=== PATIENT | female | born 1950 | race Caucasian/White ===

== ENCOUNTER 2019-12-13 19:43 | Emergency (ER) | payer MEDICARE, OTHER ==
[~2019-12-13] VITALS: Ht 165.1 cm; Wt 77.1 kg
--- OUTSIDE RECORDS SUMMARY | ~2019-12-13 | XMS | Encounter Summary ---
Demographics + + + | Address | [address] | | | [place] [address] | + + + | Home Phone | | + + + | Preferred Language | Unknown | + + + | Marital Status | Single | + + + | Taoism Affiliation | Unknown | + + + | Race | White | + + + | Ethnic Group | Not or | + + + Author + + + | Author | [facility] | + + + | Organization | [facility] | + + + | Address | Unknown | + + + | Phone | Unavailable | + + + Support + + +---------+ + | Name | Relationship | Address | Phone | + + +---------+ + | Jese Blair | ECON | Unknown | | + + +---------+ + Care Team Providers + +------+ + | Care Manager Plant Name | Role | Phone | + +------+ + | Jose Robles MD | PCP | | + +------+ + Encounter Details +--------+ + + + + | Date | Type | Department | Care Team | Description | +--------+ + + + + | 08/13/ | Pharmacy | [facility] | | | | 2020 | Visit | [address] [facility] | | | | | | [facility] [address] | | | | | | [place] [address] | | | | | | [phone] | | | +--------+ + + + + Social History + +-------+ +--------+------+ | Tobacco Use | Types | Packs/Day | Years | Date | | | | | Used | | + +-------+ +--------+------+ | Never Smoker | | | | | + +-------+ +--------+------+ + +---+---+---+ | Smokeless Tobacco: | | | | | Never Used | | | | + +---+---+---+ + + +---------+ + | Alcohol Use | Drinks/Week | oz/Week | Comments | + + +---------+ + | Yes | 1 Standard drinks | 1.0 | | | | or equivalent | | | + + +---------+ + + + + | Sex Assigned at | Date Recorded | | | | + + + | Not on file | | + + + + + + + | Job Start Date | Occupation | Industry | + + + + | Not on file | Not on file | Not on file | + + + + + + + + | Travel History | Travel Start | Travel End | + + + + + + | No recent travel history available. | + + documented as of this encounter Plan of Treatment +--------+ + + + + | Date | Type | Specialty | Care Team | Description | +--------+ + + + + | 12/25/ | Video/TeleH | Cardiology | Fabiana Larsen, | | | 2019 | ealth-Sched | | [facility] [address] | | | | uled | | [address] | | | | | | [place], [place] | | | | | | [address] | | +--------+ + + + + | 12/25/ | Video/TeleH | Cardiology | Tessie Mabry | | | 2019 | ealth-Sched | | [place] [address] | | | | uled | | [address] | | | | | | [place], [place] | | | | | | [address] | | | | | | [phone] | | | | | | | | +--------+ + + + + documented as of this encounter Visit Diagnoses Not on filedocumented in this encounter"
--- OUTSIDE RECORDS SUMMARY | ~2019-12-13 | XMS | Encounter Summary ---
Demographics + + + | Address | [address] | | | [place] [address] | + + + | Home Phone | | + + + | Preferred Language | Unknown | + + + | Marital Status | Single | + + + | Bahai Affiliation | Unknown | + + + | Race | White | + + + | Ethnic Group | Not or | + + + Author + + + | Author | [facility] | + + + | Organization | [facility] | + + + | Address | Unknown | + + + | Phone | Unavailable | + + + Support + + +---------+ + | Name | Relationship | Address | Phone | + + +---------+ + | Jese Blair | ECON | Unknown | | + + +---------+ + Care Team Providers + +------+ + | Care Pmp Name | Role | Phone | + +------+ + | Brooks Dempsey DO | PCP | | + +------+ + Encounter Details +--------+ + + + + | Date | Type | Department | Care Team | Description | +--------+ + + + + | 07/29/ | Abstract | Cardiology | Joanie Lynne | | | 2018 | | Preventive at [facility] | [address] | | | | | [address] | [address] [place], | | | | | [facility] | [place] [address] | | | | | and [address], | [phone] | | | | | [address] | | | | | | [place], [place] | | | | | | [address] | | | | | | [phone] | | | +--------+ + + + [...] [address] | | | | ulzac | | [address] | | | | | | [facility] [place] | | | | | | [address] | | +--------+ + + + + | 12/25/ | Video/TeleH | Cardiology | Tessie Mabry | | | 2019 | ealth-Sched | | Mary Jo, CTO [address] | | | | uled | | [address] | | | | | | [place], [place] | | | | | | [address] | | | | | | [phone] | | | | | | | | +--------+ + + + + documented as of this encounter Visit Diagnoses Not on filedocumented in this encounter"
--- OUTSIDE RECORDS SUMMARY | ~2019-12-13 | XMS | Encounter Summary ---
Demographics + + + | Address | [address] | | | [place] [address] | + + + | Home Phone | | + + + | Preferred Language | Unknown | + + + | Marital Status | Single | + + + | Jehovah'S Witness Affiliation | Unknown | + + + | Race | White | + + + | Ethnic Group | Not or | + + + Author + + + | Author | [facility] | + + + | Organization | [facility] | + + + | Address | Unknown | + + + | Phone | Unavailable | + + + Support + + +---------+ + | Name | Relationship | Address | Phone | + + +---------+ + | Jese Blair | ECON | Unknown | | + + +---------+ + Care Team Providers + +------+ + | Care Call Center Rn Name | Role | Phone | + +------+ + | Jose Robles MD | PCP | | + +------+ + Encounter Details +--------+ + + + + | Date | Type | Department | Care Team | Description | +--------+ + + + + | 04/11/ | Pharmacy | [facility] | | | | 2019 | Visit | [address] | | | | | | [facility] [address] | | | | | | [place] [address] | | | | | | [phone] | | | +--------+ + + + [...] Rd | | | | | | [place], [place] | | | | | | [address] | | +--------+ + + + + | 12/25/ | Video/TeleH | Cardiology | Tessie Mabry | | | 2019 | ealth-Sched | | [place] [address] | | | | uled | | [address] | | | | | | [place], [place] | | | | | | [address] | | | | | | [phone] | | | | | | | | +--------+ + + + + documented as of this encounter Visit Diagnoses Not on filedocumented in this encounter"
--- OUTSIDE RECORDS SUMMARY | ~2019-12-13 | XMS | Encounter Summary ---
Demographics + + + | Address | [address] | | | [place] [address] | + + + | Home Phone | | + + + | Preferred Language | Unknown | + + + | Marital Status | Single | + + + | Latter-Day Affiliation | Unknown | + + + | Race | White | + + + | Ethnic Group | Not or | + + + Author + + + | Author | [facility] | + + + | Organization | [facility] | + + + | Address | Unknown | + + + | Phone | Unavailable | + + + Support + + +---------+ + | Name | Relationship | Address | Phone | + + +---------+ + | Jese Blair | ECON | Unknown | | + + +---------+ + Care Team Providers + +------+ + | Care Track Laying Supervisor Name | Role | Phone | + +------+ + | Brooks Dempsey DO | PCP | | + +------+ + Encounter Details +--------+ + + + + | Date | Type | Department | Care Team | Description | +--------+ + + + + | 05/24/ | Document-Sc | Health Information | Unknown . | | | 2013 | anned | Services [address] | | | | | | [address] | | | | | | Mailcode: [id number] | | | | | | [facility] | | | | | | [place], [place] | | | | | | [address] | | | | | | [phone] | | | +--------+ + + + + Social History + +-------+ +--------+------+ | Tobacco Use | Types | Packs/Day | Years | Date | | | | | Used | | + +-------+ +--------+------+ | Never Assessed | | | | | + +-------+ +--------+------+ + + + | Sex Assigned at [...] 2019 | ealth-Sched | | [place] [address] [facility] | | | | re | | [address] | | | | | | [place], [place] | | | | | | [address] | | +--------+ + + + + | 12/25/ | Video/TeleH | Cardiology | Tessie Mabry | | | 2019 | ealth-Sched | | [place] [address] [facility] | | | | re | | [address] | | | | | | [place], [place] | | | | | | [address] | | | | | | [phone] | | | | | | | | +--------+ + + + + documented as of this encounter Procedures + +--------+ + + + | Procedure Name | Priori | Date/Time | Associated Diagnosis | Comments | | | ty | | | | + +--------+ + + + | RADIOLOGY | | 05/24/2013 | | Results for this | | | | 12:00 AM | | procedure are in the | | | | PST | | results section. | + +--------+ + + + documented in this encounter Results RADIOLOGY (05/24/2013 12:00 AM PST) + + + | Narrative | Performed At | + + + | | | + + + documented in this encounter Visit Diagnoses Not on filedocumented in this encounter"
--- OUTSIDE RECORDS SUMMARY | ~2019-12-13 | XMS | Encounter Summary ---
Demographics + + + | Address | [address] | | | [place] [address] | + + + | Home Phone | | + + + | Preferred Language | Unknown | + + + | Marital Status | Single | + + + | Jewish Affiliation | Unknown | + + + | Race | White | + + + | Ethnic Group | Not or | + + + Author + + + | Author | [facility] | + + + | Organization | [facility] | + + + | Address | Unknown | + + + | Phone | Unavailable | + + + Support + + +---------+ + | Name | Relationship | Address | Phone | + + +---------+ + | Jese Blair | ECON | Unknown | | + + +---------+ + Care Team Providers + +------+ + | Care Filing Machine Operator Name | Role | Phone | + +------+ + | Jose Robles MD | PCP | | + +------+ + Encounter Details +--------+ + + + + | Date | Type | Department | Care Team | Description | +--------+ + + + + | 08/13/ | Pharmacy | [facility] | | | | 2020 | Visit | [address] [facility] | | | | | | [facility] [address] | | | | | | [place] [address] | | | | | | [phone] | | | +--------+ + + + [...] Rd | | | | | | [place], [place] | | | | | | [address] | | +--------+ + + + + | 12/25/ | Video/TeleH | Cardiology | Tessie Mabry | | | 2019 | ealth-Sched | | [place] [address] | | | | uled | | [address] | | | | | | [place], [place] | | | | | | [address] | | | | | | [phone] | | | | | | | | +--------+ + + + + documented as of this encounter Visit Diagnoses Not on filedocumented in this encounter"
--- OUTSIDE RECORDS SUMMARY | ~2019-12-13 | XMS | Encounter Summary ---
Demographics + + + | Address | [address] | | | [place] [address] | + + + | Home Phone | | + + + | Preferred Language | Unknown | + + + | Marital Status | Single | + + + | Methodist Affiliation | Unknown | + + + | Race | White | + + + | Ethnic Group | Not or | + + + Author + + + | Author | [facility] | + + + | Organization | [facility] | + + + | Address | Unknown | + + + | Phone | Unavailable | + + + Support + + +---------+ + | Name | Relationship | Address | Phone | + + +---------+ + | Jese Blair | ECON | Unknown | | + + +---------+ + Care Team Providers + +------+ + | Care Contract Writer Name | Role | Phone | + +------+ + | Brooks Dempsey DO | PCP | | + +------+ + Encounter Details +--------+ + + + + | Date | Type | Department | Care Team | Description | +--------+ + + + + | 03/02/ | MyChart | Cardiology | Joanie Lynne | RE: Follow up on | | 2018 | Encounter | Preventive at [facility] | [address] | concern about hip | | | | [address] | [address], | pain/Rapatha | | | | [place] [facility] | [place] [address] | connection | | | | and Healing, | [phone] | | | | | [address] | | | | | | [place], [place] | | | | | | [address] | | | | | | [phone] | | | +--------+ + + + [...] | 2019 | ealth-Sched | | [place] [address] | | | | uled | | [address] | | | | | | [place], [place] | | | | | | [address] | | +--------+ + + + + | 12/25/ | Video/TeleH | Cardiology | Tessie Mabry | | 2019 | ealth-Sched | | Mary Jo, SENIOR SCHEDULER [address] | | | | uled | | [address] | | | | | | [place], [place] | | | | | | [address] | | | | | | [phone] | | | | | | | | +--------+ + + + + documented as of this encounter Visit Diagnoses Not on filedocumented in this encounter"
--- OUTSIDE RECORDS SUMMARY | ~2019-12-13 | XMS | Encounter Summary ---
Demographics + + + | Address | [address] | | | [place] [address] | + + + | Home Phone | | + + + | Preferred Language | Unknown | + + + | Marital Status | Single | + + + | Rastafarian Affiliation | Unknown | + + + | Race | White | + + + | Ethnic Group | Not or | + + + Author + + + | Organization | Unknown | + + + | Address | Unknown | + + + | Phone | Unavailable | + + + Support + + +---------+ + | Name | Relationship | Address | Phone | + + +---------+ + | Jese Ramirez ECON | Unknown | | + + +---------+ + Care Team Providers + +------+ + | Care Bleacher Pulp Name | Role | Phone | + +------+ + | Jose Robles MD | PCP | | + +------+ + Encounter Details +--------+--------+ + + + | Date | Type | Department | Care Team | Description | +--------+--------+ + + + | 11/23/ | Travel | | | | | 2019 | | | | | +--------+--------+ + + + Social History + +-------+ [...] 2019 | ealth-Sched | | [address] [address] | | | | re | | [address] | | | | | | [place], [place] | | | | | | [address] | | +--------+ + + + + | 12/25/ | Video/TeleH | Cardiology | Tessie Mabry | | | 2020 | [facility] | | [place] [address] [facility] | | | | re | | [address] | | | | | | [place] | | | | | | [address] | | | | | | [phone] | | | | | | | | +--------+ + + + + documented as of this encounter Visit Diagnoses Not on filedocumented in this encounter"
--- OUTSIDE RECORDS SUMMARY | ~2019-12-13 | XMS | Encounter Summary ---
Demographics + + + | Address | [address] | | | [place] [address] | + + + | Home Phone | | + + + | Preferred Language | Unknown | + + + | Marital Status | Single | + + + | Lutheran Affiliation | Unknown | + + + | Race | White | + + + | Ethnic Group | Not or | + + + Author + + + | Author | [facility] | + + + | Organization | [facility] | + + + | Address | Unknown | + + + | Phone | Unavailable | + + + Support + + +---------+ + | Name | Relationship | Address | Phone | + + +---------+ + | Jese Blair | ECON | Unknown | | + + +---------+ + Care Team Providers + +------+ + | Care Dry Kiln Operator Helper Name | Role | Phone | + +------+ + | Brooks Dempsey DO | PCP | | + +------+ + Encounter Details +--------+ + + + + | Date | Type | Department | Care Team | Description | +--------+ + + + + | 05/24/ | Document-Sc | Health Information | Unknown . | | | 2013 | anned | Services [address] | | | | | | [address] | | | | | | Mailcode: [id number] | | | | | | [facility] | | | | | | [place], [place] | | | | | | [address] | | | | | | [phone] | | | +--------+ + + + [...] 2019 | ealth-Sched | | [facility] [address] [facility] | | | | re | | [address] | | | | | | [place], [place] | | | | | | [address] | | +--------+ + + + + | 12/25/ | Video/TeleH | Cardiology | Tessie Mabry | | | 2019 | ealth-Sched | | [place] [address] [facility] | | | | re | | [address] | | | | | | [place], [place] | | | | | | [address] | | | | | | [phone] | | | | | | | [...]
--- OUTSIDE RECORDS SUMMARY | ~2019-12-13 | XMS | Encounter Summary ---
Demographics + + + | Address | [address] | | | [place] [address] | + + + | Home Phone [...] Author + + + | Author | [facility] | + + + | Organization | [facility] | + + + | Address | Unknown | + + + | Phone | Unavailable | + + + Support + + +---------+ + | Name | Relationship | Address | Phone | + + +---------+ + | Jese Blair | ECON | Unknown | | + + +---------+ + Care Team Providers + +------+ + | Care Dump Grader Name | Role | Phone | + +------+ + | Jose Robles MD | PCP | | + +------+ + Encounter Details +--------+ + + + + | Date | Type | Department | Care Team | Description | +--------+ + + + + | 05/15/ | Pharmacy | [facility] | | | | 2020 | Visit | [address] [facility] | | | | | | [facility] [place] [address] | | | | | | [place] [address] | | | | | | [phone] | | | +--------+ + + + [...] Rd | | | | | | [place], [place] | | | | | | [address] | | +--------+ + + + + | 12/25/ | Video/TeleH | Cardiology | Tessie Mabry | | | 2019 | ealth-Sched | | [place] [address] | | | | uled | | [address] | | | | | | [place], [place] | | | | | | [address] | | | | | | [phone] | | | | | | | | +--------+ + + + + documented as of this encounter Visit Diagnoses Not on filedocumented in this encounter"
--- OUTSIDE RECORDS SUMMARY | ~2019-12-13 | XMS | Encounter Summary ---
Demographics + + + | Address | [address] | | | [place] [address] | + + + | Home Phone | | + + + | Preferred Language | Unknown | + + + | Marital Status | Single | + + + | Adventist Affiliation | Unknown | + + + | Race | White | + + + | Ethnic Group | Not or | + + + Author + + + | Author | [facility] | + + + | Organization | [facility] | + + + | Address | Unknown | + + + | Phone | Unavailable | + + + Support + + +---------+ + | Name | Relationship | Address | Phone | + + +---------+ + | Jese Blair | ECON | Unknown | | + + +---------+ + Care Team Providers + +------+ + | Care Sack Filler Name | Role | Phone | + +------+ + | Jose Robles MD | PCP | | + +------+ + Reason for Visit + + + | Reason | Comments | + + + | Refill Request | | + + + Encounter Details +--------+--------+ + + + | Date | Type | Department | Care Team | Description | +--------+--------+ + + + | 08/11/ | Refill | Cardiology | Joanie Lynne | Refill Request | | 2019 | | Preventive at [facility] | [address] | | | | | [address] | [address] [place], | | | | | [facility] | [place] [address] | | | | | and [place], | [phone] | | | | | [address] | | | | | | [place], [place] | | | | | | [address] | | | | | | [phone] | | | +--------+--------+ + + + [...] [address] | | | | re | | [address] | | | | | | [facility] [place] | | | | | | [address] | | +--------+ + + + + | 12/25/ | Video/TeleH | Cardiology | Tessie Mabry | | | 2019 | ealth-Sched | | [place] [address] | | | | uled | | [address] | | | | | | [place] | | | | | | [address] | | | | | | [phone] | | | | | | | | +--------+ + + + + documented as of this encounter Visit Diagnoses Not on filedocumented in this encounter"
--- OUTSIDE RECORDS SUMMARY | ~2019-12-13 | XMS | Encounter Summary ---
Demographics + + + | Address | [address] | | | [place] [address] | + + + | Home Phone | | + + + | Preferred Language | Unknown | + + + | Marital Status | Single | + + + | Mosque Affiliation | Unknown | + + + | Race | White | + + + | Ethnic Group | Not or | + + + Author + + + | Author | [facility] | + + + | Organization | [facility] | + + + | Address | Unknown | + + + | Phone | Unavailable | + + + Support + + +---------+ + | Name | Relationship | Address | Phone | + + +---------+ + | Jese Blair | ECON | Unknown | | + + +---------+ + Care Team Providers + +------+ + | Care Certified Pharmacy Tech Name | Role | Phone | + +------+ + | Jose Robles MD | PCP | | + +------+ + Encounter Details +--------+ + + + + | Date | Type | Department | Care Team | Description | +--------+ + + + + | 09/05/ | Pharmacy | [facility] | | | | 2017 | Visit | Pharmacy [address] | | | | | | [address] | | | | | | [place], [place] | | | | | | [address] | | | | | | [phone] | | | +--------+ + + + [...] | | 2019 | ealth-Sched | | [address] | | | | uled | | [address] | | | | | | [place] | | | | | | [address] | | +--------+ + + + + | 12/25/ | Video/TeleH | Cardiology | Tessie Mabry | | | 2019 | ealth-Sched | | [place] [facility] [address] | | | | uled | | [address] | | | | | | [place], [place] | | | | | | [address] | | | | | | [phone] | | | | | | | | +--------+ + + + + documented as of this encounter Visit Diagnoses Not on filedocumented in this encounter"
--- OUTSIDE RECORDS SUMMARY | ~2019-12-13 | XMS | Encounter Summary ---
Demographics + + + | Address | [address] | | | [place] [address] | + + + | Home Phone | | + + + | Preferred Language | Unknown | + + + | Marital Status | Single | + + + | Restorationism Affiliation | Unknown | + + + | Race | White | + + + | Ethnic Group | Not or | + + + Author + + + | Author | [facility] | + + + | Organization | [facility] | + + + | Address | Unknown | + + + | Phone | Unavailable | + + + Support + + +---------+ + | Name | Relationship | Address | Phone | + + +---------+ + | Jese Blair | ECON | Unknown | | + + +---------+ + Care Team Providers + +------+ + | Care Fringe Knotter Name | Role | Phone | + +------+ + | Jose Robles MD | PCP | | + +------+ + Encounter Details +--------+ + + + + | Date | Type | Department | Care Team | Description | +--------+ + + + + | 12/30/ | Pharmacy | [facility] | | | | 2017 | Visit | Services [address] | | | | | | [address] | | | | | | [place], [place] | | | | | | [address] | | | | | | [phone] | | | +--------+ + + + [...] Rd | | | | | | [place] | | | | | | [address] | | +--------+ + + + + | 12/25/ | Video/TeleH | Cardiology | Tessie Mabry | | | 2019 | ealth-Sched | | [place] [address] | | | | uled | | [address] | | | | | | [place], [place] | | | | | | [address] | | | | | | [phone] | | | | | | | | +--------+ + + + + documented as of this encounter Visit Diagnoses Not on filedocumented in this encounter"
--- OUTSIDE RECORDS SUMMARY | ~2019-12-13 | XMS | Encounter Summary ---
Demographics + + + | Address | [address] | | | [place] [address] | + + + | Home Phone | | + + + | Preferred Language | Unknown | + + + | Marital Status | Single | + + + | Gnosticism Affiliation | Unknown | + + + | Race | White | + + + | Ethnic Group | Not or | + + + Author + + + | Author | [facility] | + + + | Organization | [facility] | + + + | Address | Unknown | + + + | Phone | Unavailable | + + + Support + + +---------+ + | Name | Relationship | Address | Phone | + + +---------+ + | Jese Blair | ECON | Unknown | | + + +---------+ + Care Team Providers + +------+ + | Care Dry Cleaning Supervisor Name | Role | Phone | + +------+ + | Jose Robles MD | PCP | | + +------+ + Encounter Details +--------+ + + + + | Date | Type | Department | Care Team | Description | +--------+ + + + + | 08/17/ | Pharmacy | Specialty Pharmacy | | | | 2017 | Visit | Services [address] | | | | | | [address] | | | | | | [place], [place] | | | | | | [address] | | | | | | [phone] | | | +--------+ + + + [...] Rd | | | | | | [place] | | | | | | [address] | | +--------+ + + + + | 12/25/ | Video/TeleH | Cardiology | Tessie Mabry | | | 2019 | ealth-Sched | | [place] [address] | | | | uled | | [address] | | | | | | [place], [place] | | | | | | [address] | | | | | | [phone] | | | | | | | | +--------+ + + + + documented as of this encounter Visit Diagnoses Not on filedocumented in this encounter"
--- OUTSIDE RECORDS SUMMARY | ~2019-12-13 | XMS | Encounter Summary ---
Demographics + + + | Address | [address] | | | [place] [address] | + + + | Home Phone | | + + + | Preferred Language | Unknown | + + + | Marital Status | Single | + + + | Voodoo Affiliation | Unknown | + + + | Race | White | + + + | Ethnic Group | Not or | + + + Author + + + | Author | [facility] | + + + | Organization | [facility] | + + + | Address | Unknown | + + + | Phone | Unavailable | + + + Support + + +---------+ + | Name | Relationship | Address | Phone | + + +---------+ + | Jese Blair | ECON | Unknown | | + + +---------+ + Care Team Providers + +------+ + | Care Dining Room Cashier Name | Role | Phone | + +------+ + | Jose Robles MD | PCP | | + +------+ + Encounter Details +--------+ + + + + | Date | Type | Department | Care Team | Description | +--------+ + + + + | 06/15/ | Pharmacy | [facility] | | | | 2020 | Visit | [address] [facility] [address] | | | | | | [facility] [address] | | | | | | [place] [address] | | | | | | [phone] | | | +--------+ + + + [...] [address] | | | | | | [place], [place] | | | | | | [address] | | +--------+ + + + + | 12/25/ | Video/TeleH | Cardiology | Tessie Mabry | | | 2019 | ealth-Sched | | [facility] [address] | | | | uled | | [address] | | | | | | [place], [place] | | | | | | [address] | | | | | | [phone] | | | | | | | | +--------+ + + + + documented as of this encounter Visit Diagnoses Not on filedocumented in this encounter"
--- OUTSIDE RECORDS SUMMARY | ~2019-12-13 | XMS | Encounter Summary ---
Demographics + + + | Address | [address] | | | [place] [address] | + + + | Home Phone | | + + + | Preferred Language | Unknown | + + + | Marital Status | Single | + + + | Sikhism Affiliation | Unknown | + + + | Race | White | + + + | Ethnic Group | Not or | + + + Author + + + | Author | [facility] | + + + | Organization | [facility] | + + + | Address | Unknown | + + + | Phone | Unavailable | + + + Support + + +---------+ + | Name | Relationship | Address | Phone | + + +---------+ + | Jese Blair | ECON | Unknown | | + + +---------+ + Care Team Providers + +------+ + | Care Tracer Powder Blender Name | Role | Phone | + +------+ + | Jose Robles MD | PCP | | + +------+ + Encounter Details +--------+ + + + + | Date | Type | Department | Care Team | Description | +--------+ + + + + | 09/02/ | Pharmacy | [facility] | | | | 2017 | Visit | Services [address] | | | | | | [address] | | | | | | [place], [place] | | | | | | [address] | | | | | | [phone] | | | +--------+ + + + [...] [address] | | | | | | [place] | | | | | | [address] | | +--------+ + + + + | 12/25/ | Video/TeleH | Cardiology | Tessie Mabry | | | 2019 | ealth-Sched | | [facility] [address] | | | | uled | | [address] | | | | | | [place], [place] | | | | | | [address] | | | | | | [phone] | | | | | | | | +--------+ + + + + documented as of this encounter Visit Diagnoses Not on filedocumented in this encounter"
--- OUTSIDE RECORDS SUMMARY | ~2019-12-13 | XMS | Encounter Summary ---
Demographics + + + | Address | [address] | | | [place] [address] | + + + | Home Phone | | + + + | Preferred Language | Unknown | + + + | Marital Status | Single | + + + | Cheondoism Affiliation | Unknown | + + + | Race | White | + + + | Ethnic Group | Not or | + + + Author + + + | Author | [facility] | + + + | Organization | [facility] | + + + | Address | Unknown | + + + | Phone | Unavailable | + + + Support + + +---------+ + | Name | Relationship | Address | Phone | + + +---------+ + | Jese Blair | ECON | Unknown | | + + +---------+ + Care Team Providers + +------+ + | Care Vp Human Resources Name | Role | Phone | + +------+ + | Jose Robles MD | PCP | | + +------+ + Encounter Details +--------+ + + + + | Date | Type | Department | Care Team | Description | +--------+ + + + + | 09/28/ | Pharmacy | [facility] | | | | 2017 | Visit | Pharmacy [address] | | | | | | [address] | | | | | | [place], [place] | | | | | | [address] | | | | | | [phone] | | | +--------+ + + + [...] [place] | | | | | | [address] | | +--------+ + + + + | 12/25/ | Video/TeleH | Cardiology | Tessie Mabry | | | 2019 | ealth-Sched | | [facility] [address] | | | | uled | | [address] | | | | | | [place], [place] | | | | | | [address] | | | | | | [phone] | | | | | | | | +--------+ + + + + documented as of this encounter Visit Diagnoses Not on filedocumented in this encounter"
--- OUTSIDE RECORDS SUMMARY | ~2019-12-13 | XMS | Clinical Summary ---
Demographics + + + | Address | [address] | | | [place] [address] | + + + | Home Phone | | + + + | Preferred Language | Unknown | + + + | Marital Status | Unknown | + + + | Rastafarian Affiliation | Unknown | + + + | Race | Unknown | + + + | Ethnic Group | Unknown | + + + Author + + + | Author | [facility] | | | [facility] | + + + | Organization | [facility] | | | [facility] [place] | + + + | Address | Unknown | + + + | Phone | Unavailable | + + + Care Team Providers + +------+ + | Care Senior Network Engineer Name | Role | Phone | + +------+ + PCP | Unavailable | + +------+ + Allergies Not on File Medications Not on file Active Problems Not on file Social History + +-------+ +--------+------+ | Tobacco [...] on file | | + + + Last Filed Vital Signs Not on file Plan of Treatment + + +-------+ + | Health Maintenance | Due Date | Last | Comments | | | | Done | | + + +-------+ + | Vaccine: | | | | | Dtap/Tdap/Td (1 - | 0 | | | | Tdap) | | | | + + +-------+ + | Vaccine: Zoster (1 | | | | | of 2) | 1 | | | + + +-------+ + | Breast Cancer | | | | | Screening | 6 | | | + + +-------+ + | Vaccine: | | | | | Pneumococcal 65+ (1 | 6 | | | | of 1 - PPSV23) | | | | + + +-------+ + | Vaccine: Influenza | | | | | (#1) | 0 | | | + + +-------+ + Results Not on filefrom Last 3 Months"
--- OUTSIDE RECORDS SUMMARY | ~2019-12-13 | XMS | Encounter Summary ---
Demographics + + + | Address | [address] | | | [place] [address] | + + + | Home Phone | | + + + | Preferred Language | Unknown | + + + | Marital Status | Single | + + + | Uatsdin Affiliation | Unknown | + + + | Race | White | + + + | Ethnic Group | Not or | + + + Author + + + | Author | [facility] | + + + | Organization | [facility] | + + + | Address | Unknown | + + + | Phone | Unavailable | + + + Support + + +---------+ + | Name | Relationship | Address | Phone | + + +---------+ + | Jese Blair | ECON | Unknown | | + + +---------+ + Care Team Providers + +------+ + | Care Critical Systems Technician Name | Role | Phone | + +------+ + | Jose Robles MD | PCP | | + +------+ + Encounter Details +--------+ + + + + | Date | Type | Department | Care Team | Description | +--------+ + + + + | 10/11/ | Pharmacy | [facility] | | | | 2020 | Visit | [address] [facility] | | | | | | [facility] [address] | | | | | | [place] [address] | | | | | | [phone] | | | +--------+ + + + [...] [address] | | | | | | [place], [place] | | | | | | [address] | | +--------+ + + + + | 12/25/ | Video/TeleH | Cardiology | Tessie Mabry | | | 2019 | ealth-Sched | | [facility] [address] | | | | uled | | [address] | | | | | | [place], [place] | | | | | | [address] | | | | | | [phone] | | | | | | | | +--------+ + + + + documented as of this encounter Visit Diagnoses Not on filedocumented in this encounter"
--- OUTSIDE RECORDS SUMMARY | ~2019-12-13 | XMS | Encounter Summary ---
Demographics + + + | Address | [address] | | | [place] [address] | + + + | Home Phone | | + + + | Preferred Language | Unknown | + + + | Marital Status | Single | + + + | Church Affiliation | Unknown | + + + | Race | White | + + + | Ethnic Group | Not or | + + + Author + + + | Author | [facility] | + + + | Organization | [facility] | + + + | Address | Unknown | + + + | Phone | Unavailable | + + + Support + + +---------+ + | Name | Relationship | Address | Phone | + + +---------+ + | Jese Blair | ECON | Unknown | | + + +---------+ + Care Team Providers + +------+ + | Care Nuclear Medicine Officer Name | Role | Phone | + +------+ + | Jose Robles MD | PCP | | + +------+ + Encounter Details +--------+ + + + + | Date | Type | Department | Care Team | Description | +--------+ + + + + | 04/05/ | Pharmacy | [facility] | | | | 2017 | Visit | [address] [facility] | | | | | | [facility] [address] | | | | | | [place] [address] | | | | | | [phone] | | | +--------+ + + + [...] [address] | | | | | | [place], [place] | | | | | | [address] | | +--------+ + + + + | 12/25/ | Video/TeleH | Cardiology | Tessie Mabry | | | 2019 | ealth-Sched | | [facility] [address] | | | | uled | | [address] | | | | | | [place], [place] | | | | | | [address] | | | | | | [phone] | | | | | | | | +--------+ + + + + documented as of this encounter Visit Diagnoses Not on filedocumented in this encounter"
--- OUTSIDE RECORDS SUMMARY | ~2019-12-13 | XMS | Encounter Summary ---
Demographics + + + | Address | [address] | | | [place] [address] | + + + | Home Phone [...] Author + + + | Author | [facility] | + + + | Organization | [facility] | + + + | Address | Unknown | + + + | Phone | Unavailable | + + + Support + + +---------+ + | Name | Relationship | Address | Phone | + + +---------+ + | Jese Blair | ECON | Unknown | | + + +---------+ + Care Team Providers + +------+ + | Care Emergency Management Program Specialist Name | Role | Phone | + +------+ + | Jose Robles MD | PCP | | + +------+ + Reason for Referral Consultation (Routine) + +--------+ + + + + | Status | Reason | Specialty | Diagnoses / | Referred By | Referred To | | | | | Procedures | Contact | Contact | + +--------+ + + + + | New Request | | Sleep | Diagnoses | Raghavendra, | External | | | | Medicine | Essential | Tessie Camargo, | Vipul | | | | | hypertension | FIRST AID TEACHER [address] | | | | | | Procedures | [address] | | | | | | CONSULT TO | Zarina Williamson | | | | | | ADULT SLEEP | [place], [place] | | | | | | MEDICINE | [address] | | | | | | | Phone: | | | | | | | [phone] | | | | | | | Fax: | | | | | | | [phone] | | + +--------+ + + + + Diagnostic Testing (Routine) + +--------+ + + + + | Status | Reason | Specialty | Diagnoses / | Referred By | Referred To | | | | | Procedures | Contact | Contact | + +--------+ + + + + | New Request | | Cardiology | Diagnoses | Raghavendra, | External | | | | | | Tessie Camargo, | Order | | | | | Hypercholest | FIRST AID TEACHER [address] | | | | | | eremia | [address] | | | | | | Procedures | [place] | | | | | | STRESS | [place], [place] | | | | | | EXERCISE | [address] | | | | | | ECHOCARDIOGR | Phone: | | | | | | AM ONLY | [phone] | | | | | | | Fax: | | | | | | | [phone] | | + +--------+ + + + + Consultation (Routine) + +--------+ + + + + | Status | Reason | Specialty | Diagnoses / | Referred By | Referred To | | | | | Procedures | Contact | Contact | + +--------+ + + + + | New Request | | Cardiology | Diagnoses | Raghavendra, | Chava, | | | | | | Tessie Camargo, | YESENIA Jung | | | | | Hypercholest | FIRST AID TEACHER [address] | [address] | | | | | eremia | [address] | [address] | | | | | Procedures | [place] | [place], | | | | | CONSULT TO | [place], [place] | [place] | | | | | PREVENTIVE | [address] | [address] | | | | | CARDIOLOGY | Phone: | | | | | | | [phone] | | | | | | | Fax: | | | | | | | [phone] | | + +--------+ + + + + Reason for Visit + + + | Reason | Comments | + + + | Hyperlipidemia | | + + + Consultation (Routine) + +--------+ + + + + | Status | Reason | Specialty | Diagnoses / | Referred By | Referred To | | | | | Procedures | Contact | Contact | + +--------+ + + + + | Authorized | | Cardiology | Diagnoses | Phuc, | Raghavendra, | | | | | | Jalil Johnson, | Tessie Camargo, | | | | | Atherosclero | ,PhD [address] | FIRST AID TEACHER [address] | | | | | sis of | [address] | [address] | | | | | coronary | [address] | Zarina Williamson | | | | | artery, | [place], [place] | [place], [place] | | | | | angina | [address] | [address] | | | | | presence | Phone: | Phone: | | | | | unspecified, | [phone] | [phone] | | | | | unspecified | Fax: | Fax: | | | | | vessel or | [phone] | [phone] | | | | | lesion type, | | | | | | | unspecified | | | | | | | whether | | | | | | | [place] or | | | | | | | transplanted | | | | | | | heart | | | | | | | Procedures | | | | | | | CONSULT TO | | | | | | | CARDIOLOGY | | | + +--------+ + + + + Encounter Details +--------+---------+ + + + | Date | Type | Department | Care Team | Description | +--------+---------+ + + + | 06/06/ | Office | Cardiology | Tessie Mabry | Hypercholesteremia | | 2020 | Visit | Preventive at [facility] | M, FIRST AID TEACHER [address] | (Primary Dx); | | | | [address] | [address] | Prediabetes ; | | | | [place] [facility] | [place], [place] | Essential | | | | and Healing, | [address] | hypertension; | | | | [place] [address] | [phone] | Hypovitaminosis; | | | | [place], [place] | | Hypovitaminosis D | | | | [address] | | | | | | [phone] | | | +--------+---------+ + + + Social History + +-------+ [...] + + documented as of this encounter Last Filed Vital Signs + + + + + | Vital Sign | Reading | Time Taken | Comments | + + + + + | Blood Pressure | 142/63 | 06/06/2019 2:25 PM | | | | | PST | | + + + + + | Pulse | 74 | 06/06/2019 2:25 PM | | | | | PST | | + + + + + | Temperature | - | - | | + + + + + | Respiratory Rate | - | - | | + + + + + | Oxygen Saturation | 98% | 06/06/2019 2:25 PM | | | | | PST | | + + + + + | Inhaled Oxygen | - | - | | | Concentration | | | | + + + + + | Weight | 86.5 kg (190 lb 12.8 | 06/06/2019 2:25 PM | | | | oz) | PST | | + + + + + | Height | 165.1 cm (5' 5") | 06/06/2019 2:25 PM | | | | | PST | | + + + + + | Body Mass Index | 31.75 | 06/06/2019 2:25 PM | | | | | PST | | + + + + + documented in this encounter Patient Instructions Patient Instructions Tessie Mabry FNP - 06/06/2019 2:30 PM PSTPCSK9 Follow up Return to clinic: Please go to front desk administrator today and make an appointment to see me in 6 months with fasting la bs a few days before appointment (Get labs within 1-5 days after an injection) Given that these medications are still fairly new, costly and highly specialized, our clini c protocol now is that all patients taking either Praluent (Alirocumab) or Repatha (Evolocum ab) see me every 6 months for follow up. This may be in addition to visits with other cardio logy providers. LABS: Get fasting labs within 1-5 days after a injection at least 1 week before your next visit w ith me TESTS 1. Please schedule a Stress Echo when you return to [place] 2.Please follow up with your PCP for a further evaluation of your indigestion 3.PLease schedule a Sleep study 4.Scheduling will call you and schedule an appointment with the Dietitian. Please see immediate care if you experience any chest pain, increasing shortness of breath, jaw pain pain that radiates down your left arm or between shoulder blades It was a pleasure seeing you today and I look forward to seeing you in 6 months Take care Tessie SALDAÑA [address] Mail Code CR 9-4 [place] [address] Work [email or web address] documented in this encounter Progress Notes Tessie Mabry FNP - 06/06/2019 2:30 PM PSTFormatting of this note might be differen t from the original. Preventive Cardiology Encounter Note: Chief Complaint/Reason for Visit reviewed and noted as below: Chief Complaint Patient presents with Hyperlipidemia Time: History: Per chart review: Cele Blair is a 69 y.o. White woman with history of Per chart revie w: Cele Blair is a 68 y.o. White woman with history of HTN, Hypercholesterolemia, Stat in Intolerance, Moderate Premature Coronary Atherosclerosis (VHHI=270 in 2014, 90th percenti le), Obesity, originally referred here by Jalil Friend MD for assistance with lipid PCSK 9 initiation, is back today for PCSK9i therapy management, back today for management of PCS K9i therapy. Today, patient reports she started Repatha (Evolocumab) on approximately 09/06/2017 without side effects She had good initial response to Repatha (Evolocumab) - LDL decreased from 189 mg/dL-->54 m g/dL (71% decrease) She consented to the [facility] Bi[facility]pository Registry on 07/01/2017 Pt reports that she is having more indigestion of late - trying not to eat 4 hours before b edtime. Advised to F/U with PCP for further evaluation She has not been sleeping well for a long time and would like to have a sleep study - last night she only slept 5 hours. She reports that she is more forgetful and tired than usual a nd wonders if it is sleep related. Pt is also experiencing chest "fullness" and some deterioration in stamina levels. She repo rts that she is out of breath walking distances that she would normally be fine with. She is unable to pinpoint when it started maybe a few months ago. She took a fall last Dece mber and thinks that she cracked her rib. She does not think that this is related to her fit ness level. Pt points towards upper epigastric area and states that she experiences discomfort in this area after getting up in the morning and at night. She is taking more antacids than usual but trying not to. Denies any CP, pressure, palpitations with or without exertion, or radiation of pain nausea vomiting. Pt has no c/o chest pain or SOB in clinic today. Hyperlipidemia: excellent. Last injection was 05/26/19 Problems or concerns with injections? no Adverse side effects of PCSK9i medication? no Adherence with medications? Yes Cost: $160 per month Financial assistance program? no Pharmacy: [facility] Prior authorization ends: 12/23/19 Taking statin? No Currently taking: see below New cardiovascular events or procedures since started PCSK9i therapy? no Lipid Lowering Medication History: Simvastatin - not tried; Atorvastatin - dose: 10-20 mg daily ; discontinued due to side effects: Myalgias, myosit is and forgetfulness; Symptoms resolve on stopping? Yes for muscle symptoms, unknown for cog nitive symptoms; Re-challenged with recurrence of symptoms? Doesn't remember - Approximate d ate: 09/2003-01/2007 Rosuvastatin - dose: 10 mg daily ; discontinued due to side effects: myalgias, fatigue a nd forgetful; Symptoms resolve on stopping? Yes for muscle symptoms, unknown for cognitive s ymptoms; Re-challenged with recurrence of symptoms? no - Approximate date: Pravastatin - dose: 40 mg daily ; myalgias, myositis and forgetfulness; Symptoms resolve on stopping? yes; Re-challenged with recurrence of symptoms? Yes for muscle symptoms, unknown for cognitive symptoms - Approximate date: Lovastatin - dose: 40 mg daily ; discontinued due to side effects: myalgias, myositis and forgetfulness ; Symptoms resolve on stopping? Yes for muscle symptoms, unknown for cogniti ve symptoms; Re-challenged with recurrence of symptoms? no - Approximate date: Fluvastatin - not tried; Pitavastatin - dose: 1-2 mg daily ; discontinued due to side effects: Myalgias, forgetfu llness and sleep issues; Symptoms resolve on stopping? Yes for muscle and insomnia symptoms, unknown for cognitive symptoms; Re-challenged with recurrence of symptoms? yes - Approximat e date: (1 mg) ; (2 mg) ; 08/2016 but insurance denied Ezetimibe - dose: 10 mg daily ; discontinued due to side effects: hip pain - Approximate date: 02/2017 x 1-2 months Gemfibrozil - not tried Fenofibrate - Sounds familiar but patient unsure if tried Niacin - not tried Colesevelam - not tried Colestipol - not tried Cholestyramine - not tried Plant sterols/stanols - not tried Red yeast rice - dose: 1200 mg daily ; discontinued due to concerns about side effects, d id not actually experience any side effects - Approximate date: 2007 x a few months Stanton 3 fatty acid - dose: 1000 mg daily ; maximally tolerated dose without meeting LDL g oal - Approximate date: 2011-current Berberine - not tried Repatha - 140 mg; 09/06/2017 - current (140 mg every 2 weeks) Praluent - not tried Nutrition: Patient reports she has been attempting to follow a low saturated fat diet, inc luding plenty of fruits and vegetables.Doesn't eat a lot of meat - vegetarian cooking, nuts seeds Eats a lot of nuts Chicken fish occ red meat. Exercise/Physical Activity: Patient reports he has been attempting to be as physically acti ve as tolerated, including walking her dog every day however pt took a fall walking her dog last March and has had a decrease in physical activity. Weight: Wt Readings from Last 3 Encounters: 12/13/18 85.3 kg (188 lb) 05/17/18 86.2 kg (190 lb) 07/01/17 86.9 kg (191 lb 8 oz) Hypertension BP Readings from Last 3 Encounters: 12/13/18 145/76 05/17/18 145/66 07/01/17 144/70 PFSH: Medical and Social histories were reviewed and updated in EMR based on conversation with e patient. Please see that section of the EMR for full details. Reviewed with patient today: Past Medical History: Diagnosis Date Coronary atherosclerosis LHQG=211, 90th percentile for age and gender HTN (hypertension), benign Hyperlipidemia Statin intolerance Reviewed with patient today: Current Outpatient Medications Medication Sig aspirin chewable 81 mg oral tablet,chewable Chew and swallow 81 mg once daily. CALCIUM CARBONATE/VITAMIN D3 (CALCIUM CHEW ORAL) Take 1 tablet by mouth once daily. chlorhexidine 0.12 % mucous membrane mouthwash two times daily. Cholecalciferol (Vitamin D3) (VITAMIN D3) 2,000 unit oral tablet Take 2,000 Units [facility] daily. estradiol 10 mcg vaginal tablet 10 mcg once daily. evolocumab 140 mg/mL subcutaneous pen injector Inject content of 1 pen (140mg) under e skin (SUBC) every fourteen days. Indications: atherosclerotic cardiovascular disease Xbzlxqysasb-Sspgiymyr-Vad C-Mn (GLUCOSAMINE 1500 COMPLEX) 500-400 mg oral capsule Take 1 tablet by mouth once daily. LACTOBAC NO.41/BIFIDOBACT NO.7 (PROBIOTIC-10 ORAL) Take 1 tablet by mouth once daily. lisinopril-hydrochlorothiazide 10-12.5 mg oral tablet Take 10 tablets by mouth. mv,Ca,min-folic acid-vit K1 (ONE-A-DAY WOMEN'S 50 PLUS) 400-20 mcg oral tablet Take 1 t ablet by mouth once daily. Ojxxc-3-QTV-EPA-Fish Oil (FISH OIL) 1,000 mg (120 mg-180 mg) oral capsule Take 1 capsul e by mouth once daily. UBIDECARENONE/VITAMIN E MIXED (COQ10 SG 100 ORAL) Take 1 tablet by mouth once daily. No current facility-administered medications for this visit. Review of Systems: Pertinent items are noted in HPI. Physical Exam: There were no vitals taken for this visit. Vital signs reviewed. General: comfortable, alert and cooperative Psych: bright affect, not apparently anxious or depressed, judgment and insight appropriate in context of visit and apparently normal recent and remote memory Laboratory/Diagnostics: Per chart review: No results found for: NA, K, CL, BICARB, BUN, EGFRAFRICAN, EGFRNONAFR, CR, GLU, CA, ANIONGA P, ANIONALBCOR Recent Labs 11/23/18 1251 CHOL 151 LDL 56 HDL 56 TRI 193* LP(a): Ref. Range 07/01/2017 15:41 10/10/2017 11:10 LIPOPROTEIN A - LIPID LAB Latest Ref Range: <=30 mg/dL 41 (H) 25 Highest LDL for review: Assessment/Plan: Per chart review: Cele Blair is a 69 y.o. White woman with history of Per chart revie w: Cele Blair is a 68 y.o. White woman with history of HTN, Hypercholesterolemia, Stat in Intolerance, Moderate Premature Coronary Atherosclerosis (CBJS=966 in 2013, 90th percenti le), Obesity, originally referred here by Jalil Friend MD for assistance with lipid PCSK 9 initiation, is back today for PCSK9i therapy management, Back today for management of PCS K9i therapy. Per [place] [employer] Endocrinologists (AACE) 2017 Guidelines: R39. For individuals at very high risk (i.e., with established or recent hospitalization for ACS, coronary, carotid or peripheral vascular disease; diabetes or CKD stage 3 or 4 wit h 1 or more risk factors; a calculated 10-year risk greater than 20%; or heterozygous famili al hypercholesterolemia [HeFH]), an LDL-C goal of less than 70 mg/dL is recommended (Grade A ; BEL 1). LDL Goal < 55 mg/dL Hyperlipidemia - stable. Last injection was 05/26/19 A regular exercise program is recommended to help achieve and maintain normal body weight, fitness and improve lipids. I discussed the appropriate diet (low saturated fat, plenty of fruits and vegetables) and the need for lifelong adherence with medications and healthy life style (including aerobic activity, weight management) in order to reduce risk of CAD, AR and CVA was stressed. Pt to schedule a Stress test in [place] when she returns this week. Differentials considered at this visit include Angina, GERD, Esophagitis, PUD. Given the duration and nature of symptoms it's pointing to GI related therefore no urgent follow up necessary today but stressed that the stress test is a priority . The pt would like to chec k with insurance before proceeding but agrees with the plan. GI: Indigestion - Follow up with PCP for further evaluation and work up of indigestion. Obesity : Pt would like to work on her physical activity and maximize diet and lifestyle. Sleep - Pt to schedule a sleep study in [place]. Continue meds as above Return to Clinic: 6 months with fasting labs a few days before appointment (Get labs within 1-5 days after an injection) Given that these medications are still fairly new, costly and highly specialized, our clini c protocol now is that all patients taking either Praluent (Alirocumab) or Repatha (Evolocum ab) see me every 6 months for follow up. This may be in addition to or in place of visit wit h other cardiology providers. See patient instructions for patient education I reminded the patient about the importance of adopting healthy lifestyle habits and making small changes over time to ensure tolerance and sustainability of those changes. I emphasiz ed that this is a lifelong process, and small changes in nutrition and activity add up to si gnificant health benefits over time. We discussed assessment and plan and patient verbalized agreement with and understanding of plan of care and instructions as outlined. Potential side effects and safety (up to 3 years ) were discussed. Patient was informed that assisted safety (> 3 years) has not been establ ished. CARDIOLOGY - PREVENTIVE [address] Mailcode: [id number] [facility] [place] [phone] My total face to face time spent with this patient was 30 minutes. Greater than 50% of the face to face time was devoted to counseling and coordination of care, including counseling o n nutrition, exercise, medications as outlined above. documented in th is encounter Plan of Treatment +--------+ + + + + | Date | Type | Specialty | Care Team | Description | +--------+ + + + + | 12/25/ | Video/TeleH | Cardiology | Fabiana Larsen, | | | 2019 | ealth-Sched | | YESENIA [address] | | | | re | | [address] | | | | | | [place], [place] | | | | | | [address] | | +--------+ + + + + | 12/25/ | Video/TeleH | Cardiology | Tessie Mabry | | | 2019 | ealth-Sched | | PIOTR Camargo [address] | | | | uled | | [address] | | | | | | [place], [place] | | | | | | [address] | | | | | | [phone] | | | | | | | | +--------+ + + + + + +------+--------+ + + | Name | Type | Priori | Associated Diagnoses | Order Schedule | | | | ty | | | + +------+--------+ + + | TSH W/REFLEX TO FREE | Lab | Routin | Hypercholesteremia | Expected: 06/06/2019 | | T4(IF ABNORMAL) | | e | | (Approximate), | | | | | | Expires: 07/04/2020 | + +------+--------+ + + | HEMOGLOBIN A1C, | Lab | Routin | Hypercholesteremia | Expected: 06/06/2019 | | BLOOD | | e | Prediabetes | (Approximate), | | | | | | Expires: 07/04/2020 | + +------+--------+ + + | LIPID SET (TRIG, T | Lab | Routin | Hypercholesteremia | Expected: 06/06/2019 | | CHOL, HDL, CALC LDL) | | e | | (Approximate), | | | | | | Expires: 07/04/2020 | + +------+--------+ + + | STRESS EXERCISE | ECG | Routin | Hypercholesteremia | Ordered: 06/06/2019 | | ECHOCARDIOGRAM ONLY | | e | | | + +------+--------+ + + | ECG TRACING FOR | ECG | Routin | Hypercholesteremia | Expected: 06/06/2019 | | STRESS | | e | | (Approximate), | | ECHOCARDIOGRAM | | | | Expires: 07/04/2020 | + +------+--------+ + + documented as of this encounter Visit Diagnoses + + | Diagnosis | + + | Hypercholesteremia - Primary Pure hypercholesterolemia | + + | Prediabetes Other abnormal glucose | + + | Essential hypertension | + + | Hypovitaminosis Unspecified vitamin deficiency | + + | Hypovitaminosis D Unspecified vitamin D deficiency | + + documented in this encounter
--- OUTSIDE RECORDS SUMMARY | ~2019-12-13 | XMS | Encounter Summary ---
Demographics + + + | Address | [address] | | | [place] [address] | + + + | Home Phone | | + + + | Preferred Language | Unknown | + + + | Marital Status | Single | + + + | Pentecostal Affiliation | Unknown | + + + | Race | White | + + + | Ethnic Group | Not or | + + + Author + + + | Author | [facility] | + + + | Organization | [facility] | + + + | Address | Unknown | + + + | Phone | Unavailable | + + + Support + + +---------+ + | Name | Relationship | Address | Phone | + + +---------+ + | Jese Blair | ECON | Unknown | | + + +---------+ + Care Team Providers + +------+ + | Care Medical Records Analyst Name | Role | Phone | + +------+ + | Jose Robles MD | PCP | | + +------+ + Encounter Details +--------+ + + + + | Date | Type | Department | Care Team | Description | +--------+ + + + + | 05/30/ | MyChart | Cardiology | Tessie Mabry | RE: Blood work in | | 2020 | Encounter | Preventive at [facility] | M, GEOLOGICAL MANAGER [address] | prep for 06-06-19 | | | | [address] | [address] | appt. | | | | [place] [facility] | [place], [place] | | | | | and [place], | [address] | | | | | [address] | [phone] | | | | | [place], [place] | | | | | | [address] | | | | | | [phone] | | | +--------+ + + + [...] Rd | | | | | | [place] | | | | | | [address] | | +--------+ + + + + | 12/25/ | Video/TeleH | Cardiology | Tessie Mabry | | 2019 | ealth-Sched | | Mary Jo, GEOLOGICAL MANAGER [address] | | | | uled | | [address] | | | | | | [place], [place] | | | | | | [address] | | | | | | [phone] | | | | | | | | +--------+ + + + + documented as of this encounter Visit Diagnoses Not on filedocumented in this encounter"
--- OUTSIDE RECORDS SUMMARY | ~2019-12-13 | XMS | Encounter Summary ---
Demographics + + + | Address | [address] | | | [place] [address] | + + + | Home Phone | | + + + | Preferred Language | Unknown | + + + | Marital Status | Single | + + + | Faith Affiliation | Unknown | + + + | Race | White | + + + | Ethnic Group | Not or | + + + Author + + + | Author | [facility] | + + + | Organization | [facility] | + + + | Address | Unknown | + + + | Phone | Unavailable | + + + Support + + +---------+ + | Name | Relationship | Address | Phone | + + +---------+ + | Jese Blair | ECON | Unknown | | + + +---------+ + Care Team Providers + +------+ + | Care Finishing Machine Operator Name | Role | Phone | + +------+ + | Jose Robles MD | PCP | | + +------+ + Encounter Details +--------+ + + + + | Date | Type | Department | Care Team | Description | +--------+ + + + + | 08/10/ | Pharmacy | [facility]ty Pharmacy | | | | 2017 | Visit | Services [address] | | | | | | [address] | | | | | | [place], [place] | | | | | | [address] | | | | | | [phone] | | | +--------+ + + + [...] Rd | | | | | | [place] | | | | | | [address] | | +--------+ + + + + | 12/25/ | Video/TeleH | Cardiology | Tsesie Mabry | | | 2019 | ealth-Sched | | PIOTR Camargo [address] | | | | uled | | [address] | | | | | | [place], [place] | | | | | | [address] | | | | | | [phone] | | | | | | | | +--------+ + + + + documented as of this encounter Visit Diagnoses Not on filedocumented in this encounter"
--- OUTSIDE RECORDS SUMMARY | ~2019-12-13 | XMS | Encounter Summary ---
Demographics + + + | Address | [address] | | | [place] [address] | + + + | Home Phone | | + + + | Preferred Language | Unknown | + + + | Marital Status | Single | + + + | Sabianism Affiliation | Unknown | + + + | Race | White | + + + | Ethnic Group | Not or | + + + Author + + + | Author | [facility] | + + + | Organization | [facility] | + + + | Address | Unknown | + + + | Phone | Unavailable | + + + Support + + +---------+ + | Name | Relationship | Address | Phone | + + +---------+ + | Jese Blair | ECON | Unknown | | + + +---------+ + Care Team Providers + +------+ + | Care Laborer Wrecking And Salvaging Name | Role | Phone | + +------+ + | Brooks Dempsey DO | PCP | | + +------+ + Encounter Details +--------+------+ + + + | Date | Type | Department | Care Team | Description | +--------+------+ + + + | 07/01/ | Lab | Laboratory at [facility] | | Hypercholesteremia | | 2018 | | [address] | | | | | | [place] [facility] | | | | | | and Healing, | | | | | | [address] | | | | | | [place], [place] | | | | | | [address] | | | | | | [phone] | | | +--------+------+ + + + Social History + +-------+ [...] | ealth-Sched | | [address] | | | | uled | | [address] | | | | | | [place], [place] | | | | | | [address] | | +--------+ + + + + | 12/25/ | Video/TeleH | Cardiology | Tessie Mabry | | | 2019 | ealth-Sched | | Mary Jo, SOFTWARE VALIDATION ENGINEER [address] | | | | uled | | [address] | | | | | | [place], [place] | | | | | | [address] | | | | | | [phone] | | | | | | | | +--------+ + + + + documented as of this encounter Procedures + +--------+ + + + | Procedure Name | Priori | Date/Time | Associated Diagnosis | Comments | | | ty | | | | + +--------+ + + + | RESEARCH ADDITIONAL | Routin | 07/01/2017 | Hypercholesteremia | Results for this | | TUBES | e | 3:42 PM | | procedure are in the | | | | PST | | results section. | + +--------+ + + + | LIPID LAB - | Routin | 07/01/2017 | Hypercholesteremia | Results for this | | LIPOPROTEIN (A) | e | 3:41 PM | | procedure are in the | | | | PST | | results section. | + +--------+ + + + | LIPID LAB - LIPID | Routin | 07/01/2017 | Hypercholesteremia | Results for this | | PROFILE - PLASMA | e | 3:41 PM | | procedure are in the | | LIPIDS, HDL AND LDL | | PST | | results section. | + +--------+ + + + documented in this encounter Results RESEARCH ADDITIONAL TUBES (07/01/2017 3:42 PM PST) + + + + + + | Component | Value | Ref Range | Performed | Pathologist | | | | | At | Signature | + + + + + + | LABEL ONLY | No Results Expected; | | [facility] | | | - REF LAB | Research Collection Only | | LABORATORY | | | | | | SERVICES, | | | | | | CORE | | + + + + + + + + | Specimen | + + | Blood - Blood | | (substance) | + + + + + + + | Performing | Address | City/State/Zipcode | Phone Number | | Organization | | | | + + + + + | [facility] | [address] | [place] [address] | | | SERVICES, CORE | [address] | | | + + + + + LIPID LAB - LIPOPROTEIN (A) (07/01/2017 3:41 PM PST) + +--------+ + + + | Component | Value | Ref Range | Performed | Pathologist | | | | | At | Signature | + +--------+ + + + | LIPOPROTEIN | 41 (H) | <=30 mg/dL | [facility] | | | A - LIPID | | | LABORATORY | | | LAB | | | SERVICES, | | | | | | LIPID | | + +--------+ + + + + + | Specimen | + + | Blood - Blood | | (substance) | + + + + + + + | Performing | Address | City/State/Zipcode | Phone Number | | Organization | | | | + + + + + | [facility] | [address] | [place], [place] | | | SERVICES, LIPID | [address] | [address] | | + + + + + LIPID LAB - LIPID PROFILE - PLASMA LIPIDS, HDL AND LDL (07/01/2017 3:41 PM PST) + +---------+ + + + | Component | Value | Ref Range | Performed | Pathologist | | | | | At | Signature | + +---------+ + + + | TOTAL | 295 (H) | <220 mg/dl | [facility] | | | CHOLESTEROL | | | LABORATORY | | | - LIPID | | | SERVICES, | | | LAB | | | LIPID | | + +---------+ + + + | VLDL | 55 (H) | <=31 mg/dl | [facility] | | | CHOLESTEROL | | | LABORATORY | | | , | | | SERVICES, | | | CALCULATED | | | LIPID | | | - LIPID LAB | | | | | + +---------+ + + + | LDL, | 189 (H) | <100 mg/dl | [facility] | | | CHOLESTEROL | | | LABORATORY | | | - LIPID | | | SERVICES, | | | LAB | | | LIPID | | + +---------+ + + + | HDL, | 51 | >50 mg/dl | [facility] | | | CHOLESTEROL | | | LABORATORY | | | - LIPID | | | SERVICES, | | | LAB | | | LIPID | | + +---------+ + + + | TOTAL | 277 (H) | <150 mg/dl | [facility] | | | TRIGLYCERID | | | LABORATORY | | | E - LIPID | | | SERVICES, | | | LAB | | | LIPID | | + +---------+ + + + | NON-HDL | 244 (H) | <=130 mg/dL | [facility] | | | CHOLESTEROL | | | LABORATORY | | | (LIPID | | | SERVICES, | | | LAB) | | | LIPID | | + +---------+ + + + + + | Specimen | + + | Blood - Blood | | (substance) | + + + + + + + | Performing | Address | City/State/Zipcode | Phone Number | | Organization | | | | + + + + + | [facility] | [address] | [place], [place] | | | SERVICES, LIPID | [address] | [address] | | + + + + + documented in this encounter Visit Diagnoses + + | Diagnosis | + + | Hypercholesteremia Pure hypercholesterolemia | + + documented in this encounter"
--- OUTSIDE RECORDS SUMMARY | ~2019-12-13 | XMS | Encounter Summary ---
Demographics + + + | Address | [address] | | | [place] [address] | + + + | Home Phone | | + + + | Preferred Language | Unknown | + + + | Marital Status | Single | + + + | Mandaeism Affiliation | Unknown | + + + [...] Team Providers + +------+ + | Care Gravure Printing Machinist Name | Role | Phone | + +------+ + | Brooks Dempsey DO | PCP | | + +------+ + Encounter Details +--------+ + + + + | Date | Type | Department | Care Team | Description | +--------+ + + + + | 05/07/ | MyChart | Cardiology | Joanie Lynne | RE: Verification of | | 2019 | Encounter | Preventive at [facility] | [address] | scheduled blood work | | | | [address] | [address] [place], | | | | | [facility] | [place] [address] | | | | | and Healing, | [phone] | | | | | [address] | | | | | | [place], [place] | | | | | | [address] | | | | | | [phone] | | | +--------+ + + + [...] Rd | | | | | | [place] | | | | | | [address] | | +--------+ + + + + | 12/25/ | Video/TeleH | Cardiology | Tessie Mabry | | | 2019 | ealth-Sched | | [facility] [address] | | | | uled | | [address] | | | | | | [place], [place] | | | | | | [address] | | | | | | [phone] | | | | | | | | +--------+ + + + + documented as of this encounter Visit Diagnoses Not on filedocumented in this encounter"
--- OUTSIDE RECORDS SUMMARY | ~2019-12-13 | XMS | Encounter Summary ---
Demographics + + + | Address | [address] | | | [place] [address] | + + + | Home Phone | | + + + | Preferred Language | Unknown | + + + | Marital Status | Single | + + + | Nondenominational Affiliation | Unknown | + + + | Race | White | + + + | Ethnic Group | Not or | + + + Author + + + | Author | [facility] | + + + | Organization | [facility] | + + + | Address | Unknown | + + + | Phone | Unavailable | + + + Support + + +---------+ + | Name | Relationship | Address | Phone | + + +---------+ + | Jese Blair | ECON | Unknown | | + + +---------+ + Care Team Providers + +------+ + | Care Physical Security Manager Name | Role | Phone | + +------+ + | Jose Robles MD | PCP | | + +------+ + Encounter Details +--------+ + + + + | Date | Type | Department | Care Team | Description | +--------+ + + + + | 09/10/ | Pharmacy | [facility] | | | | 2020 | Visit | [address] [facility] | | | | | | [facility] [address] | | | | | | [place] [address] | | | | | | [phone] | | | +--------+ + + + [...] [address] | | | | | | [place], [place] | | | | | | [address] | | +--------+ + + + + | 12/25/ | Video/TeleH | Cardiology | Tessie Mabry | | | 2019 | ealth-Sched | | [facility] [address] | | | | uled | | [address] | | | | | | [place], [place] | | | | | | [address] | | | | | | [phone] | | | | | | | | +--------+ + + + + documented as of this encounter Visit Diagnoses Not on filedocumented in this encounter"
--- OUTSIDE RECORDS SUMMARY | ~2019-12-13 | XMS | Encounter Summary ---
Demographics + + + | Address | [address] | | | [place] [address] | + + + | Home Phone [...] Author + + + | Author | [facility] | + + + | Organization | [facility] | + + + | Address | Unknown | + + + | Phone | Unavailable | + + + Support + + +---------+ + | Name | Relationship | Address | Phone | + + +---------+ + | Jese Blair | ECON | Unknown | | + + +---------+ + Care Team Providers + +------+ + | Care Stripper Printed Circuit Boards Name | Role | Phone | + +------+ + | Jose Robles MD | PCP | | + +------+ + Encounter Details +--------+ + + + + | Date | Type | Department | Care Team | Description | +--------+ + + + + | 10/31/ | Pharmacy | [facility] | | | | 2017 | Visit | Pharm[address] | | | | | | [address] | | | | | | [place], [place] | | | | | | [address] | | | | | | [phone] | | | +--------+ + + + [...] [place] | | | | | | [address] | | +--------+ + + + + | 12/25/ | Video/TeleH | Cardiology | Tessie Mabry | | | 2019 | ealth-Sched | | [facility] [address] | | | | uled | | [address] | | | | | | [place], [place] | | | | | | [address] | | | | | | [phone] | | | | | | | | +--------+ + + + + documented as of this encounter Visit Diagnoses Not on filedocumented in this encounter"
--- OUTSIDE RECORDS SUMMARY | ~2019-12-13 | XMS | Encounter Summary ---
Demographics + + + | Address | [address] | | | [place] [address] | + + + | Home Phone | | + + + | Preferred Language | Unknown | + + + | Marital Status | Single | + + + | Buddhism Affiliation | Unknown | + + + | Race | White | + + + | Ethnic Group | Not or | + + + Author + + + | Author | [facility] | + + + | Organization | [facility] | + + + | Address | Unknown | + + + | Phone | Unavailable | + + + Support + + +---------+ + | Name | Relationship | Address | Phone | + + +---------+ + | Jese Blair | ECON | Unknown | | + + +---------+ + Care Team Providers + +------+ + | Care Marine Geologist Name | Role | Phone | + +------+ + | Jose Robles MD | PCP | | + +------+ + Encounter Details +--------+ + + + + | Date | Type | Department | Care Team | Description | +--------+ + + + + | 11/29/ | Pharmacy | [facility] | | | | 2017 | Visit | [address] | | | | | | [facility] 100 | | | | | | [place] [address] | | | | | | [phone] | | | +--------+ + + + [...] Rd | | | | | | [place], [place] | | | | | | [address] | | +--------+ + + + + | 12/25/ | Video/TeleH | Cardiology | Tessie Mabry | | | 2019 | ealth-Sched | | [facility] [address] | | | | uled | | [address] | | | | | | [place], [place] | | | | | | [address] | | | | | | [phone] | | | | | | | | +--------+ + + + + documented as of this encounter Visit Diagnoses Not on filedocumented in this encounter"
--- OUTSIDE RECORDS SUMMARY | ~2019-12-13 | XMS | Encounter Summary ---
Demographics + + + | Address | [address] | | | [place] [address] | + + + | Home Phone [...] Team Providers + +------+ + | Care Stereo Compiler Name | Role | Phone | + +------+ + | Jose Robles MD | PCP | | + +------+ + Encounter Details +--------+ + + + + | Date | Type | Department | Care Team | Description | +--------+ + + + + | 07/18/ | Pharmacy | [facility] | | | | 2020 | Visit | [address] [facility] | | | | | | [facility] 100 | | | | | | [place] [address] | | | | | | [phone] | | | +--------+ + + + [...] Rd | | | | | | [place], [place] | | | | | | [address] | | +--------+ + + + + | 12/25/ | Video/TeleH | Cardiology | Tessie Mabry | | | 2019 | ealth-Sched | | [facility] [address] | | | | uled | | [address] | | | | | | [place], [place] | | | | | | [address] | | | | | | [phone] | | | | | | | | +--------+ + + + + documented as of this encounter Visit Diagnoses Not on filedocumented in this encounter"
--- OUTSIDE RECORDS SUMMARY | ~2019-12-13 | XMS | Encounter Summary ---
Demographics + + + | Address | [address] | | | [place] [address] | + + + | Home Phone [...] Author + + + | Author | [facility] | + + + | Organization | [facility] | + + + | Address | Unknown | + + + | Phone | Unavailable | + + + Support + + +---------+ + | Name | Relationship | Address | Phone | + + +---------+ + | Jese Bliar | ECON | Unknown | | + + +---------+ + Care Team Providers + +------+ + | Care Scullion Chief Name | Role | Phone | + +------+ + | Jose Robles MD | PCP | | + +------+ + Encounter Details +--------+ + + + + | Date | Type | Department | Care Team | Description | +--------+ + + + + | 11/27/ | MyChart | Cardiology | Tessie Mabry | RE: Blood work | | 2020 | Encounter | Preventive at [facility] | M, IMPORT EXPORT COORDINATOR [address] | | | | | [address] | [address] | | | | | [facility] | [place], [place] | | | | | and [place], | [address] | | | | | Building [address] | [phone] | | | | | [place], [place] | | | | | | [address] | | | | | | [phone] | | | +--------+ + + + [...] Rd | | | | | | [place], [place] | | | | | | [address] | | +--------+ + + + + | 12/25/ | Video/TeleH | Cardiology | Tessie Mabry | | 2019 | ealth-Sched | | [facility] [address] | | | | uled | | [address] | | | | | | [place], [place] | | | | | | [address] | | | | | | [phone] | | | | | | | | +--------+ + + + + documented as of this encounter Visit Diagnoses Not on filedocumented in this encounter"
--- OUTSIDE RECORDS SUMMARY | ~2019-12-13 | XMS | Encounter Summary ---
Demographics + + + | Address | [address] | | | [place] [address] | + + + | Home Phone [...] Author + + + | Author | [facility] | + + + | Organization | [facility] | + + + | Address | Unknown | + + + | Phone | Unavailable | + + + Support + + +---------+ + | Name | Relationship | Address | Phone | + + +---------+ + | Jese Blair | ECON | Unknown | | + + +---------+ + Care Team Providers + +------+ + | Care Stator Plate Washer Name | Role | Phone | + +------+ + | Jose Robles MD | PCP | | + +------+ + Encounter Details +--------+ + + + + | Date | Type | Department | Care Team | Description | +--------+ + + + + | 04/23/ | MyChart | Cardiology | Tessie Mabry | RE: Repatha check up | | 2019 | Encounter | Preventive at [facility] | M, SITE COORDINATOR [address] | appt. on May | | | | [address] | [address] | [address] | | | | [place] [facility] | [place], [place] | | | | | and Healing, | [address] | | | | | [address] | [phone] | | | | | [place], [place] | | | | | | [address] | | | | | | [phone] | | | +--------+ + + + [...] Rd | | | | | | [place], [place] | | | | | | [address] | | +--------+ + + + + | 12/25/ | Video/TeleH | Cardiology | Tessie Mabry | | | 2019 | ealth-Sched | | Mary Jo, SITE COORDINATOR [address] | | | | uled | | [address] | | | | | | [place], [place] | | | | | | [address] | | | | | | [phone] | | | | | | | | +--------+ + + + + documented as of this encounter Visit Diagnoses Not on filedocumented in this encounter"
--- OUTSIDE RECORDS SUMMARY | ~2019-12-13 | XMS | Encounter Summary ---
Demographics + + + | Address | [address] | | | [place] [address] | + + + | Home Phone [...] + + + | Author | [facility] | + + + | Organization | [facility] | + + + | Address | Unknown | + + + | Phone | Unavailable | + + + Support + + +---------+ + | Name | Relationship | Address | Phone | + + +---------+ + | Jese Blair | ECON | Unknown | | + + +---------+ + Care Team Providers + +------+ + | Care Director Of Casework Name | Role | Phone | + +------+ + | Jose Robles MD | PCP | | + +------+ + Encounter Details +--------+ + + + + | Date | Type | Department | Care Team | Description | +--------+ + + + + | 12/27/ | Pharmacy | [facility] | | | | 2019 | Visit | [address] [facility] | | | | | | [facility] 100 | | | | | | [place] [address] | | | | | | [phone] | | | +--------+ + + + [...] Rd | | | | | | [place], [place] | | | | | | [address] | | +--------+ + + + + | 12/25/ | Video/TeleH | Cardiology | Tessie Mabry | | | 2019 | ealth-Sched | | [facility] [address] | | | | uled | | [address] | | | | | | [place], [place] | | | | | | [address] | | | | | | [phone] | | | | | | | | +--------+ + + + + documented as of this encounter Visit Diagnoses Not on filedocumented in this encounter"
--- OUTSIDE RECORDS SUMMARY | ~2019-12-13 | XMS | Encounter Summary ---
Demographics + + + | Address | [address] | | | [place] [address] | + + + | Home Phone [...] Author + + + | Author | [facility] | + + + | Organization | [facility] | + + + | Address | Unknown | + + + | Phone | Unavailable | + + + Support + + +---------+ + | Name | Relationship | Address | Phone | + + +---------+ + | Jese Blair | ECON | Unknown | | + + +---------+ + Care Team Providers + +------+ + | Care Dining Service Supervisor Name | Role | Phone | + +------+ + | Jose Robles MD | PCP | | + +------+ + Encounter Details +--------+ + + + + | Date | Type | Department | Care Team | Description | +--------+ + + + + | 06/06/ | Abstract | Cardiology | Tessie Mabry | | | 2020 | | Preventive at [facility] | Mary Jo, TATTOO DESIGNER [address] | | | | | [address] | [address] | | | | | [facility] | [place], [place] | | | | | and Healing, | [address] | | | | | [address] | [phone] | | | | | [place], [place] | | | | | | [address] | | | | | | [phone] | | | +--------+ + + + [...] Rd | | | | | | [place], [place] | | | | | | [address] | | +--------+ + + + + | 12/25/ | Video/TeleH | Cardiology | Tessie Mabry | | | 2019 | ealth-Sched | | Mary Jo, TATTOO DESIGNER [address] | | | | [place] | | [address] | | | | | | [place], [place] | | | | | | [address] | | | | | | [phone] | | | | | | | | +--------+ + + + + documented as of this encounter Procedures + +--------+ + + + | Procedure Name | Priori | Date/Time | Associated Diagnosis | Comments | | | ty | | | | + +--------+ + + + | BASIC METABOLIC SET | Routin | 06/01/2019 | | Results for this | | (NA, K, CL, TCO2, | e | | | procedure are in the | | BUN, CR, GLU, CA) | | | | results section. | + +--------+ + + + | LIPID SET (TRIG, T | Routin | 06/01/2019 | | Results for this | | CHOL, HDL, CALC LDL) | e | | | procedure are in the | | | | | | results section. | + +--------+ + + + documented in this encounter Results BASIC METABOLIC SET (NA, K, CL, TCO2, BUN, CR, GLU, CA) (06/01/2019) + +---------+ + + + | Component | Value | Ref Range | Performed | Pathologist | | | | | At | Signature | + +---------+ + + + | GLUCOSE, | 101 (A) | 70 - 100 mg/dL | [facility] | | | PLASMA | | | [facility]OSPITAL | | | (LAB) | | | | | + +---------+ + + + | BUN, PLASMA | 13 | 6 - 23 mg/dL | [facility] | | | (LAB) | | | HOSPITAL | | + +---------+ + + + | CREATININE | 0.70 | 0.70 - 1.25 | [facility] | | | PLASMA | | mg/dL | HOSPITAL | | | (LAB) | | | | | + +---------+ + + + | SODIUM, | 139 | 132 - 143 | [facility] | | | PLASMA | | mmol/L | HOSPITAL | | | (LAB) | | | | | + +---------+ + + + | POTASSIUM, | 3.7 | 3.6 - 5.1 | [facility] | | | PLASMA | | mmol/L | HOSPITAL | | | (LAB) | | | | | + +---------+ + + + | CHLORIDE, | 103 | 95 - 112 mmol/L | [facility] | | | PLASMA | | | HOSPITAL | | | (LAB) | | | | | + +---------+ + + + | TOTAL CO2, | 27 | 19 - 31 mmol/L | [facility] | | | PLASMA | | | HOSPITAL | | | (LAB) | | | | | + +---------+ + + + | CALCIUM, | 9.3 | 8.5 - 10.3 | [facility] | | | PLASMA | | mg/dL | HOSPITAL | | | (LAB) | | | | | + +---------+ + + + + + | Specimen | + + | Blood - Blood | | (substance) | + + + +---------+ + + | Performing | Address | City/State/Zipcode | Phone Number | | Organization | | | | + +---------+ + + | [facility] | | | [phone] | | HOSPITAL | | | | + +---------+ + + | [facility] | | [place], [place] | [phone] | | HOSPITAL | | | | + +---------+ + + LIPID SET (TRIG, T CHOL, HDL, CALC LDL) (06/01/2019) + +---------+ + + + | Component | Value | Ref Range | Performed | Pathologist | | | | | At | Signature | + +---------+ + + + | CHOLESTEROL | 155 | <200 mg/dL | [facility] | | | (LAB) | | | [facility]OSPITAL | | + +---------+ + + + | TRIGLYCERID | 213 (A) | 30 - 150 | [facility] | | | ES | | | HOSPITAL | | + +---------+ + + + | HDL | 55 | >40 mg/dL | [facility] | | | CHOLESTEROL | | | HOSPITAL | | + +---------+ + + + | VLDL | 43 (A) | 4 - 40 mg/dL | [facility] | | | CHOLESTEROL | | | HOSPITAL | | + +---------+ + + + | LDL | 57 | <100 mg/dL | [facility] | | | CHOLESTEROL | | | HOSPITAL | | | , | | | | | | CALCULATED | | | | | + +---------+ + + + | NON-HDL-CHO | 100 | 130 mg/dL | [facility] | | | L | | | HOSPITAL | | + +---------+ + + + + + | Specimen | + + | Blood - Blood | | (substance) | + + + +---------+ + + | Performing | Address | City/State/Zipcode | Phone Number | | Organization | | | | + +---------+ + + | [facility] | | | [phone] | | [facility]OS[facility]ITAL | | | | + +---------+ + + | [facility] | | [place] | [phone] | | HOSPITAL | | | | + +---------+ + + documented in this encounter Visit Diagnoses Not on filedocumented in this encounter"
--- OUTSIDE RECORDS SUMMARY | ~2019-12-13 | XMS | Encounter Summary ---
Demographics + + + | Address | [address] | | | [place] [address] | + + + | Home Phone [...] Providers + +------+ + | Care Manager Linux Name | Role | Phone | + +------+ + | Jose Robles MD | PCP | | + +------+ + Encounter Details +--------+ + + + + | Date | Type | Department | Care Team | Description | +--------+ + + + + | 11/09/ | Pharmacy | [facility] | | | | 2019 | Visit | [address] [facility] | | | | | | [facility] [address] | | | | | | [place] [address] | | | | | | [phone] | | | +--------+ + + + [...] Rd | | | | | | [place], [place] | | | | | | [address] | | +--------+ + + + + | 12/25/ | Video/TeleH | Cardiology | Tessie Mabry | | | 2019 | ealth-Sched | | [facility] [address] | | | | uled | | [address] | | | | | | [place], [place] | | | | | | [address] | | | | | | [phone] | | | | | | | | +--------+ + + + + documented as of this encounter Visit Diagnoses Not on filedocumented in this encounter"
--- OUTSIDE RECORDS SUMMARY | ~2019-12-13 | XMS | Encounter Summary ---
Demographics + + + | Address | [address] | | | [place] [address] | + + + | Home Phone | | + + + | Preferred Language | Unknown | + + + | Marital Status | Single | + + + | Scientology Affiliation | Unknown | + + + | Race | White | + + + | Ethnic Group | Not or | + + + Author + + + | Author | [facility] | + + + | Organization | [facility] | + + + | Address | Unknown | + + + | Phone | Unavailable | + + + Support + + +---------+ + | Name | Relationship | Address | Phone | + + +---------+ + | Jese Blair | ECON | Unknown | | + + +---------+ + Care Team Providers + +------+ + | Care Roustabout Pusher Name | Role | Phone | + +------+ + | Jose Robles MD | PCP | | + +------+ + Reason for Visit + + + | Reason | Comments | + + + | Hyperlipidemia | | + + + Encounter Details +--------+---------+ + + + | Date | Type | Department | Care Team | Description | +--------+---------+ + + + | 05/17/ | Office | Cardiology | Joanie Lynne | Hypercholesteremia | | 2019 | Visit | Preventive at [facility] | [address] | (Primary Dx); | | | | [address] | [address] [place], | Essential | | | | [facility] | [place] [address] | hypertension | | | | and Healing, | [phone] | | | | | [address] | | | | | | [place], [place] | | | | | | [address] | | | | | | [phone] | | | +--------+---------+ + + + [...] + + + | Blood Pressure | 145/66 | 05/17/2018 3:12 PM | | | | | PST | | + + + + + | Pulse | 78 | 05/17/2018 2:42 PM | | | | | PST | | + + + + + | Temperature | 36.9 C (98.5 F) | 05/17/2018 2:42 PM | | | | | PST | | + + + + + | Respiratory Rate | 14 | 05/17/2018 2:42 PM | | | | | PST | | + + + + + | Oxygen Saturation | 95% | 05/17/2018 2:42 PM | | | | | PST | | + + + + + | Inhaled Oxygen | - | - | | | Concentration | | | | + + + + + | Weight | 86.2 kg (190 lb) | 05/17/2018 2:42 PM | | | | | PST | | + + + + + | Height | 167.6 cm (5' 6") | 05/17/2018 2:42 PM | | | | | PST | | + + + + + | Body Mass Index | 30.67 | 05/17/2018 2:42 PM | | | | | PST | | + + + + + documented in this encounter Patient Instructions Patient Instructions Joanie Lynne PA-C - 05/17/2018 2:30 PM PSTPCSK9 Follow up Return to clinic: Please go to front desk coordinator today and make an appointment to see [...] before your next visit w ith me I recommend you see your PCP to discuss starting blood pressure medications, lump in neck ( I did not feel anything today) documented in this encounter Progress Notes Joanie Lynne PA-C - 05/17/2018 2:30 PM PSTFormatting of this note might be differe nt from the original. Preventive Cardiology Encounter Note: Chief Complaint/Reason for Visit reviewed and noted as below: Chief Complaint Patient presents with Hyperlipidemia History: Per chart review: Cele Blair is a 68 y.o. White woman with history of HTN, Hyperchole sterolemia, Statin Intolerance, Moderate Premature Coronary Atherosclerosis (NMCR=826 in 201 4, 90th percentile), Obesity, originally referred here by Jalil Friend MD for assistance with lipid PCSK9 initiation, is back today for PCSK9i therapy management. I originally saw her on 07/01/2017 to start the approval process. She received Repatha 140 mg injections from [facility] at $250 copay (she is n ot eligible for safety net). The first injection was given 09/06/2017 without side effects th ough she did note it took her three attempts to get the plunger to deploy She had good initial response to Repatha (Evolocumab) - LDL decreased from 189 mg/dL-->54 m g/dL (71% decrease) On 02/20/2018, she sent Neighborhoods message reporting significant muscle aches/hip pain. I advi sed her to skip the next dose of Repatha. She skipped 2 doses of Repatha, and reported left thigh/hip pain was diminishing and while seeing physical therapy. She restarted her Repatha on 03/27/2018. On 03/31/2018, she sent the following Neighborhoods message: "Muscle aching in my thighs is sporatic; however, still present. I am not seeing much dif ference than when I took the 7 week hiatus from using Repatha (mid-January/February,. A s you suggested in your previous message to me, I think I may wait until after I see Dr. Elvira antonio on April 14 before refilling my prescription. (Unless she advises me otherwise b etween now and then.)" She consented to the [facility] on 07/01/2017 She reports co-pay is $175 Financial assistance program? none Reports pressure sometimes in left chest - not related to exertion - more at rest. Sometime s trouble swallowing, tinging in both arms and face - all of these symptoms are separate - d oes not occur together. Reports she has a lot of anxiety, particularly about living alone. Lots of stress. Used to be on meds for anxiety but didn't like the side effects. She also reports lummp on left side of nek - comes and goes and feels tender Hyperlipidemia: Labs pending from today. Last injection - 05/14/2018. Physical therapy has helped a lot - still not 100% Problems or concerns with injections? no Adverse side effects of PCSK9i medication? No Adherence with medications? Yes Taking statin? Intolerant Currently taking: See below Lipid Lowering Medication History: Simvastatin - not tried; Atorvastatin - dose: 10-20 mg daily; discontinued due to side effects: Myalgias, my ositis and forgetfulness; Symptoms resolve on stopping? Yes for muscle symptoms, unknown for cognitive symptoms; Re-challenged with recurrence of symptoms? Doesn't remember- Approxim ate date: 09/2003-01/2007 Rosuvastatin - dose: 10 mg daily; discontinued due to side effects: myalgias, fatig ue and forgetful; Symptoms resolve on stopping? Yes for muscle symptoms, unknown for cogniti ve symptoms; Re-challenged with recurrence of symptoms? no- Approximate date: Pravastatin - dose: 40 mg daily; myalgias, myositis and forgetfulness; Symptoms resolve o n stopping? yes; Re-challenged with recurrence of symptoms? Yes for muscle symptoms, unkno wn for cognitive symptoms- Approximate date: Lovastatin - dose: 40 mg daily; discontinued due to side effects: myalgias, myositis and forgetfulness; Symptoms resolve on stopping? Yes for muscle symptoms, unknown for co gnitive symptoms; Re-challenged with recurrence of symptoms? no- Approximate date: -03/14 14 Fluvastatin - not tried; Pitavastatin - dose: 1-2 mg daily; discontinued due to side effects: Myalgias, forg etfullnessand sleep issues; Symptoms resolve on stopping? Yes for muscle and insomnia symp toms, unknown for cognitive symptoms; Re-challenged with recurrence of symptoms? yes- Appr oximate date: (1 mg) ; (2 mg) ; 08/2016 but insurance denied Ezetimibe - dose: 10 mg daily; discontinued due to side effects: hip pain- Approx imate date: 02/2017 x 1-2 months Gemfibrozil - not tried Fenofibrate - Sounds familiar but patient unsure if tried Niacin - not tried Colesevelam - not tried Colestipol - not tried Cholestyramine - not tried Plant sterols/stanols - not tried Red yeast rice- dose: 1200 mg daily; discontinued due to concerns about side effect s, did not actually experience any side effects- Approximate date: 2007 x a few months [place] Cbc Base 3 fatty acid - dose: 1000 mg daily; maximally tolerated dose without meeting LD L goal- Approximate date: 2011-current Berberine - not tried Repatha - 140 mg; 09/06/2017 - current (every 2 weeks) Praluent - not tried Nutrition: Still low saturated fat diet - tries to eat mostly chicken and fish, rarely red meats, lots of fresh vegetables. Avoids butter and margarin. Exercise/Physical Activity: 3 times a week - water aerobics. Walks dog Weight: working on managing her weight - stable Wt Readings from Last 3 Encounters: 05/17/18 86.2 kg (190 lb) 07/01/17 86.9 kg (191 lb 8 oz) 06/10/17 86.6 kg (191 lb) PFSH: Medical and Social histories were reviewed and updated in EMR based on conversation with th e patient, and noteable for no changes. Please see that section of the EMR for full details . Reviewed with patient today: Past Medical History: Diagnosis Date Coronary atherosclerosis ALYX=291, 90th percentile for age and gender Current Outpatient Prescriptions Medication Sig aspirin chewable 81 mg oral tablet,chewable Chew and swallow 81 mg once daily. CALCIUM CARBONATE/VITAMIN D3 (CALCIUM CHEW ORAL) Take 1 tablet by mouth once daily. Cholecalciferol (Vitamin D3) (VITAMIN D3) 2,000 unit oral tablet Take 2,000 Units by [facility] once daily. evolocumab 140 mg/mL subcutaneous pen injector Inject 1 mL (140mg) under the skin (SUBC ) every fourteen days. Indications: atherosclerotic cardiovascular disease Ebbtfzdkzpa-Ijckqmlue-Jlm C-Mn (GLUCOSAMINE 1500 COMPLEX) 500-400 mg oral capsule Take 1 tablet by mouth once daily. LACTOBAC NO.41/BIFIDOBACT NO.7 (PROBIOTIC-10 ORAL) Take 1 tablet by mouth once daily. mv,Ca,min-folic acid-vit K1 (ONE-A-DAY WOMEN'S 50 PLUS) 400-20 mcg oral tablet Take 1 t ablet by mouth once daily. Qkbfd-6-BVK-EPA-Fish Oil (FISH OIL) 1,000 mg (120 mg-180 mg) oral capsule Take 1 capsul e by mouth once daily. UBIDECARENONE/VITAMIN E MIXED (COQ10 SG 100 ORAL) Take 1 tablet by mouth once daily. No current facility-administered medications for this visit. Review of Systems: Pertinent items are noted in HPI. Physical Exam: BP 149/71 | Pulse 78 | Temp (Src) 36.9 C (98.5 F) (Oral) | RR 14 | Ht 1.676 m (5' 6") | Wt 86.2 kg (190 lb) | SpO2 95% | BMI 30.67 kg/(m^2) Vital signs reviewed. General: comfortable, alert, cooperative and well-appearing Neck: no appreciable masses, LAD Psych: bright affect, not apparently anxious or depressed, judgment and insight appropriate in context of visit, apparently normal recent and remote memory and oriented to time, selina ce and person Laboratory/Diagnostics: Per chart review: Recent Labs 07/01/17 1541 10/10/17 1110 CHOL 295* 146 LDL 189* 54 HDL 51 61 TRI 277* 156* LP(a): Ref. Range 07/01/2017 15:41 10/10/2017 11:10 LIPOPROTEIN A - LIPID LAB Latest Ref Range: <=30 mg/dL 41 (H) 25 Assessment/Plan: Cele Blair is a 68 y.o. White woman with history of HTN, Hypercholesterolemia, Statin Intolerance, Moderate Premature Coronary Atherosclerosis (RJGH=518 in 2014, 90th percentile ), Obesity, originally referred here by Jalil Friend MD for assistance with lipid PCSK9 initiation, is back today for PCSK9i therapy management. I do not feel that any of her symptoms are consistent with a cardiac etiology, But do feel that anxiety plays a significant role, and she agrees. She will discuss with PCP, though eleazar monroe does not really want to take medications for this Per [place] Association of Clinical Endocrinologists (AACE) 2017 Guidelines: [...] is recommended (Grade A ; BEL 1). Hyperlipidemia - Labs pending from today. A regular exercise program is recommended to help achieve and maintain normal body weight, fitness and improve lipids. I discussed the appropriate diet (low saturated fat, plenty of fruits and vegetables) and the need for lifelong adherence with medications and healthy life style (including aerobic activity, weight management) in order to reduce risk of CAD, AR and CVA was stressed. Contine meds as above LDL Goal < 70 mg/dL Hypertension - No medications - used to be on BP medications - but stopped due to side effe cts. Patient as educated that her target goal for BP is < 120/80. In the Systolic Blood Pressure Intervention Trial (SPRINT), investigators report that treat ing high-risk hypertensive adults 50 years of age and older to a target of 120 mm Hg signifi cantly reduced cardiovascular events by 30% and reduced all-cause mortality by nearly 25% wh en compared with patients treated to a target of 140 mm Hg. In addition, lower SBP targets, such as those recommended by JNC-7 or used in SPRINT (SBP < 120) are associated with greater cognitive protection (KRISTAL Neurol. Published online December 13, 2016. Doi:10.1001/jamaneurol.2017.1863) I recommend you see your PCP to discuss starting blood pressure medications, lump in neck ( I did not feel anything today) Labs/Tests ordered: none today Return to Clinic: 6 months with fasting [...] plan of care and instructions as outlined. CARDIOLOGY - PREVENTIVE [address] Mailcode: [id number] [facility] [place] [address] docutam in t his encounter Plan of Treatment +--------+ + + + + | Date | Type | Specialty | Care Team | Description | +--------+ + + + + | 12/25/ | Video/TeleH | Cardiology | Fabiana Larsen, | | | 2019 | ealth-Sched | | [facility] [address] | | | | uled | | [address] | | | | | | [place], [place] | | | | | | [address] | | +--------+ + + + + | 12/25/ | Video/TeleH | Cardiology | Tessie Mabry | | | 2019 | ealth-Sched | | [address] [address] | | | | uled | | [address] | | | | | | [place], [place] | | | | | | [address] | | | | | | [phone] | | | | | | | | +--------+ + + + + documented as of this encounter Results LIPID LAB - LIPOPROTEIN (A) (11/23/2018 12:51 PM PDT) + +-------+ + + + | Component | Value | Ref Range | Performed | Pathologist | | | | | At | Signature | + +-------+ + + + | LIPOPROTEIN | 21 | <=30 mg/dL | [facility] | | | A - LIPID | | | LABORATORY | | | LAB | | | SERVICES, | | | | | | LIPID | | + +-------+ + + + + + | Specimen | + + | Blood - Blood | | (substance) | + + + + + + + | Performing | Address | City/State/Zipcode | Phone Number | | Organization | | | | + + + + + | [facility] | [address] | [place], [place] | | | SERVICES, LIPID | [address] | [address] | | + + + + + LIPID LAB - LIPID PROFILE - PLASMA LIPIDS, HDL AND LDL (11/23/2018 12:51 PM PDT) + +---------+ + + + | Component | Value | Ref Range | Performed | Pathologist | | | | | At | Signature | + +---------+ + + + | TOTAL | 151 | <220 mg/dl | [facility] | | | CHOLESTEROL | | | LABORATORY | | | - LIPID | | | SERVICES, | | | LAB | | | LIPID | | + +---------+ + + + | VLDL | 39 (H) | <=31 mg/dl | [facility] | | | CHOLESTEROL | | | LABORATORY | | | , | | | SERVICES, | | | CALCULATED | | | LIPID | | | - LIPID LAB | | | | | + +---------+ + + + | LDL, | 56 | <100 mg/dl | [facility] | | | CHOLESTEROL | | | LABORATORY | | | - LIPID | | | SERVICES, | | | LAB | | | LIPID | | + +---------+ + + + | HDL, | 56 | >50 mg/dl | [facility] | | | CHOLESTEROL | | | LABORATORY | | | - LIPID | | | SERVICES, | | | LAB | | | LIPID | | + +---------+ + + + | TOTAL | 193 (H) | <150 mg/dl | [facility] | | | TRIGLYCERID | | | LABORATORY | | | E - LIPID | | | SERVICES, | | | LAB | | | LIPID | | + +---------+ + + + | NON-HDL | 95 | <=130 mg/dL | [facility] | | [...] | + + + + + | [facility] | [address] | [place], [place] | | | SERVICES, LIPID | [address] | [address] | | + + + + + RESEARCH ADDITIONAL TUBES (11/23/2018 12:47 PM PDT) + + + + + + | [...] + + | [facility] | [address] | [place] [address] | | | SERVICES, CORE | [address] | | | + + + + + documented in this encounter Visit Diagnoses + + | Diagnosis | + + | Hypercholesteremia - Primary Pure hypercholesterolemia | + + | Essential hypertension | + + documented in this encounter
--- OUTSIDE RECORDS SUMMARY | ~2019-12-13 | XMS | Encounter Summary ---
Demographics + + + | Address | [address] | | | [place] [address] | + + + | Home Phone [...] Team Providers + +------+ + | Care Automotive Center Manager Name | Role | Phone | + +------+ + | Brooks Dempsey DO | PCP | | + +------+ + Encounter Details +--------+ + + + + | Date | Type | Department | Care Team | Description | +--------+ + + + + | 07/29/ | Abstract | Cardiology | Joanie Lynne | | | 2018 | | Preventive at [facility] | [address] | | | | | [address] | [address], | | | | | [facility] | [place] [address] | | | | | and [place], | [phone] | | | | | [address] | | | | | | [place], [place] | | | | | | [address] | | | | | | [phone] | | | +--------+ + + + [...] [address] | | | | | | [facility] [place] | | | | | | [address] | | +--------+ + + + + | 12/25/ | Video/TeleH | Cardiology | Tessie Mabry | | | 2019 | ealth-Sched | | Mary Jo, RESEARCH SUPPORT SPECIALIST [address] | | | | uled | | [address] | | | | | | [place], [place] | | | | | | [address] | | | | | | [phone] | | | | | | | | +--------+ + + + + documented as of this encounter Visit Diagnoses Not on filedocumented in this encounter"
--- OUTSIDE RECORDS SUMMARY | ~2019-12-13 | XMS | Encounter Summary ---
Demographics + + + | Address | [address] | | | [place] [address] | + + + | Home Phone | | + + + | Preferred Language | Unknown | + + + | Marital Status | Single | + + + | Buddhist Affiliation | Unknown | + + + | Race | White | + + + | Ethnic Group | Not or | + + + Author + + + | Author | [facility] | + + + | Organization | [facility] | + + + | Address | Unknown | + + + | Phone | Unavailable | + + + Support + + +---------+ + | Name | Relationship | Address | Phone | + + +---------+ + | Jese Blair | ECON | Unknown | | + + +---------+ + Care Team Providers + +------+ + | Care Warper Fixer Name | Role | Phone | + +------+ + | Jose Robles MD | PCP | | + +------+ + Encounter Details +--------+ + + + + | Date | Type | Department | Care Team | Description | +--------+ + + + + | 12/12/ | Pharmacy | [facility] | | | | 2020 | Visit | [address] | | | | | | [facility] [address] | | | | | | [place] [address] | | | | | | [phone] | | | +--------+ + + + [...] [address] | | | | | | [place], [place] | | | | | | [address] | | +--------+ + + + + | 12/25/ | Video/TeleH | Cardiology | Tessie Mabry | | | 2019 | ealth-Sched | | [facility] [place] [address] | | | | uled | | [address] | | | | | | [place], [place] | | | | | | [address] | | | | | | [phone] | | | | | | | | +--------+ + + + + documented as of this encounter Visit Diagnoses Not on filedocumented in this encounter"
--- OUTSIDE RECORDS SUMMARY | ~2019-12-13 | XMS | Encounter Summary ---
Demographics + + + | Address | [address] | | | [place] [address] | + + + | Home Phone | | + + + | Preferred Language | Unknown | + + + | Marital Status | Single | + + + | Taoist Affiliation | Unknown | + + + | Race | White | + + + | Ethnic Group | Not or | + + + Author + + + | Author | [facility] | + + + | Organization | [facility] | + + + | Address | Unknown | + + + | Phone | Unavailable | + + + Support + + +---------+ + | Name | Relationship | Address | Phone | + + +---------+ + | Jese Blair | ECON | Unknown | | + + +---------+ + Care Team Providers + +------+ + | Care Head Of Conservation Name | Role | Phone | + [...] | 2020 | Encounter | Preventive at [facility] | M, DEPUTY ATTORNEY GENERAL [address] | prep for 06-06-19 | | | | [address] | [address] | appt. | | | | [place] for [facility] | [place], [place] | | | | | and [place], | [address] | | | | | [address] | [phone] | | | | | [place], [place] | | | | | | [address] | | | | | | [phone] | | | +--------+ + + + [...] [address] | | | | | | [place] | | | | | | [address] | | +--------+ + + + + | 12/25/ | Video/TeleH | Cardiology | Tessie Mabry | | 2019 | ealth-Sched | | Mary Jo, DEPUTY ATTORNEY GENERAL [address] | | | | uled | | [address] | | | | | | [place], [place] | | | | | | [address] | | | | | | [phone] | | | | | | | | +--------+ + + + + documented as of this encounter Visit Diagnoses Not on filedocumented in this encounter"
--- OUTSIDE RECORDS SUMMARY | ~2019-12-13 | XMS | Encounter Summary ---
Demographics + + + | Address | [address] | | | [place] [address] | + + + | Home Phone | | + + + | Preferred Language | Unknown | + + + | Marital Status | Single | + + + | Baptism Affiliation | Unknown | + + + | Race | White | + + + | Ethnic Group | Not or | + + + Author + + + | Author | [facility] | + + + | Organization | [facility] | + + + | Address | Unknown | + + + | Phone | Unavailable | + + + Support + + +---------+ + | Name | Relationship | Address | Phone | + + +---------+ + | Jese Blair | ECON | Unknown | | + + +---------+ + Care Team Providers + +------+ + | Care Sheet Tester Name | Role | Phone | + +------+ + | Jose Robles MD | PCP | | + +------+ + Encounter Details +--------+ + + + + | Date | Type | Department | Care Team | Description | +--------+ + + + + | 09/08/ | Pharmacy | Specialty Pharmacy | | | | 2017 | Visit | Services [address] | | | | | | [address] | | | | | | [place], [place] | | | | | | [address] | | | | | | [phone] | | | +--------+ + + + [...] [address] | | | | | | [place] | | | | | | [address] | | +--------+ + + + + | 12/25/ | Video/TeleH | Cardiology | Tessie Mabry | | | 2019 | ealth-Sched | | [facility] [place] [address] | | | | uled | | [address] | | | | | | [place], [place] | | | | | | [address] | | | | | | [phone] | | | | | | | | +--------+ + + + + documented as of this encounter Visit Diagnoses Not on filedocumented in this encounter"
--- OUTSIDE RECORDS SUMMARY | ~2019-12-13 | XMS | Encounter Summary ---
Demographics + + + | Address | [address] | | | [place] [address] | + + + | Home Phone | | + + + | Preferred Language | Unknown | + + + | Marital Status | Single | + + + | Zoroastrian Affiliation | Unknown | + + + | Race | White | + + + | Ethnic Group | Not or | + + + Author + + + | Author | [facility] | + + + | Organization | [facility] | + + + | Address | Unknown | + + + | Phone | Unavailable | + + + Support + + +---------+ + | Name | Relationship | Address | Phone | + + +---------+ + | Jese Blair | ECON | Unknown | | + + +---------+ + Care Team Providers + +------+ + | Care It Infrastructure Manager Name | Role | Phone | + +------+ + | Jose Robles MD | PCP | | + +------+ + Encounter Details +--------+ + + + + | Date | Type | Department | Care Team | Description | +--------+ + + + + | 09/23/ | Pharmacy | Specialty Pharmacy | | | | 2017 | Visit | Services [address] | | | | | | [address] | | | | | | [place], [place] | | | | | | [address] | | | | | | [phone] | | | +--------+ + + + [...] [address] | | | | | | [place] | | | | | | [address] | | +--------+ + + + + | 12/25/ | Video/TeleH | Cardiology | Tessie Mabry | | | 2019 | ealth-Sched | | [facility] [place] [address] | | | | uled | | [address] | | | | | | [place], [place] | | | | | | [address] | | | | | | [phone] | | | | | | | | +--------+ + + + + documented as of this encounter Visit Diagnoses Not on filedocumented in this encounter"
--- OUTSIDE RECORDS SUMMARY | ~2019-12-13 | XMS | Encounter Summary ---
Demographics + + + | Address | [address] | | | [place] [address] | + + + | Home Phone | | + + + | Preferred Language | Unknown | + + + | Marital Status | Single | + + + | Spiritism Affiliation | Unknown | + + + | Race | White | + + + | Ethnic Group | Not or | + + + Author + + + | Author | [facility] | + + + | Organization | [facility] | + + + | Address | Unknown | + + + | Phone | Unavailable | + + + Support + + +---------+ + | Name | Relationship | Address | Phone | + + +---------+ + | Jese Blair | ECON | Unknown | | + + +---------+ + Care Team Providers + +------+ + | Care Contact Lens Flashing Puncher Name | Role | Phone | + +------+ + | Brooks Dempsey DO | PCP | | + +------+ + Reason for Referral Consultation (Routine) +--------+--------+ + + + + | Status | Reason | Specialty | Diagnoses / | Referred By | Referred To | | | | | Procedures | Contact | Contact | +--------+--------+ + + + + | Closed | | Cardiology | Diagnoses | Phuc, | Guera, | | | | | | Jalil Monroe, | Joanie Branch, | | | | | Dudleyo | ,PhD [address] | PA-C [address] | | | | | sis of | [address] | [address] | | | | | coronary | [address] | [facility] [place] | | | | | artery, | [place] | [address] | | | | | angina | [address] | Phone: | | | | | presence | Phone: | [phone] | | | | | unspecified, | [phone] | Fax: | | | | | unspecified | Fax: | [phone] | | | | | vessel or | [phone] | | | | | | lesion type, | | | | | | | unspecified | | | | | | | whether | | | | | | | squaxin or | | | | | | | transplanted | | | | | | | heart | | | | | | | Procedures | | | | | | | CONSULT TO | | | | | | | CARDIOLOGY | | | +--------+--------+ + + + + Reason for Visit Intake Referral (Routine) + +--------+ + + + + | Status | Reason | Specialty | Diagnoses / | Referred By | Referred To | | | | | Procedures | Contact | Contact | + +--------+ + + + + | New Request | | Cardiology | Diagnoses | Ke, | Phuc, | | | | | | DO Brooks | Jalil Monroe, | | | | | Atherosclero | [address] | ,PhD [address] | | | | | tic heart | [place] | | | | | disease of | [place] | [address] | | | | | squaxin | [address] | [place], [place] | | | | | coronary | Phone: | [address] | | | | | artery | [phone] | Phone: | | | | | without | Fax: | [phone] | | | | | angina | [phone] | Fax: | | | | | pectoris | | [phone] | + +--------+ + + + + Encounter Details +--------+---------+ + + + | Date | Type | Department | Care Team | Description | +--------+---------+ + + + | 06/10/ | Office | Cardiology General | Jalil Friend, | Atherosclerosis of | | 2018 | Visit | at [facility] [address] | ,PhD [address] | coronary artery, | | | | e Center for | [address] | angina presence | | | | Health and Healing, | [place], [place] | unspecified, | | | | | [address] | unspecified vessel | | | | Floor [place], [place] | [phone] | or lesion type, | | | | [address] | | unspecified whether | | | | [phone] | | squaxin or | | | | | | transplanted heart | | | | | | (Primary Dx); | | | | | | Hypercholesteremia; | | | | | | Prediabetes ; | | | | | | Familial | | | | | | hypercholesterolemia | | | | | | ; Familial | | | | | | hypophosphatemia | +--------+---------+ + + + Social History + +-------+ +--------+------+ | Tobacco Use | Types | Packs/Day | Years | Date | | | | | Used | | + +-------+ +--------+------+ | Never Smoker | | | | | + +-------+ +--------+------+ + +---+---+---+ | Smokeless Tobacco: | | | | | Never Used | | | | + +---+---+---+ + + + | Sex Assigned at [...] + + + | Blood Pressure | 140/64 | 06/10/2017 9:41 AM | | | | | PST | | + + + + + | Pulse | 65 | 06/10/2017 9:41 AM | | | | | PST | | + + + + + | Temperature | - | - | | + + + + + | Respiratory Rate | - | - | | + + + + + | Oxygen Saturation | 97% | 06/10/2017 9:41 AM | | | | | PST | | + + + + + | Inhaled Oxygen | - | - | | | Concentration | | | | + + + + + | Weight | 86.6 kg (191 lb) | 06/10/2017 9:41 AM | | | | | PST | | + + + + + | Height | 165.1 cm (5' 5") | 06/10/2017 9:41 AM | | | | | PST | | + + + + + | Body Mass Index | 31.78 | 06/10/2017 9:41 AM | | | | | PST | | + + + + + documented in this encounter Patient Instructions Patient Instructions Jalil Friend MD,PhD - 06/10/2017 9:50 AM PSTYou are in the prev entative stage of treatment. This means that you likely have blockages in the blood vessels that feed blood to your heart but it is not yet causing you symptoms. The plan is to make shanell cervantes changes to prevent progression of the disease. I will have you come back to see Joanie Velez in the Preventive Cardiology clinic. Increase exercise (30-40 minutes 3-4 times pe r week), decrease fatty and fried foods, and control your blood pressure (decrease the amoun t of salt in your diet). I will have you get labs drawn today. Try to get your pharmacy and lab records sent to us before you see Joanie.Electronically sign ed by Jalil Friend MD,PhD at 06/10/2017 10:44 AM PST documented in this encounter Progress Notes Jalil Friend MD,PhD - 06/10/2017 9:50 AM PSTFormatting of this note might be differe nt from the original. CARDIOLOGY CLINIC - INITIAL VISIT: Reason for Consult: CAD HPI: Cele Blair is a 67 year old female with a history of elevated cholesterol and an intolera nce to statins who presents for evaluation in Cardiology clinic. Per patient, she is fairly active and has never had any cardiac symptoms. She can easily wa lk 1 mile and up 5 flights of stairs without any exertional chest pain or chest pressure. Bailey monroe has never had to stop any physical activity due to any similar symptoms. In 01/2017, she h ad some issues with light-headedness, tachycardia and nausea but it turns out she had a UTI. She denies having any similar symptoms any other time. No LE edema, orthopnea or PND. In , patient had a coronary artery calcium score of 256 which was > 90th percentile for her a ge. The patient then had a [facility] EKG in 07/2014 which showed a hypertensive response but no evidence of inducible ischemia. Patient says she has tried every statin and has not tolerate d any of them due to myalgias. She also tried Zetia but could not tolerate this due to "hip pain". She comes here to identify ways to decrease her risk of progression of coronary arter y disease. On ROS, patient denies recent fevers or chills. No night-sweats or unintentional weight los s. No nausea or vomiting. No abdominal pain, hematochezia or melena. No excessive joint pain or stiffness. No rash. A 10-point review of systems was otherwise negative. Past Medical History: 1) HTN - currently not on any medications 2) Hypercholesetrolemia Current Outpatient Prescriptions Medication Sig aspirin chewable 81 mg oral tablet,chewable Chew and swallow 81 mg once daily. CALCIUM CARBONATE/VITAMIN D3 (CALCIUM CHEW ORAL) Take by mouth. Cholecalciferol (Vitamin D3) (VITAMIN D3) 2,000 unit oral tablet Take 2,000 Units by mo [facility] once daily. Noxuamnqdvx-Clufmogpr-Lmy C-Mn (GLUCOSAMINE 1500 COMPLEX) 500-400 mg oral capsule Take by mouth. LACTOBAC NO.41/BIFIDOBACT NO.7 (PROBIOTIC-10 ORAL) Take by mouth once daily. melatonin 1 mg oral tablet Take 3 mg by mouth once daily in the evening. mv,Ca,min-folic acid-vit K1 (ONE-A-DAY WOMEN'S 50 PLUS) 400-20 mcg oral tablet Take by mouth once daily. Gumjs-4-CHZ-EPA-Fish Oil (FISH OIL) 1,000 mg (120 mg-180 mg) oral capsule Take by mouth . UBIDECARENONE/VITAMIN E MIXED (COQ10 SG 100 ORAL) Take by mouth. Allergies not on file Social History Social History Marital status: Single Spouse name: N/A Number of children: N/A Years of education: N/A Occupational History Not on file. Social History Main Topics Smoking status: Never Smoker Smokeless tobacco: Never Used Alcohol use Very Rare Drug use: Denies Sexual activity: Not on file Other Topics Concern Not on file Social History Narrative Lives in [place], [place] Family History Mother: of CHF at age 85 Father: estranged so medical history unknown Physical Exam: Last Vitals: BP 140/64 | Pulse 65 | Ht 1.651 m (5' 5") | Wt 86.6 kg (191 lb) | SpO2 97% | BMI 31.78 kg/( m^2) General: healthy, no acute distress Neck: no JVD CV: RRR; normal S1/S2 without any murmurs rubs or gallops Pulm: Lungs clear to auscultation bilaterally Abd: Soft, non-tender, +BS Ext: WWP; no pitting LE edema bilaterally Skin: no rashes or bruises Musc: Good upper and lower extremity strength DATA: None IMAGING: Coronary artery calcium score 09/2013: 256 (90th percentile) Stress EKG 08/2014: Hypertensive respone; no evidence of ischemia EKG 06/10/2017: Normal sinus rhythm Assessment and Recommendations: In summary, we have a 67 year old female with a history of elevated cholesterol and an int olerance to statins who presents for evaluation in Cardiology clinic. # Elevated Coronary Artery Calcium Score: Patient's coronary artery calcium score was 256 i n 2013 (> 90th percentile) suggesting she very likely has underlying coronary artery dise ase. However, she is currently active and without any symptoms of angina/ischemia. As such, she remains in the preventive category and needs aggressive lifestyle and risk modification. She is currently on 81 mg ASA daily which she should continue. We talked about increasing p hysical activity and modifying diet to include low NaCl. Of course, one of the sy treatments to reduce risk of disease progression would be cholest maría lowering therapy, the mainstay of which is a statin. It appears patient has been on eac h of the statins at some point and did not tolerate them. She further has not tolerated Zeti a. I don't have access to her previous cholesterol lab results but patient says total choles terol has been around 250 with LDL around 105 (while on statins). To aggressively modify her risk, I think she would benefit from PCSK-9 inhibitor therapy. I will refer her to see Joanie Velez in our Preventive Cardiology clinic. I will start the workup necessary to evaluate whether she qualifies for this treatment. - Continue 81 mg ASA daily - Increase physical activity and adhere to low NaCl diet - Refer to Preventive Cardiology clinic to be evaluated for PCSK-9 inhibitor therapy - Labs today: HA1C, Lp(a), homocystine, BMP, TSH, Vit. D levels, UA to look for protein in urine - Will need lipid panel when she sees Joanie at next visit (patient was not fasting today) # HTN: Patient has a history of HTN and her blood pressure is elevated in clinic today at 1 40/64. Patient says she has a component of "white coat HTN" but does admit her BP is usually > 130 mm Hg systolic. I will defer to her PCP but would recommend strict blood pressure con trol to minimize her risk of progression to coronary artery disease. A good medication to st art with would be chlorthalidone. - Will defer to PCP but would recommend aggressive blood pressure control moving forward Patient will establish care in the Preventive Cardiology clinic here at [facility]. She does not need regularly scheduled follow-up in the General Cardiology clinic but happy to see her aga in if the need arises. -Jalil Friend MD/PhD Triage Clinician [facility] Pager [phone] documented in t his encounter Plan of Treatment [...] [address] | | | | | | [place], [place] | | | | | | [address] | | +--------+ + + + + | 12/25/ | Video/TeleH | Cardiology | Tessie Mabry | | | 2019 | ealth-Sched | | Mary Jo, TALENT RECRUITER [address] | | | | uled | | [address] | | | | | | [place], [place] | | | | | | [address] | | | | | | [phone] | | | | | | | | +--------+ + + + + documented as of this encounter Procedures + +--------+ + + + | Procedure Name | Priori | Date/Time | Associated Diagnosis | Comments | | | ty | | | | + +--------+ + + + | 12 LEAD ECG | Routin | 06/10/2017 | Atherosclerosis of | Results for this | | | e | 9:53 AM | coronary artery, | procedure are in the | | | | PST | angina presence | results section. | | | | | unspecified, | | | | | | unspecified vessel | | | | | | or lesion type, | | | | | | unspecified whether | | | | | | squaxin or | | | | | | transplanted heart | | + +--------+ + + + documented in this encounter Results LIPID LAB - LIPOPROTEIN (A) (06/10/2017 11:09 AM PST) + +--------+ + + + | Component | Value | Ref Range | Performed | Pathologist | | | | | At | Signature | + +--------+ + + + | LIPOPROTEIN | 32 (H) | <=30 mg/dL | [facility] | [...] [facility] | [address] | [place], [place] | | | SERVICES, LIPID | [address] | [id number] | | + + + + + VITAMIN D, 25-HYDROXY, SERUM (06/10/2017 11:09 AM PST) + + + + + + | Component | Value | Ref Range | Performed | Pathologist | | | | | At | Signature | + + + + + + | VITAMIN D | 24.2 (L) | 30 - 80 ng/mL | [facility] | | | 25 HYDROXY | | | LABORATORY | | | | | | SERVICES, | | | | | | CORE | | + + + + + + + + | Specimen | + + | Blood - Blood | | (substance) | + + + + + | Narrative | Performed At | + + + | Reference Interval: 0-18years: Deficiency: <20 ng/mL | [facility] | | Optimum level: >or=20 ng/mL | LABORATORY | | >18years: Deficiency: <20 | SERVICES, CORE | | ng/mL Insufficiency: 20-29 ng/mL | | | Optimum Level: 30-80 ng/mL High: | | | 81-150 ng/ml Toxic: >150 ng/mL | | + + + + + + + + | Performing | Address | City/State/Zipcode | Phone Number | | Organization | | | | + + + + + | [facility] | [address] | [place] [address] | | | SERVICES, CORE | [address] | | | + + + + + TSH (06/10/2017 11:09 AM PST) + +-------+ + + + | Component | Value | Ref Range | Performed | Pathologist | | | | | At | Signature | + +-------+ + + + | TSH | 0.90 | 0.46 - 5.56 | [facility] | | | | | mIU/L | LABORATORY | | | | | | SERVICES, | | | | | | CORE | | + +-------+ + + + + + | Specimen | + + | Blood - Blood | | (substance) | + + + + + | Narrative | Performed At | + + + | TSH reference ranges are influenced by a variety of environmental | [facility] | | influences, age, gender and ethnicity. The supplied reference limits | LABORATORY | | are based on published values utilizing a similar TSH assay, and | SERVICES, CORE | | should be interpreted with caution. | | + + + + + + + + | Performing | Address | City/State/Zipcode | Phone Number | | Organization | | | | + + + + + | [facility] | [address] | [place] [address] | | | SERVICES, [place] | [address] | | | + + + + + HEMOGLOBIN A1C, BLOOD (06/10/2017 11:09 AM PST) + + + + + + | Component | Value | Ref Range | Performed | Pathologist | | | | | At | Signature | + + + + + + | HEMOGLOBIN | 5.4Comment: Hgb A1C | <5.7 % | [facility] | | | A1C | Interpretive | | LABORATORY | | | | Information: | | SERVICES, | | | | <5.7% - Normal | | SPECIAL IMM | | | | 5.7-6.4% - Consistent | | + COAG | | | | with pre-diabetes | | | | | | >6.4% - Consistent | | | | | | with diabetes | | | | | | | | | | + + + + + + + + | Specimen | + + | Blood - Blood | | (substance) | + + + + + | Narrative | Performed At | + + + | Alternate forms of testing such as fructosamine should be | [facility] | | considered for monitoring alf glycemic control in patients with: | LABORATORY | | Increased red cell turnover, certain hemoglobinopathies (e.g., HbS, | SERVICES, | | HbE, HbC and thalassemia syndromes), anemias, blood loss, chronic | SPECIAL IMM + | | liver disease and hemochromatosis (artefactually low HbA1c); iron | COAG | | deficiency anemia (artefactually high HbA1c due to enhanced glycation | | | of hemoglobin). | | + + + + + + + + | Performing | Address | City/State/Zipcode | Phone Number | | Organization | | | | + + + + + | [facility] | [address] | [place] [address] | | | SERVICES, SPECIAL | [address] | | | | IMM + COAG | | | | + + + + + HOMOCYSTEINE TOTAL, PLASMA (06/10/2017 11:09 AM PST) + +-------+ + + + | Component | Value | Ref Range | Performed | Pathologist | | | | | At | Signature | + +-------+ + + + | HOMOCYSTEIN | 7.1 | 3.5 - 10.4 | [facility] | | | E,PLASMA,TO | | umol/L | LABORATORY | | | ANDREA | | | SERVICES, | | | | | | SPECIAL IMM | | | | | | + COAG | | + +-------+ + + + + + | Specimen | + + | Blood - Blood | | (substance) | + + + + + + + | Performing | Address | City/State/Zipcode | Phone Number | | Organization | | | | + + + + + | [facility] | [address] | [place] [address] | | | SERVICES, SPECIAL | [address] | | | | IMM + COAG | | | | + + + + + NIRAJ YOUNGBLOOD ONLY (06/10/2017 11:09 AM PST) + + + + + + | Component | Value | Ref Range | Performed | Pathologist | | | | | At | Signature | + + + + + + | COLOR(UR) | Yellow | | [facility] | | | | | | LABORATORY | | | | | | SERVICES, | | | | | | CORE | | + + + + + + | APPEARANCE | Clear | | [facility] | | | | | | LABORATORY | | | | | | SERVICES, | | | | | | CORE | | + + + + + + | GLUCOSE(UR) | Negative | Negative, 50.0 | [facility] | | | | | mg/dL | LABORATORY | | | | | | SERVICES, | | | | | | CORE | | + + + + + + | PROTEIN(LAB | Negative | Negative, 30.0 | [facility] | | | ) | | mg/dL | LABORATORY | | | | | | SERVICES, | | | | | | CORE | | + + + + + + | BILIRUBIN | Negative | Negative | [facility] | | | | | | LABORATORY | | | | | | SERVICES, | | | | | | CORE | | + + + + + + | UROBILINOGE | <2.0 | <2.0 mg/dL | [facility] | | | N | | | LABORATORY | | | | | | SERVICES, | | | | | | CORE | | + + + + + + | PH(UR) | 7.0 | 5.0 - 8.0 | [facility] | | | | | | LABORATORY | | | | | | SERVICES, | | | | | | CORE | | + + + + + + | BLOOD | Negative | Negative | [facility] | | | | | | LABORATORY | | | | | | SERVICES, | | | | | | CORE | | + + + + + + | KETONES | Negative | Negative mg/dL | [facility] | | | | | | LABORATORY | | | | | | SERVICES, | | | | | | CORE | | + + + + + + | NITRITES | Negative | Negative | [facility] | | | | | | LABORATORY | | | | | | SERVICES, | | | | | | CORE | | + + + + + + | LEUKOCYTE | Small (A) | Negative | [facility] | | | ESTERASE | | | LABORATORY | | | | | | SERVICES, | | | | | | CORE | | + + + + + + | SPECIFIC | 1.020Comment: Specific | 1.005 - 1.030 | [facility] | | | GRAVITY | [place] performed by | | LABORATORY | | | | refractometry | | SERVICES, | | | | | | CORE | | + + + + + + + + | Specimen | + + | Urine | + + + + + + + | Performing | Address | City/State/Zipcode | Phone Number | | Organization | | | | + + + + + | [facility] | [address] | [place] [address] | | | SERVICES, CORE | [address] | | | + + + + + 12 LEAD ECG (06/10/2017 9:53 AM PST) + + + + + + | Component | Value | Ref Range | Performed | Pathologist | | | | | At | Signature | + + + + + + | VENTRICULAR | 66 | bpm | [facility] | | | RATE | | | OF | | | | | | CARDIOLOGY | | + + + + + + | ATRIAL RATE | 66 | ms | [facility] | | | | | | OF | | | | | | CARDIOLOGY | | + + + + + + | P-R | 146 | ms | [facility] | | | INTERVAL | | | OF | | | | | | CARDIOLOGY | | + + + + + + | P AXIS | 24 | deg | [facility] | | | | | | OF | | | | | | CARDIOLOGY | | + + + + + + | QRS | 101 | ms | [facility] | | | DURATION | | | OF | | | | | | CARDIOLOGY | | + + + + + + | QT | 411 | ms | [facility] | | | | | | OF | | | | | | CARDIOLOGY | | + + + + + + | BERNARDO | 431 | ms | [facility] | | | | | | OF | | | | | | CARDIOLOGY | | + + + + + + | R AXIS | 0 | deg | [facility] | | | | | | OF | | | | | | CARDIOLOGY | | + + + + + + | T AXIS | 54 | deg | [facility] | | | | | | OF | | | | | | CARDIOLOGY | | + + + + + + | ECG | Sinus rhythm- NORMAL ECG | | [facility] | | | IMPRESSION | - | | OF | | | | | | CARDIOLOGY | | + + + + + + | ECG | Electronically signed | | [facility] | | | IMPRESSION | by: KALIN CAPELLAN | | OF | | | | 06-11-2017 12:51:00 | | CARDIOLOGY | | + + + + + + + + | Specimen | + + | | + + + + + | Narrative | Performed At | + + + | | | + + + + + + + + | Performing | Address | City/State/Zipcode | Phone Number | | Organization | | | | + + + + + | [facility] | [address] | [place], [place] | | | CARDIOLOGY | [address] | [address] | | + + + + + documented in this encounter Visit Diagnoses + + | Diagnosis | + + | Atherosclerosis of coronary artery, angina presence unspecified, unspecified vessel or | | lesion type, unspecified whether squaxin or transplanted heart - Primary | + + | Hypercholesteremia Pure hypercholesterolemia | + + | Prediabetes Other abnormal glucose | + + | Familial hypercholesterolemia Pure hypercholesterolemia | + + | Familial hypophosphatemia Disorders of phosphorus metabolism | + + documented in this encounter
--- OUTSIDE RECORDS SUMMARY | ~2019-12-13 | XMS | Encounter Summary ---
Demographics + + + | Address | [address] | | | [place] [address] | + + + | Home Phone [...] Team Providers + +------+ + | Care Net Applications Developer Name | Role | Phone | + +------+ + | Jose Robles MD | PCP | | + +------+ + Encounter Details +--------+ + + + + | Date | Type | Department | Care Team | Description | +--------+ + + + + | 04/06/ | MyChart | Cardiology General | | Please call to | | 2017 | Encounter | at [facility] [address] | | reschedule your | | | | [place] for | | Cardiology | | | | Health and Healing, | | appointment | | | | Building | | | | | | Floor [place], [place] | | | | | | [address] | | | | | | [phone] | | | +--------+ + + + [...] [place] | | | | | | [address] | | +--------+ + + + + | 12/25/ | Video/TeleH | Cardiology | Tessie Mabry | | | 2019 | ealth-Sched | | JORDANA CamargoP [address] | | | | uled | | [address] | | | | | | [place], [place] | | | | | | [address] | | | | | | [phone] | | | | | | | | +--------+ + + + + documented as of this encounter Visit Diagnoses Not on filedocumented in this encounter"
--- OUTSIDE RECORDS SUMMARY | ~2019-12-13 | XMS | Encounter Summary ---
Demographics + + + | Address | [address] | | | [place] [address] | + + + | Home Phone | | + + + | Preferred Language | Unknown | + + + | Marital Status | Single | + + + | Roman Catholic Affiliation | Unknown | + + + [...] Team Providers + +------+ + | Care Expander Machine Operator Name | Role | Phone | + +------+ + | Jose Robles MD | PCP | | + +------+ + Encounter Details +--------+ + + + + | Date | Type | Department | Care Team | Description | +--------+ + + + + | 12/12/ | Abstract | Cardiology | Tessie Mabry | | | 2020 | | Preventive at [facility] | Mary Jo, AGENT BASED MODELER [address] | | | | | [address] | [address] | | | | | [facility] | [place], [place] | | | | | and Healing, | [address] | | | | | Building 1 | [phone] | | | | | [place], [place] | | | | | | [address] | | | | | | [phone] | | | +--------+ + + + [...] Rd | | | | | | [place], [place] | | | | | | [address] | | +--------+ + + + + | 12/25/ | Video/TeleH | Cardiology | Tessie Mabry | | | 2019 | ealth-Sched | | Mary Jo, AGENT BASED MODELER [address] | | | | ulzac | | [address] | | | | | | [place], [place] | | | | | | [address] | | | | | | [phone] | | | | | | | | +--------+ + + + + documented as of this encounter Procedures + +--------+ + + + | Procedure Name | Priori | Date/Time | Associated Diagnosis | Comments | | | ty | | | | + +--------+ + + + | LIPID SET (TRIG, T | Routin | 12/11/2019 | | Results for this | | CHOL, HDL, CALC LDL) | e | | | procedure are in the | | | | | | results section. | + +--------+ + + + | HEMOGLOBIN A1C, | Routin | 12/11/2019 | | Results for this | | BLOOD | e | | | procedure are in the | | | | | | results section. | + +--------+ + + + documented in this encounter Results HEMOGLOBIN A1C, BLOOD (12/11/2019) + +-------+ + + + | Component | Value | Ref Range | Performed | Pathologist | | | | | At | Signature | + +-------+ + + + | HEMOGLOBIN | 5.3 | 4.2 - 5.6 % | [facility] | | | A1C | | | LAB - | | | | | | [place] | | + +-------+ + + + | ESTIMATED | 105 | mg/dL | [facility] | | | AVERAGE | | | LAB - | | | GLUCOSE | | | [place] | | + +-------+ + + + + + | Specimen | + + | Blood - Blood | | (substance) | + + + + + + + | Performing | Address | City/State/Zipcode | Phone Number | | Organization | | | | + + + + + | [facility] - | [address] | [place], [place] | [phone] | | [place] | | | | + + + + + LIPID SET (TRIG, T CHOL, HDL, CALC LDL) (12/11/2019) + +---------+ + + + | Component | Value | Ref Range | Performed | Pathologist | | | | | At | Signature | + +---------+ + + + | CHOLESTEROL | 166 | <200 mg/dL | [facility] | | | (LAB) | | | LAB - | | | | | | [place] | | + +---------+ + + + | TRIGLYCERID | 220 (A) | 30 - 150 mg/dL | [facility] | | | ES | | | LAB - | | | | | | [place] | | + +---------+ + + + | HDL | 57 | >40 mg/dL | [facility] | | | CHOLESTEROL | | | LAB - | | | | | | [place] | | + +---------+ + + + | CHOL/HDL | 2.9 | <4.44 mg/dL | [facility] | | | RATIO | | | LAB - | | | | | | [place] | | + +---------+ + + + | LDL | 65 | <100 mg/dL | [facility] | | | CHOLESTEROL | | | LAB - | | | , | | | [place] | | | CALCULATED | | | | | + +---------+ + + + | NON-HDL-CHO | 109 | 130 mg/dL | [facility] | | | L | | | LAB - | | | | | | [place] | | + +---------+ + + + + + | Specimen | + + | Blood - Blood | | (substance) | + + + + + + + | Performing | Address | City/State/Zipcode | Phone Number | | Organization | | | | + + + + + | [facility] - | [address] | [place] | [phone] | | [place] | | | | + + + + + documented in this encounter Visit Diagnoses Not on filedocumented in this encounter"
--- OUTSIDE RECORDS SUMMARY | ~2019-12-13 | XMS | Encounter Summary ---
Demographics + + + | Address | [address] | | | [place] [address] | + + + | Home Phone | | + + + | Preferred Language | Unknown | + + + | Marital Status | Single | + + + | Druze Affiliation | Unknown | + + + | Race | White | + + + | Ethnic Group | Not or | + + + Author + + + | Author | [facility] | + + + | Organization | [facility] | + + + | Address | Unknown | + + + | Phone | Unavailable | + + + Support + + +---------+ + | Name | Relationship | Address | Phone | + + +---------+ + | Jese Blair | ECON | Unknown | | + + +---------+ + Care Team Providers + +------+ + | Care Endoscopy Rn Name | Role | Phone | + +------+ + | Jose Robles MD | PCP | | + +------+ + Encounter Details +--------+ + + + + | Date | Type | Department | Care Team | Description | +--------+ + + + + | 06/09/ | Pharmacy | [facility] | | | | 2019 | Visit | [address] [facility] | | | | | | [facility] [address] | | | | | | [place] [address] | | | | | | [phone] | | | +--------+ + + + [...] Rd | | | | | | [place], [place] | | | | | | [address] | | +--------+ + + + + | 12/25/ | Video/TeleH | Cardiology | Tessie Mabry | | | 2019 | ealth-Sched | | [facility] [address] | | | | uled | | [address] | | | | | | [place], [place] | | | | | | [address] | | | | | | [phone] | | | | | | | | +--------+ + + + + documented as of this encounter Visit Diagnoses Not on filedocumented in this encounter"
--- OUTSIDE RECORDS SUMMARY | ~2019-12-13 | XMS | Encounter Summary ---
Demographics + + + | Address | [address] | | | [place] [address] | + + + | Home Phone | | + + + | Preferred Language | Unknown | + + + | Marital Status | Single | + + + | Mormonism Affiliation | Unknown | + + + | Race | White | + + + | Ethnic Group | Not or | + + + Author + + + | Author | [facility] | + + + | Organization | [facility] | + + + | Address | Unknown | + + + | Phone | Unavailable | + + + Support + + +---------+ + | Name | Relationship | Address | Phone | + + +---------+ + | Jese Blair | ECON | Unknown | | + + +---------+ + Care Team Providers + +------+ + | Care Guncotton Packer Name | Role | Phone | + +------+ + | Jose Robles MD | PCP | | + +------+ + Encounter Details +--------+ + + + + | Date | Type | Department | Care Team | Description | +--------+ + + + + | 08/16/ | Pharmacy | [facility] | | | | 2019 | Visit | [address] [facility] | | | | | | [facility] [address] | | | | | | [place] [address] | | | | | | [phone] | | | +--------+ + + + [...] | | | | | | [place], [place] | | | | | | [address] | | +--------+ + + + + | 12/25/ | Video/TeleH | Cardiology | Tessie Mabry | | | 2019 | ealth-Sched | | [facility] [address] | | | | uled | | [address] | | | | | | [place], [place] | | | | | | [address] | | | | | | [phone] | | | | | | | | +--------+ + + + + documented as of this encounter Visit Diagnoses Not on filedocumented in this encounter"
--- OUTSIDE RECORDS SUMMARY | ~2019-12-13 | XMS | Encounter Summary ---
Demographics + + + | Address | [address] | | | [place] [address] | + + + | Home Phone | | + + + | Preferred Language | Unknown | + + + | Marital Status | Single | + + + | Orthodoxy Affiliation | Unknown | + + + | Race | White | + + + | Ethnic Group | Not or | + + + Author + + + | Author | [facility] | + + + | Organization | [facility] | + + + | Address | Unknown | + + + | Phone | Unavailable | + + + Support + + +---------+ + | Name | Relationship | Address | Phone | + + +---------+ + | Jese Blair | ECON | Unknown | | + + +---------+ + Care Team Providers + +------+ + | Care As400 Operator Name | Role | Phone | + +------+ + | Jose Robles MD | PCP | | + +------+ + Encounter Details +--------+ + + + + | Date | Type | Department | Care Team | Description | +--------+ + + + + | 09/10/ | Pharmacy | [facility] | | | | 2020 | Visit | [address] [facility] | | | | | | [facility] [address] | | | | | | [place] [address] | | | | | | [phone] | | | +--------+ + + + [...] Rd | | | | | | [place], [place] | | | | | | [address] | | +--------+ + + + + | 12/25/ | Video/TeleH | Cardiology | Tessie Mabry | | | 2019 | ealth-Sched | | [facility] [place] [address] | | | | uled | | [address] | | | | | | [place], [place] | | | | | | [address] | | | | | | [phone] | | | | | | | | +--------+ + + + + documented as of this encounter Visit Diagnoses Not on filedocumented in this encounter"
--- OUTSIDE RECORDS SUMMARY | ~2019-12-13 | XMS | Encounter Summary ---
Demographics + + + | Address | [address] | | | [place] [address] | + + + | Home Phone | | + + + | Preferred Language | Unknown | + + + | Marital Status | Single | + + + | Shinto Affiliation | Unknown | + + + | Race | White | + + + | Ethnic Group | Not or | + + + Author + + + | Author | [facility] | + + + | Organization | [facility] | + + + | Address | Unknown | + + + | Phone | Unavailable | + + + Support + + +---------+ + | Name | Relationship | Address | Phone | + + +---------+ + | Jese Blair | ECON | Unknown | | + + +---------+ + Care Team Providers + +------+ + | Care Driving Teacher Name | Role | Phone | + +------+ + | Brooks Dempsey DO | PCP | | + +------+ + Encounter Details +--------+ + + + + | Date | Type | Department | Care Team | Description | +--------+ + + + + | 07/28/ | Abstract | Cardiology | Joanie Lynne | | | 2018 | | Preventive at [facility] | [place] [address] | | | | | [address] | [address], | | | | | [facility] | [place] [address] | | | | | and [place], | [phone] | | | | | Building 1 | | | | | | [place], [place] | | | | | | [address] | | | | | | [phone] | | | +--------+ + + + [...] Rd | | | | | | [facility] [place] | | | | | | [address] | | +--------+ + + + + | 12/25/ | Video/TeleH | Cardiology | Tessie Mabry | | | 2019 | ealth-Sched | | Mary Jo, CROSSCUTTER [address] | | | | uled | | [address] | | | | | | [place], [place] | | | | | | [address] | | | | | | [phone] | | | | | | | | +--------+ + + + + documented as of this encounter Visit Diagnoses Not on filedocumented in this encounter"
--- OUTSIDE RECORDS SUMMARY | ~2019-12-13 | XMS | Encounter Summary ---
Demographics + + + | Address | [address] | | | [place] [address] | + + + | Home Phone | | + + + | Preferred Language | Unknown | + + + | Marital Status | Single | + + + | Advent Affiliation | Unknown | + + + | Race | White | + + + | Ethnic Group | Not or | + + + Author + + + | Author | [facility] | + + + | Organization | [facility] | + + + | Address | Unknown | + + + | Phone | Unavailable | + + + Support + + +---------+ + | Name | Relationship | Address | Phone | + + +---------+ + | Jese Blair | ECON | Unknown | | + + +---------+ + Care Team Providers + +------+ + | Care Motion Picture Equipment Machinist Name | Role | Phone | + +------+ + | Jose Robles MD | PCP | | + +------+ + Reason for Visit +--------+ + | Reason | Comments | +--------+ + | Other | Calling to see when her blood work will be sent to [facility] per | | | Dr. Mabry request before her appt on 06/06 | +--------+ + Encounter Details +--------+ + + + + | Date | Type | Department | Care Team | Description | +--------+ + + + + | 05/30/ | Telephone | Cardiology | Tessie Mabry | Other (Calling to | | 2020 | | Preventive at [facility] | Mary Jo, SAIL MAKER [address] [facility] | see when her blood | | | | [address] | [address] | work will be sent to | | | | [place] [facility] | [place], [place] | [address] | | | | and Healing, | [address] | Raghavendra request | | | | Building 1 | [phone] | before her appt on | | | | [place], [place] | | 06/06) | | | | [address] | | | | | | [phone] | | | +--------+ + + + [...] Rd | | | | | | [place], [place] | | | | | | [address] | | +--------+ + + + + | 12/25/ | Video/TeleH | Cardiology | Tessie Mabry | | | 2019 | ealth-Sched | | M, SAIL MAKER [address] | | | | uled | | [address] | | | | | | [place], [place] | | | | | | [address] | | | | | | [phone] | | | | | | | | +--------+ + + + + documented as of this encounter Visit Diagnoses Not on filedocumented in this encounter"
--- OUTSIDE RECORDS SUMMARY | ~2019-12-13 | XMS | Encounter Summary ---
Demographics + + + | Address | [address] | | | [place] [address] | + + + | Home Phone [...] + + + | Author | [facility] | + + + | Organization | [facility] | + + + | Address | Unknown | + + + | Phone | Unavailable | + + + Support + + +---------+ + | Name | Relationship | Address | Phone | + + +---------+ + | Jese Blair | ECON | Unknown | | + + +---------+ + Care Team Providers + +------+ + | Care Scrap Dealer Name | Role | Phone | + +------+ + | Brooks Dempsey DO | PCP | | + +------+ + Encounter Details +--------+ + + + + | Date | Type | Department | Care Team | Description | +--------+ + + + + | 07/28/ | Abstract | Cardiology | Joanie Lynne | | | 2018 | | Preventive at [facility] | [place] [address] | | | | | [address] | [address] [place], | | | | | [facility] | [place] [address] | | | | | and [place], | [phone] | | | | | Building 1 | | | | | | [place], [place] | | | | | | [address] | | | | | | [phone] | | | +--------+ + + + [...] Rd | | | | | | [facility] [place] | | | | | | [address] | | +--------+ + + + + | 12/25/ | Video/TeleH | Cardiology | Tessie Mabry | | | 2019 | ealth-Sched | | Mary Jo, BULK FOLDER [address] | | | | uled | | [address] | | | | | | [place], [place] | | | | | | [address] | | | | | | [phone] | | | | | | | | +--------+ + + + + documented as of this encounter Visit Diagnoses Not on filedocumented in this encounter"
--- OUTSIDE RECORDS SUMMARY | ~2019-12-13 | XMS | Encounter Summary ---
Demographics + + + | Address | [address] | | | [place] [address] | + + + | Home Phone | | + + + | Preferred Language | Unknown | + + + | Marital Status | Single | + + + | Christian Affiliation | Unknown | + + + | Race | White | + + + | Ethnic Group | Not or | + + + Author + + + | Author | [facility] | + + + | Organization | [facility] | + + + | Address | Unknown | + + + | Phone | Unavailable | + + + Support + + +---------+ + | Name | Relationship | Address | Phone | + + +---------+ + | Jese Blair | ECON | Unknown | | + + +---------+ + Care Team Providers + +------+ + | Care Cut In Worker Name | Role | Phone | + +------+ + | Jose Robles MD | PCP | | + +------+ + Encounter Details +--------+ + + + + | Date | Type | Department | Care Team | Description | +--------+ + + + + | 10/18/ | Pharmacy | [facility] | | | | 2019 | Visit | [address] [facility] | | | | | | [facility] | | | | | | [place] [address] | | | | | | [phone] | | | +--------+ + + + [...] Rd | | | | | | [place], [place] | | | | | | [address] | | +--------+ + + + + | 12/25/ | Video/TeleH | Cardiology | Tessie Mabry | | | 2019 | ealth-Sched | | [facility] [address] | | | | uled | | [address] | | | | | | [place], [place] | | | | | | [address] | | | | | | [phone] | | | | | | | | +--------+ + + + + documented as of this encounter Visit Diagnoses Not on filedocumented in this encounter"
--- OUTSIDE RECORDS SUMMARY | ~2019-12-13 | XMS | Encounter Summary ---
Demographics + + + | Address | [address] | | | [place] [address] | + + + | Home Phone | | + + + | Preferred Language | Unknown | + + + | Marital Status | Single | + + + | Anabaptist Affiliation | Unknown | + + + | Race | White | + + + | Ethnic Group | Not or | + + + Author + + + | Author | [facility] | + + + | Organization | [facility] | + + + | Address | Unknown | + + + | Phone | Unavailable | + + + Support + + +---------+ + | Name | Relationship | Address | Phone | + + +---------+ + | Jese Blair | ECON | Unknown | | + + +---------+ + Care Team Providers + +------+ + | Care Business Analyst Intern Name | Role | Phone | + +------+ + | Jose Robles MD | PCP | | + +------+ + Encounter Details +--------+ + + + + | Date | Type | Department | Care Team | Description | +--------+ + + + + | 04/12/ | Pharmacy | [facility] | | | | 2019 | Visit | [address] [facility] | | | | | | [facility] | | | | | | [place] [address] | | | | | | [phone] | | | +--------+ + + + [...] Rd | | | | | | [place], [place] | | | | | | [address] | | +--------+ + + + + | 12/25/ | Video/TeleH | Cardiology | Tessie Mabry | | | 2019 | ealth-Sched | | [facility] [address] | | | | uled | | [address] | | | | | | [place], [place] | | | | | | [address] | | | | | | [phone] | | | | | | | | +--------+ + + + + documented as of this encounter Visit Diagnoses Not on filedocumented in this encounter"
--- OUTSIDE RECORDS SUMMARY | ~2019-12-13 | XMS | Encounter Summary ---
Demographics + + + | Address | [address] | | | [place] [address] | + + + | Home Phone | | + + + | Preferred Language | Unknown | + + + | Marital Status | Single | + + + | Synagogue Affiliation | Unknown | + + + | Race | White | + + + | Ethnic Group | Not or | + + + Author + + + | Author | [facility] | + + + | Organization | [facility] | + + + | Address | Unknown | + + + | Phone | Unavailable | + + + Support + + +---------+ + | Name | Relationship | Address | Phone | + + +---------+ + | Jese Blair | ECON | Unknown | | + + +---------+ + Care Team Providers + +------+ + | Care Soil Field Technician Name | Role | Phone | + +------+ + | Jose Robles MD | PCP | | + +------+ + Encounter Details +--------+ + + + + | Date | Type | Department | Care Team | Description | +--------+ + + + + | 12/21/ | Pharmacy | Pharmacy @ [facility] | | | | 2018 | Visit | [address] | | | | | | [address] Mail[address]: | | | | | | [facility] | | | | | | and Healing, | | | | | | Building 2 | | | | | | [place], [place] | | | | | | [address] | | | +--------+ + + + [...] Rd | | | | | | [place], [place] | | | | | | [address] | | +--------+ + + + + | 12/25/ | Video/TeleH | Cardiology | Tessie Mabry | | | 2019 | ealth-Sched | | Mary Jo, CLASSIFIED ADVERTISING CLERK [address] | | | | uled | | [address] | | | | | | [facility], [place] | | | | | | [address] | | | | | | [phone] | | | | | | | | +--------+ + + + + documented as of this encounter Visit Diagnoses Not on filedocumented in this encounter"
--- OUTSIDE RECORDS SUMMARY | ~2019-12-13 | XMS | Encounter Summary ---
Demographics + + + | Address | [address] | | | [place] [address] | + + + | Home Phone | | + + + | Preferred Language | Unknown | + + + | Marital Status | Single | + + + | Religion Affiliation | Unknown | + + + | Race | White | + + + | Ethnic Group | Not or | + + + Author + + + | Author | [facility] | + + + | Organization | [facility] | + + + | Address | Unknown | + + + | Phone | Unavailable | + + + Support + + +---------+ + | Name | Relationship | Address | Phone | + + +---------+ + | Jese Blair | ECON | Unknown | | + + +---------+ + Care Team Providers + +------+ + | Care Order Schedule Clerk Name | Role | Phone | + +------+ + | Brooks Dempsey DO | PCP | | + +------+ + Reason for Visit + + + | Reason | Comments | + + + | Car Gen Record | gen checklist | | Review | | + + + Encounter Details +--------+ + + + + | Date | Type | Department | Care Team | Description | +--------+ + + + + | 03/28/ | Abstract | Cardiology General | Unknown . | Car Gen Record | | 2017 | | at [facility] [address] | | Review (gen | | | | [facility] for | | checklist) | | | | Health and Healing, | | | | | | Building | | | | | | Floor [place], [place] | | | | | | [address] | | | | | | [phone] | | | +--------+ + + + [...] + + documented as of this encounter Progress Notes Meseret Cordova - 03/28/2017 3:19 PM PSTFormatting of this note might be different fro m the original. General Cardiology New Patient Record Check List Procedure Where/Date Date requested Report received? Y/N, Where? Imaging received? CD/ IMPAX/Not Available Comments Referring Provider notes Dr. Dempsey - N/A Referral Last EKG (REPORT ONLY) Note: Tracings needed if being seen for abnormal ECG 03-09-17 [facility] - abstract N/A Last Echo images and report - - - - Last Stress Test images and report 08-05-14 [facility] 05-26-16 via fax [phone] abstract - No i mages for this test Last Cardiac Catheterization images and report - - - - Last Holter or Event monitor report only - - - N/A Labs (BMP, Lipids, TSH, Hemoglobin A1C in last 6 months) [facility] 05-26-17 via fa x [phone] 06-09-17 via fax [phone] N/A Last Device Check (schedule device check if due) - - - N/A Last Cardiac MRI report and images if available - - - - Cardiac CTA report and images if available 05-24-[address] [facility] 05-26-17 via ph 5 [phone] abstract impax Patient Preferred Lab N/A N/A N/A Additional Comments: April 2013 [facility] Coronary Artery Calcium Score documented in this encounter Plan of Treatment +--------+ + + + + | Date | Type | Specialty | Care Team | Description | +--------+ + + + + | 12/25/ | Video/TeleH | Cardiology | Fabiana Larsen, | | | 2019 | ealth-Sched | | [place] [address] | | | | re | | [address] | | | | | | [place], [place] | | | | | | [address] | | +--------+ + + + + | 12/25/ | Video/TeleH | Cardiology | Tessie Mabry | | 2019 | ealth-Sched | | [facility] [address] [facility] | | | | re | | [address] | | | | | | [place] | | | | | | [address] | | | | | | [phone] | | | | | | | | +--------+ + + + + documented as of this encounter Visit Diagnoses Not on filedocumented in this encounter"
--- OUTSIDE RECORDS SUMMARY | ~2019-12-13 | XMS | Encounter Summary ---
Demographics + + + | Address | [address] | | | [place] [address] | + + + | Home Phone [...] + + + | Author | [facility] | + + + | Organization | [facility] | + + + | Address | Unknown | + + + | Phone | Unavailable | + + + Support + + +---------+ + | Name | Relationship | Address | Phone | + + +---------+ + | Jese Blair | ECON | Unknown | | + + +---------+ + Care Team Providers + +------+ + | Care Hotbed Transfer Operator Name | Role | Phone | + +------+ + | Jose Robles MD | PCP | | + +------+ + Encounter Details +--------+ + + + + | Date | Type | Department | Care Team | Description | +--------+ + + + + | 07/19/ | Pharmacy | [facility] | | | | 2020 | Visit | [address] [facility] | | | | | | [facility] [address] | | | | | | [place] [address] | | | | | | [phone] | | | +--------+ + + + [...] Rd | | | | | | [place], [place] | | | | | | [address] | | +--------+ + + + + | 12/25/ | Video/TeleH | Cardiology | Tessie Mabry | | | 2019 | ealth-Sched | | [facility] [place] [address] | | | | uled | | [address] | | | | | | [place], [place] | | | | | | [address] | | | | | | [phone] | | | | | | | | +--------+ + + + + documented as of this encounter Visit Diagnoses Not on filedocumented in this encounter"
--- OUTSIDE RECORDS SUMMARY | ~2019-12-13 | XMS | Encounter Summary ---
Demographics + + + | Address | [address] | | | [place] [address] | + + + | Home Phone | | + + + | Preferred Language | Unknown | + + + | Marital Status | Single | + + + | Gnosticist Affiliation | Unknown | + + + [...] Team Providers + +------+ + | Care Drone Software Development Engineer Name | Role | Phone | + +------+ + | Jose Robles MD | PCP | | + +------+ + Encounter Details +--------+ + + + + | Date | Type | Department | Care Team | Description | +--------+ + + + + | 12/12/ | MyChart | Cardiology | Joanie Lynne | RE: Error on | | 2019 | Encounter | Preventive at [facility] | [address] | prescription refill | | | | [address] | [address] [place], | request | | | | [facility] | [place] [address] | | | | | and Healing, | [phone] | | | | | Building [address] | | | | | | [place], [place] | | | | | | [address] | | | | | | [phone] | | | +--------+ + + + [...] Rd | | | | | | [place] | | | | | | [address] | | +--------+ + + + + | 12/25/ | Video/TeleH | Cardiology | Tessie Mabry | | | 2019 | ealth-Sched | | Mary Jo, PSYCHOLOGY TECH [address] | | | | uled | | [address] | | | | | | [place], [place] | | | | | | [address] | | | | | | [phone] | | | | | | | | +--------+ + + + + documented as of this encounter Visit Diagnoses Not on filedocumented in this encounter"
--- OUTSIDE RECORDS SUMMARY | ~2019-12-13 | XMS | Encounter Summary ---
Demographics + + + | Address | [address] | | | [place] [address] | + + + | Home Phone | | + + + | Preferred Language | Unknown | + + + | Marital Status | Single | + + + | Alevism Affiliation | Unknown | + + + [...] Team Providers + +------+ + | Care Power Shovel Mechanic Name | Role | Phone | + +------+ + | Jose Robles MD | PCP | | + +------+ + Encounter Details +--------+ + + + + | Date | Type | Department | Care Team | Description | +--------+ + + + + | 07/12/ | Pharmacy | [facility] | | | | 2019 | Visit | [address] [facility] | | | | | | [facility] [address] | | | | | | [place] [address] | | | | | | [phone] | | | +--------+ + + + [...] | 12/25/ | Video/TeleH | Cardiology | aFbiana Larsen, | | | 2019 | ealth-Sched | | [place]EN[place] [address] | | | | uled | | [address] | | | | | | [place], [place] | | | | | | [address] | | +--------+ + + + + | 12/25/ | Video/TeleH | Cardiology | Tessie Mabry | | | 2019 | ealth-Sched | | [place] [address] | | | | uled | | [address] | | | | | | [place], [place] | | | | | | [address] | | | | | | [phone] | | | | | | | | +--------+ + + + + documented as of this encounter Visit Diagnoses Not on filedocumented in this encounter"
--- OUTSIDE RECORDS SUMMARY | ~2019-12-13 | XMS | Encounter Summary ---
Demographics + + + | Address | [address] | | | [place] [address] | + + + | Home Phone | | + + + | Preferred Language | Unknown | + + + | Marital Status | Single | + + + | Congregation Affiliation | Unknown | + + + [...] Team Providers + +------+ + | Care Transition Of Care Specialist Name | Role | Phone | [...] Rd | | | | | | [place], [place] | | | | | | [address] | | +--------+ + + + + | 12/25/ | Video/TeleH | Cardiology | Tessie Mabry | | | 2020 | [facility] | | [place] [address] [facility] | | | | re | | [address] | | | | | | [place] | | | | | | [address] | | | | | | [phone] | | | | | | | | +--------+ + + + + documented as of this encounter Visit Diagnoses Not on filedocumented in this encounter"
--- OUTSIDE RECORDS SUMMARY | ~2019-12-13 | XMS | Encounter Summary ---
Demographics + + + | Address | [address] | | | [place] [address] | + + + | Home Phone | | + + + | Preferred Language | Unknown | + + + | Marital Status | Single | + + + | Pentecostalism Affiliation | Unknown | + + + | Race | White | + + + | Ethnic Group | Not or | + + + Author + + + | Author | [facility] | + + + | Organization | [facility] | + + + | Address | Unknown | + + + | Phone | Unavailable | + + + Support + + +---------+ + | Name | Relationship | Address | Phone | + + +---------+ + | Jese Blair | ECON | Unknown | | + + +---------+ + Care Team Providers + +------+ + | Care Business Intelligence Analyst Name | Role | Phone | + +------+ + | Jose Robles MD | PCP | | + +------+ + Encounter Details +--------+ + + + + | Date | Type | Department | Care Team | Description | +--------+ + + + + | 07/31/ | Pharmacy | [facility] | | | | 2017 | Visit | Services [address] | | | | | | [address] | | | | | | [place], [place] | | | | | | [address] | | | | | | [phone] | | | +--------+ + + + [...] Rd | | | | | | [place] | | | | | | [address] | | +--------+ + + + + | 12/25/ | Video/TeleH | Cardiology | Tessie Mabry | | | 2019 | ealth-Sched | | [place] [address] | | | | uled | | [address] | | | | | | [place], [place] | | | | | | [address] | | | | | | [phone] | | | | | | | | +--------+ + + + + documented as of this encounter Visit Diagnoses Not on filedocumented in this encounter"
--- OUTSIDE RECORDS SUMMARY | ~2019-12-13 | XMS | Encounter Summary ---
Demographics + + + | Address | [address] | | | [place] [address] | + + + | Home Phone [...] Team Providers + +------+ + | Care Field Account Director Name | Role | Phone | + +------+ + | Jose Robles MD | PCP | | + +------+ + Reason for Visit + + + | Reason | Comments | + + + | Follow-up encounter | | + + + Encounter Details +--------+ + + + + | Date | Type | Department | Care Team | Description | +--------+ + + + + | 08/26/ | Telephone | Cardiology | Joanie Lynne | Follow-up encounter | | 2017 | | Preventive at [facility] | [address] | | | | | [address] | [address] [place], | | | | | [facility] | [place] [address] | | | | | and [place], | [phone] | | | | | Building 1 | | | | | | [place], [place] | | | | | | [address] | | | | | | [phone] | | | +--------+ + + + [...] | 2019 | ealth-Sched | | [place]EN[place] [address] | | | | re | | [address] | | | | | | [place], [place] | | | | | | [address] | | +--------+ + + + + | 12/25/ | Video/TeleH | Cardiology | Tessie Mabry | | | 2019 | ealth-Sched | | [place] [address] | | | | re | | [address] | | | | | | [place] | | | | | | [address] | | | | | | [phone] | | | | | | | | +--------+ + + + + documented as of this encounter Visit Diagnoses Not on filedocumented in this encounter"
--- OUTSIDE RECORDS SUMMARY | ~2019-12-13 | XMS | Encounter Summary ---
Demographics + + + | Address | [address] | | | [place] [address] | + + + | Home Phone [...] Team Providers + +------+ + | Care Silk Screen Repairer Name | Role | Phone | + +------+ + | Jose Robles MD | PCP | | + +------+ + Encounter Details +--------+------+ + + + | Date | Type | Department | Care Team | Description | +--------+------+ + + + | 11/23/ | Lab | Laboratory at [facility] | | Hypercholesteremia | | 2019 | | [address] | | | | | | [place] for [facility] | | | | | | and Healing, | | | | | | [address] | | | | | | [place], [place] | | | | | | [address] | | | | | | [phone] | | | +--------+------+ + + + [...] Rd | | | | | | [place], [place] | | | | | | [address] | | +--------+ + + + + | 12/25/ | Video/TeleH | Cardiology | Tessie Mabry | | | 2019 | ealth-Sched | | Mary Jo, TECHNICAL INSTRUCTOR COURSE DEVELOPER [address] | | | | uled | | [address] | | | | | | [place], [place] | | | | | | [address] | | | | | | [phone] | | | | | | | | +--------+ + + + + documented as of this encounter Procedures + +--------+ + + + | Procedure Name | Priori | Date/Time | Associated Diagnosis | Comments | | | ty | | | | + +--------+ + + + | LIPID LAB - | Routin | 11/23/2018 | Hypercholesteremia | Results for this | | LIPOPROTEIN (A) | e | 12:51 PM | | procedure are in the | | | | PDT | | results section. | + +--------+ + + + | LIPID LAB - LIPID | Routin | 11/23/2018 | Hypercholesteremia | Results for this | | PROFILE - PLASMA | e | 12:51 PM | | procedure are in the | | LIPIDS, HDL AND LDL | | PDT | | results section. | + +--------+ + + + | RESEARCH ADDITIONAL | Routin | 11/23/2018 | Hypercholesteremia | Results for this | | TUBES | e | 12:47 PM | | procedure are in the | | | | PDT | | results section. | + +--------+ [...] | + + + + + | [facility] | [address] | [place], [place] | | | SERVICES, LIPID | [facility] | [id number] | | + + + + + [...] | + + + + + | [facility] | [address] | [place], [place] | | | SERVICES, LIPID | [address] | [address] | | + + + + + [...] + + + + + | [facility] | [address] | [place] [address] | | | SERVICES, CORE | [address] | | | + + + + + documented in this encounter Visit Diagnoses + + | Diagnosis | + + | Hypercholesteremia Pure hypercholesterolemia | + + documented in this encounter"
--- OUTSIDE RECORDS SUMMARY | ~2019-12-13 | XMS | Encounter Summary ---
Demographics + + + | Address | [address] [facility] | | | [place] [address] | + + + | Home Phone | | + + + | Preferred Language | Unknown | + + + | Marital Status | Single | + + + | Temple Affiliation | Unknown | + + + | Race | White | + + + | Ethnic Group | Not or | + + + Author + + + | Author | [facility] | + + + | Organization | [facility] | + + + | Address | Unknown | + + + | Phone | Unavailable | + + + Support + + +---------+ + | Name | Relationship | Address | Phone | + + +---------+ + | Jese Blair | ECON | Unknown | | + + +---------+ + Care Team Providers + +------+ + | Care Receiving Coordinator Name | Role | Phone | + +------+ + | Jose Robles MD | PCP | | + +------+ + Reason for Visit + + + | Reason | Comments | + + + | Prior Authorization | Repatha 140 mg | | Request - Medication | | + + + Encounter Details +--------+ + + + + | Date | Type | Department | Care Team | Description | +--------+ + + + + | 12/21/ | Documentati | Cardiology | LynneJoanie | Prior Authorization | | 2019 | on | Preventive at [facility] | [address] | Request - Medication | | | | [address] | [address] [place], | (Repatha 140 mg) | | | | [facility] | [place] [address] | | | | | and Healing, | [phone] | | | | | [address] | | | | | | [place], [place] | | | | | | [address] | | | | | | [phone] | | | +--------+ + + + [...] | 2019 | ealth-Sched | | [place] [address] | | | | re | | [address] | | | | | | [place], [place] | | | | | | [address] | | +--------+ + + + + | 12/25/ | Video/TeleH | Cardiology | Tessie Mabry | | | 2020 | [facility] | | [place] [address] [facility] | | | | re | | [address] | | | | | | [place] | | | | | | [address] | | | | | | [phone] | | | | | | | | +--------+ + + + + documented as of this encounter Visit Diagnoses Not on filedocumented in this encounter"
--- OUTSIDE RECORDS SUMMARY | ~2019-12-13 | XMS | Encounter Summary ---
Demographics + + + | Address | [address] [facility] | | | [place] [address] | + + + | Home Phone | | + + + | Preferred Language | Unknown | + + + | Marital Status | Single | + + + | Yazdanism Affiliation | Unknown | + + + [...] Team Providers + +------+ + | Care Party Bus Driver Name | Role | Phone | + +------+ + | Jose Robles MD | PCP | | + +------+ + Encounter Details +--------+ + + + + | Date | Type | Department | Care Team | Description | +--------+ + + + + | 10/28/ | Pharmacy | [facility] | | | | 2017 | Visit | Pharmacy [address] | | | | | | [address] | | | | | | [place], [place] | | | | | | [address] | | | | | | [phone] | | | +--------+ + + + [...] [place] | | | | | | [address] | | +--------+ + + + + | 12/25/ | Video/TeleH | Cardiology | Tessie Mabry | | | 2019 | ealth-Sched | | [facility] [address] | | | | uled | | [address] | | | | | | [place], [place] | | | | | | [address] | | | | | | [phone] | | | | | | | | +--------+ + + + + documented as of this encounter Visit Diagnoses Not on filedocumented in this encounter"
--- OUTSIDE RECORDS SUMMARY | ~2019-12-13 | XMS | Encounter Summary ---
Demographics + + + | Address | [address] [facility] | | | [place] [address] | + + + | Home Phone | | + + + | Preferred Language | Unknown | + + + | Marital Status | Single | + + + | Yazidism Affiliation | Unknown | + + + | Race | White | + + + | Ethnic Group | Not or | + + + Author + + + | Author | [facility] | + + + | Organization | [facility] | + + + | Address | Unknown | + + + | Phone | Unavailable | + + + Support + + +---------+ + | Name | Relationship | Address | Phone | + + +---------+ + | Jese Blair | ECON | Unknown | | + + +---------+ + Care Team Providers + +------+ + | Care Hat Lacer Name | Role | Phone | + +------+ + | Jose Robles MD | PCP | | + +------+ + Encounter Details +--------+ + + + + | Date | Type | Department | Care Team | Description | +--------+ + + + + | 08/11/ | MyChart | Cardiology | Tessie Mabry | RE: Refill needed | | 2020 | Encounter | Preventive at [facility] | M, ENTERTAINMENT USHER [address] | for Repatha | | | | [address] | [address] | | | | | [place] for [facility] | [place], [place] | | | | | and Healing, | [address] | | | | | Building [address] | [phone] | | | | | [place], [place] | | | | | | [address] | | | | | | [phone] | | | +--------+ + + + [...] Rd | | | | | | [place] | | | | | | [address] | | +--------+ + + + + | 12/25/ | Video/TeleH | Cardiology | Tessie Mabry | | | 2019 | ealth-Sched | | [place] [address] | | | | uled | | [address] | | | | | | [place], [place] | | | | | | [address] | | | | | | [phone] | | | | | | | | +--------+ + + + + documented as of this encounter Visit Diagnoses Not on filedocumented in this encounter"
--- OUTSIDE RECORDS SUMMARY | ~2019-12-13 | XMS | Encounter Summary ---
Demographics + + + | Address | [address] | | | [place] [address] | + + + | Home Phone [...] + + + | Author | [facility] | + + + | Organization | [facility] | + + + | Address | Unknown | + + + | Phone | Unavailable | + + + Support + + +---------+ + | Name | Relationship | Address | Phone | + + +---------+ + | Jese Blair | ECON | Unknown | | + + +---------+ + Care Team Providers + +------+ + | Care Programmable Logic Controller Assembler Name | Role | Phone | + +------+ + | Jose Robles MD | PCP | | + +------+ + Encounter Details +--------+------+ + + + | Date | Type | Department | Care Team | Description | +--------+------+ + + + | 05/17/ | Lab | Laboratory at [facility] | | Hypercholesterolemia | | 2019 | | [address] | | | | | | [place] for [facility] | | | | | | and Healing, | | | | | | [address] | | | | | | [place], [place] | | | | | | [address] | | | | | | [phone] | | | +--------+------+ + + + [...] Rd | | | | | | [place], [place] | | | | | | [address] | | +--------+ + + + + | 12/25/ | Video/TeleH | Cardiology | Tessie Mabry | | | 2019 | ealth-Sched | | [place] [address] | | | | uled | | [address] | | | | | | [place], [place] | | | | | | [address] | | | | | | [phone] | | | | | | | | +--------+ + + + + documented as of this encounter Procedures + +--------+ + + + | Procedure Name | Priori | Date/Time | Associated Diagnosis | Comments | | | ty | | | | + +--------+ + + + | LIPID LAB - | Routin | 05/17/2018 | | Results for this | | LIPOPROTEIN (A) | e | 11:55 AM | Hypercholesterolemia | procedure are in the | | | | PST | | results section. | + +--------+ + + + | LIPID LAB - LIPID | Routin | 05/17/2018 | | Results for this | | PROFILE - PLASMA | e | 11:55 AM | Hypercholesterolemia | procedure are in the | | LIPIDS, HDL AND LDL | | PST | | results section. | + +--------+ + + + | RESEARCH ADDITIONAL | Routin | 05/17/2018 | | Results for this | | TUBES | e | 11:32 AM | Hypercholesterolemia | procedure are in the | | | | PST | | results section. | + +--------+ + + + documented in this encounter Results LIPID LAB - LIPOPROTEIN (A) (05/17/2018 11:55 AM PST) + +--------+ + + + [...] [facility] | [address] | [place], [place] | | | SERVICES, LIPID | [facility] | [address] | | + + + + + LIPID LAB - LIPID PROFILE - PLASMA LIPIDS, HDL AND LDL (05/17/2018 11:55 AM PST) + +---------+ + + + | Component | Value | Ref Range | Performed | Pathologist | | | | | At | Signature | + +---------+ + + + | TOTAL | 156 | <220 mg/dl | [facility] | | | CHOLESTEROL | | | LABORATORY | | | - LIPID | | | SERVICES, | | | LAB | | | LIPID | | + +---------+ + + + | VLDL | 31 | <=31 mg/dl | [facility] | | | CHOLESTEROL | | | LABORATORY | | | , | | | SERVICES, | | | CALCULATED | | | LIPID | | | - LIPID LAB | | | | | + +---------+ + + + | LDL, | 60 | <100 mg/dl | [facility] | | | CHOLESTEROL | | | LABORATORY | | | - LIPID | | | SERVICES, | | | LAB | | | LIPID | | + +---------+ + + + | HDL, | 65 | >50 mg/dl | [facility] | | | CHOLESTEROL | | | LABORATORY | | | - LIPID | | | SERVICES, | | | LAB | | | LIPID | | + +---------+ + + + | TOTAL | 155 (H) | <150 mg/dl | [facility] | | | TRIGLYCERID | | | LABORATORY | | | E - LIPID | | | SERVICES, | | | LAB | | | LIPID | | + +---------+ + + + | NON-HDL | 91 | <=130 mg/dL | [facility] | | [...] | + + + + + | [facility] | [address] | [place], [place] | | | SERVICES, LIPID | [address] | [address] | | + + + + + RESEARCH ADDITIONAL TUBES (05/17/2018 11:32 AM PST) + + + + + [...] SERVICES, | | | | | | [facility] | | | [facility] | [facility] + | | | | | | HEALING | | + + + + + + + + | Specimen | + + | Blood - Blood | | (substance) | + + + + + + + | Performing | Address | City/State/Zipcode | Phone Number | | Organization | | | | + + + + + | [facility] | [address] | [place] [address] | | | [facility] | | | | | HEALTH + HEALING | | | | + + + + + documented in this encounter Visit Diagnoses + + | Diagnosis | + + | Hypercholesterolemia Pure hypercholesterolemia | + + documented in this encounter"
--- OUTSIDE RECORDS SUMMARY | ~2019-12-13 | XMS | Encounter Summary ---
Demographics + + + | Address | [address] | | | [place] [address] | + + + | Home Phone | | + + + | Preferred Language | Unknown | + + + | Marital Status | Single | + + + | Confucianist Affiliation | Unknown | + + + | Race | White | + + + | Ethnic Group | Not or | + + + Author + + + | Author | [facility] | + + + | Organization | [facility] | + + + | Address | Unknown | + + + | Phone | Unavailable | + + + Support + + +---------+ + | Name | Relationship | Address | Phone | + + +---------+ + | Jese Blair | ECON | Unknown | | + + +---------+ + Care Team Providers + +------+ + | Care Mine Deputy Name | Role | Phone | + +------+ + | Jose Robles MD | PCP | | + +------+ + Encounter Details +--------+ + + + + | Date | Type | Department | Care Team | Description | +--------+ + + + + | 04/12/ | Pharmacy | [facility] | | | | 2019 | Visit | [address] | | | | | | [facility] [address] | | | | | | [place] [address] | | | | | | [phone] | | | +--------+ + + + [...] | ealth-Sched | | [facility] [address] | | | | uled | | [address] | | | | | | [place], [place] | | | | | | [address] | | +--------+ + + + + | 12/25/ | Video/TeleH | Cardiology | Tessie Mabry | | | 2019 | ealth-Sched | | [place] [address] | | | | uled | | [address] | | | | | | [place], [place] | | | | | | [address] | | | | | | [phone] | | | | | | | | +--------+ + + + + documented as of this encounter Visit Diagnoses Not on filedocumented in this encounter"
--- OUTSIDE RECORDS SUMMARY | ~2019-12-13 | XMS | Encounter Summary ---
Demographics + + + | Address | [address] [facility] [facility] | | | [place] [address] | + + + | Home Phone [...] Author + + + | Author | [facility] | + + + | Organization | [facility] | + + + | Address | Unknown | + + + | Phone | Unavailable | + + + Support + + +---------+ + | Name | Relationship | Address | Phone | + + +---------+ + | Jese Blair | ECON | Unknown | | + + +---------+ + Care Team Providers + +------+ + | Care Wire Brush Maker Name | Role | Phone | + +------+ + | Jose Robles MD | PCP | | + +------+ + Encounter Details +--------+ + + + + | Date | Type | Department | Care Team | Description | +--------+ + + + + | 01/02/ | Pharmacy | [facility] | | | | 2017 | Visit | Pharmacy [address] | | | | | | [address] | | | | | | [place], [place] | | | | | | [address] | | | | | | [phone] | | | +--------+ + + + [...] [place] | | | | | | [address] | | +--------+ + + + + | 12/25/ | Video/TeleH | Cardiology | Tessie Mabry | | | 2019 | ealth-Sched | | [facility] [address] | | | | uled | | [address] | | | | | | [place], [place] | | | | | | [address] | | | | | | [phone] | | | | | | | | +--------+ + + + + documented as of this encounter Visit Diagnoses Not on filedocumented in this encounter"
--- OUTSIDE RECORDS SUMMARY | ~2019-12-13 | XMS | Encounter Summary ---
Demographics + + + | Address | [address] | | | [place] [address] | + + + | Home Phone | | + + + | Preferred Language | Unknown | + + + | Marital Status | Single | + + + | Sabianist Affiliation | Unknown | + + + [...] Providers + +------+ + | Care Manager Generation Name | Role | Phone | + +------+ + | Jose Robles MD | PCP | | + +------+ + Encounter Details +--------+--------+ + + + | Date | Type | Department | Care Team | Description | +--------+--------+ + + + | 12/13/ | Travel | | | | | [...] [address] | | | | | | [place], [place] | | | | | | [address] | | +--------+ + + + + | 12/25/ | Video/TeleH | Cardiology | Tessie Mabry | | | 2020 | [facility] | | [place] [address] [facility] | | | | re | | [address] | | | | | | [place] | | | | | | [address] | | | | | | [phone] | | | | | | | | +--------+ + + + + documented as of this encounter Visit Diagnoses Not on filedocumented in this encounter"
--- OUTSIDE RECORDS SUMMARY | ~2019-12-13 | XMS | Encounter Summary ---
Demographics + + + | Address | [address] | | | [place] [address] | + + + | Home Phone | | + + + | Preferred Language | Unknown | + + + | Marital Status | Single | + + + | Yarsanism Affiliation | Unknown | + + + [...] Team Providers + +------+ + | Care Marketing Services Specialist Name | Role | Phone | + +------+ + | Brooks Dempsey DO | PCP | | + +------+ + Encounter Details +--------+ + + + + | Date | Type | Department | Care Team | Description | +--------+ + + + + | 02/20/ | MyChart | Cardiology | Joanie Lynne | RE: Ben side | | 2018 | Encounter | Preventive at [facility] | [address] | effects? | | | | [address] | [address] [place], | | | | | [place] for [facility] | [place] [address] | | | | | and Healing, | [phone] | | | | | Building [address] | | | | | | [place], [place] | | | | | | [address] | | | | | | [phone] | | | +--------+ + + + [...] [place] | | | | | | [address] | | +--------+ + + + + | 12/25/ | Video/TeleH | Cardiology | Tessie Mabry | | | 2019 | ealth-Sched | | [facility] [address] | | | | uled | | [address] | | | | | | [place], [place] | | | | | | [address] | | | | | | [phone] | | | | | | | | +--------+ + + + + documented as of this encounter Visit Diagnoses Not on filedocumented in this encounter"
--- OUTSIDE RECORDS SUMMARY | ~2019-12-13 | XMS | Encounter Summary ---
Demographics + + + | Address | [address] [facility] [facility] [address] [facility] | | | [place] [address] | + + + | Home Phone [...] Author + + + | Author | [facility] | + + + | Organization | [facility] | + + + | Address | Unknown | + + + | Phone | Unavailable | + + + Support + + +---------+ + | Name | Relationship | Address | Phone | + + +---------+ + | Jese Blair | ECON | Unknown | | + + +---------+ + Care Team Providers + +------+ + | Care Reel Winder Name | Role | Phone | + +------+ + | Jose Robles MD | PCP | | + +------+ + Encounter Details +--------+ + + + + | Date | Type | Department | Care Team | Description | +--------+ + + + + | 11/12/ | Pharmacy | [facility] | | | | 2020 | Visit | [address] [facility] | | | | | | [facility] [address] | | | | | | [place] [address] | | | | | | [phone] | | | +--------+ + + + [...] [address] | | | | | | [place], [place] | | | | | | [address] | | +--------+ + + + + | 12/25/ | Video/TeleH | Cardiology | [facility] | | | 2019 | ealth-Sched | | [facility] [address] | | | | uled | | [address] | | | | | | [place], [place] | | | | | | [address] | | | | | | [phone] | | | | | | | | +--------+ + + + + documented as of this encounter Visit Diagnoses Not on filedocumented in this encounter"
--- OUTSIDE RECORDS SUMMARY | ~2019-12-13 | XMS | Encounter Summary ---
Demographics + + + | Address | [address] [facility] [facility] | | | [place] [address] | + + + | Home Phone [...] Team Providers + +------+ + | Care Physician Relations Representative Name | Role | Phone | + +------+ + | Jose Robles MD | PCP | | + +------+ + Encounter Details +--------+ + + + + | Date | Type | Department | Care Team | Description | +--------+ + + + + | 12/30/ | Pharmacy | [facility] | | | | 2017 | Visit | Pharmacy [address] | | | | | | [address] | | | | | | [place], [place] | | | | | | [address] | | | | | | [phone] | | | +--------+ + + + [...] [place] | | | | | | [address] | | +--------+ + + + + | 12/25/ | Video/TeleH | Cardiology | Tessie [facility]ry | | | 2019 | ealth-Sched | | [facility] [address] | | | | uled | | [address] | | | | | | [place], [place] | | | | | | [address] | | | | | | [phone] | | | | | | | | +--------+ + + + + documented as of this encounter Visit Diagnoses Not on filedocumented in this encounter"
--- OUTSIDE RECORDS SUMMARY | ~2019-12-13 | XMS | Encounter Summary ---
Demographics + + + | Address | [address] [facility] | | | [place] [address] | + + + | Home Phone [...] Team Providers + +------+ + | Care Electronic Transaction Implementer Name | Role | Phone | + +------+ + | Jose Robles MD | PCP | | + +------+ + Encounter Details +--------+ + + + + | Date | Type | Department | Care Team | Description | +--------+ + + + + | 09/08/ | Pharmacy | [facility] | | | | 2017 | Visit | Services [address] | | | | | | [address] | | | | | | [place], [place] | | | | | | [address] | | | | | | [phone] | | | +--------+ + + + [...] [address] | | | | | | [place] | | | | | | [address] | | +--------+ + + + + | 12/25/ | Video/TeleH | Cardiology | Tessie Mabry | | | 2019 | ealth-Sched | | [facility] [address] | | | | uled | | [address] | | | | | | [place], [place] | | | | | | [address] | | | | | | [phone] | | | | | | | | +--------+ + + + + documented as of this encounter Visit Diagnoses Not on filedocumented in this encounter"
--- OUTSIDE RECORDS SUMMARY | ~2019-12-13 | XMS | Encounter Summary ---
Demographics + + + | Address | [address] [facility] | | | [place] [address] | + + + | Home Phone [...] Providers + +------+ + | Care Emergency Veterinary Assistant Name | Role | Phone | + +------+ + | Jose Robles MD | PCP | | + +------+ + Encounter Details +--------+ + + + + | Date | Type | Department | Care Team | Description | +--------+ + + + + | 10/17/ | Pharmacy | [facility] | | | | 2019 | Visit | [address] [facility] | | | | | | [facility] [address] | | | | | | [place] [address] | | | | | | [phone] | | | +--------+ + + + [...] | | | | | | [place], [place] | | | | | | [address] | | +--------+ + + + + | 12/25/ | Video/TeleH | Cardiology | Tessie Mabry | | | 2019 | ealth-Sched | | [facility] [address] | | | | uled | | [address] | | | | | | [place], [place] | | | | | | [address] | | | | | | [phone] | | | | | | | | +--------+ + + + + documented as of this encounter Visit Diagnoses Not on filedocumented in this encounter"
--- OUTSIDE RECORDS SUMMARY | ~2019-12-13 | XMS | Encounter Summary ---
Demographics + + + | Address | [address] | | | [place] [address] | + + + | Home Phone | | + + + | Preferred Language | Unknown | + + + | Marital Status | Single | + + + | Samaritan Affiliation | Unknown | + + + | Race | White | + + + | Ethnic Group | Not or | + + + Author + + + | Author | [facility] | + + + | Organization | [facility] | + + + | Address | Unknown | + + + | Phone | Unavailable | + + + Support + + +---------+ + | Name | Relationship | Address | Phone | + + +---------+ + | Jese Blair | ECON | Unknown | | + + +---------+ + Care Team Providers + +------+ + | Care Speech And Language Specialist Name | Role | Phone | + +------+ + | Jose Robles MD | PCP | | + +------+ + Encounter Details +--------+ + + + + | Date | Type | Department | Care Team | Description | +--------+ + + + + | 06/15/ | Pharmacy | [facility] | | | | 2020 | Visit | [address] [facility] | | | | | | [facility] [address] | | | | | | [place] [address] | | | | | | [phone] | | | +--------+ + + + [...] [address] | | | | | | [place], [place] | | | | | | [address] | | +--------+ + + + + | 12/25/ | Video/TeleH | Cardiology | Tessie Mabry | | | 2019 | ealth-Sched | | [facility] [address] | | | | uled | | [address] | | | | | | [place], [place] | | | | | | [address] | | | | | | [phone] | | | | | | | | +--------+ + + + + documented as of this encounter Visit Diagnoses Not on filedocumented in this encounter"
--- OUTSIDE RECORDS SUMMARY | ~2019-12-13 | XMS | Encounter Summary ---
Demographics + + + | Address | [address] [facility] | | | [place] [address] | + + + | Home Phone [...] Author + + + | Author | [facility] | + + + | Organization | [facility] | + + + | Address | Unknown | + + + | Phone | Unavailable | + + + Support + + +---------+ + | Name | Relationship | Address | Phone | + + +---------+ + | Jese Blair | ECON | Unknown | | + + +---------+ + Care Team Providers + +------+ + | Care Ethnoarchaeologist Name | Role | Phone | + +------+ + | Jose Robles MD | PCP | | + +------+ + Encounter Details +--------+ + + + + | Date | Type | Department | Care Team | Description | +--------+ + + + + | 05/15/ | Pharmacy | [facility] | | | | 2020 | Visit | [address] [facility] | | | | | | [address] [address] | | | | | | [place] [address] | | | | | | [phone] | | | +--------+ + + + [...] [address] | | | | | | [place], [place] | | | | | | [address] | | +--------+ + + + + | 12/25/ | Video/TeleH | Cardiology | Tessie Mabry | | | 2019 | ealth-Sched | | [facility] [address] | | | | uled | | [address] | | | | | | [place], [place] | | | | | | [address] | | | | | | [phone] | | | | | | | | +--------+ + + + + documented as of this encounter Visit Diagnoses Not on filedocumented in this encounter"
--- OUTSIDE RECORDS SUMMARY | ~2019-12-13 | XMS | Encounter Summary ---
Demographics + + + | Address | [address] [facility] | | | [place] [address] | + + + | Home Phone | | + + + | Preferred Language | Unknown | + + + | Marital Status | Single | + + + | Christianity Affiliation | Unknown | + + + [...] Team Providers + +------+ + | Care Clay Processing Factory Worker Name | Role | Phone | + +------+ + | Jose Robles MD | PCP | | + +------+ + Encounter Details +--------+ + + + + | Date | Type | Department | Care Team | Description | +--------+ + + + + | 12/29/ | Pharmacy | [facility]acy | | | | 2017 | Visit | Services [address] | | | | | | [address] | | | | | | [place], [place] | | | | | | [address] | | | | | | [phone] | | | +--------+ + + + [...] [address] | | | | | | [place] | | | | | | [address] | | +--------+ + + + + | 12/25/ | Video/TeleH | Cardiology | Tessie Mabry | | | 2019 | ealth-Sched | | [facility] [address] | | | | uled | | [address] | | | | | | [place], [place] | | | | | | [address] | | | | | | [phone] | | | | | | | | +--------+ + + + + documented as of this encounter Visit Diagnoses Not on filedocumented in this encounter"
--- OUTSIDE RECORDS SUMMARY | ~2019-12-13 | XMS | Encounter Summary ---
Demographics + + + | Address | [address] [facility] | | | [place] [address] | + + + | Home Phone | | + + + | Preferred Language | Unknown | + + + | Marital Status | Single | + + + | Congregational Affiliation | Unknown | + + + [...] Team Providers + +------+ + | Care Equipment Lead Name | Role | Phone | + +------+ + | Jose Robles MD | PCP | | + +------+ + Encounter Details +--------+ + + + + | Date | Type | Department | Care Team | Description | +--------+ + + + + | 10/11/ | Pharmacy | [facility] | | | | 2020 | Visit | [address] [facility] | | | | | | [facility] [address] | | | | | | [place] [address] | | | | | | [phone] | | | +--------+ + + + [...] [address] | | | | | | [place], [place] | | | | | | [address] | | +--------+ + + + + | 12/25/ | Video/TeleH | Cardiology | Tessie Mabry | | | 2019 | ealth-Sched | | [facility] [address] | | | | uled | | [address] | | | | | | [place], [place] | | | | | | [address] | | | | | | [phone] | | | | | | | | +--------+ + + + + documented as of this encounter Visit Diagnoses Not on filedocumented in this encounter"
--- OUTSIDE RECORDS SUMMARY | ~2019-12-13 | XMS | Encounter Summary ---
Demographics + + + | Address | [address] [facility] [address] [facility] | | | [place] [address] | + + + | Home Phone | | + + + | Preferred Language | Unknown | + + + | Marital Status | Single | + + + | Hoahaoism Affiliation | Unknown | + + + [...] Team Providers + +------+ + | Care Regional Marketing Manager Name | Role | Phone | + +------+ + | Jose Robles MD | PCP | | + +------+ + Encounter Details +--------+ + + + + | Date | Type | Department | Care Team | Description | +--------+ + + + + | 12/11/ | Pharmacy | [facility] | | | | 2020 | Visit | [address] [facility] | | | | | | [facility] [address] | | | | | | [place] [address] | | | | | | [phone] | | | +--------+ + + + [...] Rd | | | | | | [place], [place] | | | | | | [address] | | +--------+ + + + + | 12/25/ | Video/TeleH | Cardiology | Tessie Mabry | | | 2019 | ealth-Sched | | [facility] [address] | | | | uled | | [address] | | | | | | [place], [place] | | | | | | [address] | | | | | | [phone] | | | | | | | | +--------+ + + + + documented as of this encounter Visit Diagnoses Not on filedocumented in this encounter"
--- OUTSIDE RECORDS SUMMARY | ~2019-12-13 | XMS | Encounter Summary ---
Demographics + + + | Address | [address] | | | [place] [address] | + + + | Home Phone | | + + + | Preferred Language | Unknown | + + + | Marital Status | Single | + + + | Denominational Affiliation | Unknown | + + + | Race | White | + + + | Ethnic Group | Not or | + + + Author + + + | Author | [facility] | + + + | Organization | [facility] | + + + | Address | Unknown | + + + | Phone | Unavailable | + + + Support + + +---------+ + | Name | Relationship | Address | Phone | + + +---------+ + | Jese Blair | ECON | Unknown | | + + +---------+ + Care Team Providers + +------+ + | Care Revenue Agent Name | Role | Phone | + +------+ + | Jose Robles MD | PCP | | + +------+ + Reason for Visit + + + | Reason | Comments | + + + | Hyperlipidemia | | + + + Consultation (Routine) +--------+--------+ + + + + | Status | Reason | Specialty | Diagnoses / | Referred By | Referred To | | | | | Procedures | Contact | Contact | +--------+--------+ + + + + | Closed | | Cardiology | Diagnoses | Phuc, | Guera, | | | | | | Jalil Johnsno, | Joanie Branch, | | | | | [place] | ,PhD 2063 | PA-C [address] | | | | | sis of | [address] | [address] | | | | | coronary | [address] | [place], [place] | | | | | artery, | [place] | [address] | | | | | angina | [address] | Phone: | | | | | presence | Phone: | [phone] | | | | | unspecified, | [phone] | Fax: | | | | | unspecified | Fax: | [phone] | | | | | vessel or | [phone] | | | | | | lesion type, | | | | | | | unspecified | | | | | | | whether | | | | | | | la posta or | | | | | | | transplanted | | | | | | | heart | | | | | | | Procedures | | | | | | | CO EST | | | | | | | PATIENT | | | | | | | LEVEL V | | | +--------+--------+ + + + + Encounter Details +--------+---------+ + + + | Date | Type | Department | Care Team | Description | +--------+---------+ + + + | 12/13/ | Office | Cardiology | Joanie Lynne | Hypercholesteremia | | 2019 | Visit | Preventive at [facility] | [facility] [address] | (Primary Dx) | | | | [address] | [address] [place], | | | | | [facility] | [place] [address] | | | | | and Healing, | [phone] | | | | | [address] | | | | | | [place], [place] | | | | | | [address] | | | | | | [phone] | | | +--------+---------+ + + + [...] + + + | Blood Pressure | 145/76 | 12/13/2018 2:25 PM | | | | | PDT | | + + + + + | Pulse | 72 | 12/13/2018 2:25 PM | | | | | PDT | | + + + + + | Temperature | - | - | | + + + + + | Respiratory Rate | - | - | | + + + + + | Oxygen Saturation | 98% | 12/13/2018 2:25 PM | | | | | PDT | | + + + + + | Inhaled Oxygen | - | - | | | Concentration | | | | + + + + + | Weight | 85.3 kg (188 lb) | 12/13/2018 2:25 PM | | | | | PDT | | + + + + + | Height | 167.6 cm (5' 6") | 12/13/2018 2:25 PM | | | | | PDT | | + + + + + | Body Mass Index | 30.34 | 12/13/2018 2:25 PM | | | | | PDT | | + + + + + documented in this encounter Patient Instructions Patient Instructions Joanie Lynne PA-C - 12/13/2018 2:30 PM PDTPCSK9 Follow up Return to clinic: Please go to front desk clerk today and make an appointment to see [...] before your next visit w ith me To help reduce your triglycerides, take a fish oil supplement that provides 9781-7650 mg EP A/DHA (omega-3s) daily. Begin with 1 softgel (or 1 teaspoon) a day and gradually increase to the recommended dose as tolerated over 5-10 days. Recommended brands: ? Nature s Bounty Maximum Strength Fish Oil 1400 mg o Available at [employer] & online; $23.99 for 130 softgels o Dose: take 3 softgels a day (provides 900 mg EPA/DHA per softgel) ? Nature s Answer Liquid Blackwell-3 o Liquid supplement, available at www.LayerGlossBureaux A Partager; $19.49 for 16 oz o Dose: take 2-3 teaspoons per day (provides 1100 mg EPA/DHA per teaspoon) Nutrition strategies to help lower your triglycerides: ? Avoid sugary drinks including regular soda, lemonade, sweetened coffee drinks, energy dri nks, sports drinks, sweet tea, and fruit juice. ? Avoid foods with added sugar such as candy, cake, cookies, ice cream, sorbet, flavored yo gurt, etc. ? Limit or avoid refined grains such as white rice, white pasta, white bread, or products m turner with white flour. Instead, eat whole grains such as brown rice, whole-wheat pasta, whole -wheat bread, barley, quinoa, and oatmeal. ? Include high-fiber foods such as vegetables, fruits, whole grains, beans, and lentils. Gr adually increase your total fiber intake to 35 grams a day. ? Reduce your saturated fat intake from foods such as red meats, whole & 2% milk, cheese, b utter, poultry skin, coconut, and palm oil. The daily limit for saturated fat is 10-14 grams for most women or 12-16 grams for most men. ? lnclude small portions of healthier unsaturated fats such as olive oil, canola oil, avoca do, nuts, and seeds in the place of unhealthy saturated fats. ? Eat 6 ounces of fatty fish such as salmon, albacore tuna, trout, or sardines at least twi ce a week. ? Limit or avoid alcohol, which raises triglycerides and is a source of empty calories. ? Good eating plans include the Mediterranean diet, DASH diet, and OmniHeart diet ? If you are overweight, losing even a small amount will help lower triglycerides. Reduce c alorie intake with portion control (using the My Heart-Healthy Plate) and by keeping food lo gs. ? Aim for 2 hours a week of physical activity (more if you re trying to lose weight). documented in this encounter Progress Notes Cecil Nuñez - 12/13/2018 2:30 PM PDT History: Per chart review: Cele Blair is a 68 y.o. White woman with history of HTN, Hyperchole sterolemia, Statin Intolerance, Moderate Premature Coronary Atherosclerosis (ETEC=401 in 201 4, 90th percentile), Obesity, originally referred here by Jalil Friend MD for assistance with lipid PCSK9 initiation, is back today for PCSK9i therapy management. I originally saw her on 07/01/2017 to start the approval process. She received Repatha 140 mg injections from [facility] at $250 copay (she is n ot eligible for safety net). The first injection was given 09/06/2017 without side effects th ough she did note it took her three attempts to get the plunger to deploy She had good initial response to Repatha (Evolocumab) - LDL decreased from 189 mg/dL-->54 m g/dL (71% decrease) On 02/20/2018, she sent [employer] message reporting significant muscle aches/hip pain. I advi sed her to skip the next dose of Repatha. She skipped 2 doses of Repatha, and reported left thigh/hip pain was diminishing and while seeing physical therapy. She restarted her Repatha on 03/27/2018 On 03/31/2018, she sent the following [employer] message: "Muscle aching in my thighs is [...] me otherwise b etween now and then.)" I last saw her on 05/17/2018 with LDL 60 mg/dL, back on Repatha every 2 weeks. lead radiation therapist apy had helped a lot - still not 100% She consented to the [facility] on 07/01/2017 She reports co-pay is $185 Financial assistance program? none New cardiovascular events or procedures since started PCSK9i therapy? no Hyperlipidemia: LDL at goal. Last injection was 12/08 Problems or concerns with injections? no Adverse side effects of PCSK9i medication? no Adherence with medications? Yes Taking statin? No Currently taking: See below Lipid Lowering Medication [...] Approximate date: 2007 x a few months Blackwell 3 fatty acid - dose: 1000 mg daily; maximally tolerated dose without meeting LD L goal- Approximate date: 2011-current Berberine - not tried Repatha - 140 mg; 09/06/2017 - current(140 mg every 2 weeks) Praluent - not tried Nutrition:Still low saturated fat diet - tries to eat mostly chicken and fish, rarely red meats, lots of fresh vegetables. Avoids butter and margarin. Exercise/Physical Activity:3 times a week - water aerobics. Walks dog Weight:working on managing her weight- stable Wt Readings from Last 3 Encounters: 05/17/18 86.2 kg (190 lb) 07/01/17 86.9 kg (191 lb 8 oz) 06/10/17 86.6 kg (191 lb) Joanie Mccormack PA-C - 12/13/2018 2:30 PM PDT Preventive Cardiology Encounter Note: Chief Complaint/Reason for Visit reviewed and noted as below: Chief Complaint Patient presents with Hyperlipidemia History: Per chart review: Cele Blair is a 68 y.o. White woman with history of HTN, Hyperchole sterolemia, Statin Intolerance, Moderate Premature Coronary Atherosclerosis (OCLP=116 in 201 4, 90th percentile), Obesity, originally referred here by Jalil Friend MD for assistance with lipid PCSK9 initiation, is back today for PCSK9i therapy management. I originally saw her on 07/01/2017 to start the approval process. She received Repatha 140 mg injections from [facility] at $250 copay (she is n ot eligible for safety net). The first injection was given 09/06/2017 without side effects th ough she did note it took her three attempts to get the plunger to deploy She had good initial response to Repatha (Evolocumab) - LDL decreased from 189 mg/dL-->54 m g/dL (71% decrease) On 02/20/2018, she sent [employer] message reporting significant muscle aches/hip pain. I advi sed her to skip the next dose of Repatha. She skipped 2 doses of Repatha, and reported left thigh/hip pain was diminishing and while seeing physical therapy. She restarted her Repatha on 03/27/2018 On 03/31/2018, she sent the following [employer] message: "Muscle aching in my thighs is sporatic; however, still present. I am not seeing much dif ference than when I took the 7 week hiatus from using Repatha (mid-February,. A s you suggested in your previous message to me, I think I may wait until after I see Dr. Elvira antonio on April 14 before refilling my prescription. (Unless she advises me otherwise b etween now and then.)" I last saw her on 05/17/2018 with LDL 60 mg/dL, back on Repatha every 2 weeks. lead radiation therapist gloria had helped a lot - still not 100% She consented to the [facility] Registry on 07/01/2017 She reports co-pay is $185 Financial assistance program?none New cardiovascular events or procedures since started PCSK9i therapy? no Hyperlipidemia:LDL at goal. Last injection was 12/08 Problems or concerns with injections? no Adverse side effects of PCSK9i medication? no Adherence with medications? Yes Taking statin? No Currently taking:See below Lipid Lowering Medication History: Simvastatin - [...] Approximate date: 2007 x a few months Blackwell 3 fatty acid - dose: 1000 mg daily; maximally tolerated dose without meeting LD L goal- Approximate date: 2011-current Berberine - not tried Repatha - 140 mg; 09/06/2017 - current (140 mg every 2 weeks) Praluent - not tried Sleep: she characterizes her sleep as poor. Gets approximately 6 hours/night average. she r eports she does snore. she has not been told she stops breathing while sleeping Florence Sleepiness Scale = 4 Nutrition:Still low saturated fat diet - tries to eat mostly chicken and fish, rarely red meats, lots of fresh vegetables.Avoids butter and margarin. Exercise/Physical Activity:3 times a week - water aerobics in winter. Now walks daily. Wai tierney dog Weight:working on managing her weight-stable Wt Readings from Last 3 Encounters: 12/13/18 85.3 kg (188 lb) 05/17/18 86.2 kg (190 lb) 07/01/17 86.9 kg (191 lb 8 oz) PFSH: Medical and Social histories were reviewed and updated in EMR based on conversation with th e patient, and noteable for no changes. Please see that section of the EMR for full details . Reviewed with patient today: Past Medical History: Diagnosis Date Coronary atherosclerosis HDBM=987, 90th percentile for age and gender HTN [...] unit oral tablet Take 2,000 Units by in ut once daily. estradiol 10 mcg vaginal tablet 10 mcg once daily. evolocumab 140 mg/mL subcutaneous pen injector Inject content of 1 pen (140mg) under th e skin (SUBC) every fourteen days. Indications: atherosclerotic cardiovascular disease Gjlgghirgzd-Usqjfuwco-Nlp C-Mn (GLUCOSAMINE 1500 COMPLEX) 500-400 mg oral capsule Take 1 tablet by mouth once daily. LACTOBAC NO.41/BIFIDOBACT NO.7 (PROBIOTIC-10 ORAL) Take 1 tablet by mouth once daily. lisinopril-hydrochlorothiazide 10-12.5 mg oral tablet Take 10 tablets by mouth. mv,Ca,min-folic acid-vit K1 (ONE-A-DAY WOMEN'S 50 PLUS) 400-20 mcg oral tablet Take 1 t ablet by mouth once daily. Bxhqx-5-LAO-EPA-Fish Oil (FISH OIL) 1,000 mg (120 mg-180 mg) oral capsule Take 1 capsul e by mouth once daily. UBIDECARENONE/VITAMIN E MIXED (COQ10 SG 100 ORAL) Take 1 tablet by mouth once daily. No current facility-administered medications for this visit. Review of Systems: Pertinent items are noted in HPI. Physical Exam: BP 145/76 (BP Location: Right upper arm, Patient Position: Sitting) | Pulse 72 | Ht 1.676 m (5' 6") | Wt 85.3 kg (188 lb) | SpO2 98% | BMI 30.34 kg/m | BSA 1.99 m Vital signs reviewed. General: comfortable, alert, cooperative and well-appearing Psych: bright affect, not apparently anxious or depressed, judgment and insight appropriate in context of visit, apparently normal recent and remote memory and oriented to time, selina ce and person Laboratory/Diagnostics: Per chart review: No results found for: NA, K, CL, BICARB, BUN, EGFRAFRICAN, EGFRNONAFR, CR, GLU, CA, ANIONGA P, ANIONALBCOR Recent Labs 05/17/18 1155 11/23/18 1251 CHOL 156 151 LDL 60 56 HDL 65 56 TRI 155* 193* LP(a): Ref. Range 07/01/2017 15:41 10/10/2017 11:10 LIPOPROTEIN A - LIPID LAB Latest Ref Range: <=30 mg/dL 41 (H) 25 Lab Results Component Value Date A1C 5.4 06/10/2017 Lab Results Component Value Date TSH 0.90 06/10/2017 Assessment/Plan: Cele Blair is a 68 y.o. White woman with history of HTN, Hypercholesterolemia, Statin Intolerance, Moderate Premature Coronary Atherosclerosis (AEWC=692 in 2014, 90th percentile ), Obesity, originally referred here by Jalil Friend MD for assistance with lipid PCSK9 initiation, is back today for PCSK9i therapy management Per [employer] Association of Clinical Endocrinologists (AACE) 2017 Guidelines: R39.For individuals at very high risk (i.e., with established or recent hospitalizatio n for ACS, coronary, carotid or peripheral vascular disease;diabetes or CKD stage 3 or 4 w ith 1 or more risk factors; a calculated 10-year risk greater than 20%; or heterozygous fami lial hypercholesterolemia [HeFH]), an LDL-C goal of less than 70 mg/dL is recommended (Grade A; BEL 1). Hyperlipidemia - LDL at goal. Last injection was 12/08/2018 A regular exercise program is recommended to help achieve and maintain normal body weight, fitness and improve lipids. I discussed the appropriate diet (low saturated fat, plenty of fruits and vegetables) and the need for lifelong adherence with medications and healthy life style (including aerobic activity, weight management) in order to reduce risk of CAD, [place] and CVA was stressed. Continue meds as above LDL Goal < 70 mg/dL Labs/Tests ordered: None today Return to Clinic: 6 months with [...] and instructions as outlined. CARDIOLOGY - PREVENTIVE [address] Mailcode: [id number] [place] [address] documented in t his encounter Plan of Treatment +--------+ + + + + | Date | Type | Specialty | Care Team | Description | +--------+ + + + + | 12/25/ | Video/TeleH | Cardiology | Fabiana Larsen, | | | 2019 | ealth-Sched | | [address] | | | | uled | | [address] | | | | | | [place], [place] | | | | | | [address] | | +--------+ + + + + | 12/25/ | Video/TeleH | Cardiology | Tessie Mabry | | | 2019 | ealth-Sched | | [facility] [address] | | | | uled | | [address] | | | | | | [place], [place] | | | | | | [address] | | | | | | [phone] | | | | | | | | +--------+ + + + + + +------+--------+ + + | Name | Type | Priori | Associated Diagnoses | Order Schedule | | | | ty | | | + +------+--------+ + + | BASIC METABOLIC SET | Lab | Routin | Hypercholesteremia | Expected: 06/15/2019 | | (NA, K, CL, TCO2, | | e | | (Approximate), | | BUN, CR, GLU, CA) | | | | Expires: 01/14/2020 | + +------+--------+ + + documented as of this encounter Visit Diagnoses + + | Diagnosis | + + | Hypercholesteremia - Primary Pure hypercholesterolemia | + + documented in this encounter
--- OUTSIDE RECORDS SUMMARY | ~2019-12-13 | XMS | Encounter Summary ---
Demographics + + + | Address | [address] | | | [place] [address] | + + + | Home Phone | | + + + | Preferred Language | Unknown | + + + | Marital Status | Single | + + + | Worship Affiliation | Unknown | + + + | Race | White | + + + | Ethnic Group | Not or | + + + Author + + + | Author | [facility] | + + + | Organization | [facility] | + + + | Address | Unknown | + + + | Phone | Unavailable | + + + Support + + +---------+ + | Name | Relationship | Address | Phone | + + +---------+ + | Jese Blair | ECON | Unknown | | + + +---------+ + Care Team Providers + +------+ + | Care Body Trimmer Name | Role | Phone | + +------+ + | Jose Robles MD | PCP | | + +------+ + Encounter Details +--------+ + + + + | Date | Type | Department | Care Team | Description | +--------+ + + + + | 11/25/ | Pharmacy | Specialty Pharmacy | | | | 2017 | Visit | Services [address] | | | | | | [address] | | | | | | [place], [place] | | | | | | [address] | | | | | | [phone] | | | +--------+ + + + [...] Rd | | | | | | [place] | | | | | | [address] | | +--------+ + + + + | 12/25/ | Video/TeleH | Cardiology | Tessie Mabry | | | 2019 | ealth-Sched | | [facility] [address] | | | | uled | | [address] | | | | | | [place], [place] | | | | | | [address] | | | | | | [phone] | | | | | | | | +--------+ + + + + documented as of this encounter Visit Diagnoses Not on filedocumented in this encounter"
--- OUTSIDE RECORDS SUMMARY | ~2019-12-13 | XMS | Encounter Summary ---
Demographics + + + | Address | [address] | | | [place] [address] | + + + | Home Phone [...] + + + | Author | [facility] | + + + | Organization | [facility] | + + + | Address | Unknown | + + + | Phone | Unavailable | + + + Support + + +---------+ + | Name | Relationship | Address | Phone | + + +---------+ + | Jese Blair | ECON | Unknown | | + + +---------+ + Care Team Providers + +------+ + | Care Land Examiner Name | Role | Phone | + +------+ + | Jose Robles MD | PCP | | + +------+ + Encounter Details +--------+ + + + + | Date | Type | Department | Care Team | Description | +--------+ + + + + | 12/27/ | Pharmacy | [facility] | | | | 2019 | Visit | [address] | | | | | | [facility] [address] | | | | | | [place] [address] | | | | | | [phone] | | | +--------+ + + + [...] [place] | | | | | | [address] | | +--------+ + + + + | 12/25/ | Video/TeleH | Cardiology | Tessie Mabry | | | 2019 | ealth-Sched | | [facility] [address] | | | | uled | | [address] | | | | | | [place], [place] | | | | | | [address] | | | | | | [phone] | | | | | | | | +--------+ + + + + documented as of this encounter Visit Diagnoses Not on filedocumented in this encounter"
--- OUTSIDE RECORDS SUMMARY | ~2019-12-13 | XMS | Encounter Summary ---
Demographics + + + | Address | [address] | | | [place] [address] | + + + | Home Phone | | + + + | Preferred Language | Unknown | + + + | Marital Status | Single | + + + | Caodaism Affiliation | Unknown | + + + [...] Team Providers + +------+ + | Care Logistics Solution Manager Name | Role | Phone | + +------+ + | Jose Robles MD | PCP | | + +------+ + Encounter Details +--------+ + + + + | Date | Type | Department | Care Team | Description | +--------+ + + + + | 06/08/ | MyChart | Cardiology General | | RE:Checking in | | 2020 | Encounter | at [facility] [address] | | | | | | [facility] [place] for | | | | | | Health and Healing, | | | | | | [facility] | | | | | | [place], [place] | | | | | | [address] | | | | | | [phone] | | | +--------+ + + + [...] [place] | | | | | | [address] | | +--------+ + + + + | 12/25/ | Video/TeleH | Cardiology | Tessie Mabry | | | 2019 | ealth-Sched | | [facility] [address] | | | | uled | | [address] | | | | | | [facility] [place] | | | | | | [address] | | | | | | [phone] | | | | | | | | +--------+ + + + + documented as of this encounter Visit Diagnoses Not on filedocumented in this encounter"
--- OUTSIDE RECORDS SUMMARY | ~2019-12-13 | XMS | Encounter Summary ---
Demographics + + + | Address | [address] | | | [place] [address] | + + + | Home Phone [...] Team Providers + +------+ + | Care Short Story Writer Name | Role | Phone | + +------+ + | Jose Robles MD | PCP | | + +------+ + Encounter Details +--------+ + + + + | Date | Type | Department | Care Team | Description | +--------+ + + + + | 12/13/ | Pharmacy | [facility] | | | | 2019 | Visit | [address] [facility] | | | | | | [facility] [address] | | | | | | [place] [address] | | | | | | [phone] | | | +--------+ + + + [...] Rd | | | | | | [place], [place] | | | | | | [address] | | +--------+ + + + + | 12/25/ | Video/TeleH | Cardiology | Tessie Mabry | | | 2019 | ealth-Sched | | [facility] [address] | | | | uled | | [address] | | | | | | [place], [place] | | | | | | [address] | | | | | | [phone] | | | | | | | | +--------+ + + + + documented as of this encounter Visit Diagnoses Not on filedocumented in this encounter"
--- OUTSIDE RECORDS SUMMARY | ~2019-12-13 | XMS | Encounter Summary ---
Demographics + + + | Address | [address] | | | [place] [address] | + + + | Home Phone | | + + + | Preferred Language | Unknown | + + + | Marital Status | Single | + + + | Sikh Affiliation | Unknown | + + + | Race | White | + + + | Ethnic Group | Not or | + + + Author + + + | Author | [facility] | + + + | Organization | [facility] | + + + | Address | Unknown | + + + | Phone | Unavailable | + + + Support + + +---------+ + | Name | Relationship | Address | Phone | + + +---------+ + | Jese Blair | ECON | Unknown | | + + +---------+ + Care Team Providers + +------+ + | Care Field Crop Ii Farmworker Name | Role | Phone | + +------+ + | Jose Rolbes MD | PCP | | + +------+ + Encounter Details +--------+------+ + + + | Date | Type | Department | Care Team | Description | +--------+------+ + + + | 05/17/ | Lab | Laboratory at [facility] | | Hypercholesterolemia | | 2019 | | [address] | | | | | | [place] [facility] | | | | | | and Healing, | | | | | | [address] | | | | | | [place], [place] | | | | | | [address] | | | | | | [phone] | | | +--------+------+ + + + [...] | 12/25/ | Video/TeleH | Cardiology | Faibana Larsen, | | | 2019 | ealth-Sched | | [address] | | | | uled | | [address] | | | | | | [place], [place] | | | | | | [address] | | +--------+ + + + + | 12/25/ | Video/TeleH | Cardiology | Tessie Mabry | | | 2019 | ealth-Sched | | [facility] [address] | | | | uled | | [address] | | | | | | [place], [place] | | | | | | [address] | | | | | | [phone] | | | | | | | [...] [facility] | [address] | [place], [place] | | | SERVICES, LIPID | [facility] | [address] | | + + + + + [...] | + + + + + | [facility] | [address] | [place], [place] | | | SERVICES, LIPID | [address] | [address] | | + + + + + [...] + + + | [facility] | [address] | [place] [address] | | | [facility] | | | | | HEALTH + HEALING | | | | + + + + + documented in this encounter Visit Diagnoses + + | Diagnosis | + + | Hypercholesterolemia Pure hypercholesterolemia | + + documented in this encounter"
--- OUTSIDE RECORDS SUMMARY | ~2019-12-13 | XMS | Encounter Summary ---
Demographics + + + | Address | [address] | | | [place] [address] | + + + | Home Phone [...] Team Providers + +------+ + | Care Electrical Maintenance Man Name | Role | Phone | + +------+ + | Jose Robles MD | PCP | | + +------+ + Encounter Details +--------+ + + + + | Date | Type | Department | Care Team | Description | +--------+ + + + + | 08/11/ | MyChart | Cardiology | Joanie Lynne | RE: Repdc refniya | | 2019 | Encounter | Preventive at [facility] | [place] [address] | | | | | [address] | [address] [place], | | | | | [facility] | [place] [address] | | | | | and Healing, | [phone] | | | | | Building [address] | | | | | | [place], [place] | | | | | | [address] | | | | | | [phone] | | | +--------+ + + + [...] Rd | | | | | | [place] | | | | | | [address] | | +--------+ + + + + | 12/25/ | Video/TeleH | Cardiology | Tessie Mabry | | | 2019 | ealth-Sched | | [facility] [address] | | | | uled | | [address] | | | | | | [place], [place] | | | | | | [address] | | | | | | [phone] | | | | | | | | +--------+ + + + + documented as of this encounter Visit Diagnoses Not on filedocumented in this encounter"
--- OUTSIDE RECORDS SUMMARY | ~2019-12-13 | XMS | Encounter Summary ---
Demographics + + + | Address | [address] [facility] [facility] | | | [place] [address] | + + + | Home Phone [...] Team Providers + +------+ + | Care Harness Inspector Name | Role | Phone | + +------+ + | Jose Robles MD | PCP | | + +------+ + Encounter Details +--------+ + + + + | Date | Type | Department | Care Team | Description | +--------+ + + + + | 08/17/ | Pharmacy | [facility] | | | | 2019 | Visit | [address] [facility] | | | | | | [facility] [address] | | | | | | [place] [address] | | | | | | [phone] | | | +--------+ + + + [...] Rd | | | | | | [place], [place] | | | | | | [address] | | +--------+ + + + + | 12/25/ | Video/TeleH | Cardiology | Tessie Mabry | | | 2019 | ealth-Sched | | [facility] [address] | | | | uled | | [address] | | | | | | [place], [place] | | | | | | [address] | | | | | | [phone] | | | | | | | | +--------+ + + + + documented as of this encounter Visit Diagnoses Not on filedocumented in this encounter"
--- OUTSIDE RECORDS SUMMARY | ~2019-12-13 | XMS | Encounter Summary ---
Demographics + + + | Address | [address] | | | [place] [address] | + + + | Home Phone [...] Author + + + | Author | [facility] | + + + | Organization | [facility] | + + + | Address | Unknown | + + + | Phone | Unavailable | + + + Support + + +---------+ + | Name | Relationship | Address | Phone | + + +---------+ + | Jese Blair | ECON | Unknown | | + + +---------+ + Care Team Providers + +------+ + | Care Research Mechanic Name | Role | Phone | [...] | | | | Jalil Johnson, | [place] [place], | | | | | [place] | ,PhD [address] | PA-C [address] | | | | | sis of | [address] | [address] | | | | | coronary | [address] | [place], [place] | | | | | artery, | [place] | [address] | | | | | angina | [address] | Phone: | | | | | presence | Phone: | [phone] | | | | | unspecified, | [phone] | Fax: | | | | | unspecified | Fax: | [phone] | | | | | vessel or | [phone] | | | | | | lesion type, | | | | | | | unspecified | | | | | | | whether | | | | | | | afognak or | | | | | | | transplanted | | | | | | | heart | | | | | | | Procedures | | | | | | | DE EST | | | | | | [...] | 2019 | Visit | Preventive at [facility] | [place] [address] | (Primary Dx) | | | | [address] | [address] [place], | | | | | [facility] | [place] [address] | | | | | and Healing, | [phone] | | | | | Building [address] | | | | | | [place], [place] | | | | | | [address] | | | | | | [phone] | | | +--------+---------+ + + + [...] Return to clinic: Please go to front end mechanic today and make an appointment to see [...] take a fish oil supplement that provides 6583-4109 mg EP A/DHA (omega-3s) daily. Begin with 1 softgel (or 1 teaspoon) a day and gradually increase to the recommended dose as tolerated over 5-10 days. Recommended brands: ? Nature s Bounty Maximum Strength Fish Oil 1400 mg o Available at [employer] & online; $23.99 for 130 softgels o Dose: take 3 softgels a day (provides 900 mg EPA/DHA per softgel) ? Nature s Answer Liquid Omaha-3 o Liquid supplement, available at [email or web address]; $19.49 for 16 oz o Dose: take [...] sterolemia, Statin Intolerance, Moderate Premature Coronary Atherosclerosis (ZEHG=656 in 201 4, 90th percentile), Obesity, originally referred here by Jalil Friend MD for assistance with lipid PCSK9 initiation, is back today for PCSK9i therapy management. I originally saw her on 07/01/2017 to start the approval process. She received Repatha 140 mg injections from [facility] at $250 copay (she is n ot eligible for safety net). The first injection was given 09/06/2017 without side effects th ough she did note it took her three attempts to get the plunger to deploy She had good initial response to Repatha (Evolocumab) - LDL decreased from 189 mg/dL-->54 m g/dL (71% decrease) On 02/20/2018, she sent [employer] message reporting significant muscle aches/hip pain. I advi sed her to skip the next dose of Repatha. She skipped 2 doses of Repatha, and reported left thigh/hip pain was diminishing and while seeing physical therapy. She restarted her Repatha on 03/27/2018 On 03/31/2018, she sent the following [employer] message: "Muscle aching in my thighs is [...] mg/dL, back on Repatha every 2 weeks. weather forecaster apy had helped a lot - still not 100% She consented to the [facility] Bi[facility]pos[facility] Registry on 07/01/2017 She reports [...] Approximate date: 2007 x a few months Omaha 3 fatty acid - dose: 1000 mg [...] sterolemia, Statin Intolerance, Moderate Premature Coronary Atherosclerosis (LYIS=156 in 201 4, 90th percentile), Obesity, originally referred here by Jalil Friend MD for assistance with lipid PCSK9 initiation, is back today for PCSK9i therapy management. I originally saw her on 07/01/2017 to start the approval process. She received Repatha 140 mg injections from [facility] at $250 copay (she is n ot eligible for safety net). The first injection was given 09/06/2017 without side effects th ough she did note it took her three attempts to get the plunger to deploy She had good initial response to Repatha (Evolocumab) - LDL decreased from 189 mg/dL-->54 m g/dL (71% decrease) On 02/20/2018, she sent [employer] message reporting significant muscle aches/hip pain. I advi sed her to skip the next dose of Repatha. She skipped 2 doses of Repatha, and reported left thigh/hip pain was diminishing and while seeing physical therapy. She restarted her Repatha on 03/27/2018 On 03/31/2018, she sent the following [employer] message: "Muscle aching in my thighs is [...] mg/dL, back on Repatha every 2 weeks. weather forecaster gloria had helped a lot - still not 100% She consented to the [facility] Biorepository Registry on 07/01/2017 She reports [...] Approximate date: 2007 x a few months Omaha 3 fatty acid - dose: 1000 mg [...] been told she stops breathing while sleeping [place] Sleepiness Scale = 4 Nutrition:Still low saturated [...] Past Medical History: Diagnosis Date Coronary atherosclerosis FCGH=053, 90th percentile for age and gender HTN [...] unit oral tablet Take 2,000 Units by wi ut once daily. estradiol 10 mcg vaginal tablet 10 mcg once daily. evolocumab 140 mg/mL subcutaneous pen injector Inject content of 1 pen (140mg) under th e skin (SUBC) every fourteen days. Indications: atherosclerotic cardiovascular disease Josnhfnjsrc-Wxirtanyf-Ivb C-Mn (GLUCOSAMINE 1500 COMPLEX) 500-400 mg oral capsule Take 1 tablet by mouth once daily. LACTOBAC NO.41/BIFIDOBACT NO.7 (PROBIOTIC-10 ORAL) Take 1 tablet by mouth once daily. lisinopril-hydrochlorothiazide 10-12.5 mg oral tablet Take 10 tablets by mouth. mv,Ca,min-folic acid-vit K1 (ONE-A-DAY WOMEN'S 50 PLUS) 400-20 mcg oral tablet Take 1 t ablet by mouth once daily. Bbdmp-6-SSE-EPA-Fish Oil (FISH OIL) 1,000 mg (120 mg-180 [...] Hypercholesterolemia, Statin Intolerance, Moderate Premature Coronary Atherosclerosis (SKWN=151 in 2014, 90th percentile ), Obesity, originally referred here by Jalil Friend MD for assistance with lipid PCSK9 initiation, is back today for PCSK9i therapy management Per [place] [employer] Clinical Endocrinologists (AACE) 2017 Guidelines: [...] in order to reduce risk of CAD, [place] and CVA was stressed. Continue meds as [...] [address] Mailcode: UHN[address] [facility] [place] [address] documented in t his encounter [...] Rd | | | | | | [place], [place] | | | | | | [address] | | +--------+ + + + + | 12/25/ | Video/TeleH | Cardiology | Tessie Mabry | | | 2019 | ealth-Sched | | [facility] [address] | | | | uled | | [address] | | | | | | [place], [place] | | | | | | [address] | | | | | | [phone] | | | | | | | [...]
--- OUTSIDE RECORDS SUMMARY | ~2019-12-13 | XMS | Encounter Summary ---
Demographics + + + | Address | [address] [facility] | | | [place] [address] | + + + | Home Phone | | + + + | Preferred Language | Unknown | + + + | Marital Status | Single | + + + | Yazidi Affiliation | Unknown | + + + [...] Team Providers + +------+ + | Care Bench Boring Machine Operator Name | Role | Phone | + +------+ + | Jose Robles MD | PCP | | + +------+ + Encounter Details +--------+ + + + + | Date | Type | Department | Care Team | Description | +--------+ + + + + | 01/24/ | Pharmacy | Specialty Pharmacy | | | | 2017 | Visit | Services [address] | | | | | | [address] | | | | | | [place], [place] | | | | | | [address] | | | | | | [phone] | | | +--------+ + + + [...] Rd | | | | | | [place] | | | | | | [address] | | +--------+ + + + + | 12/25/ | Video/TeleH | Cardiology | Tessie Mabry | | | 2019 | ealth-Sched | | [facility] [address] | | | | uled | | [address] | | | | | | [place], [place] | | | | | | [address] | | | | | | [phone] | | | | | | | | +--------+ + + + + documented as of this encounter Visit Diagnoses Not on filedocumented in this encounter"
--- OUTSIDE RECORDS SUMMARY | ~2019-12-13 | XMS | Encounter Summary ---
Demographics + + + | Address | [address] [facility] | | | [place] [address] | + + + | Home Phone | | + + + | Preferred Language | Unknown | + + + | Marital Status | Single | + + + | Restoration Affiliation | Unknown | + + + [...] Team Providers + +------+ + | Care Digital Strategist Senior Manager Name | Role | Phone | + +------+ + | Jose Robles MD | PCP | | + +------+ + Encounter Details +--------+ + + + + | Date | Type | Department | Care Team | Description | +--------+ + + + + | 09/23/ | Pharmacy | Specialty Pharmacy | | | | 2017 | Visit | Services [address] | | | | | | [address] | | | | | | [place], [place] | | | | | | [address] | | | | | | [phone] | | | +--------+ + + + [...] Rd | | | | | | [place] | | | | | | [address] | | +--------+ + + + + | 12/25/ | Video/TeleH | Cardiology | Tessie Mabry | | | 2019 | ealth-Sched | | [facility] [address] | | | | uled | | [address] | | | | | | [place], [place] | | | | | | [address] | | | | | | [phone] | | | | | | | | +--------+ + + + + documented as of this encounter Visit Diagnoses Not on filedocumented in this encounter"
--- OUTSIDE RECORDS SUMMARY | ~2019-12-13 | XMS | Clinical Summary ---
Demographics + + + | Address | [address] [facility] [facility] | | | [place] [address] | + + + | Home Phone [...] Author + + + | Author | [facility] | + + + | Organization | [facility] | + + + | Address | Unknown | + + + | Phone | Unavailable | + + + Support + + +---------+ + | Name | Relationship | Address | Phone | + + +---------+ + | Jese Blair | ECON | Unknown | | + + +---------+ + Care Team Providers + +------+ + | Care Speech/Language Therapist Name | Role | Phone | + +------+ + | Jose Robles MD | PCP | | + +------+ + Source Comments [facility] and [facility] Allergies + + + + + + | Active Allergy | Reactions | Severity | Noted | Comments | | | | | Date | | + + + + + + | Mjbkqhp-Lfr-Qsm | Myalgia | | 06/06/19 | | | Reductase Inhibitors | | | 20 | | + + + + + + Medications + + + +---------+------+------+-------+ | Medication | Sig | Dispensed | Refills | Star | End | Statu | | | | | | t | Date | s | | | | | | Date | | | + + + +---------+------+------+-------+ | | Take 1 capsule by | | 0 | | | Activ | | Hsaen-3-CDX-EPA-Fish | mouth once daily. | | | | | e | | Oil (FISH OIL) | | | | | | | | 1,000 mg (120 mg-180 | | | | | | | | mg) oral capsule | | | | | | | + + + +---------+------+------+-------+ | LACTOBAC | Take 1 tablet by | | 0 | | | Activ | | NO.41/BIFIDOBACT | mouth once daily. | | | | | e | | NO.7 (PROBIOTIC-10 | | | | | | | | ORAL) | | | | | | | + + + +---------+------+------+-------+ | Cholecalciferol | Take 2,000 Units by | | 0 | | | Activ | | (Vitamin D3) | mouth once daily. | | | | | e | | (VITAMIN D3) 2,000 | | | | | | | | unit oral tablet | | | | | | | + + + +---------+------+------+-------+ | mv,Ca,min-folic | Take 1 tablet by | | 0 | | | Activ | | acid-vit K1 | mouth once daily. | | | | | e | | (ONE-A-DAY WOMEN'S | | | | | | | | 50 PLUS) 400-20 mcg | | | | | | | | oral tablet | | | | | | | + + + +---------+------+------+-------+ | | Take 1 tablet by | | 0 | | | Activ | | Glucosamine-Chondroi | mouth once daily. | | | | | e | | t-Vit C-Mn | | | | | | | | (GLUCOSAMINE 1500 | | | | | | | | COMPLEX) 500-400 mg | | | | | | | | oral capsule | | | | | | | + + + +---------+------+------+-------+ | aspirin chewable | Chew and swallow 81 | | 0 | | | Activ | | 81 mg oral | mg once daily. | | | | | e | | tablet,chewable | | | | | | | + + + +---------+------+------+-------+ | | Take 1 tablet by | | 0 | | | Activ | | UBIDECARENONE/VITAMI | mouth once daily. | | | | | e | | N E MIXED (COQ10 SG | | | | | | | | 100 ORAL) | | | | | | | + + + +---------+------+------+-------+ | CALCIUM | Take 1 tablet by | | 0 | | | Activ | | CARBONATE/VITAMIN D3 | mouth once daily. | | | | | e | | (CALCIUM CHEW ORAL) | | | | | | | + + + +---------+------+------+-------+ | estradiol 10 mcg | 10 mcg every 180 | | 0 | 08/2 | | Activ | | vaginal tablet | days. | | | 0/20 | | e | | | | | | 19 | | | + + + +---------+------+------+-------+ | chlorhexidine 0.12 | two times daily. | | 0 | 07/1 | | Activ | | % mucous membrane | | | | 6/20 | | e | | mouthwash | | | | 19 | | | + + + +---------+------+------+-------+ | | Take 10 tablets by | | 0 | 07/3 | | Activ | | lisinopril-hydrochlo | mouth. | | | 0/20 | | e | | rothiazide 10-12.5 | | | | 19 | | | | mg oral tablet | | | | | | | + + + +---------+------+------+-------+ | evolocumab 140 | Inject content of 1 | 2 mL | 11 | 04/2 | | Activ | | mg/mL subcutaneous | pen (140mg) under | | | 0/20 | | e | | pen | the skin (SUBC) | | | 20 | | | | injectorIndications: | every fourteen days. | | | | | | | atherosclerotic | Indications: | | | | | | | cardiovascular | atherosclerotic | | | | | | | disease | cardiovascular | | | | | | | | disease | | | | | | + + + +---------+------+------+-------+ Active Problems + + + | Problem | Noted Date | + + + | Hypercholesteremia | 06/10/2017 | + + + Encounters +--------+ + + + + | Date | Type | Specialty | Care Team | Description | +--------+ + + + + | 12/12/ | Abstract | Cardiology | Tessie Mabry | | | 2019 | | | [facility] | | +--------+ + + + + | 12/12/ | Pharmacy | Pharmacy Services | | | | 2019 | Visit | | | | +--------+ + + + + | 12/11/ | Pharmacy | Pharmacy Services | | | | 2020 | Visit | | | | +--------+ + + + + | 11/27/ | MyChart | Cardiology | Tessie Mabry | RE: Blood work | | 2020 | Encounter | | M, TALENT ACQUISITION RELATIONSHIP MANAGER | | +--------+ + + + + | 11/14/ | Pharmacy | Pharmacy Services | | | | 2020 | Visit | | | | +--------+ + + + + | 11/12/ | Pharmacy | Pharmacy Services | | | | 2020 | Visit | | | | +--------+ + + + + | 10/14/ | Pharmacy | Pharmacy Services | | | | 2020 | Visit | | | | +--------+ + + + + | 10/11/ | Pharmacy | Pharmacy Services | | | | 2019 | Visit | | | | +--------+ + + + + | 10/07/ | MyChart | Cardiology | Tessie Mabry | RE: A couple | | 2019 | Encounter | | M, TALENT ACQUISITION RELATIONSHIP MANAGER | questions and | | | | | | information | +--------+ + + + + from Last 3 Months Immunizations + + + + | Name | Administration Dates | Next Due | + + + + | Influenza, high dose | 02/13/2019 | | | seasonal, | | | | preservative-free | | | + + + + | Influenza, seasonal, | 01/24/2018 | | | intradermal, | | | | preservative free | | | + + + + Family History + + +------+ + | Medical History | Relation | Name | Comments | + + +------+ + | Heart Attack | Mother | | of [place] age 85 | + + +------+ + | Lipid Disorder | Mother | | | + + +------+ + + +------+--------+ + | Relation | Name | Status | Comments | + +------+--------+ + | Mother | | | | + +------+--------+ + Social History + +-------+ +--------+------+ | [...] recent travel history available. | + + Last Filed Vital Signs + + + [...] | | + + + + + Plan of Treatment +--------+ + + + + | Date | Type | Specialty | Care Team | Description | +--------+ + + + + | 12/25/ | Video/TeleH | Cardiology | Fabiana Larsen, | | | 2019 | ealth-Sched | | [facility] [address] | | | | ulzac | | [address] | | | | | | [facility] [place] | | | | | | [address] | | +--------+ + + + + | 12/25/ | Video/TeleH | Cardiology | Tessie Mabry | | | 2019 | ealth-Sched | | [facility] [address] | | | | uled | | [address] | | | | | | [facility], [place] | | | | | | [address] | | | | | | [phone] | | | | | | | | +--------+ + + + + + + + + + | Health Maintenance | Due Date | Last Done | Comments | + + + + + | Influenza (Flu) | | 02/13/2019, 02/13/2019, | | | vaccination (#1) | 0 | 01/24/2018, Additional history | | | | | exists | | + + + + + | Pneumococcal | Completed | 02/23/2017, 12/08/2015 | | | vaccination | | | | + + + + + Procedures + +--------+ + + + | [...] section. | + +--------+ + + + from Last 3 Months Results LIPID SET (TRIG, T CHOL, HDL, CALC LDL) (12/11/2019) + +---------+ + + + | Component | Value | Ref Range | Performed | Pathologist | | | | | At | Signature | + +---------+ + + + | CHOLESTEROL | 166 | <200 mg/dL | [facility] | | | (LAB) | | | LAB - | | | | | | [place] | | + +---------+ + + + | TRIGLYCERID | 220 (A) | 30 - 150 mg/dL | [facility] | | | ES | | | LAB - | | | | | | [place] | | + +---------+ + + + | HDL | 57 | >40 mg/dL | [facility] | | | CHOLESTEROL | | | LAB - | | | | | | [place] | | + +---------+ + + + | CHOL/HDL | 2.9 | <4.44 mg/dL | [facility] | | | RATIO | | | LAB - | | | | | | [place] | | + +---------+ + + + | LDL | 65 | <100 mg/dL | [facility] | | | CHOLESTEROL | | | LAB - | | | , | | | [place] | | | CALCULATED | | | | | + +---------+ + + + | NON-HDL-CHO | 109 | 130 mg/dL | [facility] | | | L | | | LAB - | | | | | | [place] | | + +---------+ + + + + + | Specimen | + + | Blood - Blood | | (substance) | + + + + + + + | Performing | Address | City/State/Zipcode | Phone Number | | Organization | | | | + + + + + | [facility] - | [address] | [place], [place] | [phone] | | [place] | | | | + + + + + HEMOGLOBIN A1C, BLOOD (12/11/2019) + +-------+ + + + | Component | Value | Ref Range | Performed | Pathologist | | | | | At | Signature | + +-------+ + + + | HEMOGLOBIN | 5.3 | 4.2 - 5.6 % | [facility] | | | A1C | | | LAB - | | | | | | [place] | | + +-------+ + + + | ESTIMATED | 105 | mg/dL | [facility] | | | AVERAGE | | | LAB - | | | GLUCOSE | | | [place] | | + +-------+ + + + + + | Specimen | + + | Blood - Blood | | (substance) | + + + + + + + | Performing | Address | City/State/Zipcode | Phone Number | | Organization | | | | + + + + + | [facility] - | [address] | [place] | [phone] | | [place] | | | | + + + + + from Last 3 Months Insurance + +--------+ +--------+ + +--------+ | Payer | Benefi | Subscriber | Effect | Phone | Address | Type | | | t Plan | ID | edith | | | | | | / | | Dates | | | | | | Group | | | | | | + +--------+ +--------+ + +--------+ | MEDICARE | MEDICA | xxxxxxxxxxx | | [phone] | [address] | [address] | | | RE A & | | [phone] | [address] | | | B | | esent | | [place], [place] | | | | | | | | [address] | | + +--------+ +--------+ + +--------+ | MODA MEDICARE | MODA | xxxxxxxxx | 04/25/19 | [phone] | [address] | POS | | SUPPLEMENT | MEDICA | | 17-Pre | 4 | [id number] | | | | RE | | sent | | [place], | | | | SUPPLE | | | | [place] [address] | | | | MENT | | | | | | + +--------+ +--------+ + +--------+ + +--------+ +--------+ + + | Guarantor Name | Accoun | Relation to | Date | Phone | Billing Address | | | t Type | Patient | of | | | | | | | | | | + +--------+ +--------+ + + | Cele Blair | Person | Self | [birth year] | [address] | | | al/Fam | | 1950 | [phone] | [place] [address] | | | yanci | | | 8 (Home) | | + +--------+ +--------+ + +
--- OUTSIDE RECORDS SUMMARY | ~2019-12-13 | XMS | Encounter Summary ---
Demographics + + + | Address | [address] | | | [place] [address] | + + + | Home Phone | | + + + | Preferred Language | Unknown | + + + | Marital Status | Single | + + + | Jew Affiliation | Unknown | + + + [...] Team Providers + +------+ + | Care Potato Chip Packaging Machine Operator Name | Role | Phone | + +------+ + | Jose Robles MD | PCP | | + +------+ + Encounter Details +--------+ + + + + | Date | Type | Department | Care Team | Description | +--------+ + + + + | 07/17/ | Pharmacy | [facility] | | | | 2020 | Visit | [address] [facility] | | | | | | [facility] [address] | | | | | | [place] [address] | | | | | | [phone] | | | +--------+ + + + [...] Rd | | | | | | [place], [place] | | | | | | [address] | | +--------+ + + + + | 12/25/ | Video/TeleH | Cardiology | Tessie Mabry | | | 2019 | ealth-Sched | | [facility] [address] | | | | uled | | [address] | | | | | | [place], [place] | | | | | | [address] | | | | | | [phone] | | | | | | | | +--------+ + + + + documented as of this encounter Visit Diagnoses Not on filedocumented in this encounter"
--- OUTSIDE RECORDS SUMMARY | ~2019-12-13 | XMS | Encounter Summary ---
Demographics + + + | Address | [address] [facility] | | | [place] [address] | + + + | Home Phone [...] Team Providers + +------+ + | Care Lithograph Operator Name | Role | Phone | [...] Rd | | | | | | [place], [place] | | | | | | [address] | | +--------+ + + + + | 12/25/ | Video/TeleH | Cardiology | Tessie Mabry | | | 2020 | [facility] | | [facility] [address] [facility] | | | | re | | [address] | | | | | | [place] | | | | | | [address] | | | | | | [phone] | | | | | | | | +--------+ + + + + documented as of this encounter Visit Diagnoses Not on filedocumented in this encounter"
--- OUTSIDE RECORDS SUMMARY | ~2019-12-13 | XMS | Encounter Summary ---
Demographics + + + | Address | [address] | | | [place] [address] | + + + | Home Phone [...] Team Providers + +------+ + | Care Gun Perforator Loader Name | Role | Phone | + +------+ + | Brooks Dempsey DO | PCP | | + +------+ + Encounter Details +--------+ + + + + | Date | Type | Department | Care Team | Description | +--------+ + + + + | 06/23/ | Abstract | Cardiology General | Jalil Friend, | | | 2018 | | at [facility] [address] | ,PhD [address] | | | | | [facility] | [address] | | | | | Health and Healing, | [place], [place] | | | | | | [address] | | | | | Floor [place], [place] | [phone] | | | | | [address] | | | | | | [phone] | | | +--------+ + + + [...] Cardiology | Fabiana Larsen, | | | 2020 | ealth-Sched | | RD [address] [facility] | | | | uled | | [address] | | | | | | [place] | | | | | | [address] | | +--------+ + + + + | 12/25/ | Video/TeleH | Cardiology | Tessie Mabry | | | 2020 | ealth-Sched | | Mary Jo, ASSISTANT AUTO CENTER MANAGER [address] | | | | uled | | [address] | | | | | | [place] | | | | | | [address] | | | | | | [phone] | | | | | | | | +--------+ + + + + documented as of this encounter Visit Diagnoses Not on filedocumented in this encounter"
--- OUTSIDE RECORDS SUMMARY | ~2019-12-13 | XMS | Encounter Summary ---
Demographics + + + | Address | [address] [facility] | | | [place] [address] | + + + | Home Phone [...] Team Providers + +------+ + | Care Property Management Accountant Name | Role | Phone | + +------+ + | Jose Robles MD | PCP | | + +------+ + Encounter Details +--------+ + + + + | Date | Type | Department | Care Team | Description | +--------+ + + + + | 06/13/ | Pharmacy | [facility] | | | | 2019 | Visit | [address] | | | | | | [facility] [address] | | | | | | [place] [address] | | | | | | [phone] | | | +--------+ + + + [...] Rd | | | | | | [place], [place] | | | | | | [address] | | +--------+ + + + + | 12/25/ | Video/TeleH | Cardiology | Tessie Mabry | | | 2019 | ealth-Sched | | [facility] [place] [address] | | | | uled | | [address] | | | | | | [place], [place] | | | | | | [address] | | | | | | [phone] | | | | | | | | +--------+ + + + + documented as of this encounter Visit Diagnoses Not on filedocumented in this encounter"
--- OUTSIDE RECORDS SUMMARY | ~2019-12-13 | XMS | Encounter Summary ---
Demographics + + + | Address | [address] [facility] [address] | | | [place] [address] | + + + | Home Phone [...] Team Providers + +------+ + | Care Advertising Statistical Clerk Name | Role | Phone | + +------+ + | Jose Robles MD | PCP | | + +------+ + Encounter Details +--------+ + + + + | Date | Type | Department | Care Team | Description | +--------+ + + + + | 09/02/ | Pharmacy | [facility]ty Pharmacy | | | | 2017 | Visit | Services [address] | | | | | | [address] | | | | | | [place], [place] | | | | | | [address] | | | | | | [phone] | | | +--------+ + + + [...] Rd | | | | | | [place] | | | | | | [address] | | +--------+ + + + + | 12/25/ | Video/TeleH | Cardiology | Tessie Mabry | | | 2019 | ealth-Sched | | [facility] [place] [address] | | | | uled | | [address] | | | | | | [place], [place] | | | | | | [address] | | | | | | [phone] | | | | | | | | +--------+ + + + + documented as of this encounter Visit Diagnoses Not on filedocumented in this encounter"
--- OUTSIDE RECORDS SUMMARY | ~2019-12-13 | XMS | Encounter Summary ---
Demographics + + + | Address | [address] [facility] [address] | | | [place] [address] | + + + | Home Phone | | + + + | Preferred Language | Unknown | + + + | Marital Status | Single | + + + | Evangelical Affiliation | Unknown | + + + [...] Team Providers + +------+ + | Care Masonry Contractor Administrator Name | Role | Phone | + [...] | 2018 | Encounter | Preventive at [facility] | [address] | concern about hip | | | | [address] | Christian Bhandari, | pain/Rapatha | | | | [place] for [facility] | [place] [address] | connection | | | | and Healing, | [phone] | | | | | Building [address] | | | | | | [place], [place] | | | | | | [address] | | | | | | [phone] | | | +--------+ + + + [...] | 2019 | ealth-Sched | | [place] [address] | | | | uled | | [address] | | | | | | [place], [place] | | | | | | [address] | | +--------+ + + + + | 12/25/ | Video/TeleH | Cardiology | Tessie Mabry | | 2019 | ealth-Sched | | Mary Jo, JUNIOR ARCHITECT [address] | | | | uled | | [address] | | | | | | [place], [place] | | | | | | [address] | | | | | | [phone] | | | | | | | | +--------+ + + + + documented as of this encounter Visit Diagnoses Not on filedocumented in this encounter"
--- OUTSIDE RECORDS SUMMARY | ~2019-12-13 | XMS | Encounter Summary ---
Demographics + + + | Address | [address] | | | [place] [address] | + + + | Home Phone [...] Team Providers + +------+ + | Care Heel Finisher Name | Role | Phone | + +------+ + | Jose Robles MD | PCP | | + +------+ + Encounter Details +--------+ + + + + | Date | Type | Department | Care Team | Description | +--------+ + + + + | 09/11/ | Pharmacy | [facility] | | | | 2019 | Visit | [address] [facility] | | | | | | [facility] [address] | | | | | | [place] [address] | | | | | | [phone] | | | +--------+ + + + [...] Rd | | | | | | [place], [place] | | | | | | [address] | | +--------+ + + + + | 12/25/ | Video/TeleH | Cardiology | Tessie Mabry | | | 2019 | ealth-Sched | | [facility] [place] [address] | | | | uled | | [address] | | | | | | [place], [place] | | | | | | [address] | | | | | | [phone] | | | | | | | | +--------+ + + + + documented as of this encounter Visit Diagnoses Not on filedocumented in this encounter"
--- OUTSIDE RECORDS SUMMARY | ~2019-12-13 | XMS | Encounter Summary ---
Demographics + + + | Address | [address] [facility] | | | [place] [address] | + + + | Home Phone [...] Team Providers + +------+ + | Care Accounting Consultant Name | Role | Phone | + +------+ + | Brooks Dempsey DO | PCP | | + +------+ + Encounter Details +--------+ + + + + | Date | Type | Department | Care Team | Description | +--------+ + + + + | 01/03/ | Abstract | Cardiology | Joanie Lynne | | | 2018 | | Preventive at [facility] | [address] | | | | | [address] | [address] [place], | | | | | [facility] | [place] [address] | | | | | and [place], | [phone] | | | | | Building 1 | | | | | | [place], [place] | | | | | | [address] | | | | | | [phone] | | | +--------+ + + + [...] Rd | | | | | | [facility] [place] | | | | | | [address] | | +--------+ + + + + | 12/25/ | Video/TeleH | Cardiology | Tessie Mabry | | | 2019 | ealth-Sched | | Mary Jo, CAREER DEVELOPER [address] | | | | uled | | [address] | | | | | | [place], [place] | | | | | | [address] | | | | | | [phone] | | | | | | | | +--------+ + + + + documented as of this encounter Visit Diagnoses Not on filedocumented in this encounter"
--- OUTSIDE RECORDS SUMMARY | ~2019-12-13 | XMS | Encounter Summary ---
Demographics + + + | Address | [address] [facility] | | | [place] [address] | + + + | Home Phone [...] Team Providers + +------+ + | Care Hospice/Home Health Aide Name | Role | Phone | + +------+ + | Jose Robles MD | PCP | | + +------+ + Encounter Details +--------+ + + + + | Date | Type | Department | Care Team | Description | +--------+ + + + + | 08/15/ | Pharmacy | [facility] | | | | 2019 | Visit | [address] [facility] | | | | | | [facility] [address] | | | | | | [place] [address] | | | | | | [phone] | | | +--------+ + + + [...] Rd | | | | | | [place], [place] | | | | | | [address] | | +--------+ + + + + | 12/25/ | Video/TeleH | Cardiology | Tessie Mabry | | | 2019 | ealth-Sched | | [facility] [place] [address] | | | | uled | | [address] | | | | | | [place], [place] | | | | | | [address] | | | | | | [phone] | | | | | | | | +--------+ + + + + documented as of this encounter Visit Diagnoses Not on filedocumented in this encounter"
--- OUTSIDE RECORDS SUMMARY | ~2019-12-13 | XMS | Encounter Summary ---
Demographics + + + | Address | [address] | | | [place] [address] | + + + | Home Phone [...] Team Providers + +------+ + | Care Glass Bulb Silverer Name | Role | Phone | + +------+ + | Jose Robles MD | PCP | | + +------+ + Encounter Details +--------+ + + + + | Date | Type | Department | Care Team | Description | +--------+ + + + + | 06/08/ | MyChart | Cardiology General | | RE:Checking in | | 2020 | Encounter | at [facility] [address] | | | | | | [place] for | | | | | | Health and Healing, | | | | | | [facility] | | | | | | [place], [place] | | | | | | [address] | | | | | | [phone] | | | +--------+ + + + [...] [place] | | | | | | [address] | | +--------+ + + + + | 12/25/ | Video/TeleH | Cardiology | Tessie Mabry | | | 2019 | ealth-Sched | | [facility] [place] [address] | | | | uled | | [address] | | | | | | [facility] [place] | | | | | | [address] | | | | | | [phone] | | | | | | | | +--------+ + + + + documented as of this encounter Visit Diagnoses Not on filedocumented in this encounter"
--- OUTSIDE RECORDS SUMMARY | ~2019-12-13 | XMS | Encounter Summary ---
Demographics + + + | Address | [address] [facility] | | | [place] [address] | + + + | Home Phone [...] Author + + + | Author | [facility] | + + + | Organization | [facility] | + + + | Address | Unknown | + + + | Phone | Unavailable | + + + Support + + +---------+ + | Name | Relationship | Address | Phone | + + +---------+ + | Jese Blair | ECON | Unknown | | + + +---------+ + Care Team Providers + +------+ + | Care Carpenter/Labor Name | Role | Phone | + +------+ + | Jose Robles MD | PCP | | + +------+ + Encounter Details +--------+ + + + + | Date | Type | Department | Care Team | Description | +--------+ + + + + | 08/12/ | MyChart | Cardiology | Tessie Mabry | Update on my Repatha | | 2019 | Encounter | Preventive at [facility] | M, PSYCHOLOGIST EXPERIMENTAL [address] | RX question | | | | [address] | [address] | | | | | [facility] | [place], [place] | | | | | and Healing, | [address] | | | | | Building 1 | [phone] | | | | | [place], [place] | | | | | | [address] | | | | | | [phone] | | | +--------+ + + + [...] | 2019 | ealth-Sched | | [place] [address] | | | | uled | | [address] | | | | | | [place] | | | | | | [address] | | +--------+ + + + + | 12/25/ | Video/TeleH | Cardiology | Tessie Mabry | | 2019 | ealth-Sched | | Mary Jo, PSYCHOLOGIST EXPERIMENTAL [address] | | | | uled | | [address] | | | | | | [place], [place] | | | | | | [address] | | | | | | [phone] | | | | | | | | +--------+ + + + + documented as of this encounter Visit Diagnoses Not on filedocumented in this encounter"
--- OUTSIDE RECORDS SUMMARY | ~2019-12-13 | XMS | Encounter Summary ---
Demographics + + + | Address | [address] [facility] [address] | | | [place] [address] | + + + | Home Phone | | + + + | Preferred Language | Unknown | + + + | Marital Status | Single | + + + | Holiness Affiliation | Unknown | + + + [...] Team Providers + +------+ + | Care Insulation Board Coater Operator Name | Role | Phone | [...] | | 2017 | | Preventive at [facility] | [place] [address] | | | | | [address] | [address] [place], | | | | | [facility] | [place] [address] | | | | | and [place], | [phone] | | | | | Building 1 | | | | | | [place], [place] | | | | | | [address] | | | | | | [phone] | | | +--------+ + + + [...] Rd | | | | | | [place], [place] | | | | | | [address] | | +--------+ + + + + | 12/25/ | Video/TeleH | Cardiology | Tessie Mabry | | | 2019 | ealth-Sched | | [facility] [place] [address] | | | | re | | [address] | | | | | | [place] | | | | | | [address] | | | | | | [phone] | | | | | | | | +--------+ + + + + documented as of this encounter Visit Diagnoses Not on filedocumented in this encounter"
--- OUTSIDE RECORDS SUMMARY | ~2019-12-13 | XMS | Encounter Summary ---
Demographics + + + | Address | [address] [facility] [address] [facility] | | | [place] [address] | + + + | Home Phone [...] Phone | + + +---------+ + | Jsee Blair | ECON | Unknown | | + + +---------+ + Care Team Providers + +------+ + | Care Cotton Agent Name | Role | Phone | [...] | | | | | hypertension | ENTRY LEVEL LAB TECHNICIAN [address] | | | | | | Procedures | [address] | | | | | | CONSULT TO | Zarina Williamson | | | | | | ADULT SLEEP | [place], [place] | | | | | | MEDICINE | [address] | | | | | | | Phone: | | | | | | | [phone] | | | | | | | Fax: | | | | | | | [phone] | | + +--------+ + + + [...] | | | | | Hypercholest | ENTRY LEVEL LAB TECHNICIAN [address] | | | | | | eremia | [address] | | | | | | Procedures | Zarina [place] | | | | | | STRESS | [place], [place] | | | | | | EXERCISE | [address] | | | | | | ECHOCARDIOGR | Phone: | | | | | | AM ONLY | [phone] | | | | | | | Fax: | | | | | | | [phone] | | + +--------+ + + + [...] | | | | | Hypercholest | ENTRY LEVEL LAB TECHNICIAN [address] | [address] | | | | | eremia | [address] | [address] | | | | | Procedures | Zarina Williamson | [place], | | | | | CONSULT TO | [place], [place] | [place] | | | | | PREVENTIVE | [address] | [address] | | | | | CARDIOLOGY | Phone: | | | | | | | [phone] | | | | | | | Fax: | | | | | | | [phone] | | + +--------+ + + + [...] | | | | Jalil Johnson, | [place], | | | | | Atherosclero | ,PhD [address] | ENTRY LEVEL LAB TECHNICIAN [address] | | | | | sis of | [address] | [address] | | | | | coronary | [address] | Zarina Williamson | | | | | artery, | [place], [place] | [place], [place] | | | | | angina | [address] | [address] | | | | | presence | Phone: | Phone: | | | | | unspecified, | [phone] | [phone] | | | | | unspecified | Fax: | Fax: | | | | | vessel or | [phone] | [phone] | | | | | lesion type, | | | | | | | unspecified | | | | | | | whether | | | | | | | [place] or | | | | | | [...] | 2020 | Visit | Preventive at [facility] | M, ENTRY LEVEL LAB TECHNICIAN [address] | (Primary Dx); | | | | [address] | [address] | Prediabetes ; | | | | [place] [facility] | [place], [place] | Essential | | | | and Healing, | [address] | hypertension; | | | | [place] [address] | [phone] | Hypovitaminosis; | | | | [place], [place] | | Hypovitaminosis D | | | | [address] | | | | | | [phone] | | | +--------+---------+ + + + [...] to clinic: Please go to front desk receptionist today and make an appointment to see [...] a Stress Echo when you return to [place] 2.Please follow up with your PCP for [...] in 6 months Take care Tessie SALDAÑA [address] Mail Code CR 9-4 [place] [address] Work [email or web address] documented in this encounter Progress Notes Tessie [...] Stat in Intolerance, Moderate Premature Coronary Atherosclerosis (AYZI=661 in 2014, 90th percenti le), Obesity, originally [...] g/dL (71% decrease) She consented to the [facility] Biorepository Registry on 07/01/2017 Pt reports that [...] Approximate date: 2007 x a few months [place] 3 fatty acid - dose: 1000 mg [...] Past Medical History: Diagnosis Date Coronary atherosclerosis OXAH=637, 90th percentile for age and gender HTN [...] unit oral tablet Take 2,000 Units by [facility] once daily. estradiol 10 mcg vaginal tablet 10 mcg once daily. evolocumab 140 mg/mL subcutaneous pen injector Inject content of 1 pen (140mg) under e skin (SUBC) every fourteen days. Indications: atherosclerotic cardiovascular disease Hsdsdjnkdvn-Qtoppvklw-Fdx C-Mn (GLUCOSAMINE 1500 COMPLEX) 500-400 mg oral capsule Take 1 tablet by mouth once daily. LACTOBAC NO.41/BIFIDOBACT NO.7 (PROBIOTIC-10 ORAL) Take 1 tablet by mouth once daily. lisinopril-hydrochlorothiazide 10-12.5 mg oral tablet Take 10 tablets by mouth. mv,Ca,min-folic acid-vit K1 (ONE-A-DAY WOMEN'S 50 PLUS) 400-20 mcg oral tablet Take 1 t ablet by mouth once daily. Paoho-2-SHR-EPA-Fish Oil (FISH OIL) 1,000 mg (120 mg-180 [...] Stat in Intolerance, Moderate Premature Coronary Atherosclerosis (PFQU=591 in 2013, 90th percenti le), Obesity, originally referred here by Jalil Friend MD for assistance with lipid PCSK 9 initiation, is back today for PCSK9i therapy management, Back today for management of PCS K9i therapy. Per [place] Association of Clinical Endocrinologists (AACE) 2017 Guidelines: [...] in order to reduce risk of CAD, VT and CVA was stressed. Pt to schedule a Stress test in [place] when she returns this week. Differentials considered [...] Pt to schedule a sleep study in [place]. Continue meds as above Return to Clinic: [...] ) were discussed. Patient was informed that nursing home safety (> 3 years) has not been establ ished. CARDIOLOGY - PREVENTIVE [address] Mailcode: [id number] [facility] [place] [id number] My total face to face time spent [...] Rd | | | | | | [place], [place] | | | | | | [address] | | +--------+ + + + + | 12/25/ | Video/TeleH | Cardiology | Tessie Mabry | | | 2019 | ealth-Sched | | [facility] [place] [address] | | | | uled | | [address] | | | | | | [place], [place] | | | | | | [address] | | | | | | [phone] | | | | | | | [...]
--- OUTSIDE RECORDS SUMMARY | ~2019-12-13 | XMS | Encounter Summary ---
Demographics + + + | Address | [address] [facility] | | | [place] [address] | + + + | Home Phone | | + + + | Preferred Language | Unknown | + + + | Marital Status | Single | + + + | Quaker Affiliation | Unknown | + + + | Race | White | + + + | Ethnic Group | Not or | + + + Author + + + | Author | [facility] | + + + | Organization | [facility] | + + + | Address | Unknown | + + + | Phone | Unavailable | + + + Support + + +---------+ + | Name | Relationship | Address | Phone | + + +---------+ + | Jese Blair | ECON | Unknown | | + + +---------+ + Care Team Providers + +------+ + | Care Coke Crusher Operator Name | Role | Phone | + +------+ + | Jose Robles MD | PCP | | + +------+ + Encounter Details +--------+ + + + + | Date | Type | Department | Care Team | Description | +--------+ + + + + | 02/01/ | MyChart | Cardiology | Joanie Lynne | RE: Flu Shot | | 2018 | Encounter | Preventive at [facility] | [place] [address] | | | | | [address] | [address] [place], | | | | | [facility] | [place] [address] | | | | | and Healing, | [phone] | | | | | Building 1 | | | | | | [place], [place] | | | | | | [address] | | | | | | [phone] | | | +--------+ + + + [...] Rd | | | | | | [place], [place] | | | | | | [address] | | +--------+ + + + + | 12/25/ | Video/TeleH | Cardiology | Tessie Mabry | | | 2019 | ealth-Sched | | [place] [address] | | | | ulzac | | [address] | | | | | | [place], [place] | | | | | | [address] | | | | | | [phone] | | | | | | | | +--------+ + + + + documented as of this encounter Visit Diagnoses Not on filedocumented in this encounter"
--- OUTSIDE RECORDS SUMMARY | ~2019-12-13 | XMS | Encounter Summary ---
Demographics + + + | Address | [address] [facility] | | | [place] [address] | + + + | Home Phone | | + + + | Preferred Language | Unknown | + + + | Marital Status | Single | + + + | Restorationist Affiliation | Unknown | + + + | Race | White | + + + | Ethnic Group | Not or | + + + Author + + + | Author | [facility] | + + + | Organization | [facility] | + + + | Address | Unknown | + + + | Phone | Unavailable | + + + Support + + +---------+ + | Name | Relationship | Address | Phone | + + +---------+ + | Jese Blair | ECON | Unknown | | + + +---------+ + Care Team Providers + +------+ + | Care Scrap Handler Name | Role | Phone | + [...] | 2018 | Encounter | Preventive at [facility] | [place] [address] | | | | | [address] | [address] [place], | | | | | [facility] | [place] [address] | | | | | and Healing, | [phone] | | | | | Building [address] | | | | | | [place], [place] | | | | | | [address] | | | | | | [phone] | | | +--------+ + + + [...] Rd | | | | | | [place], [place] | | | | | | [address] | | +--------+ + + + + | 12/25/ | Video/TeleH | Cardiology | Tessie Mabry | | | 2019 | ealth-Sched | | [place] [address] | | | | ulzac | | [address] | | | | | | [place], [place] | | | | | | [address] | | | | | | [phone] | | | | | | | | +--------+ + + + + documented as of this encounter Visit Diagnoses Not on filedocumented in this encounter"
--- OUTSIDE RECORDS SUMMARY | ~2019-12-13 | XMS | Encounter Summary ---
Demographics + + + | Address | [address] [facility] [facility] | | | [place] [address] | + + + | Home Phone | | + + + | Preferred Language | Unknown | + + + | Marital Status | Single | + + + | Zoroastrianism Affiliation | Unknown | + + + [...] Team Providers + +------+ + | Care Health Spa Manager Name | Role | Phone | + +------+ + | Brooks Dempsey DO | PCP | | + +------+ + Encounter Details +--------+ + + + + | Date | Type | Department | Care Team | Description | +--------+ + + + + | 07/29/ | Abstract | Cardiology | Joanie Lynne | | | 2018 | | Preventive at [facility] | [place] [address] | | | | | [address] | [address] [place], | | | | | [facility] | [place] [address] | | | | | and [place], | [phone] | | | | | Building 1 | | | | | | [place], [place] | | | | | | [address] | | | | | | [phone] | | | +--------+ + + + [...] Rd | | | | | | [facility] [place] | | | | | | [address] | | +--------+ + + + + | 12/25/ | Video/TeleH | Cardiology | Tessie Mabry | | | 2019 | ealth-Sched | | Mary Jo, CERTIFIED EMERGENCY VEHICLE TECHNICIAN [address] | | | | uled | | [address] | | | | | | [place], [place] | | | | | | [address] | | | | | | [phone] | | | | | | | | +--------+ + + + + documented as of this encounter Visit Diagnoses Not on filedocumented in this encounter"
--- OUTSIDE RECORDS SUMMARY | ~2019-12-13 | XMS | Encounter Summary ---
Demographics + + + | Address | [address] [facility] | | | [place] [address] | + + + | Home Phone [...] Providers + +------+ + | Care Track Greaser Name | Role | Phone | + [...] | 2019 | on | Preventive at [facility] | [place] [address] | Request - Medication | | | | [address] | [address] [place], | (Repatha 140 mg) | | | | [facility] | [place] [address] | | | | | and Healing, | [phone] | | | | | Building [address] | | | | | | [place], [place] | | | | | | [address] | | | | | | [phone] | | | +--------+ + + + [...] | 2019 | ealth-Sched | | [place] [address] | | | | re | | [address] | | | | | | [place], [place] | | | | | | [address] | | +--------+ + + + + | 12/25/ | Video/TeleH | Cardiology | Tessie Mabry | | | 2020 | [facility] | | [place] [address] [facility] | | | | re | | [address] | | | | | | [place] | | | | | | [address] | | | | | | [phone] | | | | | | | | +--------+ + + + + documented as of this encounter Visit Diagnoses Not on filedocumented in this encounter"
--- OUTSIDE RECORDS SUMMARY | ~2019-12-13 | XMS | Encounter Summary ---
Demographics + + + | Address | [address] [facility] | | | [place] [address] | + + + | Home Phone [...] Team Providers + +------+ + | Care Transformation Consultant Name | Role | Phone | + +------+ + | Jose Robles MD | PCP | | + +------+ + Encounter Details +--------+ + + + + | Date | Type | Department | Care Team | Description | +--------+ + + + + | 08/14/ | Pharmacy | [facility] | | | | 2019 | Visit | [address] [facility] | | | | | | [facility] 100 | | | | | | [place] [address] | | | | | | [phone] | | | +--------+ + + + [...] Rd | | | | | | [place], [place] | | | | | | [address] | | +--------+ + + + + | 12/25/ | Video/TeleH | Cardiology | Tessie Mabry | | | 2019 | ealth-Sched | | [facility] [address] | | | | uled | | [address] | | | | | | [place], [place] | | | | | | [address] | | | | | | [phone] | | | | | | | | +--------+ + + + + documented as of this encounter Visit Diagnoses Not on filedocumented in this encounter"
--- OUTSIDE RECORDS SUMMARY | ~2019-12-13 | XMS | Encounter Summary ---
Demographics + + + | Address | [address] | | | [place] [address] | + + + | Home Phone [...] Team Providers + +------+ + | Care Consumer Educator Name | Role | Phone | + +------+ + | Jose Robles MD | PCP | | + +------+ + Reason for Visit +--------+ + | Reason | Comments | +--------+ + | Other | Calling to see when her blood work will be sent to [facility] per | | | Dr. Mabry request before her appt on 06/06 | +--------+ + Encounter Details +--------+ + + + + | Date | Type | Department | Care Team | Description | +--------+ + + + + | 05/30/ | Telephone | Cardiology | Tessie Mabry | Other (Calling to | | 2020 | | Preventive at [facility] | Mary Jo, NEUROPHYSIOLOGIST [address] [facility] | see when her blood | | | | [address] | [address] | work will be sent to | | | | [place] [facility] | [place], [place] | [address] | | | | and Healing, | [address] | Raghavendra request | | | | Building [address] | [phone] | before her appt on | | | | [place], [place] | | 06/06) | | | | [address] | | | | | | [phone] | | | +--------+ + + + [...] Rd | | | | | | [place], [place] | | | | | | [address] | | +--------+ + + + + | 12/25/ | Video/TeleH | Cardiology | Tessie Mabry | | | 2019 | ealth-Sched | | M, NEUROPHYSIOLOGIST [address] | | | | uled | | [address] | | | | | | [place], [place] | | | | | | [address] | | | | | | [phone] | | | | | | | | +--------+ + + + + documented as of this encounter Visit Diagnoses Not on filedocumented in this encounter"
--- OUTSIDE RECORDS SUMMARY | ~2019-12-13 | XMS | Encounter Summary ---
Demographics + + + | Address | [address] [facility] [facility] | | | [place] [address] | + + + | Home Phone [...] Team Providers + +------+ + | Care Corrosion Prevention Metal Sprayer Name | Role | Phone | + +------+ + | Jose Robles MD | PCP | | + +------+ + Encounter Details +--------+ + + + + | Date | Type | Department | Care Team | Description | +--------+ + + + + | 07/18/ | Pharmacy | [facility] | | | | 2020 | Visit | [address] [facility] | | | | | | [facility] 100 | | | | | | [place] [address] | | | | | | [phone] | | | +--------+ + + + [...] Rd | | | | | | [place], [place] | | | | | | [address] | | +--------+ + + + + | 12/25/ | Video/TeleH | Cardiology | Tessie Mabry | | | 2019 | ealth-Sched | | [facility] [address] | | | | uled | | [address] | | | | | | [place], [place] | | | | | | [address] | | | | | | [phone] | | | | | | | | +--------+ + + + + documented as of this encounter Visit Diagnoses Not on filedocumented in this encounter"
--- OUTSIDE RECORDS SUMMARY | ~2019-12-13 | XMS | Encounter Summary ---
Demographics + + + | Address | [address] [facility] | | | [place] [address] | + + + | Home Phone [...] Team Providers + +------+ + | Care Draw String Knotter Name | Role | Phone | + +------+ + | Jose Robles MD | PCP | | + +------+ + Encounter Details +--------+ + + + + | Date | Type | Department | Care Team | Description | +--------+ + + + + | 11/29/ | Pharmacy | [facility] | | | | 2017 | Visit | [address] [facility] | | | | | | [facility] 100 | | | | | | [place] [address] | | | | | | [phone] | | | +--------+ + + + [...] | | | | | | [place], [place] | | | | | | [address] | | +--------+ + + + + | 12/25/ | Video/TeleH | Cardiology | Tessie Mabry | | | 2019 | ealth-Sched | | [facility] [address] | | | | uled | | [address] | | | | | | [place], [place] | | | | | | [address] | | | | | | [phone] | | | | | | | | +--------+ + + + + documented as of this encounter Visit Diagnoses Not on filedocumented in this encounter"
--- OUTSIDE RECORDS SUMMARY | ~2019-12-13 | XMS | Encounter Summary ---
Demographics + + + | Address | [address] [facility] | | | [place] [address] | + + + | Home Phone [...] Author + + + | Author | [facility] | + + + | Organization | [facility] | + + + | Address | Unknown | + + + | Phone | Unavailable | + + + Support + + +---------+ + | Name | Relationship | Address | Phone | + + +---------+ + | Jese Blair | ECON | Unknown | | + + +---------+ + Care Team Providers + +------+ + | Care Interventional Neuroradiologist Name | Role | Phone | + +------+ + | Brooks Dempsey DO | PCP | | + +------+ + Encounter Details +--------+ + + + + | Date | Type | Department | Care Team | Description | +--------+ + + + + | 06/30/ | Abstract | Cardiology General | Jalil Friend, | | | 2018 | | at [facility] [address] | ,PhD [address] | | | | | [facility] | [address] | | | | | Health and Healing, | [place], [place] | | | | | | [address] | | | | | Floor [place], [place] | [phone] | | | | | [address] | | | | | | [phone] | | | +--------+ + + + [...] 2020 | ealth-Sched | | RD [address] [facility] | | | | uled | | [address] | | | | | | [place] | | | | | | [address] | | +--------+ + + + + | 12/25/ | Video/TeleH | Cardiology | Tessie Mabry | | | 2020 | ealth-Sched | | Mary Jo, AMUSEMENT [place] RECREATION CARD CHECKER [address] | | | | uled | | [address] | | | | | | [place] | | | | | | [address] | | | | | | [phone] | | | | | | | | +--------+ + + + + documented as of this encounter Visit Diagnoses Not on filedocumented in this encounter"
--- OUTSIDE RECORDS SUMMARY | ~2019-12-13 | XMS | Encounter Summary ---
Demographics + + + | Address | [address] [facility] | | | [place] [address] | + + + | Home Phone [...] Team Providers + +------+ + | Care Supervisor Esters And Emulsifiers Name | Role | Phone | + +------+ + | Jose Robles MD | PCP | | + +------+ + Encounter Details +--------+ + + + + | Date | Type | Department | Care Team | Description | +--------+ + + + + | 11/30/ | Pharmacy | [facility] | | | | 2017 | Visit | Pharmacy [address] | | | | | | [address] | | | | | | [place], [place] | | | | | | [address] | | | | | | [phone] | | | +--------+ + + + [...] [place] | | | | | | [address] | | +--------+ + + + + | 12/25/ | Video/TeleH | Cardiology | Tessie Mabry | | | 2019 | ealth-Sched | | [facility] [address] | | | | uled | | [address] | | | | | | [place], [place] | | | | | | [address] | | | | | | [phone] | | | | | | | | +--------+ + + + + documented as of this encounter Visit Diagnoses Not on filedocumented in this encounter"
--- OUTSIDE RECORDS SUMMARY | ~2019-12-13 | XMS | Encounter Summary ---
Demographics + + + | Address | [address] [facility] | | | [place] [address] | + + + | Home Phone [...] Team Providers + +------+ + | Care Operations Consultant Name | Role | Phone | + +------+ + | Jose Robles MD | PCP | | + +------+ + Encounter Details +--------+ + + + + | Date | Type | Department | Care Team | Description | +--------+ + + + + | 11/29/ | Pharmacy | [facility] | | | | 2017 | Visit | Services [address] | | | | | | [address] | | | | | | [place], [place] | | | | | | [address] | | | | | | [phone] | | | +--------+ + + + [...] Rd | | | | | | [place] | | | | | | [address] | | +--------+ + + + + | 12/25/ | Video/TeleH | Cardiology | Tessie Mabry | | | 2019 | ealth-Sched | | [facility] [address] | | | | uled | | [address] | | | | | | [place], [place] | | | | | | [address] | | | | | | [phone] | | | | | | | | +--------+ + + + + documented as of this encounter Visit Diagnoses Not on filedocumented in this encounter"
--- OUTSIDE RECORDS SUMMARY | ~2019-12-13 | XMS | Encounter Summary ---
Demographics + + + | Address | [address] [facility] | | | [place] [address] | + + + | Home Phone [...] Team Providers + +------+ + | Care Third Rigger Name | Role | Phone | + +------+ + | Jose Robles MD | PCP | | + +------+ + Encounter Details +--------+ + + + + | Date | Type | Department | Care Team | Description | +--------+ + + + + | 11/10/ | Pharmacy | [facility] | | | | 2019 | Visit | [address] [facility] | | | | | | [facility] 100 | | | | | | [place] [address] | | | | | | [phone] | | | +--------+ + + + [...] Rd | | | | | | [place], [place] | | | | | | [address] | | +--------+ + + + + | 12/25/ | Video/TeleH | Cardiology | Tessie Mabry | | | 2019 | ealth-Sched | | [facility] [address] | | | | uled | | [address] | | | | | | [place], [place] | | | | | | [address] | | | | | | [phone] | | | | | | | | +--------+ + + + + documented as of this encounter Visit Diagnoses Not on filedocumented in this encounter"
--- OUTSIDE RECORDS SUMMARY | ~2019-12-13 | XMS | Encounter Summary ---
Demographics + + + | Address | [address] [facility] | | | [place] [address] | + + + | Home Phone [...] Team Providers + +------+ + | Care Broommaker Name | Role | Phone | + +------+ + | Jose Robles MD | PCP | | + +------+ + Encounter Details +--------+ + + + + | Date | Type | Department | Care Team | Description | +--------+ + + + + | 01/24/ | Pharmacy | [facility] | | | | 2017 | Visit | [address] [facility] | | | | | | [facility] 100 | | | | | | [place] [address] | | | | | | [phone] | | | +--------+ + + + [...] Rd | | | | | | [place], [place] | | | | | | [address] | | +--------+ + + + + | 12/25/ | Video/TeleH | Cardiology | Tessie Mabry | | | 2019 | ealth-Sched | | [facility] [address] | | | | uled | | [address] | | | | | | [place], [place] | | | | | | [address] | | | | | | [phone] | | | | | | | | +--------+ + + + + documented as of this encounter Visit Diagnoses Not on filedocumented in this encounter"
--- OUTSIDE RECORDS SUMMARY | ~2019-12-13 | XMS | Encounter Summary ---
Demographics + + + | Address | [address] [facility] [address] | | | [place] [address] | + + + | Home Phone | | + + + | Preferred Language | Unknown | + + + | Marital Status | Single | + + + | Catholic Affiliation | Unknown | + + [...] Team Providers + +------+ + | Care Occupational Analyst Name | Role | Phone | + +------+ + | Jose Robles MD | PCP | | + +------+ + Encounter Details +--------+ + + + + | Date | Type | Department | Care Team | Description | +--------+ + + + + | 11/25/ | Pharmacy | Specialty Pharmacy | | | | 2017 | Visit | Services [address] | | | | | | [address] | | | | | | [place], [place] | | | | | | [address] | | | | | | [phone] | | | +--------+ + + + [...] Rd | | | | | | [place] | | | | | | [address] | | +--------+ + + + + | 12/25/ | Video/TeleH | Cardiology | Tessie Mabry | | | 2019 | ealth-Sched | | [facility] [address] | | | | uled | | [address] | | | | | | [place], [place] | | | | | | [address] | | | | | | [phone] | | | | | | | | +--------+ + + + + documented as of this encounter Visit Diagnoses Not on filedocumented in this encounter"
--- OUTSIDE RECORDS SUMMARY | ~2019-12-13 | XMS | Encounter Summary ---
Demographics + + + | Address | [address] [facility] | | | [place] [address] | + + + | Home Phone [...] Team Providers + +------+ + | Care Substation Supervisor Name | Role | Phone | + +------+ + | Jose Robles MD | PCP | | + +------+ + Encounter Details +--------+ + + + + | Date | Type | Department | Care Team | Description | +--------+ + + + + | 01/27/ | Pharmacy | [facility] | | | | 2017 | Visit | [address] [facility] | | | | | | [address] | | | | | | [place] [address] | | | | | | [phone] | | | +--------+ + + + [...] Rd | | | | | | [place], [place] | | | | | | [address] | | +--------+ + + + + | 12/25/ | Video/TeleH | Cardiology | Tessie Mabry | | | 2019 | ealth-Sched | | [facility] [address] | | | | uled | | [address] | | | | | | [place], [place] | | | | | | [address] | | | | | | [phone] | | | | | | | | +--------+ + + + + documented as of this encounter Visit Diagnoses Not on filedocumented in this encounter"
--- OUTSIDE RECORDS SUMMARY | ~2019-12-13 | XMS | Encounter Summary ---
Demographics + + + | Address | [address] [facility] | | | [place] [address] | + + + | Home Phone [...] Team Providers + +------+ + | Care Home Administrator Name | Role | Phone | + +------+ + | Brooks Dempsey DO | PCP | | + +------+ + Encounter Details +--------+ + + + + | Date | Type | Department | Care Team | Description | +--------+ + + + + | 07/29/ | Abstract | Cardiology | Joanie Lynne | | | 2018 | | Preventive at [facility] | [place] | | | | | [address] | [address] [place], | | | | | [facility] | [place] [address] | | | | | and [place], | [phone] | | | | | Building 1 | | | | | | [place], [place] | | | | | | [address] | | | | | | [phone] | | | +--------+ + + + [...] Rd | | | | | | [facility] [place] | | | | | | [address] | | +--------+ + + + + | 12/25/ | Video/TeleH | Cardiology | Tessie Mabry | | | 2019 | ealth-Sched | | Mary Jo, STACK ATTENDANT [address] | | | | uled | | [address] | | | | | | [place], [place] | | | | | | [address] | | | | | | [phone] | | | | | | | | +--------+ + + + + documented as of this encounter Visit Diagnoses Not on filedocumented in this encounter"
--- OUTSIDE RECORDS SUMMARY | ~2019-12-13 | XMS | Encounter Summary ---
Demographics + + + | Address | [address] | | | [place] [address] | + + + | Home Phone | | + + + | Preferred Language | Unknown | + + + | Marital Status | Unknown | + + + | Anabaptism Affiliation | Unknown | + + + | Race | Unknown | + + + | Ethnic Group | Unknown | + + + Author + + + | Author | [facility] | | | and [place] | + + + | Organization | [facility] | | | and [place] | + + + | Address | Unknown | + + + | Phone | Unavailable | + + + Care Team Providers + +------+ + | Care Groundskeeper Supervisor Name | Role | Phone | + +------+ + PCP | Unavailable | + +------+ + Encounter Details +--------+ + + + + | Date | Type | Department | Care Team | Description | +--------+ + + + + | 05/13/ | Hospital | [facility] | | | | 2008 | Encounter | MED CTR MP INTRA OP | | | | | | [address] | | | | | | [place] | | | | | | [address] | | | | | | [phone] | | | +--------+ + + + [...] on file | | + + + documented as of this encounter Plan of Treatment Not on filedocumented as of this encounter Visit Diagnoses Not on filedocumented in this encounter"
--- OUTSIDE RECORDS SUMMARY | ~2019-12-13 | XMS | Encounter Summary ---
Demographics + + + | Address | [address] [facility] | | | [place] [address] | + + + | Home Phone [...] Team Providers + +------+ + | Care Hand Reamer Name | Role | Phone | + +------+ + | Jose Robles MD | PCP | | + +------+ + Encounter Details +--------+ + + + + | Date | Type | Department | Care Team | Description | +--------+ + + + + | 10/07/ | MyChart | Cardiology | Tessie Mabry | RE: A couple | | 2020 | Encounter | Preventive at [facility] | M, HEALTHCARE SOCIAL WORKER [address] | questions and | | | | [address] | [address] | information | | | | [facility] | [facility] [place] | | | | | and Healing, | [address] | | | | | Building [address] | [phone] | | | | | [place], [place] | | | | | | [address] | | | | | | [phone] | | | +--------+ + + + [...] | 2019 | ealth-Sched | | [place] [address] | | | | re | | [address] | | | | | | [place], [place] | | | | | | [address] | | +--------+ + + + + | 12/25/ | Video/TeleH | Cardiology | Tessie Mabry | | | 2019 | ealth-Sched | | Mary Jo, HEALTHCARE SOCIAL WORKER [address] | | | | uled | | [address] | | | | | | [place], [place] | | | | | | [address] | | | | | | [phone] | | | | | | | | +--------+ + + + + documented as of this encounter Visit Diagnoses Not on filedocumented in this encounter"
--- OUTSIDE RECORDS SUMMARY | ~2019-12-13 | XMS | Encounter Summary ---
Demographics + + + | Address | [address] [facility] | | | [place] [address] | + + + | Home Phone | | + + + | Preferred Language | Unknown | + + + | Marital Status | Single | + + + | Muslim Affiliation | Unknown | + + + [...] Team Providers + +------+ + | Care Software Maintenance Engineer Name | Role | Phone | + +------+ + | Jose Robles MD | PCP | | + +------+ + Encounter Details +--------+ + + + + | Date | Type | Department | Care Team | Description | +--------+ + + + + | 12/13/ | Pharmacy | [facility] | | | | 2019 | Visit | [address] [facility] | | | | | | [facility] 100 | | | | | | [place] [address] | | | | | | [phone] | | | +--------+ + + + [...] Rd | | | | | | [place], [place] | | | | | | [address] | | +--------+ + + + + | 12/25/ | Video/TeleH | Cardiology | Tessie Mabry | | | 2019 | ealth-Sched | | [facility] [address] | | | | uled | | [address] | | | | | | [place], [place] | | | | | | [address] | | | | | | [phone] | | | | | | | | +--------+ + + + + documented as of this encounter Visit Diagnoses Not on filedocumented in this encounter"
--- OUTSIDE RECORDS SUMMARY | ~2019-12-13 | XMS | Encounter Summary ---
Demographics + + + | Address | [address] [facility] | | | [place] [address] | + + + | Home Phone | | + + + | Preferred Language | Unknown | + + + | Marital Status | Single | + + + | Islam Affiliation | Unknown | + + + [...] Team Providers + +------+ + | Care Rn Transition Name | Role | Phone | + +------+ + | Jose Robles MD | PCP | | + +------+ + Encounter Details +--------+ + + + + | Date | Type | Department | Care Team | Description | +--------+ + + + + | 12/11/ | Pharmacy | [facility] | | | | 2020 | Visit | [address] [facility] | | | | | | [facility] 100 | | | | | | [place] [address] | | | | | | [phone] | | | +--------+ + + + [...] Rd | | | | | | [place], [place] | | | | | | [address] | | +--------+ + + + + | 12/25/ | Video/TeleH | Cardiology | Tessie Mabry | | | 2019 | ealth-Sched | | [facility] [place] [address] | | | | uled | | [address] | | | | | | [place], [place] | | | | | | [address] | | | | | | [phone] | | | | | | | | +--------+ + + + + documented as of this encounter Visit Diagnoses Not on filedocumented in this encounter"
--- OUTSIDE RECORDS SUMMARY | ~2019-12-13 | XMS | Encounter Summary ---
Demographics + + + | Address | [address] [facility] | | | [place] [address] | + + + | Home Phone | | + + + | Preferred Language | Unknown | + + + | Marital Status | Single | + + + | Mandaen Affiliation | Unknown | + + + [...] Team Providers + +------+ + | Care Back Hoe Machine Operator Name | Role | Phone | + +------+ + | Brooks Dempsey DO | PCP | | + +------+ + Reason for Visit + + + | Reason | Comments | + + + | Prior Authorization | [facility] | | Request - Medication | | + + + Encounter Details +--------+ + + + + | Date | Type | Department | Care Team | Description | +--------+ + + + + | 07/01/ | Telephone | Cardiology | Joanie Lynne | Prior Authorization | | 2018 | | Preventive at [facility] | [place] [address] | Request - Medication | | | | [address] | [address] [place], | ([place]) | | | | [facility] | [place] [address] | | | | | and Healing, | [phone] | | | | | Building [address] | | | | | | [place], [place] | | | | | | [address] | | | | | | [phone] | | | +--------+ + + + [...] Fabiana Larsen, | | | 2019 | michaela-Sched | | [address] [facility] | | | | re | | [address] | | | | | | [place], [place] | | | | | | [address] | | +--------+ + + + + | 12/25/ | Video/TeleH | Cardiology | Tessie Mabry | | | 2020 | ealth-Sched | | M, PREFORM MACHINE OPERATOR [address] [facility] | | | | re | | [address] | | | | | | [place], [place] | | | | | | [address] | | | | | | [phone] | | | | | | | | +--------+ + + + + documented as of this encounter Results RESEARCH ADDITIONAL TUBES (10/10/2017 11:12 AM PDT) + + + + + + [...] | + + + + + | [facility] | [address] | [place] [address] | | | SERVICES, [place] [facility] | | | | | HEALTH + HEALING | | | | + + + + + LIPID LAB - LIPOPROTEIN (A) (10/10/2017 11:10 AM PDT) + +-------+ + + + | Component | Value | Ref Range | Performed | Pathologist | | | | | At | Signature | + +-------+ + + + | LIPOPROTEIN | 25 | <=30 mg/dL | [facility] | | [...] [facility] | [address] | [place], [place] | | | SERVICES, LIPID | [address] | [id number] | | + + + + + LIPID LAB - LIPID PROFILE - PLASMA LIPIDS, HDL AND LDL (10/10/2017 11:10 AM PDT) + +---------+ + + + | Component | Value | Ref Range | Performed | Pathologist | | | | | At | Signature | + +---------+ + + + | TOTAL | 146 | <220 mg/dl | [facility] | | [...] +---------+ + + + | LDL, | 54 | <100 mg/dl | [facility] | | | CHOLESTEROL | | | LABORATORY | | | - LIPID | | | SERVICES, | | | LAB | | | LIPID | | + +---------+ + + + | HDL, | 61 | >50 mg/dl | [facility] | | | CHOLESTEROL | | | LABORATORY | | | - LIPID | | | SERVICES, | | | LAB | | | LIPID | | + +---------+ + + + | TOTAL | 156 (H) | <150 mg/dl | [facility] | | | TRIGLYCERID | | | LABORATORY | | | E - LIPID | | | SERVICES, | | | LAB | | | LIPID | | + +---------+ + + + | NON-HDL | 85 | <=130 mg/dL | [facility] | | [...] | + + + + + | [facility] | [address] | [place], [place] | | | SERVICES, LIPID | [address] | [id number] | | + + + + + documented in this encounter Visit Diagnoses + + | Diagnosis | + + | Hypercholesteremia - Primary Pure hypercholesterolemia | + + documented in this encounter"
--- OUTSIDE RECORDS SUMMARY | ~2019-12-13 | XMS | Encounter Summary ---
Demographics + + + | Address | [address] | | | [place] [address] | + + + | Home Phone | | + + + | Preferred Language | Unknown | + + + | Marital Status | Single | + + + | Confucianism Affiliation | Unknown | + + + | Race | White | + + + | Ethnic Group | Not or | + + + Author + + + | Author | [facility] | + + + | Organization | [facility] | + + + | Address | Unknown | + + + | Phone | Unavailable | + + + Support + + +---------+ + | Name | Relationship | Address | Phone | + + +---------+ + | Jese Blair | ECON | Unknown | | + + +---------+ + Care Team Providers + +------+ + | Care Carbon Brusher Assembler Name | Role | Phone | + +------+ + | Jose Robles MD | PCP | | + +------+ + Encounter Details +--------+ + + + + | Date | Type | Department | Care Team | Description | +--------+ + + + + | 01/15/ | Pharmacy | [facility] | | | | 2019 | Visit | [address] [facility] | | | | | | [facility] [address] | | | | | | [place] [address] | | | | | | [phone] | | | +--------+ + + + [...] Rd | | | | | | [place], [place] | | | | | | [address] | | +--------+ + + + + | 12/25/ | Video/TeleH | Cardiology | Tessie Mabry | | | 2019 | ealth-Sched | | [facility] [address] | | | | uled | | [address] | | | | | | [place], [place] | | | | | | [address] | | | | | | [phone] | | | | | | | | +--------+ + + + + documented as of this encounter Visit Diagnoses Not on filedocumented in this encounter"
--- OUTSIDE RECORDS SUMMARY | ~2019-12-13 | XMS | Encounter Summary ---
Demographics + + + | Address | [address] | | | [place] [address] | + + + | Home Phone [...] Team Providers + +------+ + | Care Remote Mortgage Underwriter Name | Role | Phone | + +------+ + | Jose Robles MD | PCP | | + +------+ + Encounter Details +--------+--------+ + + + | Date | Type | Department | Care Team | Description | +--------+--------+ + + + | 06/06/ | Travel | | | | | 2020 | | | | | +--------+--------+ + [...] Rd | | | | | | [place], [place] | | | | | | [address] | | +--------+ + + + + | 12/25/ | Video/TeleH | Cardiology | Tessie Mabry | | | 2020 | [facility] | | [facility] [address] [facility] | | | | re | | [address] | | | | | | [place] | | | | | | [address] | | | | | | [phone] | | | | | | | | +--------+ + + + + documented as of this encounter Visit Diagnoses Not on filedocumented in this encounter"
--- OUTSIDE RECORDS SUMMARY | ~2019-12-13 | XMS | Encounter Summary ---
Demographics + + + | Address | [address] | | | [place] [address] | + + + | Home Phone [...] Author + + + | Author | [facility] | + + + | Organization | [facility] | + + + | Address | Unknown | + + + | Phone | Unavailable | + + + Support + + +---------+ + | Name | Relationship | Address | Phone | + + +---------+ + | Jese Blair | ECON | Unknown | | + + +---------+ + Care Team Providers + +------+ + | Care Model Maker Plaster Name | Role | Phone | + +------+ + | Jose Robles MD | PCP | | + +------+ + Encounter Details +--------+ + + + + | Date | Type | Department | Care Team | Description | +--------+ + + + + | 05/08/ | Pharmacy | [facility] | | | | 2019 | Visit | [address] [facility] | | | | | | [facility] 100 | | | | | | [place] [address] | | | | | | [phone] | | | +--------+ + + + [...] Rd | | | | | | [place], [place] | | | | | | [address] | | +--------+ + + + + | 12/25/ | Video/TeleH | Cardiology | Tessie Mabry | | | 2019 | ealth-Sched | | [facility] [address] | | | | uled | | [address] | | | | | | [place], [place] | | | | | | [address] | | | | | | [phone] | | | | | | | | +--------+ + + + + documented as of this encounter Visit Diagnoses Not on filedocumented in this encounter"
--- OUTSIDE RECORDS SUMMARY | ~2019-12-13 | XMS | Encounter Summary ---
Demographics + + + | Address | [address] | | | [place] [address] | + + + | Home Phone | | + + + | Preferred Language | Unknown | + + + | Marital Status | Single | + + + | Hindu Affiliation | Unknown | + + + [...] Team Providers + +------+ + | Care Telegraph Office Manager Name | Role | Phone | [...] | | coronary | [address] | [facility] [place] | | | | | artery, | [place], [place] | [address] | | | | | angina | [address] | Phone: | | | | | presence | Phone: | [phone] | | | | | unspecified, | [phone] | Fax: | | | | | unspecified | Fax: | [phone] | | | | | vessel or | [phone] | | | | | | lesion type, | | | | | | | unspecified | | | | | | | whether | | | | | | | burns paiute or | | | | | | [...] Atherosclero | [address] | ,PhD 7604 | | | | | tic heart | [place] | | | | | disease of | [place] | [address] | | | | | burns paiute | [address] | [place], [place] | | | | | coronary | Phone: | [address] | | | | | artery | [phone] | Phone: | | | | | without | Fax: | [phone] | | | | | angina | [phone] | Fax: | | | | | pectoris | | [phone] | + +--------+ + + + + Encounter Details +--------+---------+ + + + | Date | Type | Department | Care Team | Description | +--------+---------+ + + + | 06/10/ | Office | Cardiology General | Jalil Friend, | Atherosclerosis of | | 2018 | Visit | at [facility] [address] | ,PhD [address] | coronary artery, | | | | e Center for | [address] | angina presence | | | | Health and Healing, | [place], [place] | unspecified, | | | | | [address] | unspecified vessel | | | | Floor [place], [place] | [phone] | or lesion type, | | | | [address] | | unspecified whether | | | | [phone] | | burns paiute or | | | | | | [...] a ge. The patient then had a [facility] EKG in 07/2014 which showed a hypertensive [...] oral tablet Take 2,000 Units by mo [facility] once daily. Bormjwtsdqk-Oxjcqmymk-Ass C-Mn (GLUCOSAMINE 1500 COMPLEX) 500-400 mg oral capsule Take by mouth. LACTOBAC NO.41/BIFIDOBACT NO.7 (PROBIOTIC-10 ORAL) Take by mouth once daily. melatonin 1 mg oral tablet Take 3 mg by mouth once daily in the evening. mv,Ca,min-folic acid-vit K1 (ONE-A-DAY WOMEN'S 50 PLUS) 400-20 mcg oral tablet Take by mouth once daily. Oipmk-7-YZP-EPA-Fish Oil (FISH OIL) 1,000 mg (120 mg-180 [...] on file Social History Narrative Lives in [place], [place] Family History Mother: of CHF at [...] in the Preventive Cardiology clinic here at [facility]. She does not need regularly scheduled follow-up in the General Cardiology clinic but happy to see her aga in if the need arises. -Jalil Friend MD/PhD School Examiner [employer] [facility] [employer] [facility] [employer] Pager [phone] documented in t his encounter Plan of [...] Rd | | | | | | [place], [place] | | | | | | [address] | | +--------+ + + + + | 12/25/ | Video/TeleH | Cardiology | Tessie Mabry | | | 2019 | ealth-Sched | | Mary Jo, SIGNAL MAINTAINER [address] | | | | uled | | [address] | | | | | | [place], [place] | | | | | | [address] | | | | | | [phone] | | | | | | | [...] whether | | | | | | burns paiute or | | | | | | [...] [facility] | [address] | [place], [place] | | | SERVICES, LIPID | [address] | [address] | | + + + + + [...] [facility] | [address] | [place] [address] | | | SERVICES, CORE | [address] [...] | + + + + + | [facility] | [address] | [place] [address] | | | SERVICES, CORONA | BOB [...] 5.4Comment: Hgb A1C | <5.7 % | [facility] | | | A1C | Interpretive | [...] | [facility] | | considered for monitoring senior living glycemic control in patients with: | LABORATORY [...] [facility] | [address] | [place] [address] | | | SERVICES, SPECIAL | BOB [...] | + + + + + | [facility] | [address] | [place] [address] | | | SERVICES, SPECIAL | BOB [...] | [facility] | | | GRAVITY | Delevan performed by | | LABORATORY | | [...] [facility] | [address] | [place] [address] | | | SERVICES, CORE | PARK [...] DEPT OF | [address] | [place], [place] | | | CARDIOLOGY | [address] | [address] | | + + + + + documented in this encounter Visit Diagnoses + + | Diagnosis | + + | Atherosclerosis of coronary artery, angina presence unspecified, unspecified vessel or | | lesion type, unspecified whether burns paiute or transplanted heart - Primary | + + | Hypercholesteremia Pure hypercholesterolemia | + + | Prediabetes Other abnormal glucose | + + | Familial hypercholesterolemia Pure hypercholesterolemia | + + | Familial hypophosphatemia Disorders of phosphorus metabolism | + + documented in this encounter
--- OUTSIDE RECORDS SUMMARY | ~2019-12-13 | XMS | Encounter Summary ---
Demographics + + + | Address | [address] | | | [place] [address] | + + + | Home Phone | | + + + | Preferred Language | Unknown | + + + | Marital Status | Single | + + + | Yarsani Affiliation | Unknown | + + + | Race | White | + + + | Ethnic Group | Not or | + + + Author + + + | Author | [facility] | + + + | Organization | [facility] | + + + | Address | Unknown | + + + | Phone | Unavailable | + + + Support + + +---------+ + | Name | Relationship | Address | Phone | + + +---------+ + | Jese Blair | ECON | Unknown | | + + +---------+ + Care Team Providers + +------+ + | Care University Registrar Name | Role | Phone | + +------+ + | Jose Robles MD | PCP | | + +------+ + Encounter Details +--------+ + + + + | Date | Type | Department | Care Team | Description | +--------+ + + + + | 05/11/ | Pharmacy | [facility] | | | | 2020 | Visit | [address] [facility] | | | | | | [facility] 100 | | | | | | [place] [address] | | | | | | [phone] | | | +--------+ + + + [...] Rd | | | | | | [place], [place] | | | | | | [address] | | +--------+ + + + + | 12/25/ | Video/TeleH | Cardiology | Tessie Mabry | | | 2019 | ealth-Sched | | [facility] [place] [address] | | | | uled | | [address] | | | | | | [place], [place] | | | | | | [address] | | | | | | [phone] | | | | | | | | +--------+ + + + + documented as of this encounter Visit Diagnoses Not on filedocumented in this encounter"
--- OUTSIDE RECORDS SUMMARY | ~2019-12-13 | XMS | Encounter Summary ---
Demographics + + + | Address | [address] | | | [place] [address] | + + + | Home Phone [...] Team Providers + +------+ + | Care Shipper/Receiver Name | Role | Phone | + +------+ + | Jose Robles MD | PCP | | + +------+ + Encounter Details +--------+ + + + + | Date | Type | Department | Care Team | Description | +--------+ + + + + | 08/17/ | Pharmacy | [facility] | | | | 2017 | Visit | Services [address] | | | | | | [address] | | | | | | [place], [place] | | | | | | [address] | | | | | | [phone] | | | +--------+ + + + [...] Rd | | | | | | [place] | | | | | | [address] | | +--------+ + + + + | 12/25/ | Video/TeleH | Cardiology | Tessie Mabry | | | 2019 | ealth-Sched | | [facility] [place] [address] | | | | uled | | [address] | | | | | | [place], [place] | | | | | | [address] | | | | | | [phone] | | | | | | | | +--------+ + + + + documented as of this encounter Visit Diagnoses Not on filedocumented in this encounter"
--- OUTSIDE RECORDS SUMMARY | ~2019-12-13 | XMS | Encounter Summary ---
Demographics + + + | Address | [address] | | | [place] [address] | + + + | Home Phone [...] Author + + + | Author | [facility] | + + + | Organization | [facility] | + + + | Address | Unknown | + + + | Phone | Unavailable | + + + Support + + +---------+ + | Name | Relationship | Address | Phone | + + +---------+ + | Jese Blair | ECON | Unknown | | + + +---------+ + Care Team Providers + +------+ + | Care Pulmonology Physician Name | Role | Phone | + +------+ + | Brooks Dempsey DO | PCP | | + +------+ + Encounter Details +--------+------+ + + + | Date | Type | Department | Care Team | Description | +--------+------+ + + + | 07/01/ | Lab | Laboratory at [facility] | | Hypercholesteremia | | 2018 | | [address] | | | | | | [place] [facility] | | | | | | and Healing, | | | | | | Building [address] | | | | | | [place], [place] | | | | | | [address] | | | | | | [phone] | | | +--------+------+ + + + [...] Rd | | | | | | [place], [place] | | | | | | [address] | | +--------+ + + + + | 12/25/ | Video/TeleH | Cardiology | Tessie Mabry | | | 2019 | ealth-Sched | | Mary Jo, STEWARD/STEWARDESS SECOND [address] | | | | uled | | [address] | | | | | | [place], [place] | | | | | | [address] | | | | | | [phone] | | | | | | | [...] [facility] | [address] | [place] [address] | | | SERVICES, CORE | [address] [...] | + + + + + | [facility] | [address] [facility] | [place], [place] | | | SERVICES, LIPID | [address] | [address] | | + + + + + [...] + + + + + | [facility] | [address] | [place], [place] | | | SERVICES, LIPID | [address] | [address] | | + + + + + documented in this encounter Visit Diagnoses + + | Diagnosis | + + | Hypercholesteremia Pure hypercholesterolemia | + + documented in this encounter"
--- OUTSIDE RECORDS SUMMARY | ~2019-12-13 | XMS | Encounter Summary ---
Demographics + + + | Address | [address] | | | [place] [address] | + + + | Home Phone | | + + + | Preferred Language | Unknown | + + + | Marital Status | Single | + + + | Episcopalian Affiliation | Unknown | + + + [...] Team Providers + +------+ + | Care Lining Machine Tender Name | Role | Phone | + +------+ + | Jose Robles MD | PCP | | + +------+ + Encounter Details +--------+ + + + + | Date | Type | Department | Care Team | Description | +--------+ + + + + | 10/18/ | Pharmacy | [facility] | | | | 2019 | Visit | [address] [facility] | | | | | | [facility] 100 | | | | | | [place] [address] | | | | | | [phone] | | | +--------+ + + + [...] Rd | | | | | | [place], [place] | | | | | | [address] | | +--------+ + + + + | 12/25/ | Video/TeleH | Cardiology | Tessie Mabry | | | 2019 | ealth-Sched | | [facility] [address] | | | | uled | | [address] | | | | | | [place], [place] | | | | | | [address] | | | | | | [phone] | | | | | | | | +--------+ + + + + documented as of this encounter Visit Diagnoses Not on filedocumented in this encounter"
--- OUTSIDE RECORDS SUMMARY | ~2019-12-13 | XMS | Encounter Summary ---
Demographics + + + | Address | [address] | | | [place] [address] | + + + | Home Phone [...] Team Providers + +------+ + | Care Phytopathology Teacher Name | Role | Phone | + +------+ + | Jose Robles MD | PCP | | + +------+ + Encounter Details +--------+ + + + + | Date | Type | Department | Care Team | Description | +--------+ + + + + | 03/15/ | Pharmacy | [facility] | | | | 2019 | Visit | [address] [facility] | | | | | | [facility] 100 | | | | | | [place] [address] | | | | | | [phone] | | | +--------+ + + + [...] [place] | | | | | | [address] | | +--------+ + + + + | 12/25/ | Video/TeleH | Cardiology | Tessie Mabry | | | 2019 | ealth-Sched | | [facility] [address] | | | | uled | | [address] | | | | | | [place], [place] | | | | | | [address] | | | | | | [phone] | | | | | | | | +--------+ + + + + documented as of this encounter Visit Diagnoses Not on filedocumented in this encounter"
--- OUTSIDE RECORDS SUMMARY | ~2019-12-13 | XMS | Encounter Summary ---
Demographics + + + | Address | [address] | | | [place] [address] | + + + | Home Phone | | + + + | Preferred Language | Unknown | + + + | Marital Status | Single | + + + | Oriental Orthodox Affiliation | Unknown | + + + [...] Team Providers + +------+ + | Care Management Coordinator Name | Role | Phone | [...] + + + + | 12/29/ | Documentati | Cardiology | Raman Eng, | Prior Authorization | | 2018 | on | Preventive at [facility] | PharmD [address] | Request - Medication | | | | [address] | [address] | (Ben) | | | | [facility] | [place], [place] | | | | | and [place], | [address] | | | | | Building [address] | | | | | | [place], [place] | | | | | | [address] | | | | | | [phone] | | | +--------+ + + + [...] Rd | | | | | | [place], [place] | | | | | | [address] | | +--------+ + + + + | 12/25/ | Video/TeleH | Cardiology | Tessie Mabry | | | 2019 | ealth-Sched | | [facility] [place] [address] [facility] | | | | re | | [address] | | | | | | [place] | | | | | | [address] | | | | | | [phone] | | | | | | | | +--------+ + + + + documented as of this encounter Visit Diagnoses Not on filedocumented in this encounter"
--- OUTSIDE RECORDS SUMMARY | ~2019-12-13 | XMS | Encounter Summary ---
Demographics + + + | Address | [address] | | | [place] [address] | + + + | Home Phone | | + + + | Preferred Language | Unknown | + + + | Marital Status | Single | + + + | Baptist Affiliation | Unknown | + + + [...] Team Providers + +------+ + | Care Buildings And Grounds Superintendent Name | Role | Phone | + +------+ + | Jose Robles MD | PCP | | + +------+ + Encounter Details +--------+ + + + + | Date | Type | Department | Care Team | Description | +--------+ + + + + | 08/15/ | Pharmacy | [facility] | | | | 2019 | Visit | [address] [facility] [place] [facility] | | | | | | [facility] 100 | | | | | | [place] [address] | | | | | | [phone] | | | +--------+ + + + [...] Rd | | | | | | [place], [place] | | | | | | [address] | | +--------+ + + + + | 12/25/ | Video/TeleH | Cardiology | Tessie Mabry | | | 2019 | ealth-Sched | | [facility] [place] [address] | | | | uled | | [address] | | | | | | [place], [place] | | | | | | [address] | | | | | | [phone] | | | | | | | | +--------+ + + + + documented as of this encounter Visit Diagnoses Not on filedocumented in this encounter"
--- OUTSIDE RECORDS SUMMARY | ~2019-12-13 | XMS | Encounter Summary ---
Demographics + + + | Address | [address] | | | [place] [address] | + + + | Home Phone [...] Team Providers + +------+ + | Care Leather Stamper Name | Role | Phone | + +------+ + | Jose Robles MD | PCP | | + +------+ + Encounter Details +--------+ + + + + | Date | Type | Department | Care Team | Description | +--------+ + + + + | 05/11/ | Pharmacy | [facility] | | | | 2020 | Visit | [address] [facility] | | | | | | [facility] 100 | | | | | | [place] [address] | | | | | | [phone] | | | +--------+ + + + [...] Rd | | | | | | [place], [place] | | | | | | [address] | | +--------+ + + + + | 12/25/ | Video/TeleH | Cardiology | Tessie Mabry | | | 2019 | ealth-Sched | | [facility] [place] [address] | | | | uled | | [address] | | | | | | [place], [place] | | | | | | [address] | | | | | | [phone] | | | | | | | | +--------+ + + + + documented as of this encounter Visit Diagnoses Not on filedocumented in this encounter"
--- OUTSIDE RECORDS SUMMARY | ~2019-12-13 | XMS | Encounter Summary ---
Demographics + + + | Address | [address] | | | [place] [address] | + + + | Home Phone [...] Team Providers + +------+ + | Care Nurses' Association Counselor Name | Role | Phone | + +------+ + | Jose Robles MD | PCP | | + +------+ + Encounter Details +--------+ + + + + | Date | Type | Department | Care Team | Description | +--------+ + + + + | 10/06/ | Pharmacy | Specialty Pharmacy | | | | 2017 | Visit | Services [address] | | | | | | [address] | | | | | | [place], [place] | | | | | | [address] | | | | | | [phone] | | | +--------+ + + + [...] Rd | | | | | | [place] | | | | | | [address] | | +--------+ + + + + | 12/25/ | Video/TeleH | Cardiology | Tessie Mabry | | | 2019 | ealth-Sched | | [facility] [address] | | | | uled | | [address] | | | | | | [place], [place] | | | | | | [address] | | | | | | [phone] | | | | | | | | +--------+ + + + + documented as of this encounter Visit Diagnoses Not on filedocumented in this encounter"
--- OUTSIDE RECORDS SUMMARY | ~2019-12-13 | XMS | Encounter Summary ---
Demographics + + + | Address | [address] [facility] [facility] [place] [facility] | | | [place] [address] | + + + | Home Phone [...] Team Providers + +------+ + | Care Cash Applications Manager Name | Role | Phone | + +------+ + | Jose Robles MD | PCP | | + +------+ + Encounter Details +--------+ + + + + | Date | Type | Department | Care Team | Description | +--------+ + + + + | 01/16/ | Pharmacy | [facility] | | | | 2019 | Visit | [address] [facility] | | | | | | [facility] 100 | | | | | | [place] [address] | | | | | | [phone] | | | +--------+ + + + [...] Rd | | | | | | [place], [place] | | | | | | [address] | | +--------+ + + + + | 12/25/ | Video/TeleH | Cardiology | Tessie Mabry | | | 2019 | ealth-Sched | | [facility] [address] | | | | uled | | [address] | | | | | | [place], [place] | | | | | | [address] | | | | | | [phone] | | | | | | | | +--------+ + + + + documented as of this encounter Visit Diagnoses Not on filedocumented in this encounter"
--- OUTSIDE RECORDS SUMMARY | ~2019-12-13 | XMS | Encounter Summary ---
Demographics + + + | Address | [address] | | | [place] [address] | + + + | Home Phone [...] Providers + +------+ + | Care Digital Pre Press Operator Name | Role | Phone | [...] | 2019 | Visit | Preventive at [facility] | [place] [address] | (Primary Dx); | | | | [address] | [address] [place], | Essential | | | | [facility] | [place] [address] | hypertension | | | | and Healing, | [phone] | | | | | Building [address] | | | | | | [place], [place] | | | | | | [address] | | | | | | [phone] | | | +--------+---------+ + + + [...] sterolemia, Statin Intolerance, Moderate Premature Coronary Atherosclerosis (QYCL=285 in 201 4, 90th percentile), Obesity, originally referred here by Jalil Friend MD for assistance with lipid PCSK9 initiation, is back today for PCSK9i therapy management. I originally saw her on 07/01/2017 to start the approval process. She received Repatha 140 mg injections from [facility] at $250 copay (she is n ot eligible for safety net). The first injection was given 09/06/2017 without side effects th ough she did note it took her three attempts to get the plunger to deploy She had good initial response to Repatha (Evolocumab) - LDL decreased from 189 mg/dL-->54 m g/dL (71% decrease) On 02/20/2018, she sent [employer] message reporting significant muscle aches/hip pain. I advi sed her to skip the next dose of Repatha. She skipped 2 doses of Repatha, and reported left thigh/hip pain was diminishing and while seeing physical therapy. She restarted her Repatha on 03/27/2018. On 03/31/2018, she sent the following [employer] message: "Muscle aching in my thighs is [...] now and then.)" She consented to the [facility] Biorepository Registry on 07/01/2017 She reports [...] Approximate date: 2007 x a few months [place] 3 fatty acid - dose: 1000 mg [...] Past Medical History: Diagnosis Date Coronary atherosclerosis ZDDE=357, 90th percentile for age and gender Current Outpatient Prescriptions Medication Sig aspirin chewable 81 mg oral tablet,chewable Chew and swallow 81 mg once daily. CALCIUM CARBONATE/VITAMIN D3 (CALCIUM CHEW ORAL) Take 1 tablet by mouth once daily. Cholecalciferol (Vitamin D3) (VITAMIN D3) 2,000 unit oral tablet Take 2,000 Units by [facility] once daily. evolocumab 140 mg/mL subcutaneous pen injector Inject 1 mL (140mg) under the skin (SUBC ) every fourteen days. Indications: atherosclerotic cardiovascular disease Kxelvumtveu-Lebqdpgqd-Npk C-Mn (GLUCOSAMINE 1500 COMPLEX) 500-400 mg oral capsule Take 1 tablet by mouth once daily. LACTOBAC NO.41/BIFIDOBACT NO.7 (PROBIOTIC-10 ORAL) Take 1 tablet by mouth once daily. mv,Ca,min-folic acid-vit K1 (ONE-A-DAY WOMEN'S 50 PLUS) 400-20 mcg oral tablet Take 1 t ablet by mouth once daily. Wrvlh-8-DKE-EPA-Fish Oil (FISH OIL) 1,000 mg (120 mg-180 [...] Hypercholesterolemia, Statin Intolerance, Moderate Premature Coronary Atherosclerosis (HOGP=279 in 2014, 90th percentile ), Obesity, originally [...] want to take medications for this Per [place] [employer] Clinical Endocrinologists (AACE) 2017 Guidelines: [...] in order to reduce risk of CAD, [place] and CVA was stressed. Contine meds as [...] and instructions as outlined. CARDIOLOGY - PREVENTIVE [address] Mailcode: [id number] [facility] [place] [address] docutam in t his encounter Plan of Treatment +--------+ + + + + | Date | Type | Specialty | Care Team | Description | +--------+ + + + + | 12/25/ | Video/TeleH | Cardiology | Fabiana Larsen, | | | 2019 | ealth-Sched | | [place]ENIA [address] | | | | uled | | [address] | | | | | | [place], [place] | | | | | | [address] | | +--------+ + + + + | 12/25/ | Video/TeleH | Cardiology | Tessie Mabry | | | 2019 | ealth-Sched | | [facility] [address] | | | | uled | | [address] | | | | | | [place], [place] | | | | | | [address] | | | | | | [phone] | | | | | | | [...] [facility] | [address] | [place], [place] | | | SERVICES, LIPID | [address] | [address] | | + + + + + [...] | + + + + + | [facility] | [address] | [place], [place] | | | SERVICES, LIPID | [address] | [address] | | + + + + + [...] LABORATORY | [address] | [place] [address] | | | SERVICES, CORE | [address] | | | + + + + + documented in this encounter Visit Diagnoses + + | Diagnosis | + + | Hypercholesteremia - Primary Pure hypercholesterolemia | + + | Essential hypertension | + + documented in this encounter
--- OUTSIDE RECORDS SUMMARY | ~2019-12-13 | XMS | Encounter Summary ---
Demographics + + + | Address | [address] | | | [place] [address] | + + + | Home Phone [...] Author + + + | Author | [facility] | + + + | Organization | [facility] | + + + | Address | Unknown | + + + | Phone | Unavailable | + + + Support + + +---------+ + | Name | Relationship | Address | Phone | + + +---------+ + | Jese Blair | ECON | Unknown | | + + +---------+ + Care Team Providers + +------+ + | Care Mathematics Education Professor Name | Role | Phone | + +------+ + | Jose Robles MD | PCP | | + +------+ + Encounter Details +--------+ + + + + | Date | Type | Department | Care Team | Description | +--------+ + + + + | 09/02/ | Pharmacy | [facility] | | | | 2017 | Visit | [address] [facility] | | | | | | [facility] [address] | | | | | | [place] [address] | | | | | | [phone] | | | +--------+ + + + [...] Rd | | | | | | [place], [place] | | | | | | [address] | | +--------+ + + + + | 12/25/ | Video/TeleH | Cardiology | Tessie Mabry | | | 2019 | ealth-Sched | | [facility] [place] [address] | | | | uled | | [address] | | | | | | [place], [place] | | | | | | [address] | | | | | | [phone] | | | | | | | | +--------+ + + + + documented as of this encounter Visit Diagnoses Not on filedocumented in this encounter"
--- OUTSIDE RECORDS SUMMARY | ~2019-12-13 | XMS | Encounter Summary ---
Demographics + + + | Address | [address] | | | [place] [address] | + + + | Home Phone [...] Team Providers + +------+ + | Care Video Production Assistant Name | Role | Phone | + +------+ + | Jose Robles MD | PCP | | + +------+ + Encounter Details +--------+ + + + + | Date | Type | Department | Care Team | Description | +--------+ + + + + | 09/11/ | Pharmacy | [facility] | | | | 2019 | Visit | [address] [facility] | | | | | | [facility] [address] | | | | | | [place] [address] | | | | | | [phone] | | | +--------+ + + + [...] Rd | | | | | | [place], [place] | | | | | | [address] | | +--------+ + + + + | 12/25/ | Video/TeleH | Cardiology | Tessie Mabry | | | 2019 | ealth-Sched | | [facility] [place] [address] | | | | uled | | [address] | | | | | | [place], [place] | | | | | | [address] | | | | | | [phone] | | | | | | | | +--------+ + + + + documented as of this encounter Visit Diagnoses Not on filedocumented in this encounter"
--- OUTSIDE RECORDS SUMMARY | ~2019-12-13 | XMS | Encounter Summary ---
Demographics + + + | Address | [address] [facility] | | | [place] [address] | + + + | Home Phone [...] Team Providers + +------+ + | Care Polishing Pad Mounter Name | Role | Phone | + +------+ + | Jose Robles MD | PCP | | + +------+ + Encounter Details +--------+ + + + + | Date | Type | Department | Care Team | Description | +--------+ + + + + | 10/28/ | Pharmacy | [facility] | | | | 2017 | Visit | Pharmacy [address] | | | | | | [address] | | | | | | [place], [place] | | | | | | [address] | | | | | | [phone] | | | +--------+ + + + [...] [place] | | | | | | [address] | | +--------+ + + + + | 12/25/ | Video/TeleH | Cardiology | Tessie Mabry | | | 2019 | ealth-Sched | | [facility] [address] | | | | uled | | [address] | | | | | | [place], [place] | | | | | | [address] | | | | | | [phone] | | | | | | | | +--------+ + + + + documented as of this encounter Visit Diagnoses Not on filedocumented in this encounter"
--- OUTSIDE RECORDS SUMMARY | ~2019-12-13 | XMS | Encounter Summary ---
Demographics + + + | Address | [address] | | | [place] [address] | + + + | Home Phone | | + + + | Preferred Language | Unknown | + + + | Marital Status | Single | + + + | Jainism Affiliation | Unknown | + + + [...] Team Providers + +------+ + | Care Environmental Aid Name | Role | Phone | + +------+ + | Brooks Dempsey DO | PCP | | + +------+ + Encounter Details +--------+ + + + + | Date | Type | Department | Care Team | Description | +--------+ + + + + | 06/23/ | Abstract | Cardiology General | Jalil Friend, | | | 2018 | | at [facility] [address] | ,PhD [address] | | | | | [facility] | [address] | | | | | Health and Healing, | [place], [place] | | | | | | [address] | | | | | Floor [place], [place] | [phone] | | | | | [address] | | | | | | [phone] | | | +--------+ + + + [...] 2020 | ealth-Sched | | RD [address] [facility] | | | | uled | | [address] | | | | | | [place] | | | | | | [address] | | +--------+ + + + + | 12/25/ | Video/TeleH | Cardiology | Tessie Mabry | | | 2020 | ealth-Sched | | Mary Jo, VIBRATING SCREEN OPERATOR [address] | | | | uled | | [address] | | | | | | [place] | | | | | | [address] | | | | | | [phone] | | | | | | | | +--------+ + + + + documented as of this encounter Visit Diagnoses Not on filedocumented in this encounter"
--- OUTSIDE RECORDS SUMMARY | ~2019-12-13 | XMS | Encounter Summary ---
Demographics + + + | Address | [address] | | | [place] [address] | + + + | Home Phone [...] Team Providers + +------+ + | Care Batch And Furnace Operator Name | Role | Phone | + +------+ + | Jose Robles MD | PCP | | + +------+ + Encounter Details +--------+ + + + + | Date | Type | Department | Care Team | Description | +--------+ + + + + | 11/29/ | Pharmacy | [facility] | | | | 2017 | Visit | Pharmacy [address] | | | | | | [address] | | | | | | [place], [place] | | | | | | [address] | | | | | | [phone] | | | +--------+ + + + [...] [place] | | | | | | [address] | | +--------+ + + + + | 12/25/ | Video/TeleH | Cardiology | Tessie Mabry | | | 2019 | ealth-Sched | | [facility] [address] | | | | uled | | [address] | | | | | | [place], [place] | | | | | | [address] | | | | | | [phone] | | | | | | | | +--------+ + + + + documented as of this encounter Visit Diagnoses Not on filedocumented in this encounter"
--- OUTSIDE RECORDS SUMMARY | ~2019-12-13 | XMS | Encounter Summary ---
Demographics + + + | Address | [address] [facility] [facility] | | | [place] [address] | + + + | Home Phone [...] Team Providers + +------+ + | Care Grey Roll Man Name | Role | Phone | + +------+ + | Brooks Dempsey DO | PCP | | + +------+ + Encounter Details +--------+ + + + + | Date | Type | Department | Care Team | Description | +--------+ + + + + | 04/04/ | MyChart | Cardiology | Joanie Lynne | RE: Ben follow | | 2018 | Encounter | Preventive at [facility] | [place] [facility] [address] | up | | | | [address] | [address] [place], | | | | | [facility] | [place] [address] | | | | | and [place], | [phone] | | | | | Building 1 | | | | | | [place], [place] | | | | | | [address] | | | | | | [phone] | | | +--------+ + + + [...] Rd | | | | | | [place] | | | | | | [address] | | +--------+ + + + + | 12/25/ | Video/TeleH | Cardiology | Tessie Mabry | | 2019 | ealth-Sched | | [facility] [address] | | | | uled | | [address] | | | | | | [facility], [place] | | | | | | [address] | | | | | | [phone] | | | | | | | [...] [facility] | [address] | [place], [place] | | | SERVICES, LIPID | [facility] | [address] | | + + + + + [...] | + + + + + | [facility] | [address] | [place], [place] | | | SERVICES, LIPID | [address] | [address] | | + + + + + [...] | + + + + + | [facility] | [address] | [place] [address] | | | [facility] | | | | | HEALTH + HEALING | | | | + + + + + documented in this encounter Visit Diagnoses + + | Diagnosis | + + | Hypercholesterolemia - Primary Pure hypercholesterolemia | + + documented in this encounter"
--- OUTSIDE RECORDS SUMMARY | ~2019-12-13 | XMS | Encounter Summary ---
Demographics + + + | Address | [address] [facility] | | | [place] [address] | + + + | Home Phone [...] Providers + +------+ + | Care Transition Coach Name | Role | Phone | + +------+ + | Jose Robles MD | PCP | | + +------+ + Encounter Details +--------+ + + + + | Date | Type | Department | Care Team | Description | +--------+ + + + + | 08/14/ | Pharmacy | [facility] | | | | 2019 | Visit | [address] [facility] | | | | | | [facility] 100 | | | | | | [place] [address] | | | | | | [phone] | | | +--------+ + + + [...] Rd | | | | | | [place], [place] | | | | | | [address] | | +--------+ + + + + | 12/25/ | Video/TeleH | Cardiology | Tessie Mabry | | | 2019 | ealth-Sched | | [facility] [address] | | | | uled | | [address] | | | | | | [place], [place] | | | | | | [address] | | | | | | [phone] | | | | | | | | +--------+ + + + + documented as of this encounter Visit Diagnoses Not on filedocumented in this encounter"
--- OUTSIDE RECORDS SUMMARY | ~2019-12-13 | XMS | Encounter Summary ---
Demographics + + + | Address | [address] | | | [place] [address] | + + + | Home Phone [...] Team Providers + +------+ + | Care Analyst Sales Name | Role | Phone | + [...] | 2019 | Encounter | Preventive at [facility] | [place] [address] | | | | | [address] | [address] [place], | | | | | [facility] | [place] [address] | | | | | and Healing, | [phone] | | | | | Building 1 | | | | | | [place], [place] | | | | | | [address] | | | | | | [phone] | | | +--------+ + + + [...] Rd | | | | | | [place] | | | | | | [address] | | +--------+ + + + + | 12/25/ | Video/TeleH | Cardiology | Tessie Mabry | | | 2019 | ealth-Sched | | [facility] [place] [address] | | | | uled | | [address] | | | | | | [place], [place] | | | | | | [address] | | | | | | [phone] | | | | | | | | +--------+ + + + + documented as of this encounter Visit Diagnoses Not on filedocumented in this encounter"
--- OUTSIDE RECORDS SUMMARY | ~2019-12-13 | XMS | Encounter Summary ---
Demographics + + + | Address | [address] [facility] [facility] | | | [place] [address] | + + + | Home Phone [...] + + + | Author | [facility] | + + + | Organization | [facility] | + + + | Address | Unknown | + + + | Phone | Unavailable | + + + Support + + +---------+ + | Name | Relationship | Address | Phone | + + +---------+ + | Jese Blair | ECON | Unknown | | + + +---------+ + Care Team Providers + +------+ + | Care Rolling Up Machine Operator Name | Role | Phone | + +------+ + | Brooks Dempsey DO | PCP | | + +------+ + Encounter Details +--------+ + + + + | Date | Type | Department | Care Team | Description | +--------+ + + + + | 03/25/ | MyChart | Cardiology | Joanie Lynne | RE: Ben Restart | | 2018 | Encounter | Preventive at [facility] | [place] [address] | | | | | [address] | [address] [place], | | | | | [facility] | [place] [address] | | | | | and [place], | [phone] | | | | | Building 1 | | | | | | [place], [place] | | | | | | [address] | | | | | | [phone] | | | +--------+ + + + [...] Rd | | | | | | [place] | | | | | | [address] | | +--------+ + + + + | 12/25/ | Video/TeleH | Cardiology | Tessie Mabry | | 2019 | ealth-Sched | | [facility] [place] [address] | | | | uled | | [address] | | | | | | [facility] [place] | | | | | | [address] | | | | | | [phone] | | | | | | | | +--------+ + + + + documented as of this encounter Visit Diagnoses Not on filedocumented in this encounter"
--- OUTSIDE RECORDS SUMMARY | ~2019-12-13 | XMS | Encounter Summary ---
Demographics + + + | Address | [address] [facility] | | | [place] [address] | + + + | Home Phone [...] Team Providers + +------+ + | Care Flat Ironer Name | Role | Phone | + +------+ + | Jose Robles MD | PCP | | + +------+ + Encounter Details +--------+ + + + + | Date | Type | Department | Care Team | Description | +--------+ + + + + | 04/06/ | MyChart | Cardiology General | | Please call to | | 2017 | Encounter | at [facility] [address] | | reschedule your | | | | mabel [place] for | | Cardiology | | | | Health and Healing, | | appointment | | | | Building | | | | | | Floor [place], [place] | | | | | | [address] | | | | | | [phone] | | | +--------+ + + + [...] [place] | | | | | | [address] | | +--------+ + + + + | 12/25/ | Video/TeleH | Cardiology | Tessie Mabry | | | 2019 | ealth-Sched | | [facility] [address] | | | | uled | | [address] | | | | | | [place], [place] | | | | | | [address] | | | | | | [phone] | | | | | | | | +--------+ + + + + documented as of this encounter Visit Diagnoses Not on filedocumented in this encounter"
--- OUTSIDE RECORDS SUMMARY | ~2019-12-13 | XMS | Encounter Summary ---
Demographics + + + | Address | [address] [facility] | | | [place] [address] | + + + | Home Phone [...] Team Providers + +------+ + | Care Line Worker Name | Role | Phone | + +------+ + | Jose Robles MD | PCP | | + +------+ + Encounter Details +--------+ + + + + | Date | Type | Department | Care Team | Description | +--------+ + + + + | 04/05/ | Pharmacy | [facility] | | | | 2017 | Visit | [address] [facility] | | | | | | [facility] 100 | | | | | | [place] [address] | | | | | | [phone] | | | +--------+ + + + [...] Rd | | | | | | [place], [place] | | | | | | [address] | | +--------+ + + + + | 12/25/ | Video/TeleH | Cardiology | Tessie Mabry | | | 2019 | ealth-Sched | | [facility] [address] | | | | uled | | [address] | | | | | | [place], [place] | | | | | | [address] | | | | | | [phone] | | | | | | | | +--------+ + + + + documented as of this encounter Visit Diagnoses Not on filedocumented in this encounter"
--- OUTSIDE RECORDS SUMMARY | ~2019-12-13 | XMS | Encounter Summary ---
Demographics + + + | Address | [address] [facility] | | | [place] [address] | + + + | Home Phone [...] Team Providers + +------+ + | Care Internal Audit Senior Manager Name | Role | Phone | + +------+ + | Jose Robles MD | PCP | | + +------+ + Encounter Details +--------+ + + + + | Date | Type | Department | Care Team | Description | +--------+ + + + + | 12/21/ | Pharmacy | Pharmacy @ [facility] | | | | 2018 | Visit | [address] | | | | | [address] Mailcode: | | | | | | [facility] | | | | | | and Healing, | | | | | | Building 2 | | | | | | [place], [place] | | | | | | [address] | | | +--------+ + + + [...] Rd | | | | | | [place], [place] | | | | | | [address] | | +--------+ + + + + | 12/25/ | Video/TeleH | Cardiology | Tessie Mabry | | | 2019 | ealth-Sched | | Mary Jo, UPHOLSTERY PARTS SORTER [address] | | | | uled | | [address] | | | | | | [facility], [place] | | | | | | [address] | | | | | | [phone] | | | | | | | | +--------+ + + + + documented as of this encounter Visit Diagnoses Not on filedocumented in this encounter"
--- OUTSIDE RECORDS SUMMARY | ~2019-12-13 | XMS | Encounter Summary ---
Demographics + + + | Address | [address] [facility] | | | [place] [address] | + + + | Home Phone [...] Team Providers + +------+ + | Care Eyeglass Cutter Name | Role | Phone | + +------+ + | Jose Robles MD | PCP | | + +------+ + Encounter Details +--------+ + + + + | Date | Type | Department | Care Team | Description | +--------+ + + + + | 03/16/ | Pharmacy | [facility] | | | | 2019 | Visit | [address] [facility] | | | | | | [facility] 100 | | | | | | [place] [address] | | | | | | [phone] | | | +--------+ + + + [...] [place] | | | | | | [address] | | +--------+ + + + + | 12/25/ | Video/TeleH | Cardiology | Tessie Mabry | | | 2019 | ealth-Sched | | [facility] [address] | | | | uled | | [address] | | | | | | [place], [place] | | | | | | [address] | | | | | | [phone] | | | | | | | | +--------+ + + + + documented as of this encounter Visit Diagnoses Not on filedocumented in this encounter"
--- OUTSIDE RECORDS SUMMARY | ~2019-12-13 | XMS | Encounter Summary ---
Demographics + + + | Address | [address] [facility] [place] | | | [place] [address] | + + + | Home Phone [...] + + + | Author | [facility] | + + + | Organization | [facility] | + + + | Address | Unknown | + + + | Phone | Unavailable | + + + Support + + +---------+ + | Name | Relationship | Address | Phone | + + +---------+ + | Jese Blair | ECON | Unknown | | + + +---------+ + Care Team Providers + +------+ + | Care Personal Loan Specialist Name | Role | Phone | + +------+ + | Jose Robles MD | PCP | | + +------+ + Encounter Details +--------+ + + + + | Date | Type | Department | Care Team | Description | +--------+ + + + + | 04/09/ | MyChart | Cardiology | Raman Eng, | RE: Flu shot | | 2019 | Encounter | Preventive at [facility] | PharmD [address] | | | | | [address] | [address] | | | | | [facility] | [place], [place] | | | | | and Healing, | [address] | | | | | Building 1 | | | | | | [place], [place] | | | | | | [address] | | | | | | [phone] | | | +--------+ + + + [...] Rd | | | | | | [place] | | | | | | [address] | | +--------+ + + + + | 12/25/ | Video/TeleH | Cardiology | Tessie Mabry | | | 2019 | ealth-Sched | | [facility] [address] | | | | uled | | [address] | | | | | | [place], [place] | | | | | | [address] | | | | | | [phone] | | | | | | | | +--------+ + + + + documented as of this encounter Visit Diagnoses Not on filedocumented in this encounter"
--- OUTSIDE RECORDS SUMMARY | ~2019-12-13 | XMS | Encounter Summary ---
Demographics + + + | Address | [address] [facility] | | | [place] [address] | + + + | Home Phone [...] Team Providers + +------+ + | Care Instructor Technical Training Name | Role | Phone | + +------+ + | Jose Robles MD | PCP | | + +------+ + Encounter Details +--------+ + + + + | Date | Type | Department | Care Team | Description | +--------+ + + + + | 12/15/ | Pharmacy | [facility] | | | | 2019 | Visit | [address] [facility] | | | | | | [facility] 100 | | | | | | [place] [address] | | | | | | [phone] | | | +--------+ + + + [...] Rd | | | | | | [place], [place] | | | | | | [address] | | +--------+ + + + + | 12/25/ | Video/TeleH | Cardiology | Tessie Mabry | | | 2019 | ealth-Sched | | [facility] [address] | | | | uled | | [address] | | | | | | [place], [place] | | | | | | [address] | | | | | | [phone] | | | | | | | | +--------+ + + + + documented as of this encounter Visit Diagnoses Not on filedocumented in this encounter"
--- OUTSIDE RECORDS SUMMARY | ~2019-12-13 | XMS | Encounter Summary ---
Demographics + + + | Address | [address] | | | [place] [address] | + + + | Home Phone [...] Team Providers + +------+ + | Care Numerical Control Machine Tool Operator Name | Role | Phone | + +------+ + | Jose Robles MD | PCP | | + +------+ + Encounter Details +--------+ + + + + | Date | Type | Department | Care Team | Description | +--------+ + + + + | 07/31/ | Pharmacy | Specialty Pharmacy | | | | 2017 | Visit | Services [address] | | | | | | [address] | | | | | | [place], [place] | | | | | | [address] | | | | | | [phone] | | | +--------+ + + + [...] Rd | | | | | | [place] | | | | | | [address] | | +--------+ + + + + | 12/25/ | Video/TeleH | Cardiology | Tessie Mabry | | | 2019 | ealth-Sched | | [facility] [address] | | | | uled | | [address] | | | | | | [place], [place] | | | | | | [address] | | | | | | [phone] | | | | | | | | +--------+ + + + + documented as of this encounter Visit Diagnoses Not on filedocumented in this encounter"
--- OUTSIDE RECORDS SUMMARY | ~2019-12-13 | XMS | Encounter Summary ---
Demographics + + + | Address | [address] [facility] | | | [place] [address] | + + + | Home Phone [...] Team Providers + +------+ + | Care Heat Treating Operator Name | Role | Phone | + +------+ + | Brooks Dempsey DO | PCP | | + +------+ + Encounter Details +--------+ + + + + | Date | Type | Department | Care Team | Description | +--------+ + + + + | 08/30/ | Abstract | Cardiology | Joanie Lynne | | | 2018 | | Preventive at [facility] | [address] | | | | | [address] | [address] [place], | | | | | [facility] | [place] [address] | | | | | and [place], | [phone] | | | | | [address] | | | | | | [place], [place] | | | | | | [address] | | | | | | [phone] | | | +--------+ + + + [...] | | | | | | [facility] [place] | | | | | | [address] | | +--------+ + + + + | 12/25/ | Video/TeleH | Cardiology | Tessie Mabry | | | 2019 | ealth-Sched | | Mary Jo, SEGMENTAL PAVING SUPERVISOR [address] | | | | uled | | [address] | | | | | | [place], [place] | | | | | | [address] | | | | | | [phone] | | | | | | | | +--------+ + + + + documented as of this encounter Visit Diagnoses Not on filedocumented in this encounter"
--- OUTSIDE RECORDS SUMMARY | ~2019-12-13 | XMS | Encounter Summary ---
Demographics + + + | Address | [address] [facility] [address] | | | [place] [address] | + + + | Home Phone [...] Author + + + | Author | [facility] | + + + | Organization | [facility] | + + + | Address | Unknown | + + + | Phone | Unavailable | + + + Support + + +---------+ + | Name | Relationship | Address | Phone | + + +---------+ + | Jese Blair | ECON | Unknown | | + + +---------+ + Care Team Providers + +------+ + | Care Pie Bottomer Name | Role | Phone | + +------+ + | Brooks Dempsey DO | PCP | | + +------+ + Encounter Details +--------+------+ + + + | Date | Type | Department | Care Team | Description | +--------+------+ + + + | 10/10/ | Lab | Laboratory at [facility] | | Hypercholesteremia | | 2018 | | [address] | | | | | | [place] [facility] | | | | | | and Healing, | | | | | | [address] | | | | | | [place], [place] | | | | | | [address] | | | | | | [phone] | | | +--------+------+ + + + [...] Rd | | | | | | [place], [place] | | | | | | [address] | | +--------+ + + + + | 12/25/ | Video/TeleH | Cardiology | Tessie Mabry | | | 2019 | ealth-Sched | | Mary Jo, PIGMENT PUMPER [address] | | | | uled | | [address] | | | | | | [place], [place] | | | | | | [address] | | | | | | [phone] | | | | | | | | +--------+ + + + + documented as of this encounter Procedures + +--------+ + + + | Procedure Name | Priori | Date/Time | Associated Diagnosis | Comments | | | ty | | | | + +--------+ + + + | RESEARCH ADDITIONAL | Routin | 10/10/2017 | Hypercholesteremia | Results for this | | TUBES | e | 11:12 AM | | procedure are in the | | | | PDT | | results section. | + +--------+ + + + | LIPID LAB - | Routin | 10/10/2017 | Hypercholesteremia | Results for this | | LIPOPROTEIN (A) | e | 11:10 AM | | procedure are in the | | | | PDT | | results section. | + +--------+ + + + | LIPID LAB - LIPID | Routin | 10/10/2017 | Hypercholesteremia | Results for this | | PROFILE - PLASMA | e | 11:10 AM | | procedure are in the | | LIPIDS, HDL AND LDL | | PDT | | results section. | + +--------+ + + + documented in this encounter Results RESEARCH ADDITIONAL TUBES (10/10/2017 [...] + + + | [facility] | [address] | [place] [address] | | | [facility] | | | | | HEALTH [...] | + + + + + | [facility] | [address] | [place], [place] | | | SERVICES, LIPID | [address] | [address] | | + + + + + [...] + + + + + | [facility] | [address] | [place], [place] | | | SERVICES, LIPID | [address] | [address] | | + + + + + documented in this encounter Visit Diagnoses + + | Diagnosis | + + | Hypercholesteremia Pure hypercholesterolemia | + + documented in this encounter"
--- OUTSIDE RECORDS SUMMARY | ~2019-12-13 | XMS | Encounter Summary ---
Demographics + + + | Address | [address] | | | [place] [address] | + + + | Home Phone [...] Team Providers + +------+ + | Care Cannon Fire Direction Specialist Name | Role | Phone | + +------+ + | Jose Robles MD | PCP | | + +------+ + Encounter Details +--------+ + + + + | Date | Type | Department | Care Team | Description | +--------+ + + + + | 04/10/ | Pharmacy | [facility] | | | | 2019 | Visit | [address] [facility] | | | | | | [facility] [address] | | | | | | [place] [address] | | | | | | [phone] | | | +--------+ + + + [...] Rd | | | | | | [place], [place] | | | | | | [address] | | +--------+ + + + + | 12/25/ | Video/TeleH | Cardiology | Tessie Mabry | | | 2019 | ealth-Sched | | [facility] [address] | | | | uled | | [address] | | | | | | [place], [place] | | | | | | [address] | | | | | | [phone] | | | | | | | | +--------+ + + + + documented as of this encounter Visit Diagnoses Not on filedocumented in this encounter"
--- OUTSIDE RECORDS SUMMARY | ~2019-12-13 | XMS | Encounter Summary ---
Demographics + + + | Address | [address] [facility] [address] | | | [place] [address] | + + + | Home Phone [...] Author + + + | Author | [facility] | + + + | Organization | [facility] | + + + | Address | Unknown | + + + | Phone | Unavailable | + + + Support + + +---------+ + | Name | Relationship | Address | Phone | + + +---------+ + | Jese Blair | ECON | Unknown | | + + +---------+ + Care Team Providers + +------+ + | Care Data Warehousing Engineer Name | Role | Phone | + +------+ + | Jose Robles MD | PCP | | + +------+ + Encounter Details +--------+ + + + + | Date | Type | Department | Care Team | Description | +--------+ + + + + | 10/17/ | Pharmacy | [facility] | | | | 2019 | Visit | [address] [facility] | | | | | | [facility] | | | | | | [place] [address] | | | | | | [phone] | | | +--------+ + + + [...] Rd | | | | | | [place], [place] | | | | | | [address] | | +--------+ + + + + | 12/25/ | Video/TeleH | Cardiology | Tessie Mabry | | | 2019 | ealth-Sched | | [facility] [address] | | | | uled | | [address] | | | | | | [place], [place] | | | | | | [address] | | | | | | [phone] | | | | | | | | +--------+ + + + + documented as of this encounter Visit Diagnoses Not on filedocumented in this encounter"
--- OUTSIDE RECORDS SUMMARY | ~2019-12-13 | XMS | Encounter Summary ---
Demographics + + + | Address | [address] [facility] | | | [place] [address] | + + + | Home Phone [...] Author + + + | Author | [facility] | + + + | Organization | [facility] | + + + | Address | Unknown | + + + | Phone | Unavailable | + + + Support + + +---------+ + | Name | Relationship | Address | Phone | + + +---------+ + | Jese Blair | ECON | Unknown | | + + +---------+ + Care Team Providers + +------+ + | Care Community Support Associate Name | Role | Phone | + +------+ + | Jose Robles MD | PCP | | + +------+ + Encounter Details +--------+ + + + + | Date | Type | Department | Care Team | Description | +--------+ + + + + | 05/09/ | Pharmacy | [facility] | | | | 2019 | Visit | [address] [facility] | | | | | | [facility] [address] | | | | | | [place] [address] | | | | | | [phone] | | | +--------+ + + + [...] Rd | | | | | | [place], [place] | | | | | | [address] | | +--------+ + + + + | 12/25/ | Video/TeleH | Cardiology | Tessie Mabry | | | 2019 | ealth-Sched | | [facility] [address] | | | | uled | | [address] | | | | | | [place], [place] | | | | | | [address] | | | | | | [phone] | | | | | | | | +--------+ + + + + documented as of this encounter Visit Diagnoses Not on filedocumented in this encounter"
--- OUTSIDE RECORDS SUMMARY | ~2019-12-13 | XMS | Encounter Summary ---
Demographics + + + | Address | [address] [facility] | | | [place] [address] | + + + | Home Phone [...] + +------+ + | Care Heat Treating Bluer Name | Role | Phone | + +------+ + | Jose Robles MD | PCP | | + +------+ + Encounter Details +--------+ + + + + | Date | Type | Department | Care Team | Description | +--------+ + + + + | 04/11/ | Pharmacy | [facility] | | | | 2019 | Visit | [address] [facility] | | | | | | [facility] [address] | | | | | | [place] [address] | | | | | | [phone] | | | +--------+ + + + [...] | | | | | | [place], [place] | | | | | | [address] | | +--------+ + + + + | 12/25/ | Video/TeleH | Cardiology | Tessie Mabry | | | 2019 | ealth-Sched | | [facility] [address] | | | | uled | | [address] | | | | | | [place], [place] | | | | | | [address] | | | | | | [phone] | | | | | | | | +--------+ + + + + documented as of this encounter Visit Diagnoses Not on filedocumented in this encounter"
--- OUTSIDE RECORDS SUMMARY | ~2019-12-13 | XMS | Encounter Summary ---
Demographics + + + | Address | [address] | | | [place] [address] | + + + | Home Phone [...] Providers + +------+ + | Care Director Clinical Information Services Name | Role | Phone | + +------+ + | Jose Robles MD | PCP | | + +------+ + Encounter Details +--------+ + + + + | Date | Type | Department | Care Team | Description | +--------+ + + + + | 02/15/ | Pharmacy | [facility] | | | | 2019 | Visit | [address] [facility] | | | | | | [facility] [address] | | | | | | [place] [address] | | | | | | [phone] | | | +--------+ + + + [...] Rd | | | | | | [place], [place] | | | | | | [address] | | +--------+ + + + + | 12/25/ | Video/TeleH | Cardiology | Tessie Mabry | | | 2019 | ealth-Sched | | [facility] [address] | | | | uled | | [address] | | | | | | [place], [place] | | | | | | [address] | | | | | | [phone] | | | | | | | | +--------+ + + + + documented as of this encounter Visit Diagnoses Not on filedocumented in this encounter"
--- OUTSIDE RECORDS SUMMARY | ~2019-12-13 | XMS | Encounter Summary ---
Demographics + + + | Address | [address] | | | [place] [address] | + + + | Home Phone [...] Team Providers + +------+ + | Care Wildland Fire Fighter Specialist Name | Role | Phone | + +------+ + | Brooks Dempsey DO | PCP | | + +------+ + Encounter Details +--------+ + + + + | Date | Type | Department | Care Team | Description | +--------+ + + + + | 06/30/ | Abstract | Cardiology General | Jalil Friend, | | | 2018 | | at [facility] [address] | ,PhD [address] | | | | | [place] [facility] | [address] | | | | | Health and Healing, | [place], [place] | | | | | | [address] | | | | | Floor [place], [place] | [phone] | | | | | [address] | | | | | | [phone] | | | +--------+ + + + [...] 2020 | ealth-Sched | | [address] [facility] | | | | uled | | [address] | | | | | | [place] | | | | | | [address] | | +--------+ + + + + | 12/25/ | Video/TeleH | Cardiology | Tessie Mabry | | | 2020 | ealth-Sched | | Mary Jo, CERTIFIED SHORTHAND REPORTER [address] | | | | uled | | [address] | | | | | | [place] | | | | | | [address] | | | | | | [phone] | | | | | | | | +--------+ + + + + documented as of this encounter Visit Diagnoses Not on filedocumented in this encounter"
--- OUTSIDE RECORDS SUMMARY | ~2019-12-13 | XMS | Encounter Summary ---
Demographics + + + | Address | [address] | | | [place] [address] | + + + | Home Phone [...] Team Providers + +------+ + | Care Furnace Reliner Name | Role | Phone | + +------+ + | Ke Brooks | PCP | | + +------+ + [...] | | | | Dudleyo | ,PhD 5330 | PA-C [address] | | | | | sis of | [address] | [address] | | | | | coronary | [address] | [place], [place] | | | | | artery, | [place] | [address] | | | | | angina | [address] | Phone: | | | | | presence | Phone: | [phone] | | | | | unspecified, | [phone] | Fax: | | | | | unspecified | Fax: | [phone] | | | | | vessel or | [phone] | | | | | | lesion type, | | | | | | | unspecified | | | | | | | whether | | | | | | | tolowa dee-ni' or | | | | | | [...] Description | +--------+---------+ + + + | 07/01/ | Office | Cardiology | Joanie Lynne | Hypercholesteremia | | 2018 | Visit | Preventive at [facility] | [address] | (Primary Dx) | | | | [address] | [address] [place], | | | | | [facility] | [place] [address] | | | | | and [place], | [phone] | | | | | [address] | | | | | | [place], [place] | | | | | | [address] | | | | | | [phone] | | | +--------+---------+ + + + [...] + + + | Blood Pressure | 144/70 | 07/01/2017 2:24 PM | | | | | PST | | + + + + + | Pulse | 73 | 07/01/2017 2:24 PM | | | | | PST | | + + + + + | Temperature | 36.8 C (98.2 F) | 07/01/2017 2:24 PM | | | | | PST | | + + + + + | Respiratory Rate | - | - | | + + + + + | Oxygen Saturation | 97% | 07/01/2017 2:24 PM | | | | | PST | | + + + + + | Inhaled Oxygen | - | - | | | Concentration | | | | + + + + + | Weight | 86.9 kg (191 lb 8 | 07/01/2017 2:24 PM | | | | oz) | PST | | + + + + + | Height | 165.1 cm (5' 5") | 07/01/2017 2:24 PM | | | | | PST | | + + + + + | Body Mass Index | 31.87 | 07/01/2017 2:24 PM | | | | | PST | | + + + + + documented in this encounter Patient Instructions Patient Instructions Joanie Lynne PA-C - 07/01/2017 2:45 PM PSTGet labs today on 3 rd floor We will start the process for Repatha approval Return to clinic: 6 months after you start the injections with fasting labs a few days befo re appointment (Get labs within 5 days after an injection) Once Repatha is approved, we will need to see you every 6 months for follow up Please DO NOT stop your other cholesterol lowering medications (statins and/or Zetia) when you start the Repatha. Repatha is meant to be used IN ADDITION to your other medications, no t in place of them We will have you come back here to get fasting labs on 3rd floor within 5 days after 3rd in jection - We will contact you when your Repatha is approved and remind you of the labs at th at time Please let us know when you receive either an approval letter or a denial letter (sometimes you receive them before we do). Rest assured that we will always file an appeal if denied. Because there may be need for frequent communication regarding drug approval process, renny e make sure to sign up for Mowdo, if you haven't already done so Please contact us in clinic (preferably via Mowdo) if you have further questions Today in clinic we discussed the followin) The effect of LDL in development and progression of heart disease and mechanism of actio n of Repatha in lowering LDL (a human-derived antibody that increases your LDL receptors, wh ich then helps lower blood LDL levels. 2) Important to continue your other cholesterol lowering medications as well as adhering to a heart healthy (low saturated fat) diet and exercise program. Repatha is to be used in add ition to, and not as a replacement for the above. 3) Most common side effects of Repatha include: redness, itching, swelling, or pain/tendern ess at the injection site, symptoms of common cold and flu, or flu-like symptoms. Call us if you have symptoms that bother you or do not go away 4) Do not keep pen at room temperature for more than 29 days. After that will need to be re frigerated. 5) Do not freeze pen, shake pen or expose to extreme heat or sunlight. If fluid is cloudy, throw away and contact Repatha for replacement ([phone]). 6) Do not use damaged pen. 7) Pen is for single injection purposes only. 8) Cleaning injection sight with alcohol for 30 seconds prior to injection. Allow alcohol t o dry before injecting. 9) Areas for injection, stomach (2 inches from the navel), upper arms, thighs. Do not use o n skin that is injured, tender, hard, red or hot. Do not use in any areas near visible veins , scars or stretch zabala 10) Remove the cap from pen 11) Make sure pen is against fully pressed against skin so that needle is in contact with s kin. 12) Press and firmly hold the pen against your skin until the yellow safety cap is no longe r visible, roughly a 90 degree ankle. The pen will not work if the safety cover is not fully depressed. Push and immediately release the top button with your thumb. 13) Advised that it could take up to 20 seconds to complete injection. Do not remove the pe n or pull back until the entire window has turned (injection is complete). 14) Do not recap the pen after using it to avoid possibly puncturing the finger. 15) Dispose of pen in sharps container. When the sharps container is full, it should be eugenie sed, taped. Call your waste disposal company for specifics on how to dispose of sharps conta iner. In some cases, they will supply you with a sharps container that you can mail back to them for disposal. Never place a container with sharps in the recycle bin. Can use household hazardous waste collection sites: www.deq.pending sale to [facility].or.us/lq/sw/hhw/events.htm For household hazardous waste collection opportunities in the [facility] area, call . For household hazardous waste collection opportunities in other areas, call Please contact us in clinic (or via Appetiset) if you have further question For more information on Repatha, go to: [email or web address] documented in this encounter Progress Notes Raman Eng, PharmD - 07/01/2017 2:45 PM PSTFormatting of this note might be different f rom the original. Preventive Cardiology Clinic Pharmacy Consult Consulted by Joanie [place] to obtain cholesterol medication fill history for Cele Villalba shaka in preparation for PCSK9 inhibitor initiation. Source: patient, pharmacy records, Dr. Glynn Friend at [facility] Cardiology chart notes, Dr. Fr justin Dempsey at [facility] Medicine chart notes Lipid Lowering Medication History: Simvastatin - not tried; Atorvastatin - dose: 10-20 mg daily ; discontinued due to side effects: Myalgias, myosit is and forgetfulness; Symptoms resolve on stopping? Yes for muscle symptoms, unknown for cog nitive symptoms; Re-challenged with recurrence of symptoms? no - Approximate date: 09/2003- Rosuvastatin - dose: 10 mg daily ; discontinued due to side effects: fatigue and forgetf ul; Symptoms resolve on stopping? Yes for muscle symptoms, unknown for cognitive symptoms; R e-challenged with recurrence of symptoms? no - Approximate date: -06/2016 Pravastatin - dose: 40 mg daily ; myalgias, myositis and forgetfulness; Symptoms resolve on stopping? yes; Re-challenged with recurrence of symptoms? Yes for muscle symptoms, unknown for cognitive symptoms - Approximate date: -12/2014 Lovastatin - dose: 40 mg daily ; [...] Approximate date: 2007 x a few months [employer] 3 fatty acid - dose: 1000 mg daily ; maximally tolerated dose without meeting LDL g oal - Approximate date: 2011-current Berberine - not tried Repatha - not tried Praluent - not tried Assessment/Recommendations: The patient has filled the following cholesterol medications: -See documentation above -Medicare part D with supplemental -Patient is unsure if she qualifies for patient assistance Thank you, Raman Eng PharmD, [facility] Cardiology Clinical Pharmacist Formerly [facility], [facility] and [facility] [place] Department of Pharmacy, CR 9-[address] [facility] [place] [address] Pager ID: [phone] Joanie Renner PA-C - 07/01/2017 2:45 PM PST . PCSK9 Prescribing Note: Chief Complaint Patient presents with Hyperlipidemia History: Cele Blair is a 67 y.o. White woman with history of HTN, Hypercholesterolemia, Statin Intolerance (myalgias and arthralgias), Moderate Premature Coronary Atherosclerosis (CACS=2 56 in 2014, 90th percentile), Obesity, referred here by Jalil Friend MD for assistance w ith lipid PCSK9 initiation. Lipid Lowering Medication History: Simvastatin - not [...] Approximate date: 2007 x a few months [employer] 3 fatty acid - dose: 1000 mg daily ; maximally tolerated dose without meeting LDL g oal - Approximate date: 2011-current Berberine - not tried Repatha - not tried Praluent - not tried Nutrition: Low saturated fat diet - tries to eat mostly chicken and fish, rarely red meats, lots of fresh vegetables. Avoids butter and margarin. Exercise/Physical Activity: Patient reports that she has been attempting to be more physica lly active as much as is tolerated, including has a personal care aid ffor osteopenia (2-3 ti mes a week), walks dog, water aerobics class 3 times a week Weight: working on managing her weight Medical, Social, and Family Histories: Medical, Social and Family histories were reviewed and updated in EMR based on conversation with the patient, and notable for HTN, Hypercholesterolemia, Statin Intolerance (myalgias a nd arthralgias), Moderate Premature Coronary Atherosclerosis (LQWN=201 in 2013, 90th percent ile), Obesity. Please see that section of the EMR for full details. Past Medical History: Diagnosis Date Coronary atherosclerosis XDJA=309, 90th percentile for age and gender Current Outpatient Prescriptions Medication Sig aspirin chewable 81 mg oral tablet,chewable Chew and swallow 81 mg once daily. CALCIUM CARBONATE/VITAMIN D3 (CALCIUM CHEW ORAL) Take 1 tablet by mouth once daily. Cholecalciferol (Vitamin D3) (VITAMIN D3) 2,000 unit oral tablet Take 2,000 Units by [facility] once daily. Seqhrnihihq-Lqzayleag-Wix C-Mn (GLUCOSAMINE 1500 COMPLEX) 500-400 mg oral capsule Take 1 tablet by mouth once daily. LACTOBAC NO.41/BIFIDOBACT NO.7 (PROBIOTIC-10 ORAL) Take 1 tablet by mouth once daily. mv,Ca,min-folic acid-vit K1 (ONE-A-DAY WOMEN'S 50 PLUS) 400-20 mcg oral tablet Take 1 t ablet by mouth once daily. Xycwr-5-XMG-EPA-Fish Oil (FISH OIL) 1,000 mg (120 mg-180 mg) oral capsule Take 1 capsul e by mouth once daily. UBIDECARENONE/VITAMIN E MIXED (COQ10 SG 100 ORAL) Take 1 tablet by mouth once daily. No current facility-administered medications for this visit. Family History: Family History Problem Relation Lipid Disorder Mother Heart Attack Mother of [place] age 85 Physical Exam Findings: General: comfortable, alert, cooperative and well-appearing Psych: bright affect, not apparently anxious or depressed, judgment and insight appropriate in context of visit, apparently normal recent and remote memory and oriented to time, selina ce and person Laboratory/Diagnostics: No results found for: CHOL, LDL, HDL, TRI Ref. Range 06/10/2017 11:09 LIPOPROTEIN A - LIPID LAB Latest Ref Range: <=30 mg/dL 32 (H) From [facility] Medicine: Records reviewed from Media Tab and summarized below: In a number of studies, the following definitions have been used to relate the CAC score an d coronary plaque burden: ?0 No identifiable disease ?1 to 99 Mild disease ?100 to 399 Moderate disease ??400 Severe disease Assessment/Plan: Cele Blair is a 67 y.o. White woman with history of HTN, Hypercholesterolemia, Statin Intolerance (myalgias and arthralgias), Moderate Premature Coronary Atherosclerosis (CACS=2 56 in 2013, 90th percentile), Obesity, referred here by Jalil Friend MD for assistance w ith lipid PCSK9 initiation. She has a very high calcium score of 256. Coronary calcium is a direct measure of atherosclerotic burden. Lipid rich plaque is the etiology of coronary art valentina calcification, and this represents severe atherosclerotic coronary artery disease. Altho ugh Calcium Score may not directly identify plaques that are prone to rupture, areas of CAC and vulnerable or unstable plaques colocalize and patients with extensive CAC (>400) are lik true to have a large burden of noncalcified plaques (which are not well visualized on calcium scores). Thus, patients with high CAC scores have a high likelihood of plaques that are pro ne to rupture. There is ample evidence that coronary artery calcium score has prognostic alley ue in asymptomatic individuals. The degree of risk appears to correlate with the extent of c oronary artery calcium. An Agatston score >75th percentile for age and gender was a better p redictor of future cardiac events than the absolute score. Per 2013 ACC/AHA Guideline on the Treatment of Blood Cholesterol to Reduce Atherosclerotic Cardiovascular Risk in Adults: "For this guideline, ASCVD includes coronary heart disease (C HD), stroke, and peripheral arterial disease, all of presumed atherosclerotic origin. These recommendations are intended to provide a strong, evidence-based foundation for the treatmen t of cholesterol for the primary and secondary prevention of ASCVD in women and men" Per [place] Association of Clinical Endocrinologists (AACE) 2017 Guidelines: ? R39. For individuals at very high risk (i.e., with established or recent hospitalization for ACS, coronary, carotid or peripheral vascular disease; diabetes or CKD stage 3 or 4 with 1 or more risk factors; a calculated 10-year risk greater than 20%; or heterozygous louann l hypercholesterolemia [HeFH]), an LDL-C goal of less than 70 mg/dL is recommended (Grade A; BEL 1). Results of the Fourier trial showed that addition of PCSK9i on a background of statin thera py lowered LDL cholesterol levels to a median of 30 mg/dL and reduced the risk of cardiovasc ular events (MIs were reduced by 27 percent, stroke by 21 percent and coronary revasculariza tion by 22 percent). These findings show that patients with atherosclerotic cardiovascular d isease benefit from lowering of LDL cholesterol levels below current targets (Engl J Med 201 7; 376:5816-1913) The FDA granted a new indication for evolocumab (Repatha, [employer]) as the first PCSK9 inhibit or to prevent heart attacks, strokes and coronary revascularizations in adults with establis hed cardiovascular disease (CVD). The expanded indication was based on the results of FOURIE R (Further Cardiovascular OUtcomes Research with PCSK9 Inhibition in Subjects with Elevated Risk), where evolocumab reduced the risk of myocardial infarction ([place]) by 27%, the risk of s troke by 21% and the risk of coronary revascularization by 22%. Patient to be prescribed PCSK9 inhibitor based on the following criteria: CAD, unable to ac hieve LDL goal on current therapies. LDL goal for this patient is < 70 mg/dL Start Repatha (Evolocumab) 140 mg sq every 14 days I have asked her to provide blood specimen for the [facility] registry and biorepository (specimen will be furnished to the lipid research laboratory Dilma chin) and she consented. Cons ent signed PCSK9 inhibitor teaching done today (see patient instructions). Given the very high cost of medication, patient was informed that this may be a prolonged process to get insurance appr oval, and strongly encouraged to sign up for MyChart for more effective communication. Labs: - Get labs today on 3rd floor (baseline lipids, LP(a), registry labs) - Get fasting labs on 3rd floor within 5 days after the 3rd injection (lipids, LP(a) and ex tra purple top tube) - I will order and remind you when Repatha (Evolocumab) is approved Return to clinic to see me: 6 months after you've started the injections with fasting labs a few days before appointment (Get labs within 5 days after an injection). Will route note and give enrollment form to Raman Eng, Sayta to complete current LDL se ction and give to MA (with copy of progress notes, recent labs and copy of insurance card) t o fax to Repatha (Evolocumab) [employer] Registry Cele signed letter of consent giving me permission (or nurse or other provider at [facility]) at the [facility] [place], to act her repr esentative to file all appeals necessary to her insurance on her behalf, for Praleunt or Rep atha if these medications are denied by her insurance plan after a prior authorization has b een submitted. This includes writing letters of appeal, as well as submission of any relevan t clinics notes, labs, or other documentation that may be necessary for documentation in the process of appeal. she further specifies that this permission shall not unless she s pecifically submits another letter in writing revoking her permission (see media tab) We discussed plan and patient verbalized agreement with and understanding of plan of care a nd instructions as outlined. Joanie Lynne, PhD, PA-C CARDIOLOGY - PREVENTIVE [address] Mailcode: [id number] [facility] [id number] My total face to face time spent with this patient was 37 minutes. Greater than 50% of the face to face time was devoted to counseling and coordination of care, including counseling o n history, informed consent and teaching as outlined above. Time at start of encounter: 2:49 PM Time at end of encounter: 3:26 PMElectronically signed by Joanie Lynne PA-C at 07/01 3:26 PM PSTdocumented in this encounter Plan of Treatment +--------+ [...] Rd | | | | | | [place], [place] | | | | | | [address] | | +--------+ + + + + | 12/25/ | Video/TeleH | Cardiology | Tessie Mabry | | | 2019 | ealth-Sched | | JORDANA CamargoP [address] | | | | uled | | [address] | | | | | | [facility] [place] | | | | | | [address] | | | | | | [phone] | | | | | | | | +--------+ + + + + documented as of this encounter Results RESEARCH ADDITIONAL TUBES (07/01/2017 [...] [facility] | [address] | [place] [address] | | | SERVICES, CORE | [address] [...] | 41 (H) | <=30 mg/dL | [facility] | | | A - LIPID | [...] | + + + + + | [facility] | [address] | [place], [place] | | | SERVICES, LIPID | [address] | [address] | | + + + + + [...] [facility] | [address] | [place], [place] | | | SERVICES, LIPID | [address] | [address] | | + + + + + documented in this encounter Visit Diagnoses + + | Diagnosis | + + | Hypercholesteremia - Primary Pure hypercholesterolemia | + + documented in this encounter
--- OUTSIDE RECORDS SUMMARY | ~2019-12-13 | XMS | Encounter Summary ---
Demographics + + + | Address | [address] | | | [place] [address] | + + + | Home Phone [...] Team Providers + +------+ + | Care Laundry Presser Name | Role | Phone | + +------+ + | Jose Robles MD | PCP | | + +------+ + Encounter Details +--------+ + + + + | Date | Type | Department | Care Team | Description | +--------+ + + + + | 06/06/ | Abstract | Cardiology | Tessie Mabry | | | 2020 | | Preventive at [facility] | Mary Jo, MATCHER [address] | | | | | [address] | [address] | | | | | [facility] | [place], [place] | | | | | and Healing, | [address] | | | | | Building [address] | [phone] | | | | | [place], [place] | | | | | | [address] | | | | | | [phone] | | | +--------+ + + + [...] Rd | | | | | | [place], [place] | | | | | | [address] | | +--------+ + + + + | 12/25/ | Video/TeleH | Cardiology | Tessie Mabry | | | 2019 | ealth-Sched | | Mary Jo, MATCHER [address] | | | | ulzac | | [address] | | | | | | [place], [place] | | | | | | [address] | | | | | | [phone] | | | | | | | [...] | 6 - 23 mg/dL | [facility] | | | (LAB) | | | [...] + | [facility] | | | [phone] | | H[facility]PITAL | | | | + +---------+ + + | [facility] | | [place], [place] | [phone] | | HOSPITAL | | | | [...] + | [facility] | | | [phone] | | HOSPITAL | | | | + +---------+ + + | [facility] | | [place] | [phone] | | HOSPITAL | | | | + +---------+ + + documented in this encounter Visit Diagnoses Not on filedocumented in this encounter"
--- OUTSIDE RECORDS SUMMARY | ~2019-12-13 | XMS | Encounter Summary ---
Demographics + + + | Address | [address] | | | [place] [address] | + + + | Home Phone [...] Team Providers + +------+ + | Care Cardroom Manager Name | Role | Phone | + +------+ + | Jose Robles MD | PCP | | + +------+ + Encounter Details +--------+------+ + + + | Date | Type | Department | Care Team | Description | +--------+------+ + + + | 11/23/ | Lab | Laboratory at [facility] | | Hypercholesteremia | | 2019 | | [address] | | | | | | [place] [facility] | | | | | | and Healing, | | | | | | Building [address] | | | | | | [place], [place] | | | | | | [address] | | | | | | [phone] | | | +--------+------+ + + + [...] Rd | | | | | | [place], [place] | | | | | | [address] | | +--------+ + + + + | 12/25/ | Video/TeleH | Cardiology | Tessie Mabry | | | 2019 | ealth-Sched | | Mary Jo, RIVER EXPEDITION GUIDE [address] | | | | uled | | [address] | | | | | | [place], [place] | | | | | | [address] | | | | | | [phone] | | | | | | | [...] [facility] | [address] | [place], [place] | | | SERVICES, LIPID | [facility] | [address] | | + + + + + [...] | + + + + + | [facility] | [address] | [place], [place] | | | SERVICES, LIPID | [address] | [address] | | + + + + + [...] [facility] | [address] | [place] [address] | | | SERVICES, CORE | [address] | | | + + + + + documented in this encounter Visit Diagnoses + + | Diagnosis | + + | Hypercholesteremia Pure hypercholesterolemia | + + documented in this encounter"
--- OUTSIDE RECORDS SUMMARY | ~2019-12-13 | XMS | Encounter Summary ---
Demographics + + + | Address | [address] | | | [place] [address] | + + + | Home Phone | | + + + | Preferred Language | Unknown | + + + | Marital Status | Single | + + + | Mormon Affiliation | Unknown | + + + [...] Team Providers + +------+ + | Care Sr. Merchandise Planner Name | Role | Phone | + +------+ + | Jose Robles MD | PCP | | + +------+ + Encounter Details +--------+ + + + + | Date | Type | Department | Care Team | Description | +--------+ + + + + | 01/24/ | Pharmacy | Specialty Pharmacy | | | | 2017 | Visit | Services [address] | | | | | | [address] | | | | | | [place], [place] | | | | | | [address] | | | | | | [phone] | | | +--------+ + + + [...] Rd | | | | | | [place] | | | | | | [address] | | +--------+ + + + + | 12/25/ | Video/TeleH | Cardiology | Tessie Mabry | | | 2019 | ealth-Sched | | PIOTR Camargo [address] | | | | uled | | [address] | | | | | | [place], [place] | | | | | | [address] | | | | | | [phone] | | | | | | | | +--------+ + + + + documented as of this encounter Visit Diagnoses Not on filedocumented in this encounter"
--- OUTSIDE RECORDS SUMMARY | ~2019-12-13 | XMS | Encounter Summary ---
Demographics + + + | Address | [address] | | | [place] [address] | + + + | Home Phone [...] Team Providers + +------+ + | Care Manufacturing Inspector Name | Role | Phone | + +------+ + | Jose Robles MD | PCP | | + +------+ + Encounter Details +--------+ + + + + | Date | Type | Department | Care Team | Description | +--------+ + + + + | 12/12/ | Pharmacy | [facility] | | | | 2020 | Visit | [address] [facility] | | | | | | [facility] 100 | | | | | | [place] [address] | | | | | | [phone] | | | +--------+ + + + [...] Rd | | | | | | [place], [place] | | | | | | [address] | | +--------+ + + + + | 12/25/ | Video/TeleH | Cardiology | Tessie Mabry | | | 2019 | ealth-Sched | | [facility] [address] | | | | uled | | [address] | | | | | | [place], [place] | | | | | | [address] | | | | | | [phone] | | | | | | | | +--------+ + + + + documented as of this encounter Visit Diagnoses Not on filedocumented in this encounter"
--- OUTSIDE RECORDS SUMMARY | ~2019-12-13 | XMS | Encounter Summary ---
Demographics + + + | Address | [address] [facility] | | | [place] [address] | + + + | Home Phone | | + + + | Preferred Language | Unknown | + + + | Marital Status | Single | + + + | Amish Affiliation | Unknown | + + + [...] Team Providers + +------+ + | Care Motor Vehicle Representative Name | Role | Phone | + +------+ + | Jose Robles MD | PCP | | + +------+ + Encounter Details +--------+ + + + + | Date | Type | Department | Care Team | Description | +--------+ + + + + | 11/29/ | Pharmacy | [facility] | | | | 2017 | Visit | Services [address] | | | | | | [address] | | | | | | [place], [place] | | | | | | [address] | | | | | | [phone] | | | +--------+ + + + [...] Rd | | | | | | [place] | | | | | | [address] | | +--------+ + + + + | 12/25/ | Video/TeleH | Cardiology | Tessie Mabry | | | 2019 | ealth-Sched | | [facility] [place] [address] | | | | uled | | [address] | | | | | | [place], [place] | | | | | | [address] | | | | | | [phone] | | | | | | | | +--------+ + + + + documented as of this encounter Visit Diagnoses Not on filedocumented in this encounter"
--- OUTSIDE RECORDS SUMMARY | ~2019-12-13 | XMS | Encounter Summary ---
Demographics + + + | Address | [address] [facility] | | | [place] [address] | + + + | Home Phone [...] Providers + +------+ + | Care Supervisor Final Name | Role | Phone | + +------+ + | Jose Robles MD | PCP | | + +------+ + Encounter Details +--------+ + + + + | Date | Type | Department | Care Team | Description | +--------+ + + + + | 11/14/ | Pharmacy | [facility] | | | | 2020 | Visit | [address] [facility] | | | | | | [facility] 100 | | | | | | [place] [address] | | | | | | [phone] | | | +--------+ + + + [...] Rd | | | | | | [place], [place] | | | | | | [address] | | +--------+ + + + + | 12/25/ | Video/TeleH | Cardiology | Tessie Mabry | | | 2019 | ealth-Sched | | [facility] [place] [address] | | | | uled | | [address] | | | | | | [place], [place] | | | | | | [address] | | | | | | [phone] | | | | | | | | +--------+ + + + + documented as of this encounter Visit Diagnoses Not on filedocumented in this encounter"
--- OUTSIDE RECORDS SUMMARY | ~2019-12-13 | XMS | Encounter Summary ---
Demographics + + + | Address | [address] [facility] | | | [place] [address] | + + + | Home Phone | | + + + | Preferred Language | Unknown | + + + | Marital Status | Single | + + + | Anabaptism Affiliation [...] Providers + +------+ + | Care Supervisor Of Research Name | Role | Phone | + +------+ + | Jose Robles MD | PCP | | + +------+ + Encounter Details +--------+ + + + + | Date | Type | Department | Care Team | Description | +--------+ + + + + | 11/10/ | Pharmacy | [facility] | | | | 2019 | Visit | [address] [facility] | | | | | | [facility] 100 | | | | | | [place] [address] | | | | | | [phone] | | | +--------+ + + + [...] Rd | | | | | | [place], [place] | | | | | | [address] | | +--------+ + + + + | 12/25/ | Video/TeleH | Cardiology | Tessie Mabry | | | 2019 | ealth-Sched | | [facility] [place] [address] | | | | uled | | [address] | | | | | | [place], [place] | | | | | | [address] | | | | | | [phone] | | | | | | | | +--------+ + + + + documented as of this encounter Visit Diagnoses Not on filedocumented in this encounter"
--- OUTSIDE RECORDS SUMMARY | ~2019-12-13 | XMS | Encounter Summary ---
Demographics + + + | Address | [address] [facility] | | | [place] [address] | + + + | Home Phone [...] Team Providers + +------+ + | Care Centrifugal Drier Operator Name | Role | Phone | [...] Rd | | | | | | [place], [place] | | | | | | [address] | | +--------+ + + + + | 12/25/ | Video/TeleH | Cardiology | Tessie Mabry | | | 2020 | [facility] | | [facility] [address] [facility] | | | | re | | [address] | | | | | | [place] | | | | | | [address] | | | | | | [phone] | | | | | | | | +--------+ + + + + documented as of this encounter Visit Diagnoses Not on filedocumented in this encounter"
--- OUTSIDE RECORDS SUMMARY | ~2019-12-13 | XMS | Encounter Summary ---
Demographics + + + | Address | [address] [facility] | | | [place] [address] | + + + | Home Phone [...] + + + | Author | [facility] | + + + | Organization | [facility] | + + + | Address | Unknown | + + + | Phone | Unavailable | + + + Support + + +---------+ + | Name | Relationship | Address | Phone | + + +---------+ + | Jese Blair | ECON | Unknown | | + + +---------+ + Care Team Providers + +------+ + | Care Neurocritical Care Physician Name | Role | Phone | + +------+ + | Brooks Dempsey DO | PCP | | + +------+ + Encounter Details +--------+ + + + + | Date | Type | Department | Care Team | Description | +--------+ + + + + | 02/02/ | MyChart | Cardiology | Joanie Lynne | RE: New medication | | 2018 | Encounter | Preventive at [facility] | [address] | prescribed and | | | | [address] | [address] [place], | change in local [facility] | | | | [facility] | [place] [address] | | | | | and Healing, | [phone] | | | | | [address] | | | | | | [place], [place] | | | | | | [address] | | | | | | [phone] | | | +--------+ + + + [...] | 2019 | ealth-Sched | | [place] [address] | | | | uled | | [address] | | | | | | [place], [place] | | | | | | [address] | | +--------+ + + + + | 12/25/ | Video/TeleH | Cardiology | Tessie Mabry | | 2019 | ealth-Sched | | Mary Jo, PATIENT SERVICE TECHNICIAN PST [address] | | | | uled | | [address] | | | | | | [place], [place] | | | | | | [address] | | | | | | [phone] | | | | | | | | +--------+ + + + + documented as of this encounter Visit Diagnoses Not on filedocumented in this encounter"
--- OUTSIDE RECORDS SUMMARY | ~2019-12-13 | XMS | Encounter Summary ---
Demographics + + + | Address | [address] [facility] | | | [place] [address] | + + + | Home Phone [...] + +------+ + | Care Director Of Sleep Name | Role | Phone | + +------+ + | Jose Robles MD | PCP | | + +------+ + Encounter Details +--------+ + + + + | Date | Type | Department | Care Team | Description | +--------+ + + + + | 02/13/ | Pharmacy | [facility] | | | | 2019 | Visit | [address] [facility] | | | | | | [facility] 100 | | | | | | [place] [address] | | | | | | [phone] | | | +--------+ + + + [...] Rd | | | | | | [place], [place] | | | | | | [address] | | +--------+ + + + + | 12/25/ | Video/TeleH | Cardiology | Tessie Mabry | | | 2019 | ealth-Sched | | [facility] [place] [address] | | | | uled | | [address] | | | | | | [place], [place] | | | | | | [address] | | | | | | [phone] | | | | | | | | +--------+ + + + + documented as of this encounter Visit Diagnoses Not on filedocumented in this encounter"
--- OUTSIDE RECORDS SUMMARY | ~2019-12-13 | XMS | Encounter Summary ---
Demographics + + + | Address | [address] [facility] | | | [place] [address] | + + + | Home Phone | | + + + | Preferred Language | Unknown | + + + | Marital Status | Single | + + + | Adventism Affiliation | Unknown | + + + | Race | White | + + + | Ethnic Group | Not or | + + + Author + + + | Author | [facility] | + + + | Organization | [facility] | + + + | Address | Unknown | + + + | Phone | Unavailable | + + + Support + + +---------+ + | Name | Relationship | Address | Phone | + + +---------+ + | Jese Blair | ECON | Unknown | | + + +---------+ + Care Team Providers + +------+ + | Care Cuff Setter Name | Role | Phone | + +------+ + | Brooks Dempsey DO | PCP | | + +------+ + Encounter Details +--------+------+ + + + | Date | Type | Department | Care Team | Description | +--------+------+ + + + | 06/10/ | Lab | Laboratory at [facility] | | Atherosclerosis of | | 2017 | | [address] | | coronary artery, | | | | Center for [facility] | | angina presence | | | | and Healing, | | unspecified, | | | | [address] | | unspecified vessel | | | | [place], [place] | | or lesion type, | | | | [address] | | unspecified whether | | | | [phone] | | [place] | | | | | | transplanted heart; | | | | | | Prediabetes ; | | | | | | Familial | | | | | | hypercholesterolemia | | | | | | ; Familial | | | | | | hypophosphatemia | +--------+------+ + + + Social History [...] 2019 | ealth-Sched | | RD [address] | | | | uled | | [address] | | | | | | [place], [place] | | | | | | [address] | | +--------+ + + + + | 12/25/ | Video/TeleH | Cardiology | Tessie Mabry | | | 2020 | ealth-Sched | | M, HAND BOX FOLDER [address] [facility] | | | | uled | | [address] | | | | | | [facility] [place] | | | | | | [address] | | | | | | [phone] | | | | | | | | +--------+ + + + + documented as of this encounter Procedures + +--------+ + + + | Procedure Name | Priori | Date/Time | Associated Diagnosis | Comments | | | ty | | | | + +--------+ + + + | LIPID LAB - | Routin | 06/10/2017 | Atherosclerosis of | Results for this | | LIPOPROTEIN (A) | e | 11:09 AM | coronary artery, | procedure are in the | | | | PST | angina presence | results section. | | | | | unspecified, | | | | | | unspecified vessel | | | | | | or lesion type, | | | | | | unspecified whether | | | | | | [place] or | | | | | | transplanted heart | | + +--------+ + + + | VITAMIN D, | Routin | 06/10/2017 | Familial | Results for this | | 25-HYDROXY, SERUM | e | 11:09 AM | hypophosphatemia | procedure are in the | | | | PST | Atherosclerosis of | results section. | | | | | coronary artery, | | | | | | angina presence | | | | | | unspecified, | | | | | | unspecified vessel | | | | | | or lesion type, | | | | | | unspecified whether | | | | | | [place] or | | | | | | transplanted heart | | + +--------+ + + + | HOMOCYSTEINE TOTAL, | Routin | 06/10/2017 | Atherosclerosis of | Results for this | | PLASMA | e | 11:09 AM | coronary artery, | procedure are in the | | | | PST | angina presence | results section. | | | | | unspecified, | | | | | | unspecified vessel | | | | | | or lesion type, | | | | | | unspecified whether | | | | | | [place] or | | | | | | transplanted heart | | + +--------+ + + + | UA, DIPSTICK ONLY | Routin | 06/10/2017 | Atherosclerosis of | Results for this | | | e | 11:09 AM | coronary artery, | procedure are in the | | | | PST | angina presence | results section. | | | | | unspecified, | | | | | | unspecified vessel | | | | | | or lesion type, | | | | | | unspecified whether | | | | | | [place] or | | | | | | transplanted heart | | + +--------+ + + + | TSH | Routin | 06/10/2017 | Familial | Results for this | | | e | 11:09 AM | hypercholesterolemia | procedure are in the | | | | PST | Atherosclerosis | results section. | | | | | of coronary artery, | | | | | | angina presence | | | | | | unspecified, | | | | | | unspecified vessel | | | | | | or lesion type, | | | | | | unspecified whether | | | | | | [place] or | | | | | | transplanted heart | | + +--------+ + + + | HEMOGLOBIN A1C, | Routin | 06/10/2017 | Prediabetes | Results for this | | BLOOD | e | 11:09 AM | Atherosclerosis of | procedure are in the | | | | PST | coronary artery, | results section. | | | | | angina presence | | | | | | unspecified, | | | | | | unspecified vessel | | | | | | or lesion type, | | | | | | unspecified whether | | | | | | [place] or | | | | | | [...] | + + + + + | [facility] | [address] | [place], [place] | | | SERVICES, LIPID | [address] | [address] | | + + + + + [...] | + + + + + | [facility] | [address] | [place] [address] | | | SERVICES, CORE | BOB [...] | + + + + + | [facility] | [address] | [place] [address] | | | SERVICES, CORONA | BOB [...] 5.4Comment: Hgb A1C | <5.7 % | [facility] | | | A1C | Interpretive | [...] | [facility] | | considered for monitoring retirement glycemic control in patients with: | LABORATORY [...] + + | [facility] | [address] | [place] [address] | | | SERVICES, SPECIAL | BOB [...] [facility] | [address] | [place] [address] | | | SERVICES, SPECIAL | [address] | | | | IMM + COAG | | | | + + + + + UA, DIPSTICK ONLY (06/10/2017 11:09 AM PST) + + [...] | [facility] | | | GRAVITY | [place] performed by | | LABORATORY | | [...] + | [facility] | [address] | [place] [address] | | | SERVICES, CORE | [address] | | | + + + + + documented in this encounter Visit Diagnoses + + | Diagnosis | + + | Atherosclerosis of coronary artery, angina presence unspecified, unspecified vessel or | | lesion type, unspecified whether [place] or transplanted heart | + + | Prediabetes Other abnormal glucose | + + | Familial hypercholesterolemia Pure hypercholesterolemia | + + | Familial hypophosphatemia Disorders of phosphorus metabolism | + + documented in this encounter"
--- OUTSIDE RECORDS SUMMARY | ~2019-12-13 | XMS | Encounter Summary ---
Demographics + + + | Address | [address] [facility] | | | [place] [address] | + + + | Home Phone [...] Providers + +------+ + | Care Electronic Scanner Operator Name | Role | Phone | + +------+ + | Brooks Dempsey DO | PCP | | + +------+ + Encounter Details +--------+ + + + + | Date | Type | Department | Care Team | Description | +--------+ + + + + | 08/30/ | Abstract | Cardiology | Joanie Lynne | | | 2018 | | Preventive at [facility] | [address] | | | | | [address] | [address] [place], | | | | | [facility] | [place] [address] | | | | | and [place], | [phone] | | | | | Building [address] | | | | | | [place], [place] | | | | | | [address] | | | | | | [phone] | | | +--------+ + + + [...] [place] | | | | | | [address] | | +--------+ + + + + | 12/25/ | Video/TeleH | Cardiology | Tessie Mabry | | | 2019 | ealth-Sched | | Mary Jo, BOOM STICK WORKER [address] | | | | uled | | [address] | | | | | | [place], [place] | | | | | | [address] | | | | | | [phone] | | | | | | | | +--------+ + + + + documented as of this encounter Visit Diagnoses Not on filedocumented in this encounter"
--- OUTSIDE RECORDS SUMMARY | ~2019-12-13 | XMS | Encounter Summary ---
Demographics + + + | Address | [address] [facility] | | | [place] [address] | + + + | Home Phone [...] Team Providers + +------+ + | Care Hydraulics Teacher Name | Role | Phone | + +------+ + | Jose Robles MD | PCP | | + +------+ + Encounter Details +--------+ + + + + | Date | Type | Department | Care Team | Description | +--------+ + + + + | 05/09/ | Pharmacy | [facility] | | | | 2019 | Visit | [address] [facility] | | | | | | [facility] 100 | | | | | | [place] [address] | | | | | | [phone] | | | +--------+ + + + [...] Rd | | | | | | [place], [place] | | | | | | [address] | | +--------+ + + + + | 12/25/ | Video/TeleH | Cardiology | Tessie Mabry | | | 2019 | ealth-Sched | | [facility] [place] [address] | | | | uled | | [address] | | | | | | [place], [place] | | | | | | [address] | | | | | | [phone] | | | | | | | | +--------+ + + + + documented as of this encounter Visit Diagnoses Not on filedocumented in this encounter"
--- OUTSIDE RECORDS SUMMARY | ~2019-12-13 | XMS | Encounter Summary ---
Demographics + + + | Address | [address] [facility] | | | [place] [address] | + + + | Home Phone [...] Team Providers + +------+ + | Care General Labor Forklift Operator Name | Role | Phone | + +------+ + | Jose Robles MD | PCP | | + +------+ + Encounter Details +--------+ + + + + | Date | Type | Department | Care Team | Description | +--------+ + + + + | 07/11/ | Pharmacy | [facility] | | | | 2019 | Visit | [address] [facility] | | | | | | [facility] 100 | | | | | | [place] [address] | | | | | | [phone] | | | +--------+ + + + [...] Rd | | | | | | [place], [place] | | | | | | [address] | | +--------+ + + + + | 12/25/ | Video/TeleH | Cardiology | Tessie Mabry | | | 2019 | ealth-Sched | | [facility] [address] | | | | uled | | [address] | | | | | | [place], [place] | | | | | | [address] | | | | | | [phone] | | | | | | | | +--------+ + + + + documented as of this encounter Visit Diagnoses Not on filedocumented in this encounter"
--- OUTSIDE RECORDS SUMMARY | ~2019-12-13 | XMS | Encounter Summary ---
Demographics + + + | Address | [address] [facility] | | | [place] [address] | + + + | Home Phone [...] + + + | Author | [facility] | + + + | Organization | [facility] | + + + | Address | Unknown | + + + | Phone | Unavailable | + + + Support + + +---------+ + | Name | Relationship | Address | Phone | + + +---------+ + | Jese Blair | ECON | Unknown | | + + +---------+ + Care Team Providers + +------+ + | Care Check Out Cashier Name | Role | Phone | + +------+ + | Jose Robles MD | PCP | | + +------+ + Encounter Details +--------+ + + + + | Date | Type | Department | Care Team | Description | +--------+ + + + + | 11/29/ | Pharmacy | [facility] | | | | 2017 | Visit | Pharmacy [address] | | | | | | [address] | | | | | | [place], [place] | | | | | | [address] | | | | | | [phone] | | | +--------+ + + + [...] [place] | | | | | | [address] | | +--------+ + + + + | 12/25/ | Video/TeleH | Cardiology | Tessie Mabry | | | 2019 | ealth-Sched | | [facility] [address] | | | | uled | | [address] | | | | | | [place], [place] | | | | | | [address] | | | | | | [phone] | | | | | | | | +--------+ + + + + documented as of this encounter Visit Diagnoses Not on filedocumented in this encounter"
--- OUTSIDE RECORDS SUMMARY | ~2019-12-13 | XMS | Encounter Summary ---
Demographics + + + | Address | [address] [facility] | | | [place] [address] | + + + | Home Phone | | + + + | Preferred Language | Unknown | + + + | Marital Status | Single | + + + | Jain Affiliation | Unknown | + + + [...] Team Providers + +------+ + | Care Feed Adviser Name | Role | Phone | + +------+ + | Jose Robles MD | PCP | | + +------+ + Encounter Details +--------+ + + + + | Date | Type | Department | Care Team | Description | +--------+ + + + + | 08/11/ | MyChart | Cardiology | Tessie Mabry | RE: Stress Test | | 2020 | Encounter | Preventive at [facility] | M, NATURAL GAS PLANT SUPERVISOR [address] | | | | | [address] | [address] | | | | | [facility] | [place], [place] | | | | | and [place], | [address] | | | | | Building [address] | [phone] | | | | | [place], [place] | | | | | | [address] | | | | | | [phone] | | | +--------+ + + + [...] | 2019 | ealth-Sched | | [place] [address] | | | | re | | [address] | | | | | | [place], [place] | | | | | | [address] | | +--------+ + + + + | 12/25/ | Video/TeleH | Cardiology | Tessie Mabry | | | 2019 | ealth-Sched | | Mary Jo, NATURAL GAS PLANT SUPERVISOR [address] | | | | uled | | [address] | | | | | | [place], [place] | | | | | | [address] | | | | | | [phone] | | | | | | | | +--------+ + + + + documented as of this encounter Visit Diagnoses Not on filedocumented in this encounter"
--- OUTSIDE RECORDS SUMMARY | ~2019-12-13 | XMS | Encounter Summary ---
Demographics + + + | Address | [address] [facility] | | | [place] [address] | + + + | Home Phone [...] + + + | Author | [facility] | + + + | Organization | [facility] | + + + | Address | Unknown | + + + | Phone | Unavailable | + + + Support + + +---------+ + | Name | Relationship | Address | Phone | + + +---------+ + | Jese Blair | ECON | Unknown | | + + +---------+ + Care Team Providers + +------+ + | Care Electrical Instrumentation Technician Name | Role | Phone | + +------+ + | Jose Robles MD | PCP | | + +------+ + Encounter Details +--------+ + + + + | Date | Type | Department | Care Team | Description | +--------+ + + + + | 12/12/ | Abstract | Cardiology | Tessie Mabry | | | 2020 | | Preventive at [facility] | Mary Jo, VOCATIONAL REHABILITATION CONSULTANT [address] | | | | | [address] | [address] | | | | | [facility] | [place], [place] | | | | | and Healing, | [address] | | | | | [address] | [phone] | | | | | [place], [place] | | | | | | [address] | | | | | | [phone] | | | +--------+ + + + [...] Rd | | | | | | [place], [place] | | | | | | [address] | | +--------+ + + + + | 12/25/ | Video/TeleH | Cardiology | Tessie Mabry | | | 2019 | ealth-Sched | | Mary Jo, VOCATIONAL REHABILITATION CONSULTANT [address] | | | | [place] | | [address] | | | | | | [place], [place] | | | | | | [address] | | | | | | [phone] | | | | | | | [...] [address] | [place], [place] | [phone] | | [place] | | | | [...] + + | [facility] | [address] | [place] | [phone] | | [place] | | | | + + + + + documented in this encounter Visit Diagnoses Not on filedocumented in this encounter"
--- OUTSIDE RECORDS SUMMARY | ~2019-12-13 | XMS | Encounter Summary ---
Demographics + + + | Address | [address] [facility] | | | [place] [address] | + + + | Home Phone [...] Team Providers + +------+ + | Care Woven Blind Loom Tender Name | Role | Phone | + +------+ + | Jose Robles MD | PCP | | + +------+ + Encounter Details +--------+ + + + + | Date | Type | Department | Care Team | Description | +--------+ + + + + | 08/16/ | Pharmacy | [facility] | | | | 2019 | Visit | [address] [facility] | | | | | | [facility] 100 | | | | | | [place] [address] | | | | | | [phone] | | | +--------+ + + + [...] Rd | | | | | | [place], [place] | | | | | | [address] | | +--------+ + + + + | 12/25/ | Video/TeleH | Cardiology | Tessie Mabry | | | 2019 | ealth-Sched | | [facility] [address] | | | | uled | | [address] | | | | | | [place], [place] | | | | | | [address] | | | | | | [phone] | | | | | | | | +--------+ + + + + documented as of this encounter Visit Diagnoses Not on filedocumented in this encounter"
--- OUTSIDE RECORDS SUMMARY | ~2019-12-13 | XMS | Encounter Summary ---
Demographics + + + | Address | [address] | | | [place] [address] | + + + | Home Phone [...] Author + + + | Author | [facility] | + + + | Organization | [facility] | + + + | Address | Unknown | + + + | Phone | Unavailable | + + + Support + + +---------+ + | Name | Relationship | Address | Phone | + + +---------+ + | Jese Blair | ECON | Unknown | | + + +---------+ + Care Team Providers + +------+ + | Care Chief Dietitian Name | Role | Phone | + +------+ + | Jose Robles MD | PCP | | + +------+ + Encounter Details +--------+ + + + + | Date | Type | Department | Care Team | Description | +--------+ + + + + | 10/14/ | Pharmacy | [facility] | | | | 2020 | Visit | [address] [facility] | | | | | | [facility] 100 | | | | | | [place] [address] | | | | | | [phone] | | | +--------+ + + + [...] | | | | | | [place], [place] | | | | | | [address] | | +--------+ + + + + | 12/25/ | Video/TeleH | Cardiology | Tessie Mabry | | | 2019 | ealth-Sched | | [facility] [address] | | | | uled | | [address] | | | | | | [place], [place] | | | | | | [address] | | | | | | [phone] | | | | | | | | +--------+ + + + + documented as of this encounter Visit Diagnoses Not on filedocumented in this encounter"
--- OUTSIDE RECORDS SUMMARY | ~2019-12-13 | XMS | Encounter Summary ---
Demographics + + + | Address | [address] | | | [place] [address] | + + + | Home Phone [...] Team Providers + +------+ + | Care College Admissions Counselor Name | Role | Phone | + +------+ + | Jose Robles MD | PCP | | + +------+ + Encounter Details +--------+ + + + + | Date | Type | Department | Care Team | Description | +--------+ + + + + | 04/05/ | Pharmacy | Specialty Pharmacy | | | | 2017 | Visit | Services [address] | | | | | | [address] | | | | | | [place], [place] | | | | | | [address] | | | | | | [phone] | | | +--------+ + + + [...] | | | | | | [place] | | | | | | [address] | | +--------+ + + + + | 12/25/ | Video/TeleH | Cardiology | Tessie Mabry | | | 2019 | ealth-Sched | | [facility] [address] | | | | uled | | [address] | | | | | | [place], [place] | | | | | | [address] | | | | | | [phone] | | | | | | | | +--------+ + + + + documented as of this encounter Visit Diagnoses Not on filedocumented in this encounter"
--- OUTSIDE RECORDS SUMMARY | ~2019-12-13 | XMS | Encounter Summary ---
Demographics + + + | Address | [address] | | | [place] [address] | + + + | Home Phone [...] Team Providers + +------+ + | Care Media Executive Name | Role | Phone | + +------+ + | Brooks Dempsey DO | PCP | | + +------+ + Encounter Details +--------+ + + + + | Date | Type | Department | Care Team | Description | +--------+ + + + + | 06/30/ | Abstract | Cardiology General | Jalil Friend, | | | 2018 | | at [facility] [address] | ,PhD [address] | | | | | [facility] | [address] | | | | | Health and Healing, | [place], [place] | | | | | | [address] | | | | | Floor [place], [place] | [phone] | | | | | [address] | | | | | | [phone] | | | +--------+ + + + [...] 2020 | ealth-Sched | | RD [address] [facility] | | | | uled | | [address] | | | | | | [place] | | | | | | [address] | | +--------+ + + + + | 12/25/ | Video/TeleH | Cardiology | Tessie Mabry | | | 2020 | ealth-Sched | | Mary Jo, DIRECTOR OF GOLF [address] | | | | uled | | [address] | | | | | | [place] | | | | | | [address] | | | | | | [phone] | | | | | | | | +--------+ + + + + documented as of this encounter Visit Diagnoses Not on filedocumented in this encounter"
--- OUTSIDE RECORDS SUMMARY | ~2019-12-13 | XMS | Encounter Summary ---
Demographics + + + | Address | [address] [facility] [address] [facility] | | | [place] [address] | + + + | Home Phone [...] Team Providers + +------+ + | Care Card Assembler Name | Role | Phone | + +------+ + | Jose Robles MD | PCP | | + +------+ + Encounter Details +--------+ + + + + | Date | Type | Department | Care Team | Description | +--------+ + + + + | 09/28/ | Pharmacy | [facility] | | | | 2017 | Visit | Pharmacy [address] | | | | | | [address] | | | | | | [place], [place] | | | | | | [address] | | | | | | [phone] | | | +--------+ + + + [...] [place] | | | | | | [address] | | +--------+ + + + + | 12/25/ | Video/TeleH | Cardiology | Tessie Mabry | | | 2019 | ealth-Sched | | [facility] [address] | | | | uled | | [address] | | | | | | [place], [place] | | | | | | [address] | | | | | | [phone] | | | | | | | | +--------+ + + + + documented as of this encounter Visit Diagnoses Not on filedocumented in this encounter"
--- OUTSIDE RECORDS SUMMARY | ~2019-12-13 | XMS | Encounter Summary ---
Demographics + + + | Address | [address] [facility] [facility] | | | [place] [address] | + + + | Home Phone | | + + + | Preferred Language | Unknown | + + + | Marital Status | Single | + + + | Moravian Affiliation | Unknown | + + + [...] Team Providers + +------+ + | Care Mixing Supervisor Name | Role | Phone | [...] | 2019 | Encounter | Preventive at [facility] | PharmD [address] | | | | | [address] | [address] | | | | | [facility] | [place], [place] | | | | | and Healing, | [address] | | | | | Building [address] | | | | | | [place], [place] | | | | | | [address] | | | | | | [phone] | | | +--------+ + + + [...] Rd | | | | | | [place] | | | | | | [address] | | +--------+ + + + + | 12/25/ | Video/TeleH | Cardiology | Tessie Mabry | | | 2019 | ealth-Sched | | [facility] [address] | | | | uled | | [address] | | | | | | [place], [place] | | | | | | [address] | | | | | | [phone] | | | | | | | | +--------+ + + + + documented as of this encounter Visit Diagnoses Not on filedocumented in this encounter"
--- OUTSIDE RECORDS SUMMARY | ~2019-12-13 | XMS | Encounter Summary ---
Demographics + + + | Address | [address] | | | [place] [address] | + + + | Home Phone [...] Team Providers + +------+ + | Care Salvage Worker Name | Role | Phone | + +------+ + | Jose Robles MD | PCP | | + +------+ + Encounter Details +--------+ + + + + | Date | Type | Department | Care Team | Description | +--------+ + + + + | 11/30/ | Pharmacy | [facility] | | | | 2017 | Visit | Pharmacy [address] | | | | | | [address] | | | | | | [place], [place] | | | | | | [address] | | | | | | [phone] | | | +--------+ + + + [...] [place] | | | | | | [address] | | +--------+ + + + + | 12/25/ | Video/TeleH | Cardiology | Tessie Mabry | | | 2019 | ealth-Sched | | [facility] [address] | | | | uled | | [address] | | | | | | [place], [place] | | | | | | [address] | | | | | | [phone] | | | | | | | | +--------+ + + + + documented as of this encounter Visit Diagnoses Not on filedocumented in this encounter"
--- OUTSIDE RECORDS SUMMARY | ~2019-12-13 | XMS | Encounter Summary ---
Demographics + + + | Address | [address] [facility] [facility] [facility] | | | [place] [address] | + + + | Home Phone | | + + + | Preferred Language | Unknown | + + + | Marital Status | Single | + + + | Protestant Affiliation | Unknown | + + + [...] Team Providers + +------+ + | Care Camera Systems Engineer Name | Role | Phone | + +------+ + | Jose Robles MD | PCP | | + +------+ + Encounter Details +--------+ + + + + | Date | Type | Department | Care Team | Description | +--------+ + + + + | 11/09/ | Pharmacy | [facility] | | | | 2019 | Visit | [address] [facility] | | | | | | [facility] 100 | | | | | | [place] [address] | | | | | | [phone] | | | +--------+ + + + [...] Rd | | | | | | [place], [place] | | | | | | [address] | | +--------+ + + + + | 12/25/ | Video/TeleH | Cardiology | Tessie Mabry | | | 2019 | ealth-Sched | | [facility] [address] | | | | uled | | [address] | | | | | | [place], [place] | | | | | | [address] | | | | | | [phone] | | | | | | | | +--------+ + + + + documented as of this encounter Visit Diagnoses Not on filedocumented in this encounter"
--- OUTSIDE RECORDS SUMMARY | ~2019-12-13 | XMS | Encounter Summary ---
Demographics + + + | Address | [address] [address] | | | [place] [address] | + + + | Home Phone [...] + + + | Author | [facility] | + + + | Organization | [facility] | + + + | Address | Unknown | + + + | Phone | Unavailable | + + + Support + + +---------+ + | Name | Relationship | Address | Phone | + + +---------+ + | Jese Blair | ECON | Unknown | | + + +---------+ + Care Team Providers + +------+ + | Care Meat Passer Name | Role | Phone | + +------+ + | Jose Robles MD | PCP | | + +------+ + Encounter Details +--------+ + + + + | Date | Type | Department | Care Team | Description | +--------+ + + + + | 07/12/ | Pharmacy | [facility] | | | | 2019 | Visit | [address] [facility] | | | | | | [facility] 100 | | | | | | [place] [address] | | | | | | [phone] | | | +--------+ + + + [...] [place] | | | | | | [address] | | +--------+ + + + + | 12/25/ | Video/TeleH | Cardiology | Tessie Mabry | | | 2019 | ealth-Sched | | [facility] [address] | | | | uled | | [address] | | | | | | [place], [place] | | | | | | [address] | | | | | | [phone] | | | | | | | | +--------+ + + + + documented as of this encounter Visit Diagnoses Not on filedocumented in this encounter"
--- OUTSIDE RECORDS SUMMARY | ~2019-12-13 | XMS | Encounter Summary ---
Demographics + + + | Address | [address] | | | [place] [address] | + + + | Home Phone [...] Team Providers + +------+ + | Care Professor Of Spanish Name | Role | Phone | + +------+ + | Jose Robles MD | PCP | | + +------+ + Encounter Details +--------+ + + + + | Date | Type | Department | Care Team | Description | +--------+ + + + + | 11/13/ | MyChart | Cardiology | Joanie Lynne | RE: Blood work | | 2019 | Encounter | Preventive at [facility] | [address] | preceding an | | | | [address] | [address] [place], | appointment | | | | [place] [facility] | [place] [address] | | | | | and Healing, | [phone] | | | | | Building [address] | | | | | | [place], [place] | | | | | | [address] | | | | | | [phone] | | | +--------+ + + + [...] Rd | | | | | | [facility] [place] | | | | | | [address] | | +--------+ + + + + | 12/25/ | Video/TeleH | Cardiology | Tessie Mabry | | | 2019 | ealth-Sched | | [facility] [address] | | | | uled | | [address] | | | | | | [facility], [place] | | | | | | [address] | | | | | | [phone] | | | | | | | | +--------+ + + + + documented as of this encounter Visit Diagnoses Not on filedocumented in this encounter"
--- OUTSIDE RECORDS SUMMARY | ~2019-12-13 | XMS | Encounter Summary ---
Demographics + + + | Address | [address] | | | [place] [address] | + + + | Home Phone [...] Team Providers + +------+ + | Care Gang Worker Name | Role | Phone | + +------+ + | Jose Robles MD | PCP | | + +------+ + Encounter Details +--------+ + + + + | Date | Type | Department | Care Team | Description | +--------+ + + + + | 01/30/ | Pharmacy | [facility] | | | | 2017 | Visit | [address] [facility] | | | | | | [facility] [address] | | | | | | [place] [address] | | | | | | [phone] | | | +--------+ + + + [...] Rd | | | | | | [place], [place] | | | | | | [address] | | +--------+ + + + + | 12/25/ | Video/TeleH | Cardiology | Tessie Mabry | | | 2019 | ealth-Sched | | [facility] [address] | | | | uled | | [address] | | | | | | [place], [place] | | | | | | [address] | | | | | | [phone] | | | | | | | | +--------+ + + + + documented as of this encounter Visit Diagnoses Not on filedocumented in this encounter"
--- OUTSIDE RECORDS SUMMARY | ~2019-12-13 | XMS | Encounter Summary ---
Demographics + + + | Address | [address] | | | [place] [address] | + + + | Home Phone [...] Team Providers + +------+ + | Care Java Programmer Name | Role | Phone | + +------+ + | Jose Robles MD | PCP | | + +------+ + Encounter Details +--------+ + + + + | Date | Type | Department | Care Team | Description | +--------+ + + + + | 01/02/ | Pharmacy | [facility] | | | | 2017 | Visit | Pharmacy [address] | | | | | | [address] | | | | | | [place], [place] | | | | | | [address] | | | | | | [phone] | | | +--------+ + + + [...] [place] | | | | | | [address] | | +--------+ + + + + | 12/25/ | Video/TeleH | Cardiology | Tessie Mabry | | | 2019 | ealth-Sched | | [facility] [address] | | | | uled | | [address] | | | | | | [place], [place] | | | | | | [address] | | | | | | [phone] | | | | | | | | +--------+ + + + + documented as of this encounter Visit Diagnoses Not on filedocumented in this encounter"
--- OUTSIDE RECORDS SUMMARY | ~2019-12-13 | XMS | Encounter Summary ---
Demographics + + + | Address | [address] | | | [place] [address] | + + + | Home Phone [...] Team Providers + +------+ + | Care Passenger Rate Clerk Name | Role | Phone | [...] | 2019 | Encounter | Preventive at [facility] | [address] | scheduled blood work | | | | [address] | [address] [place], | | | | | [facility] | [place] [address] | | | | | and Healing, | [phone] | | | | | Building [address] | | | | | | [place], [place] | | | | | | [address] | | | | | | [phone] | | | +--------+ + + + [...] Rd | | | | | | [place] | | | | | | [address] | | +--------+ + + + + | 12/25/ | Video/TeleH | Cardiology | Tessie Mabry | | | 2019 | ealth-Sched | | [facility] [address] | | | | uled | | [address] | | | | | | [place], [place] | | | | | | [address] | | | | | | [phone] | | | | | | | | +--------+ + + + + documented as of this encounter Visit Diagnoses Not on filedocumented in this encounter"
--- OUTSIDE RECORDS SUMMARY | ~2019-12-13 | XMS | Encounter Summary ---
Demographics + + + | Address | [address] [facility] | | | [place] [address] | + + + | Home Phone [...] Team Providers + +------+ + | Care Clasp Machine Operator Name | Role | Phone | + +------+ + | Jose Robles MD | PCP | | + +------+ + Encounter Details +--------+ + + + + | Date | Type | Department | Care Team | Description | +--------+ + + + + | 10/16/ | Pharmacy | [facility] | | | | 2019 | Visit | [address] [facility] | | | | | | [facility] 100 | | | | | | [place] [address] | | | | | | [phone] | | | +--------+ + + + [...] Rd | | | | | | [place], [place] | | | | | | [address] | | +--------+ + + + + | 12/25/ | Video/TeleH | Cardiology | Tessie Mabry | | | 2019 | ealth-Sched | | [facility] [address] | | | | uled | | [address] | | | | | | [place], [place] | | | | | | [address] | | | | | | [phone] | | | | | | | | +--------+ + + + + documented as of this encounter Visit Diagnoses Not on filedocumented in this encounter"
--- OUTSIDE RECORDS SUMMARY | ~2019-12-13 | XMS | Encounter Summary ---
Demographics + + + | Address | [address] [facility] [facility] | | | [place] [address] | + + + | Home Phone [...] Team Providers + +------+ + | Care Assisted Living Housekeeper Name | Role | Phone | + +------+ + | Brooks Dempsey DO | PCP | | + +------+ + Encounter Details +--------+ + + + + | Date | Type | Department | Care Team | Description | +--------+ + + + + | 06/30/ | Abstract | Cardiology General | Jalil Friend, | | | 2018 | | at [facility] [address] | ,PhD [address] | | | | | [facility] | [address] | | | | | Health and Healing, | [place], [place] | | | | | | [address] | | | | | Floor [place], [place] | [phone] | | | | | [address] | | | | | | [phone] | | | +--------+ + + + [...] 2020 | ealth-Sched | | RD [address] [facility] | | | | uled | | [address] | | | | | | [place] | | | | | | [address] | | +--------+ + + + + | 12/25/ | Video/TeleH | Cardiology | Tessie Mabry | | | 2020 | ealth-Sched | | Mary Jo, TECHNICAL SYSTEMS ARCHITECT [address] | | | | uled | | [address] | | | | | | [place] | | | | | | [address] | | | | | | [phone] | | | | | | | | +--------+ + + + + documented as of this encounter Visit Diagnoses Not on filedocumented in this encounter"
--- OUTSIDE RECORDS SUMMARY | ~2019-12-13 | XMS | Encounter Summary ---
Demographics + + + | Address | [address] | | | [place] [address] | + + + | Home Phone [...] Providers + +------+ + | Care Nuclear Security Officer Name | Role | Phone | + +------+ + | Jose Robles MD | PCP | | + +------+ + Encounter Details +--------+ + + + + | Date | Type | Department | Care Team | Description | +--------+ + + + + | 11/12/ | Pharmacy | [facility] | | | | 2020 | Visit | [address] [facility] | | | | | | [facility] 100 | | | | | | [place] [address] | | | | | | [phone] | | | +--------+ + + + [...] Rd | | | | | | [place], [place] | | | | | | [address] | | +--------+ + + + + | 12/25/ | Video/TeleH | Cardiology | Tessie Mabry | | | 2019 | ealth-Sched | | [facility] [address] | | | | uled | | [address] | | | | | | [place], [place] | | | | | | [address] | | | | | | [phone] | | | | | | | | +--------+ + + + + documented as of this encounter Visit Diagnoses Not on filedocumented in this encounter"
--- OUTSIDE RECORDS SUMMARY | ~2019-12-13 | XMS | Encounter Summary ---
Demographics + + + | Address | [address] [address] | | | [place] [address] | + + + | Home Phone [...] Team Providers + +------+ + | Care Childcare Aide Name | Role | Phone | + +------+ + | Jose Robles MD | PCP | | + +------+ + Encounter Details +--------+ + + + + | Date | Type | Department | Care Team | Description | +--------+ + + + + | 01/24/ | Pharmacy | [facility] | | | | 2017 | Visit | [address] [facility] | | | | | | [facility] 100 | | | | | | [place] [address] | | | | | | [phone] | | | +--------+ + + + [...] Rd | | | | | | [place], [place] | | | | | | [address] | | +--------+ + + + + | 12/25/ | Video/TeleH | Cardiology | Tessie Mabry | | | 2019 | ealth-Sched | | [facility] [address] | | | | uled | | [address] | | | | | | [place], [place] | | | | | | [address] | | | | | | [phone] | | | | | | | | +--------+ + + + + documented as of this encounter Visit Diagnoses Not on filedocumented in this encounter"
--- OUTSIDE RECORDS SUMMARY | ~2019-12-13 | XMS | Encounter Summary ---
Demographics + + + | Address | [address] [facility] | | | [place] [address] | + + + | Home Phone [...] Team Providers + +------+ + | Care Rf Microwave Engineer Name | Role | Phone | + +------+ + | Jose Robles MD | PCP | | + +------+ + Encounter Details +--------+ + + + + | Date | Type | Department | Care Team | Description | +--------+ + + + + | 01/27/ | Pharmacy | [facility] | | | | 2017 | Visit | [address] [facility] | | | | | | [facility] 100 | | | | | | [place] [address] | | | | | | [phone] | | | +--------+ + + + [...] Rd | | | | | | [place], [place] | | | | | | [address] | | +--------+ + + + + | 12/25/ | Video/TeleH | Cardiology | Tessie Mabry | | | 2019 | ealth-Sched | | [facility] [address] | | | | uled | | [address] | | | | | | [place], [place] | | | | | | [address] | | | | | | [phone] | | | | | | | | +--------+ + + + + documented as of this encounter Visit Diagnoses Not on filedocumented in this encounter"
--- OUTSIDE RECORDS SUMMARY | ~2019-12-13 | XMS | Encounter Summary ---
Demographics + + + | Address | [address] [facility] | | | [place] [address] | + + + | Home Phone [...] Providers + +------+ + | Care Furnace Process Plant Operator Name | Role | Phone | [...] | 2020 | Encounter | Preventive at [facility] | M, [employer] [address] | questions and | | | | [address] | [address] | information | | | | [facility] | [facility] [place] | | | | | and Healing, | [address] | | | | | [address] | [phone] | | | | | [place], [place] | | | | | | [address] | | | | | | [phone] | | | +--------+ + + + [...] | 2019 | ealth-Sched | | [facility] [address] | | | | re | | [address] | | | | | | [place], [place] | | | | | | [address] | | +--------+ + + + + | 12/25/ | Video/TeleH | Cardiology | Tessie Mabry | | | 2019 | ealth-Sched | | Mary Jo, OIL AND GAS PRINCIPAL [address] | | | | uled | | [address] | | | | | | [place], [place] | | | | | | [address] | | | | | | [phone] | | | | | | | | +--------+ + + + + documented as of this encounter Visit Diagnoses Not on filedocumented in this encounter"
--- OUTSIDE RECORDS SUMMARY | ~2019-12-13 | XMS | Encounter Summary ---
Demographics + + + | Address | [address] [facility] | | | [place] [address] | + + + | Home Phone [...] Team Providers + +------+ + | Care Maintenance Mechanic Elevators Name | Role | Phone | + +------+ + | Jose Robles MD | PCP | | + +------+ + Encounter Details +--------+ + + + + | Date | Type | Department | Care Team | Description | +--------+ + + + + | 12/30/ | Pharmacy | [facility] | | | | 2017 | Visit | Services [address] | | | | | | [address] | | | | | | [place], [place] | | | | | | [address] | | | | | | [phone] | | | +--------+ + + + [...] Rd | | | | | | [place] | | | | | | [address] | | +--------+ + + + + | 12/25/ | Video/TeleH | Cardiology | Tessie Mabry | | | 2019 | ealth-Sched | | [facility] [address] | | | | uled | | [address] | | | | | | [place], [place] | | | | | | [address] | | | | | | [phone] | | | | | | | | +--------+ + + + + documented as of this encounter Visit Diagnoses Not on filedocumented in this encounter"
--- OUTSIDE RECORDS SUMMARY | ~2019-12-13 | XMS | Encounter Summary ---
Demographics + + + | Address | [address] [facility] | | | [place] [address] | + + + | Home Phone [...] Team Providers + +------+ + | Care Neurology Stroke Physician Name | Role | Phone | + +------+ + | Jose Robles MD | PCP | | + +------+ + Encounter Details +--------+ + + + + | Date | Type | Department | Care Team | Description | +--------+ + + + + | 10/31/ | Pharmacy | [facility] | | | | 2017 | Visit | Pharmacy [address] | | | | | | [address] | | | | | | [place], [place] | | | | | | [address] | | | | | | [phone] | | | +--------+ + + + [...] [place] | | | | | | [address] | | +--------+ + + + + | 12/25/ | Video/TeleH | Cardiology | Tessie Mabry | | | 2019 | ealth-Sched | | [facility] [address] | | | | uled | | [address] | | | | | | [place], [place] | | | | | | [address] | | | | | | [phone] | | | | | | | | +--------+ + + + + documented as of this encounter Visit Diagnoses Not on filedocumented in this encounter"
--- OUTSIDE RECORDS SUMMARY | ~2019-12-13 | XMS | Encounter Summary ---
Demographics + + + | Address | [address] | | | [place] [address] | + + + | Home Phone [...] Team Providers + +------+ + | Care Leasing Associate Name | Role | Phone | + +------+ + | Jose Robles MD | PCP | | + +------+ + Encounter Details +--------+ + + + + | Date | Type | Department | Care Team | Description | +--------+ + + + + | 08/17/ | Pharmacy | [facility] | | | | 2019 | Visit | [address] [facility] | | | | | | [facility] [address] | | | | | | [place] [address] | | | | | | [phone] | | | +--------+ + + + [...] Rd | | | | | | [place], [place] | | | | | | [address] | | +--------+ + + + + | 12/25/ | Video/TeleH | Cardiology | Tessie Mabry | | | 2019 | ealth-Sched | | [facility] [address] | | | | uled | | [address] | | | | | | [place], [place] | | | | | | [address] | | | | | | [phone] | | | | | | | | +--------+ + + + + documented as of this encounter Visit Diagnoses Not on filedocumented in this encounter"
--- OUTSIDE RECORDS SUMMARY | ~2019-12-13 | XMS | Encounter Summary ---
Demographics + + + | Address | [address] [facility] [address] | | | [place] [address] | + + + | Home Phone | | + + + | Preferred Language | Unknown | + + + | Marital Status | Single | + + + | Rastafari Affiliation | Unknown | + + + [...] Team Providers + +------+ + | Care Lung Gun Operator Name | Role | Phone | + +------+ + | Jose Robles MD | PCP | | + +------+ + Encounter Details +--------+ + + + + | Date | Type | Department | Care Team | Description | +--------+ + + + + | 07/30/ | Pharmacy | Specialty Pharmacy | | | | 2017 | Visit | Services [address] | | | | | | [address] | | | | | | [place], [place] | | | | | | [address] | | | | | | [phone] | | | +--------+ + + + [...] Rd | | | | | | [place] | | | | | | [address] | | +--------+ + + + + | 12/25/ | Video/TeleH | Cardiology | Tessie Mabry | | | 2019 | ealth-Sched | | [facility] [address] | | | | uled | | [address] | | | | | | [place], [place] | | | | | | [address] | | | | | | [phone] | | | | | | | | +--------+ + + + + documented as of this encounter Visit Diagnoses Not on filedocumented in this encounter"
--- OUTSIDE RECORDS SUMMARY | ~2019-12-13 | XMS | Encounter Summary ---
Demographics + + + | Address | [address] [facility] | | | [place] [address] | + + + | Home Phone [...] Team Providers + +------+ + | Care Shoe Worker Name | Role | Phone | + +------+ + | Jose Rboles MD | PCP | | + +------+ + Encounter Details +--------+ + + + + | Date | Type | Department | Care Team | Description | +--------+ + + + + | 09/12/ | Pharmacy | [facility] | | | | 2019 | Visit | [address] [facility] | | | | | | [facility] 100 | | | | | | [place] [address] | | | | | | [phone] | | | +--------+ + + + [...] [place] | | | | | | [address] | | +--------+ + + + + | 12/25/ | Video/TeleH | Cardiology | Tessie Mabry | | | 2019 | ealth-Sched | | [facility] [address] | | | | uled | | [address] | | | | | | [place], [place] | | | | | | [address] | | | | | | [phone] | | | | | | | | +--------+ + + + + documented as of this encounter Visit Diagnoses Not on filedocumented in this encounter"
--- OUTSIDE RECORDS SUMMARY | ~2019-12-13 | XMS | Encounter Summary ---
Demographics + + + | Address | [address] [facility] | | | [place] [address] | + + + | Home Phone [...] Team Providers + +------+ + | Care Museum Assistant Name | Role | Phone | + +------+ + | Jose Robles MD | PCP | | + +------+ + Encounter Details +--------+ + + + + | Date | Type | Department | Care Team | Description | +--------+ + + + + | 10/27/ | Pharmacy | Specialty Pharmacy | | | | 2017 | Visit | Services [address] | | | | | | [address] | | | | | | [place], [place] | | | | | | [address] | | | | | | [phone] | | | +--------+ + + + [...] | | | | | | [place] | | | | | | [address] | | +--------+ + + + + | 12/25/ | Video/TeleH | Cardiology | Tessie Mabry | | | 2019 | ealth-Sched | | [facility] [address] | | | | uled | | [address] | | | | | | [place], [place] | | | | | | [address] | | | | | | [phone] | | | | | | | | +--------+ + + + + documented as of this encounter Visit Diagnoses Not on filedocumented in this encounter"
--- OUTSIDE RECORDS SUMMARY | ~2019-12-13 | XMS | Encounter Summary ---
Demographics + + + | Address | [address] [facility] | | | [place] [address] | + + + | Home Phone [...] Team Providers + +------+ + | Care Solution Coordinator Name | Role | Phone | + +------+ + | Jose Robles MD | PCP | | + +------+ + Encounter Details +--------+ + + + + | Date | Type | Department | Care Team | Description | +--------+ + + + + | 09/05/ | Pharmacy | [facility] | | | | 2017 | Visit | Pharmacy [address] | | | | | | [address] | | | | | | [place], [place] | | | | | | [address] | | | | | | [phone] | | | +--------+ + + + [...] [place] | | | | | | [address] | | +--------+ + + + + | 12/25/ | Video/TeleH | Cardiology | Tessie Mabry | | | 2019 | ealth-Sched | | [facility] [address] | | | | uled | | [address] | | | | | | [place], [place] | | | | | | [address] | | | | | | [phone] | | | | | | | | +--------+ + + + + documented as of this encounter Visit Diagnoses Not on filedocumented in this encounter"
--- OUTSIDE RECORDS SUMMARY | ~2019-12-13 | XMS | Encounter Summary ---
Demographics + + + | Address | [address] | | | [place] [address] | + + + | Home Phone [...] Team Providers + +------+ + | Care Tower Air Traffic Control Specialist Name | Role | Phone | + +------+ + | Jose Robles MD | PCP | | + +------+ + Encounter Details +--------+ + + + + | Date | Type | Department | Care Team | Description | +--------+ + + + + | 09/06/ | Pharmacy | Specialty Pharmacy | | | | 2017 | Visit | Services [address] | | | | | | [address] | | | | | | [place], [place] | | | | | | [address] | | | | | | [phone] | | | +--------+ + + + [...] | | | | | | [place] | | | | | | [address] | | +--------+ + + + + | 12/25/ | Video/TeleH | Cardiology | Tessie Mabry | | | 2019 | ealth-Sched | | [facility] [address] | | | | uled | | [address] | | | | | | [place], [place] | | | | | | [address] | | | | | | [phone] | | | | | | | | +--------+ + + + + documented as of this encounter Visit Diagnoses Not on filedocumented in this encounter"
--- OUTSIDE RECORDS SUMMARY | ~2019-12-13 | XMS | Encounter Summary ---
Demographics + + + | Address | [address] [facility] | | | [place] [address] | + + + | Home Phone [...] Providers + +------+ + | Care Supervisor Record Press Name | Role | Phone | + [...] | | | | Dudleyo | ,PhD 0865 | PA-C [address] | | | | | sis of | [address] | [address] | | | | | coronary | [address] | [place], [place] | | | | | artery, | [place], [place] | [address] | | | | | angina | [address] | Phone: | | | | | presence | Phone: | [phone] | | | | | unspecified, | [phone] | Fax: | | | | | unspecified | Fax: | [phone] | | | | | vessel or | [phone] | | | | | | lesion type, | | | | | | | unspecified | | | | | | | whether | | | | | | | chitina or | | | | | | [...] | 2018 | Visit | Preventive at [facility] | [address] | (Primary Dx) | | | | [address] | [address] [place], | | | | | [facility] | [place] [address] | | | | | and [place], | [phone] | | | | | [address] | | | | | | [place], [place] | | | | | | [address] | | | | | | [phone] | | | +--------+---------+ + + + [...] e make sure to sign up for Audioscribe, if you haven't already done so Please contact us in clinic (preferably via Audioscribe) if you have further questions Today in [...] throw away and contact Repatha for replacement ([phone]). 6) Do not use damaged pen. 7) [...] Can use household hazardous waste collection sites: www.deq.[facility].or.us/lq/sw/hhw/events.htm For household hazardous waste collection opportunities in the [facility] area, call . For household hazardous waste collection opportunities in other areas, call Please contact us in clinic (or via Gnarus Systemst) if you have further question For more information on Repatha, go to: [email or web address] documented in this encounter Progress Notes Raman Eng, PharmD - 07/01/2017 2:45 PM PSTFormatting of this note might be different f rom the original. Preventive [facility]iology Clinic Pharmacy Consult Consulted by Joanie [place] to obtain cholesterol medication fill history for Cele Villalba shaka in preparation for PCSK9 inhibitor initiation. Source: patient, pharmacy records, Dr. Glynn Friend at [facility] Cardiology chart notes, Dr. Fr justin Dempsey at [facility] Medicine chart notes Lipid Lowering Medication History: [...] Approximate date: 2007 x a few months [place] 3 fatty acid - dose: 1000 mg [...] patient assistance Thank you, Raman Eng PharmD, [facility] Cardiology Clinical Pharmacist [facility] [place] Department of Pharmacy, CR 9-4 [address] [place] [address] Pager ID: [phone] Joanie Renner PA-C - 07/01/2017 2:45 PM [...] Approximate date: 2007 x a few months [place] 3 fatty acid - dose: 1000 mg [...] much as is tolerated, including has a senior animal trainer ffor osteopenia (2-3 ti mes a week), walks dog, water aerobics class 3 times a week Weight: working on managing her weight Medical, Social, and Family Histories: Medical, Social and Family histories were reviewed and updated in EMR based on conversation with the patient, and notable for HTN, Hypercholesterolemia, Statin Intolerance (myalgias a nd arthralgias), Moderate Premature Coronary Atherosclerosis (QTOV=645 in 2013, 90th percent ile), Obesity. Please see that section of the EMR for full details. Past Medical History: Diagnosis Date Coronary atherosclerosis CBFN=637, 90th percentile for age and gender Current Outpatient Prescriptions Medication Sig aspirin chewable 81 mg oral tablet,chewable Chew and swallow 81 mg once daily. CALCIUM CARBONATE/VITAMIN D3 (CALCIUM CHEW ORAL) Take 1 tablet by mouth once daily. Cholecalciferol (Vitamin D3) (VITAMIN D3) 2,000 unit oral tablet Take 2,000 Units by [facility] once daily. Khfcvbtrqcv-Hrnfukffz-Vkn C-Mn (GLUCOSAMINE 1500 COMPLEX) 500-400 mg oral capsule Take 1 tablet by mouth once daily. LACTOBAC NO.41/BIFIDOBACT NO.7 (PROBIOTIC-10 ORAL) Take 1 tablet by mouth once daily. mv,Ca,min-folic acid-vit K1 (ONE-A-DAY WOMEN'S 50 PLUS) 400-20 mcg oral tablet Take 1 t ablet by mouth once daily. Pvyzn-0-IAQ-EPA-Fish Oil (FISH OIL) 1,000 mg (120 mg-180 mg) oral capsule Take 1 capsul e by mouth once daily. UBIDECARENONE/VITAMIN E MIXED (COQ10 SG 100 ORAL) Take 1 tablet by mouth once daily. No current facility-administered medications for this visit. Family History: Family History Problem Relation Lipid Disorder Mother Heart Attack Mother of [place] age 85 Physical Exam Findings: General: comfortable, [...] Ref Range: <=30 mg/dL 32 (H) From [facility] Medicine: Records reviewed from [facility] and [...] of ASCVD in women and men" Per [place] Association of Clinical Endocrinologists (AACE) 2017 Guidelines: [...] current targets (Engl J Med 201 7; 376:0159-2026) The FDA granted a new indication for evolocumab (Repatha, Amgen) as the first PCSK9 inhibit or to prevent heart attacks, strokes and coronary revascularizations in adults with establis hed cardiovascular disease (CVD). The expanded indication was based on the results of FOURIE R (Further Cardiovascular OUtcomes Research with PCSK9 Inhibition in Subjects with Elevated Risk), where evolocumab reduced the risk of myocardial infarction (AK) by 27%, the risk of s troke [...] her to provide blood specimen for the [facility] registry and biorepository (specimen will be furnished [...] and give enrollment form to Raman Eng, Satya to complete current LDL se ction and give to MA (with copy of progress notes, recent labs and copy of insurance card) t o fax to Repatha (Evolocumab) [employer] Registry Cele signed letter of consent giving me permission (or nurse or other provider at [facility]) at the [facility], to act her [...] [address] Mailcode: [id number] [facility] [id number] My total face to face time spent [...] Rd | | | | | | [place], [place] | | | | | | [address] | | +--------+ + + + + | 12/25/ | Video/TeleH | Cardiology | Tessie Mabry | | | 2019 | ealth-Sched | | [facility] [address] | | | | uled | | [address] | | | | | | [facility] [place] | | | | | | [address] | | | | | | [phone] | | | | | | | [...] [facility] | [address] | [place] [address] | | | SERVICES, CORE | [address] [...] | 41 (H) | <=30 mg/dL | [facility] | | | A - LIPID | [...] | + + + + + | [facility] | [address] | [place], [place] | | | SERVICES, LIPID | [address] | [address] | | + + + + + [...] [facility] | [address] | [place], [place] | | | SERVICES, LIPID | [address] | [address] | | + + + + + documented in this encounter Visit Diagnoses + + | Diagnosis | + + | Hypercholesteremia - Primary Pure hypercholesterolemia | + + documented in this encounter
--- OUTSIDE RECORDS SUMMARY | ~2019-12-13 | XMS | Encounter Summary ---
Demographics + + + | Address | [address] [facility] | | | [place] [address] | + + + | Home Phone [...] Team Providers + +------+ + | Care Chair Caner Name | Role | Phone | + +------+ + | Jose Robles MD | PCP | | + +------+ + Encounter Details +--------+ + + + + | Date | Type | Department | Care Team | Description | +--------+ + + + + | 06/18/ | Pharmacy | [facility] | | | | 2020 | Visit | [address] [facility] | | | | | | [facility] 100 | | | | | | [place] [address] | | | | | | [phone] | | | +--------+ + + + [...] | | | | | | [place], [place] | | | | | | [address] | | +--------+ + + + + | 12/25/ | Video/TeleH | Cardiology | Tessie Mabry | | | 2019 | ealth-Sched | | [facility] [address] | | | | uled | | [address] | | | | | | [place], [place] | | | | | | [address] | | | | | | [phone] | | | | | | | | +--------+ + + + + documented as of this encounter Visit Diagnoses Not on filedocumented in this encounter"
--- OUTSIDE RECORDS SUMMARY | ~2019-12-13 | XMS | Encounter Summary ---
Demographics + + + | Address | [address] [facility] | | | [place] [address] | + + + | Home Phone [...] Team Providers + +------+ + | Care Ppa Teacher Name | Role | Phone | [...] | 2018 | on | Preventive at [facility] | PharmD [address] | Request - Medication | | | | [address] | [address] | (Ben) | | | | [facility] | [place], [place] | | | | | and [place], | [address] | | | | | [address] | | | | | | [place], [place] | | | | | | [address] | | | | | | [phone] | | | +--------+ + + + [...] Rd | | | | | | [place], [place] | | | | | | [address] | | +--------+ + + + + | 12/25/ | Video/TeleH | Cardiology | Tessie Mabry | | | 2019 | ealth-Sched | | [facility] [address] [facility] | | | | re | | [address] | | | | | | [place] | | | | | | [address] | | | | | | [phone] | | | | | | | | +--------+ + + + + documented as of this encounter Visit Diagnoses Not on filedocumented in this encounter"
--- OUTSIDE RECORDS SUMMARY | ~2019-12-13 | XMS | Encounter Summary ---
Demographics + + + | Address | [address] [facility] [facility] | | | [place] [address] | + + + | Home Phone [...] Team Providers + +------+ + | Care Special Weapons Unit Officer Name | Role | Phone | + +------+ + | Jose Robles MD | PCP | | + +------+ + Encounter Details +--------+ + + + + | Date | Type | Department | Care Team | Description | +--------+ + + + + | 09/02/ | Pharmacy | [facility] | | | | 2017 | Visit | Pharm[address] | | | | | | [address] | | | | | | [place], [place] | | | | | | [address] | | | | | | [phone] | | | +--------+ + + + [...] [place] | | | | | | [address] | | +--------+ + + + + | 12/25/ | Video/TeleH | Cardiology | Tessie Mabry | | | 2019 | ealth-Sched | | [facility] [address] | | | | uled | | [address] | | | | | | [place], [place] | | | | | | [address] | | | | | | [phone] | | | | | | | | +--------+ + + + + documented as of this encounter Visit Diagnoses Not on filedocumented in this encounter"
--- OUTSIDE RECORDS SUMMARY | ~2019-12-13 | XMS | Encounter Summary ---
Demographics + + + | Address | [address] [facility] | | | [place] [address] | + + + | Home Phone | | + + + | Preferred Language | Unknown | + + + | Marital Status | Single | + + + | Presybeterian Affiliation | Unknown | + + + [...] Providers + +------+ + | Care Sr. Director Product Management Name | Role | Phone | + [...] | 2018 | Encounter | Preventive at [facility] | [address] | up | | | | [address] | [address] [place], | | | | | [facility] | [place] [address] | | | | | and [place], | [phone] | | | | | Building [address] | | | | | | [place], [place] | | | | | | [address] | | | | | | [phone] | | | +--------+ + + + [...] Rd | | | | | | [place] | | | | | | [address] | | +--------+ + + + + | 12/25/ | Video/TeleH | Cardiology | Tessie Mabry | | 2019 | ealth-Sched | | [facility] [address] | | | | uled | | [address] | | | | | | [facility] [place] | | | | | | [address] | | | | | | [phone] | | | | | | | [...] [facility] | [address] | [place], [place] | | | SERVICES, LIPID | [facility] | [address] | | + + + + + [...] | + + + + + | [facility] | [address] | [place], [place] | | | SERVICES, LIPID | [address] | [address] | | + + + + + [...] | + + + + + | [facility] | [address] | [place] [address] | | | [facility] | | | | | HEALTH + HEALING | | | | + + + + + documented in this encounter Visit Diagnoses + + | Diagnosis | + + | Hypercholesterolemia - Primary Pure hypercholesterolemia | + + documented in this encounter"
--- OUTSIDE RECORDS SUMMARY | ~2019-12-13 | XMS | Encounter Summary ---
Demographics + + + | Address | [address] [facility] [facility] | | | [place] [address] | + + + | Home Phone [...] Team Providers + +------+ + | Care Charter School Executive Director Name | Role | Phone | + +------+ + | Jose Robles MD | PCP | | + +------+ + Encounter Details +--------+ + + + + | Date | Type | Department | Care Team | Description | +--------+ + + + + | 07/17/ | Pharmacy | [facility] | | | | 2020 | Visit | [address] [facility] | | | | | | [facility] 100 | | | | | | [place] [address] | | | | | | [phone] | | | +--------+ + + + [...] Rd | | | | | | [place], [place] | | | | | | [address] | | +--------+ + + + + | 12/25/ | Video/TeleH | Cardiology | Tessie Mabry | | | 2019 | ealth-Sched | | [facility] [address] | | | | uled | | [address] | | | | | | [place], [place] | | | | | | [address] | | | | | | [phone] | | | | | | | | +--------+ + + + + documented as of this encounter Visit Diagnoses Not on filedocumented in this encounter"
--- OUTSIDE RECORDS SUMMARY | ~2019-12-13 | XMS | Encounter Summary ---
Demographics + + + | Address | [address] [facility] | | | [place] [address] | + + + | Home Phone [...] Team Providers + +------+ + | Care Storage Facility Rental Clerk Name | Role | Phone | + +------+ + | Jose Robles MD | PCP | | + +------+ + Encounter Details +--------+ + + + + | Date | Type | Department | Care Team | Description | +--------+ + + + + | 06/13/ | Pharmacy | [facility] | | | | 2019 | Visit | [address] [facility] | | | | | | [facility] [address] | | | | | | [place] [address] | | | | | | [phone] | | | +--------+ + + + [...] | | | | | | [place], [place] | | | | | | [address] | | +--------+ + + + + | 12/25/ | Video/TeleH | Cardiology | Tessie Mabry | | | 2019 | ealth-Sched | | [facility] [address] | | | | uled | | [address] | | | | | | [place], [place] | | | | | | [address] | | | | | | [phone] | | | | | | | | +--------+ + + + + documented as of this encounter Visit Diagnoses Not on filedocumented in this encounter"
--- OUTSIDE RECORDS SUMMARY | ~2019-12-13 | XMS | Clinical Summary ---
Demographics + + + | Address | [address] [facility] | | | [place] [address] | + + + | Home Phone | | + + + | Preferred Language | Unknown | + + + | Marital Status | Single | + + + | Anglican Affiliation | Unknown | + + + [...] Providers + +------+ + | Care [place] Sawyer Name | Role | Phone | + +------+ + | Jose Robles MD | PCP | | + +------+ + Source Comments VIANEY is fully live on both [facility] and [facility] In[facility] Allergies + + + + + + | Active Allergy | Reactions | Severity | Noted | Comments | | | | | Date | | + + + + + + | Elnkxvd-Lqm-Uwd | Myalgia | | 06/06/19 | | [...] 0 | | | Activ | | Nqyhh-6-CYE-EPA-Fish | mouth once daily. | | | [...] | 2020 | Encounter | | M, ELECTRICAL APPLIANCE PREPARER | | +--------+ + + + + [...] | 2019 | Encounter | | M, ELECTRICAL APPLIANCE PREPARER | questions and | | | | [...] Heart Attack | Mother | | of [place] age 85 | + + +------+ + [...] | | | | | | [facility] [place] | | | | | | [address] | | +--------+ + + + + | 12/25/ | Video/TeleH | Cardiology | Tessie Mabry | | | 2019 | ealth-Sched | | [facility] [address] | | | | uled | | [address] | | | | | | [facility], [place] | | | | | | [address] | | | | | | [phone] | | | | | | | [...] [address] | [place], [place] | [phone] | | [place] | | | | [...] | [facility] | [address] | [place] | [phone] | | [place] | | | | [...] | B | | esent | | [place], [place] | | | | | | | | [address] | | + +--------+ +--------+ + +--------+ | [employer] MED[employer]ARE | MODA | xxxxxxxxx | 04/25/19 | [phone] | [address] | POS | | SUPPLEMENT | MEDICA | | 17-Pre | 4 | [id number] | | | | RE | | sent | | [place], | | | | SUPPLE | | | | [place] [address] | | | | MENT | | [...] | 1950 | [phone] | [place] [address] | | | [place]i | | | 8 (Home) | | + +--------+ +--------+ + +
--- OUTSIDE RECORDS SUMMARY | ~2019-12-13 | XMS | Encounter Summary ---
Demographics + + + | Address | [address] | | | [place] [address] | + + + | Home Phone | | + + + | Preferred Language | Unknown | + + + | Marital Status | Unknown | + + + | Cheondoism Affiliation | Unknown | + + + | Race | Unknown | + + + | Ethnic Group | Unknown | + + + Author + + + | Author | [facility] | | | and [place] | + + + | Organization | [facility] | | | and [place] | + + + | Address | Unknown | + + + | Phone | Unavailable | + + + Care Team Providers + +------+ + | Care Terrazzo Worker Name | Role | Phone | + +------+ + PCP | Unavailable | + +------+ + Reason for Visit + +--------+ + | Reason | Onset | Comments | | | Date | | + +--------+ + | Medication Refill | 02/16/ | | | | 2016 | | + +--------+ + Encounter Details +--------+--------+ + + + | Date | Type | Department | Care Team | Description | +--------+--------+ + + + | 02/16/ | Refill | [facility] | Luis Angel Turpin, | Medication Refill | | 2016 | | [facility] | [place] | | | | [facility] [address] | | | | | [address] [place], | | | | | | [place] [address] | | | | | | [phone] | | | +--------+--------+ + + + [...] + + documented as of this encounter Miscellaneous Notes Telephone Encounter - Connie Santana - 02/16/2017 9:55 AM PDTAMBIEN and LORAZEPAM. Pt states she requested refills on Mon and pharmacy has not received anything. Please resend. [facility] pharmacy. Thanks/Connie docume nted in this encounter Plan of Treatment Not on filedocumented as of this encounter Visit Diagnoses Not on filedocumented in this encounter"
--- OUTSIDE RECORDS SUMMARY | ~2019-12-13 | XMS | Encounter Summary ---
Demographics + + + | Address | [address] [facility] | | | [place] [address] | + + + | Home Phone [...] Team Providers + +------+ + | Care Plan Consultant Name | Role | Phone | + +------+ + | Brooks Dempsey DO | PCP | | + +------+ + Encounter Details +--------+ + + + + | Date | Type | Department | Care Team | Description | +--------+ + + + + | 07/01/ | Abstract | Cardiology | Joanie Lynne | | | 2018 | | Preventive at [facility] | [place] [address] | | | | | [address] | [address] [place], | | | | | [facility] | [place] [address] | | | | | and [place], | [phone] | | | | | Building [address] | | | | | | [place], [place] | | | | | | [address] | | | | | | [phone] | | | +--------+ + + + [...] Rd | | | | | | [facility] [place] | | | | | | [address] | | +--------+ + + + + | 12/25/ | Video/TeleH | Cardiology | Tessie Mabry | | | 2019 | ealth-Sched | | Mary Jo, SECURITY AND COMPLIANCE PROJECT MANAGER [address] | | | | uled | | [address] | | | | | | [place], [place] | | | | | | [address] | | | | | | [phone] | | | | | | | | +--------+ + + + + documented as of this encounter Visit Diagnoses Not on filedocumented in this encounter"
--- OUTSIDE RECORDS SUMMARY | ~2019-12-13 | XMS | Encounter Summary ---
Demographics + + + | Address | [address] [facility] [address] | | | [place] [address] | + + + | Home Phone [...] Team Providers + +------+ + | Care Clinical Researcher Name | Role | Phone | + [...] | 2018 | Encounter | Preventive at [facility] | [place] [address] | prescribed and | | | | [address] | [address] [place], | change in local DrRaymon | | | | [facility] | [place] [address] | | | | | and Healing, | [phone] | | | | | [address] | | | | | | [place], [place] | | | | | | [address] | | | | | | [phone] | | | +--------+ + + + [...] | 2019 | ealth-Sched | | [place]EN[place] [address] | | | | uled | | [address] | | | | | | [place], [place] | | | | | | [address] | | +--------+ + + + + | 12/25/ | Video/TeleH | Cardiology | Tessie Mabry | | 2019 | ealth-Sched | | Mary Jo, OTHER SPATIAL SCIENTIST [address] | | | | uled | | [address] | | | | | | [place], [place] | | | | | | [address] | | | | | | [phone] | | | | | | | | +--------+ + + + + documented as of this encounter Visit Diagnoses Not on filedocumented in this encounter"
--- OUTSIDE RECORDS SUMMARY | ~2019-12-13 | XMS | Encounter Summary ---
Demographics + + + | Address | [address] | | | [place] [address] | + + + | Home Phone [...] Team Providers + +------+ + | Care Public Information Specialist Name | Role | Phone | [...] 2019 | Encounter | Preventive at [facility] | [place] [address] | prescription refill | | | | [address] | [address] [place], | request | | | | [facility] | [place] [address] | | | | | and Healing, | [phone] | | | | | Building [address] | | | | | | [place], [place] | | | | | | [address] | | | | | | [phone] | | | +--------+ + + + [...] Rd | | | | | | [place] | | | | | | [address] | | +--------+ + + + + | 12/25/ | Video/TeleH | Cardiology | Tessie Mabry | | | 2019 | ealth-Sched | | Mary Jo, ELECTRICAL TESTER BATTERY [address] | | | | uled | | [address] | | | | | | [place], [place] | | | | | | [address] | | | | | | [phone] | | | | | | | | +--------+ + + + + documented as of this encounter Visit Diagnoses Not on filedocumented in this encounter"
--- OUTSIDE RECORDS SUMMARY | ~2019-12-13 | XMS | Encounter Summary ---
Demographics + + + | Address | [address] | | | [place] [address] | + + + | Home Phone [...] Team Providers + +------+ + | Care Dwarf Tree Grower Name | Role | Phone | + +------+ + | Brooks Dempsey DO | PCP | | + +------+ + Encounter Details +--------+ + + + + | Date | Type | Department | Care Team | Description | +--------+ + + + + | 07/28/ | Abstract | Cardiology | Joanie Lynne | | | 2018 | | Preventive at [facility] | [place] [address] | | | | | [address] | [address] [place], | | | | | [facility] | [place] [address] | | | | | and [place]fs[place]h, | [phone] | | | | | Building 1 | | | | | | [place], [place] | | | | | | [address] | | | | | | [phone] | | | +--------+ + + + [...] Rd | | | | | | [facility] [place] | | | | | | [address] | | +--------+ + + + + | 12/25/ | Video/TeleH | Cardiology | Tessie Mabry | | | 2019 | ealth-Sched | | Mary Jo, ENVIRONMENTAL PROJECT MANAGER [address] | | | | uled | | [address] | | | | | | [place], [place] | | | | | | [address] | | | | | | [phone] | | | | | | | | +--------+ + + + + documented as of this encounter Visit Diagnoses Not on filedocumented in this encounter"
--- OUTSIDE RECORDS SUMMARY | ~2019-12-13 | XMS | Encounter Summary ---
Demographics + + + | Address | [address] [facility] [address] [facility] | | | [place] [address] | + + + | Home Phone [...] Team Providers + +------+ + | Care Geothermal Technician Name | Role | Phone | + +------+ + | Jose Robles MD | PCP | | + +------+ + Encounter Details +--------+ + + + + | Date | Type | Department | Care Team | Description | +--------+ + + + + | 10/27/ | Pharmacy | Specialty Pharmacy | | | | 2017 | Visit | Services [address] | | | | | | [address] | | | | | | [place], [place] | | | | | | [address] | | | | | | [phone] | | | +--------+ + + + [...] Rd | | | | | | [place] | | | | | | [address] | | +--------+ + + + + | 12/25/ | Video/TeleH | Cardiology | Tessie Mabry | | | 2019 | ealth-Sched | | [facility] [address] | | | | uled | | [address] | | | | | | [place], [place] | | | | | | [address] | | | | | | [phone] | | | | | | | | +--------+ + + + + documented as of this encounter Visit Diagnoses Not on filedocumented in this encounter"
--- OUTSIDE RECORDS SUMMARY | ~2019-12-13 | XMS | Encounter Summary ---
Demographics + + + | Address | [address] [facility] | | | [place] [address] | + + + | Home Phone [...] Team Providers + +------+ + | Care Associate Professor Physician Name | Role | Phone | [...] | 2020 | Encounter | Preventive at [facility] | M, LABEL FOLDER [address] | | | | | [address] | [address] | | | | | [facility] | [place], [place] | | | | | and [place], | [address] | | | | | Building 1 | [phone] | | | | | [place], [place] | | | | | | [address] | | | | | | [phone] | | | +--------+ + + + [...] | 2019 | ealth-Sched | | [place] [address] | | | | re | | [address] | | | | | | [place], [place] | | | | | | [address] | | +--------+ + + + + | 12/25/ | Video/TeleH | Cardiology | Tessie Mabry | | | 2019 | ealth-Sched | | Mary Jo, LABEL FOLDER [address] | | | | uled | | [address] | | | | | | [place], [place] | | | | | | [address] | | | | | | [phone] | | | | | | | | +--------+ + + + + documented as of this encounter Visit Diagnoses Not on filedocumented in this encounter"
--- OUTSIDE RECORDS SUMMARY | ~2019-12-13 | XMS | Encounter Summary ---
Demographics + + + | Address | [address] [facility] [facility] | | | [place] [address] | + + + | Home Phone [...] Providers + +------+ + | Care Medical Accountant Name | Role | Phone | + +------+ + | Jose Robles MD | PCP | | + +------+ + Encounter Details +--------+ + + + + | Date | Type | Department | Care Team | Description | +--------+ + + + + | 10/16/ | Pharmacy | [facility] | | | | 2019 | Visit | [address] [facility] | | | | | | [address] | | | | | | [place] [address] | | | | | | [phone] | | | +--------+ + + + [...] Rd | | | | | | [place], [place] | | | | | | [address] | | +--------+ + + + + | 12/25/ | Video/TeleH | Cardiology | Tessie Mabry | | | 2019 | ealth-Sched | | [facility] [address] | | | | uled | | [address] | | | | | | [place], [place] | | | | | | [address] | | | | | | [phone] | | | | | | | | +--------+ + + + + documented as of this encounter Visit Diagnoses Not on filedocumented in this encounter"
--- OUTSIDE RECORDS SUMMARY | ~2019-12-13 | XMS | Encounter Summary ---
Demographics + + + | Address | [address] [facility] [facility] | | | [place] [address] | + + + | Home Phone [...] Providers + +------+ + | Care Silk Screener Name | Role | Phone | + +------+ + | Brooks Dempsey DO | PCP | | + +------+ + Encounter Details +--------+------+ + + + | Date | Type | Department | Care Team | Description | +--------+------+ + + + | 10/10/ | Lab | Laboratory at [facility] | | Hypercholesteremia | | 2018 | | [address] | | | | | | [place] [facility] | | | | | | and Healing, | | | | | | Building 2 | | | | | | [place], [place] | | | | | | [address] | | | | | | [phone] | | | +--------+------+ + + + [...] Rd | | | | | | [place], [place] | | | | | | [address] | | +--------+ + + + + | 12/25/ | Video/TeleH | Cardiology | Tessie Mabry | | | 2019 | ealth-Sched | | Mary Jo, RETAIL VISUAL MERCHANDISER [address] | | | | uled | | [address] | | | | | | [place], [place] | | | | | | [address] | | | | | | [phone] | | | | | | | [...] LABORATORY | [address] | [place] [address] | | | [facility] | | | | | HEALTH [...] | + + + + + | [facility] | [address] | [place], [place] | | | SERVICES, LIPID | [address] | [address] | | + + + + + [...] + + + + + | [facility] | [address] | [place], [place] | | | SERVICES, LIPID | [address] | [address] | | + + + + + documented in this encounter Visit Diagnoses + + | Diagnosis | + + | Hypercholesteremia Pure hypercholesterolemia | + + documented in this encounter"
--- OUTSIDE RECORDS SUMMARY | ~2019-12-13 | XMS | Encounter Summary ---
Demographics + + + | Address | [address] [facility] [facility] | | | [place] [address] | + + + | Home Phone [...] Team Providers + +------+ + | Care Billiard Player Name | Role | Phone | + +------+ + | Jose Robles MD | PCP | | + +------+ + Encounter Details +--------+ + + + + | Date | Type | Department | Care Team | Description | +--------+ + + + + | 03/16/ | Pharmacy | [facility] | | | | 2019 | Visit | [address] [facility] | | | | | | [facility] [address] | | | | | | [place] [address] | | | | | | [phone] | | | +--------+ + + + [...] Rd | | | | | | [place], [place] | | | | | | [address] | | +--------+ + + + + | 12/25/ | Video/TeleH | Cardiology | Tessie Mabry | | | 2019 | ealth-Sched | | [facility] [address] | | | | uled | | [address] | | | | | | [place], [place] | | | | | | [address] | | | | | | [phone] | | | | | | | | +--------+ + + + + documented as of this encounter Visit Diagnoses Not on filedocumented in this encounter"
--- OUTSIDE RECORDS SUMMARY | ~2019-12-13 | XMS | Encounter Summary ---
Demographics + + + | Address | [address] [facility] [address] [facility] | | | [place] [address] | + + + | Home Phone [...] Team Providers + +------+ + | Care Rodding Machine Tender Name | Role | Phone [...] | | 2019 | | Preventive at [facility] | [place] [address] | | | | | [address] | [address] [place], | | | | | [facility] | [place] [address] | | | | | and [place], | [phone] | | | | | Building 1 | | | | | | [place], [place] | | | | | | [address] | | | | | | [phone] | | | +--------+--------+ + + + [...] Rd | | | | | | [facility], [place] | | | | | | [address] | | +--------+ + + + + | 12/25/ | Video/TeleH | Cardiology | Tessie Mabry | | | 2019 | ealth-Sched | | [facility] [place] [address] | | | | uled | | [address] | | | | | | [facility] | | | | | | [address] | | | | | | [phone] | | | | | | | | +--------+ + + + + documented as of this encounter Visit Diagnoses Not on filedocumented in this encounter"
--- OUTSIDE RECORDS SUMMARY | ~2019-12-13 | XMS | Encounter Summary ---
Demographics + + + | Address | [address] | | | [place] [address] | + + + | Home Phone [...] Team Providers + +------+ + | Care Fish Hatchery Inspector Name | Role | Phone | + +------+ + | Jose Robles MD | PCP | | + +------+ + Encounter Details +--------+ + + + + | Date | Type | Department | Care Team | Description | +--------+ + + + + | 12/30/ | Pharmacy | [facility] | | | | 2017 | Visit | Pharmacy [address] | | | | | | [address] | | | | | | [place], [place] | | | | | | [address] | | | | | | [phone] | | | +--------+ + + + [...] [place] | | | | | | [address] | | +--------+ + + + + | 12/25/ | Video/TeleH | Cardiology | Tessie Mabry | | | 2019 | ealth-Sched | | [facility] [address] | | | | uled | | [address] | | | | | | [place], [place] | | | | | | [address] | | | | | | [phone] | | | | | | | | +--------+ + + + + documented as of this encounter Visit Diagnoses Not on filedocumented in this encounter"
--- OUTSIDE RECORDS SUMMARY | ~2019-12-13 | XMS | Encounter Summary ---
Demographics + + + | Address | [address] | | | [place] [address] | + + + | Home Phone [...] Team Providers + +------+ + | Care Bicycle I Assembler Name | Role | Phone | + +------+ + | Jose Robles MD | PCP | | + +------+ + Encounter Details +--------+ + + + + | Date | Type | Department | Care Team | Description | +--------+ + + + + | 01/15/ | Pharmacy | [facility] | | | | 2019 | Visit | [address] [facility] | | | | | | [facility] [address] | | | | | | [place] [address] | | | | | | [phone] | | | +--------+ + + + [...] Rd | | | | | | [place], [place] | | | | | | [address] | | +--------+ + + + + | 12/25/ | Video/TeleH | Cardiology | Tessie Mabry | | | 2019 | ealth-Sched | | [facility] [address] | | | | uled | | [address] | | | | | | [place], [place] | | | | | | [address] | | | | | | [phone] | | | | | | | | +--------+ + + + + documented as of this encounter Visit Diagnoses Not on filedocumented in this encounter"
--- OUTSIDE RECORDS SUMMARY | ~2019-12-13 | XMS | Encounter Summary ---
Demographics + + + | Address | [address] [facility] | | | [place] [address] | + + + | Home Phone [...] Team Providers + +------+ + | Care Dairy Truck Driver Name | Role | Phone | + +------+ + | Jose Robles MD | PCP | | + +------+ + Encounter Details +--------+ + + + + | Date | Type | Department | Care Team | Description | +--------+ + + + + | 09/12/ | Pharmacy | [facility] | | | | 2019 | Visit | [address] [facility] | | | | | | [facility] 100 | | | | | | [place] [address] | | | | | | [phone] | | | +--------+ + + + [...] Rd | | | | | | [place], [place] | | | | | | [address] | | +--------+ + + + + | 12/25/ | Video/TeleH | Cardiology | Tessie Mabry | | | 2019 | ealth-Sched | | [facility] [address] | | | | uled | | [address] | | | | | | [place], [place] | | | | | | [address] | | | | | | [phone] | | | | | | | | +--------+ + + + + documented as of this encounter Visit Diagnoses Not on filedocumented in this encounter"
--- OUTSIDE RECORDS SUMMARY | ~2019-12-13 | XMS | Encounter Summary ---
Demographics + + + | Address | [address] [facility] | | | [place] [address] | + + + | Home Phone [...] Team Providers + +------+ + | Care Electron Beam Welding Machine Operator Name | Role | Phone [...] | 2019 | Encounter | Preventive at [facility] | M, TUBE ROLLER [address] | RX question | | | | [address] | [address] | | | | | [facility] | [place], [place] | | | | | and Healing, | [address] | | | | | Building 1 | [phone] | | | | | [place], [place] | | | | | | [address] | | | | | | [phone] | | | +--------+ + + + [...] | 2019 | ealth-Sched | | YESEN[place] [address] | | | | uled | | [address] | | | | | | [place] | | | | | | [address] | | +--------+ + + + + | 12/25/ | Video/TeleH | Cardiology | Tessie Mabry | | 2019 | ealth-Sched | | Mary Jo, TUBE ROLLER [address] | | | | uled | | [address] | | | | | | [place], [place] | | | | | | [address] | | | | | | [phone] | | | | | | | | +--------+ + + + + documented as of this encounter Visit Diagnoses Not on filedocumented in this encounter"
--- OUTSIDE RECORDS SUMMARY | ~2019-12-13 | XMS | Encounter Summary ---
Demographics + + + | Address | [address] [facility] | | | [place] [address] | + + + | Home Phone [...] Team Providers + +------+ + | Care Sole Conforming Machine Operator Name | Role | Phone | + +------+ + | Jose Robles MD | PCP | | + +------+ + Encounter Details +--------+ + + + + | Date | Type | Department | Care Team | Description | +--------+ + + + + | 09/02/ | Pharmacy | [facility] | | | | 2017 | Visit | [address] [facility] | | | | | | [facility] [address] | | | | | | [place] [address] | | | | | | [phone] | | | +--------+ + + + [...] [place] | | | | | | [address] | | +--------+ + + + + | 12/25/ | Video/TeleH | Cardiology | Tessie Mabry | | | 2019 | ealth-Sched | | [facility] [address] | | | | uled | | [address] | | | | | | [place], [place] | | | | | | [address] | | | | | | [phone] | | | | | | | | +--------+ + + + + documented as of this encounter Visit Diagnoses Not on filedocumented in this encounter"
--- OUTSIDE RECORDS SUMMARY | ~2019-12-13 | XMS | Encounter Summary ---
Demographics + + + | Address | [address] [facility] | | | [place] [address] | + + + | Home Phone [...] Providers + +------+ + | Care Home Economics Teacher Name | Role | Phone | [...] | | Center for [facility] | | angina presence | | | | and Healing, | | unspecified, | | | | [address] | | unspecified vessel | | | | [place], [place] | | or lesion type, | | | | [address] | | unspecified whether | | | | [phone] | | [place] | | | | | | [...] Rd | | | | | | [place], [place] | | | | | | [address] | | +--------+ + + + + | 12/25/ | Video/TeleH | Cardiology | Tessie Mabry | | | 2020 | ealth-Sched | | M, DETENTION DEPUTY [address] [facility] | | | | uled | | [address] | | | | | | [facility] [place] | | | | | | [address] | | | | | | [phone] | | | | | | | [...] whether | | | | | | [place] or | | | | | | [...] whether | | | | | | [place] or | | | | | | [...] whether | | | | | | [place] or | | | | | | [...] whether | | | | | | [place] or | | | | | | [...] whether | | | | | | [place] or | | | | | | [...] whether | | | | | | [place] or | | | | | | [...] | + + + + + | [facility] | [address] | [place], [place] | | | SERVICES, LIPID | [address] | [address] | | + + + + + [...] | + + + + + | [facility] | [address] | [place] [address] | | | SERVICES, CORE | BOB [...] | + + + + + | [facility] | [address] | [place] [address] | | | SERVICES, CORONA | BOB [...] | [facility] | | considered for monitoring chcf glycemic control in patients with: | LABORATORY [...] [facility] | [address] | [place] [address] | | | SERVICES, SPECIAL | BOB [...] [facility] | [address] | [place] [address] | | | SERVICES, SPECIAL | [address]ARK [...] | [facility] | | | GRAVITY | [place] performed by | | LABORATORY | | [...] [facility] | [address] | [place] [address] | | | SERVICES, CORE | [address] | | | + + + + + documented in this encounter Visit Diagnoses + + | Diagnosis | + + | Atherosclerosis of coronary artery, angina presence unspecified, unspecified vessel or | | lesion type, unspecified whether [place] or transplanted heart | + + | Prediabetes Other abnormal glucose | + + | Familial hypercholesterolemia Pure hypercholesterolemia | + + | Familial hypophosphatemia Disorders of phosphorus metabolism | + + documented in this encounter"
--- OUTSIDE RECORDS SUMMARY | ~2019-12-13 | XMS | Encounter Summary ---
Demographics + + + | Address | [address] [facility] | | | [place] [address] | + + + | Home Phone [...] Providers + +------+ + | Care Community Engagement Coordinator Name | Role | Phone | [...] Record | | 2017 | | at [facility] [address] | | Review (gen | | | | [facility] for | | checklist) | | | | Health and Healing, | | | | | | Building | | | | | | Floor [place], [place] | | | | | | [address] | | | | | | [phone] | | | +--------+ + + + [...] if being seen for abnormal ECG 03-09-17 [facility] - abstract N/A Last Echo images and report - - - - Last Stress Test images and report 08-05-14 [facility] 05-26-16 via fax [phone] abstract - No i mages for this test Last Cardiac Catheterization images and report - - - - Last Holter or Event monitor report only - - - N/A Labs (BMP, Lipids, TSH, Hemoglobin A1C in last 6 months) [facility] 05-26-17 via fa x [phone] 06-09-17 via fax [phone] N/A Last Device Check (schedule device check if due) - - - N/A Last Cardiac MRI report and images if available - - - - Cardiac CTA report and images if available 05-24-[address] [facility] 05-26-17 via ph 5 [phone] abstract impax Patient Preferred Lab N/A N/A [...] | 2019 | ealth-Sched | | [place]EN[place] [address] | | | | re | | [address] | | | | | | [place], [place] | | | | | | [address] | | +--------+ + + + + | 12/25/ | Video/TeleH | Cardiology | Tessie Mabry | | 2019 | ealth-Sched | | [facility] [address] [facility] | | | | re | | [address] | | | | | | [place] | | | | | | [address] | | | | | | [phone] | | | | | | | | +--------+ + + + + documented as of this encounter Visit Diagnoses Not on filedocumented in this encounter"
--- OUTSIDE RECORDS SUMMARY | ~2019-12-13 | XMS | Encounter Summary ---
Demographics + + + | Address | [address] [facility] | | | [place] [address] | + + + | Home Phone [...] Team Providers + +------+ + | Care Cardiac Surgeon Name | Role | Phone | + [...] | Encounter | Preventive at [facility] | [address] | | | | | [address] | [address] [place], | | | | | [facility] | [place] [address] | | | | | and [place], | [phone] | | | | | Building [address] | | | | | | [place], [place] | | | | | | [address] | | | | | | [phone] | | | +--------+ + + + [...] Rd | | | | | | [place] | | | | | | [address] | | +--------+ + + + + | 12/25/ | Video/TeleH | Cardiology | Tessie Mabry | | 2019 | ealth-Sched | | [facility] [address] | | | | uled | | [address] | | | | | | [facility], [place] | | | | | | [address] | | | | | | [phone] | | | | | | | | +--------+ + + + + documented as of this encounter Visit Diagnoses Not on filedocumented in this encounter"
--- OUTSIDE RECORDS SUMMARY | ~2019-12-13 | XMS | Encounter Summary ---
Demographics + + + | Address | [address] [facility] | | | [place] [address] | + + + | Home Phone [...] Author + + + | Author | [facility] | + + + | Organization | [facility] | + + + | Address | Unknown | + + + | Phone | Unavailable | + + + Support + + +---------+ + | Name | Relationship | Address | Phone | + + +---------+ + | Jese Blair | ECON | Unknown | | + + +---------+ + Care Team Providers + +------+ + | Care Slasher Machine Operator Name | Role | Phone | + +------+ + | Jose Robles MD | PCP | | + +------+ + Encounter Details +--------+ + + + + | Date | Type | Department | Care Team | Description | +--------+ + + + + | 06/09/ | Pharmacy | [facility] | | | | 2019 | Visit | [address] [facility] | | | | | | [facility] 100 | | | | | | [place] [address] | | | | | | [phone] | | | +--------+ + + + [...] | | | | | | [place], [place] | | | | | | [address] | | +--------+ + + + + | 12/25/ | Video/TeleH | Cardiology | Tessie Mabry | | | 2019 | ealth-Sched | | [facility] [address] | | | | uled | | [address] | | | | | | [place], [place] | | | | | | [address] | | | | | | [phone] | | | | | | | | +--------+ + + + + documented as of this encounter Visit Diagnoses Not on filedocumented in this encounter"
--- OUTSIDE RECORDS SUMMARY | ~2019-12-13 | XMS | Encounter Summary ---
Demographics + + + | Address | [address] [facility] | | | [place] [address] | + + + | Home Phone [...] Team Providers + +------+ + | Care Flanger Name | Role | Phone | + +------+ + | Brooks Dempsey DO | PCP | | + +------+ + Encounter Details +--------+ + + + + | Date | Type | Department | Care Team | Description | +--------+ + + + + | 01/03/ | Abstract | Cardiology | Joanie Lynne | | | 2018 | | Preventive at [facility] | [place] [address] | | | | | [address] | [address] [place], | | | | | [facility] | [place] [address] | | | | | and [place], | [phone] | | | | | Building [address] | | | | | | [place], [place] | | | | | | [address] | | | | | | [phone] | | | +--------+ + + + [...] Rd | | | | | | [facility] [place] | | | | | | [address] | | +--------+ + + + + | 12/25/ | Video/TeleH | Cardiology | Tessie Mabry | | | 2019 | ealth-Sched | | Mary Jo, RESIDENTIAL YOUTH COUNSELOR [address] | | | | uled | | [address] | | | | | | [place], [place] | | | | | | [address] | | | | | | [phone] | | | | | | | | +--------+ + + + + documented as of this encounter Visit Diagnoses Not on filedocumented in this encounter"
--- OUTSIDE RECORDS SUMMARY | ~2019-12-13 | XMS | Encounter Summary ---
Demographics + + + | Address | [address] [facility] | | | [place] [address] | + + + | Home Phone [...] Team Providers + +------+ + | Care Coil Cutter Name | Role | Phone | + +------+ + | Jose Robles MD | PCP | | + +------+ + Encounter Details +--------+ + + + + | Date | Type | Department | Care Team | Description | +--------+ + + + + | 08/12/ | Pharmacy | [facility] | | | | 2020 | Visit | [address] [facility] | | | | | | [address] | | | | | | [place] [address] | | | | | | [phone] | | | +--------+ + + + [...] Rd | | | | | | [place], [place] | | | | | | [address] | | +--------+ + + + + | 12/25/ | Video/TeleH | Cardiology | Tessie Mabry | | | 2019 | ealth-Sched | | [facility] [address] | | | | uled | | [address] | | | | | | [place], [place] | | | | | | [address] | | | | | | [phone] | | | | | | | | +--------+ + + + + documented as of this encounter Visit Diagnoses Not on filedocumented in this encounter"
--- OUTSIDE RECORDS SUMMARY | ~2019-12-13 | XMS | Encounter Summary ---
Demographics + + + | Address | [address] [facility] | | | [place] [address] | + + + | Home Phone [...] Team Providers + +------+ + | Care Writing Center Director Name | Role | Phone | + +------+ + | Jose Robles MD | PCP | | + +------+ + Encounter Details +--------+ + + + + | Date | Type | Department | Care Team | Description | +--------+ + + + + | 12/15/ | Pharmacy | [facility] | | | | 2019 | Visit | [address] [facility] | | | | | | [facility] 100 | | | | | | [place] [address] | | | | | | [phone] | | | +--------+ + + + [...] Rd | | | | | | [place], [place] | | | | | | [address] | | +--------+ + + + + | 12/25/ | Video/TeleH | Cardiology | Tessie Mabry | | | 2019 | ealth-Sched | | [facility] [address] | | | | uled | | [address] | | | | | | [place], [place] | | | | | | [address] | | | | | | [phone] | | | | | | | | +--------+ + + + + documented as of this encounter Visit Diagnoses Not on filedocumented in this encounter"
--- OUTSIDE RECORDS SUMMARY | ~2019-12-13 | XMS | Encounter Summary ---
Demographics + + + | Address | [address] [facility] | | | [place] [address] | + + + | Home Phone | | + + + | Preferred Language | Unknown | + + + | Marital Status | Single | + + + | Scientologist Affiliation | Unknown | + + + [...] Team Providers + +------+ + | Care Morning Caregiver Name | Role | Phone | + +------+ + | Jose Robles MD | PCP | | + +------+ + Encounter Details +--------+ + + + + | Date | Type | Department | Care Team | Description | +--------+ + + + + | 02/15/ | Pharmacy | [facility] | | | | 2019 | Visit | [address] [facility] | | | | | | [facility] 100 | | | | | | [place] [address] | | | | | | [phone] | | | +--------+ + + + [...] [place] | | | | | | [address] | | +--------+ + + + + | 12/25/ | Video/TeleH | Cardiology | Tessie Mabry | | | 2019 | ealth-Sched | | [facility] [address] | | | | uled | | [address] | | | | | | [place], [place] | | | | | | [address] | | | | | | [phone] | | | | | | | | +--------+ + + + + documented as of this encounter Visit Diagnoses Not on filedocumented in this encounter"
--- OUTSIDE RECORDS SUMMARY | ~2019-12-13 | XMS | Encounter Summary ---
Demographics + + + | Address | [address] [facility] | | | [place] [address] | + + + | Home Phone [...] Author + + + | Author | [facility] | + + + | Organization | [facility] | + + + | Address | Unknown | + + + | Phone | Unavailable | + + + Support + + +---------+ + | Name | Relationship | Address | Phone | + + +---------+ + | Jese Blair | ECON | Unknown | | + + +---------+ + Care Team Providers + +------+ + | Care White Work Cleaner Name | Role | Phone | + +------+ + | Jose Robles MD | PCP | | + +------+ + Encounter Details +--------+ + + + + | Date | Type | Department | Care Team | Description | +--------+ + + + + | 03/15/ | Pharmacy | [facility] | | | | 2019 | Visit | [address] [facility] | | | | | | [facility] 100 | | | | | | [place] [address] | | | | | | [phone] | | | +--------+ + + + [...] Rd | | | | | | [place], [place] | | | | | | [address] | | +--------+ + + + + | 12/25/ | Video/TeleH | Cardiology | Tessie Mabry | | | 2019 | ealth-Sched | | [facility] [address] | | | | uled | | [address] | | | | | | [place], [place] | | | | | | [address] | | | | | | [phone] | | | | | | | | +--------+ + + + + documented as of this encounter Visit Diagnoses Not on filedocumented in this encounter"
--- OUTSIDE RECORDS SUMMARY | ~2019-12-13 | XMS | Encounter Summary ---
Demographics + + + | Address | [address] [facility] | | | [place] [address] | + + + | Home Phone [...] Team Providers + +------+ + | Care Vegetable Loader Name | Role | Phone | + +------+ + | Jose Robles MD | PCP | | + +------+ + Encounter Details +--------+ + + + + | Date | Type | Department | Care Team | Description | +--------+ + + + + | 02/13/ | Pharmacy | [facility] | | | | 2019 | Visit | [address] [facility] | | | | | | [facility] 100 | | | | | | [place] [address] | | | | | | [phone] | | | +--------+ + + + [...] [place] | | | | | | [address] | | +--------+ + + + + | 12/25/ | Video/TeleH | Cardiology | Tessie Mabry | | | 2019 | ealth-Sched | | [facility] [address] | | | | uled | | [address] | | | | | | [place], [place] | | | | | | [address] | | | | | | [phone] | | | | | | | | +--------+ + + + + documented as of this encounter Visit Diagnoses Not on filedocumented in this encounter"
--- OUTSIDE RECORDS SUMMARY | ~2019-12-13 | XMS | Encounter Summary ---
Demographics + + + | Address | [address] [facility] | | | [place] [address] | + + + | Home Phone [...] Team Providers + +------+ + | Care 7Th Grade Teacher Name | Role | Phone | [...] | | 2018 | | Preventive at [facility] | [place] [address] | Request - Medication | | | | [address] | [address] [place], | (Repatha) | | | | [facility] | [place] [address] | | | | | and Healing, | [phone] | | | | | Building [address] | | | | | | [place], [place] | | | | | | [address] | | | | | | [phone] | | | +--------+ + + + [...] | 2019 | michaela-Sched | | [address] [facility] | | | | re | | [address] | | | | | | [place], [place] | | | | | | [address] | | +--------+ + + + + | 12/25/ | Video/TeleH | Cardiology | Tessie Mabry | | | 2020 | ealth-Sched | | M, SKEIN WINDER [address] [facility] | | | | re | | [address] | | | | | | [place], [place] | | | | | | [address] | | | | | | [phone] | | | | | | | [...] | + + + + + | [facility] | [address] | [place] [address] | | | SERVICES, [place] [facility] | | | | | HEALTH [...] [facility] | [address] | [place], [place] | | | SERVICES, LIPID | [address] | [address] | | + + + + + [...] | + + + + + | [facility] | [address] | [place], [place] | | | SERVICES, LIPID | [address] | [address] | | + + + + + documented in this encounter Visit Diagnoses + + | Diagnosis | + + | Hypercholesteremia - Primary Pure hypercholesterolemia | + + documented in this encounter"
--- OUTSIDE RECORDS SUMMARY | ~2019-12-13 | XMS | Encounter Summary ---
Demographics + + + | Address | [address] [facility] | | | [place] [address] | + + + | Home Phone [...] Providers + +------+ + | Care Personal Driver Name | Role | Phone | + +------+ + | Brooks Dempsey DO | PCP | | + +------+ + Encounter Details +--------+ + + + + | Date | Type | Department | Care Team | Description | +--------+ + + + + | 07/28/ | Abstract | Cardiology | Joanie Lynne | | | 2018 | | Preventive at [facility] | [address] [address] | | | | | [address] | [address] [place], | | | | | [facility] | [place] [address] | | | | | and [place], | [phone] | | | | | Building 1 | | | | | | [place], [place] | | | | | | [address] | | | | | | [phone] | | | +--------+ + + + [...] [place] | | | | | | [address] | | +--------+ + + + + | 12/25/ | Video/TeleH | Cardiology | Tessie Mabry | | | 2019 | ealth-Sched | | Mary Jo, BUSINESS CONTINUITY COORDINATOR [address] | | | | uled | | [address] | | | | | | [place], [place] | | | | | | [address] | | | | | | [phone] | | | | | | | | +--------+ + + + + documented as of this encounter Visit Diagnoses Not on filedocumented in this encounter"
--- OUTSIDE RECORDS SUMMARY | ~2019-12-13 | XMS | Encounter Summary ---
Demographics + + + | Address | [address] [facility] | | | [place] [address] | + + + | Home Phone [...] Providers + +------+ + | Care University Partnership Rep Name | Role | Phone | + +------+ + | Jose Robles MD | PCP | | + +------+ + Encounter Details +--------+ + + + + | Date | Type | Department | Care Team | Description | +--------+ + + + + | 05/08/ | Pharmacy | [facility] | | | | 2019 | Visit | [address] [facility] | | | | | | [facility] 100 | | | | | | [place] [address] | | | | | | [phone] | | | +--------+ + + + [...] Rd | | | | | | [place], [place] | | | | | | [address] | | +--------+ + + + + | 12/25/ | Video/TeleH | Cardiology | Tessie Mabry | | | 2019 | ealth-Sched | | [facility] [address] | | | | uled | | [address] | | | | | | [place], [place] | | | | | | [address] | | | | | | [phone] | | | | | | | | +--------+ + + + + documented as of this encounter Visit Diagnoses Not on filedocumented in this encounter"
--- OUTSIDE RECORDS SUMMARY | ~2019-12-13 | XMS | Encounter Summary ---
Demographics + + + | Address | [address] [facility] | | | [place] [address] | + + + | Home Phone [...] Team Providers + +------+ + | Care Mechanical Engineering Technician Name | Role | Phone | + +------+ + | Jose Robles MD | PCP | | + +------+ + Encounter Details +--------+ + + + + | Date | Type | Department | Care Team | Description | +--------+ + + + + | 07/19/ | Pharmacy | [facility] | | | | 2020 | Visit | [address] [facility] | | | | | | [facility] 100 | | | | | | [place] [address] | | | | | | [phone] | | | +--------+ + + + [...] Rd | | | | | | [place], [place] | | | | | | [address] | | +--------+ + + + + | 12/25/ | Video/TeleH | Cardiology | Tessie Mabry | | | 2019 | ealth-Sched | | [facility] [address] | | | | uled | | [address] | | | | | | [place], [place] | | | | | | [address] | | | | | | [phone] | | | | | | | | +--------+ + + + + documented as of this encounter Visit Diagnoses Not on filedocumented in this encounter"
--- OUTSIDE RECORDS SUMMARY | ~2019-12-13 | XMS | Encounter Summary ---
Demographics + + + | Address | [address] [facility] | | | [place] [address] | + + + | Home Phone [...] Team Providers + +------+ + | Care Cell Manager Name | Role | Phone | [...] | 2019 | Encounter | Preventive at [facility] | M, MEDICAL WRITER [address] | appt. on May | | | | [address] | [address] | [address] | | | | [place] for [facility] | [place], [place] | | | | | and Healing, | [address] | | | | | [address] | [phone] | | | | | [place], [place] | | | | | | [address] | | | | | | [phone] | | | +--------+ + + + [...] Rd | | | | | | [place], [place] | | | | | | [address] | | +--------+ + + + + | 12/25/ | Video/TeleH | Cardiology | Tessie Mabry | | | 2019 | ealth-Sched | | Mary Jo, MEDICAL WRITER [address] | | | | uled | | [address] | | | | | | [place], [place] | | | | | | [address] | | | | | | [phone] | | | | | | | | +--------+ + + + + documented as of this encounter Visit Diagnoses Not on filedocumented in this encounter"
--- OUTSIDE RECORDS SUMMARY | ~2019-12-13 | XMS | Encounter Summary ---
Demographics + + + | Address | [address] [facility] | | | [place] [address] | + + + | Home Phone [...] Providers + +------+ + | Care Java Solutions Architect Name | Role | Phone | + +------+ + | Brooks Dempsey DO | PCP | | + +------+ + Encounter Details +--------+ + + + + | Date | Type | Department | Care Team | Description | +--------+ + + + + | 07/01/ | Abstract | Cardiology | Joanie Lynne | | | 2018 | | Preventive at [facility] | [place] [address] | | | | | [address] | [address] [place], | | | | | [facility] | [place] [address] | | | | | and [place]fs[place], | [phone] | | | | | Building 1 | | | | | | [place], [place] | | | | | | [address] | | | | | | [phone] | | | +--------+ + + + [...] | | | | | | [facility] [place] | | | | | | [address] | | +--------+ + + + + | 12/25/ | Video/TeleH | Cardiology | Tessie Mabry | | | 2019 | ealth-Sched | | Mary Jo, DRAFTER ASSISTANT [address] | | | | uled | | [address] | | | | | | [place], [place] | | | | | | [address] | | | | | | [phone] | | | | | | | | +--------+ + + + + documented as of this encounter Visit Diagnoses Not on filedocumented in this encounter"
--- OUTSIDE RECORDS SUMMARY | ~2019-12-13 | XMS | Encounter Summary ---
Demographics + + + | Address | [address] [facility] | | | [place] [address] | + + + | Home Phone [...] Team Providers + +------+ + | Care Forestry Support Specialist Name | Role | Phone | + +------+ + | Jose Robles MD | PCP | | + +------+ + Encounter Details +--------+ + + + + | Date | Type | Department | Care Team | Description | +--------+ + + + + | 09/27/ | Pharmacy | [facility] | | | | 2017 | Visit | Pharmacy [address] | | | | | | [address] | | | | | | [place], [place] | | | | | | [address] | | | | | | [phone] | | | +--------+ + + + [...] [place] | | | | | | [address] | | +--------+ + + + + | 12/25/ | Video/TeleH | Cardiology | Tessie Mabry | | | 2019 | ealth-Sched | | [facility] [address] | | | | uled | | [address] | | | | | | [place], [place] | | | | | | [address] | | | | | | [phone] | | | | | | | | +--------+ + + + + documented as of this encounter Visit Diagnoses Not on filedocumented in this encounter"
--- OUTSIDE RECORDS SUMMARY | ~2019-12-13 | XMS | Encounter Summary ---
Demographics + + + | Address | [address] [facility] | | | [place] [address] | + + + | Home Phone [...] Team Providers + +------+ + | Care Telephone Maintenance Mechanic Name | Role | Phone | + +------+ + | Jose Robles MD | PCP | | + +------+ + Encounter Details +--------+ + + + + | Date | Type | Department | Care Team | Description | +--------+ + + + + | 07/30/ | Pharmacy | [facility] | | | | 2017 | Visit | Services [address] | | | | | | [address] | | | | | | [place], [place] | | | | | | [address] | | | | | | [phone] | | | +--------+ + + + [...] Rd | | | | | | [place] | | | | | | [address] | | +--------+ + + + + | 12/25/ | Video/TeleH | Cardiology | Tessie Mabry | | | 2019 | ealth-Sched | | [facility] [address] | | | | uled | | [address] | | | | | | [place], [place] | | | | | | [address] | | | | | | [phone] | | | | | | | | +--------+ + + + + documented as of this encounter Visit Diagnoses Not on filedocumented in this encounter"
--- OUTSIDE RECORDS SUMMARY | ~2019-12-13 | XMS | Encounter Summary ---
Demographics + + + | Address | [address] [facility] | | | [place] [address] | + + + | Home Phone [...] Team Providers + +------+ + | Care Utility Person Name | Role | Phone | + [...] | 2018 | Encounter | Preventive at [facility] | [place] [facility] [address] | effects? | | | | [address] | [address] [place], | | | | | [place] for [facility] | [place] [address] | | | | | and Healing, | [phone] | | | | | Building [address] | | | | | | [place], [place] | | | | | | [address] | | | | | | [phone] | | | +--------+ + + + [...] | | [facility] [place] | | | | | | [address] | | +--------+ + + + + | 12/25/ | Video/TeleH | Cardiology | Tessie Mabry | | | 2019 | ealth-Sched | | [facility] [address] | | | | uled | | [address] | | | | | | [place], [place] | | | | | | [address] | | | | | | [phone] | | | | | | | | +--------+ + + + + documented as of this encounter Visit Diagnoses Not on filedocumented in this encounter"
--- OUTSIDE RECORDS SUMMARY | ~2019-12-13 | XMS | Encounter Summary ---
Demographics + + + | Address | [address] [facility] | | | [place] [address] | + + + | Home Phone [...] Team Providers + +------+ + | Care Security Solutions Architect Name | Role | Phone [...] | | 2017 | Visit | Pharmacy [address] | | | | | | [address] | | | | | | [place], [place] | | | | | | [address] | | | | | | [phone] | | | +--------+ + + + [...] [place] | | | | | | [address] | | +--------+ + + + + | 12/25/ | Video/TeleH | Cardiology | Tessie Mabry | | | 2019 | ealth-Sched | | [facility] [address] | | | | uled | | [address] | | | | | | [place], [place] | | | | | | [address] | | | | | | [phone] | | | | | | | | +--------+ + + + + documented as of this encounter Visit Diagnoses Not on filedocumented in this encounter"
--- OUTSIDE RECORDS SUMMARY | ~2019-12-13 | XMS | Encounter Summary ---
Demographics + + + | Address | [address] [facility] | | | [place] [address] | + + + | Home Phone [...] Team Providers + +------+ + | Care Cooker Cleaner Name | Role | Phone | + +------+ + | oJse Robles MD | PCP | | + +------+ + Encounter Details +--------+ + + + + | Date | Type | Department | Care Team | Description | +--------+ + + + + | 11/14/ | Pharmacy | [facility] | | | | 2020 | Visit | [address] [facility] | | | | | | [facility] 100 | | | | | | [place] [address] | | | | | | [phone] | | | +--------+ + + + [...] | | | | | | [place], [place] | | | | | | [address] | | +--------+ + + + + | 12/25/ | Video/TeleH | Cardiology | Tessie Mabry | | | 2019 | ealth-Sched | | [facility] [address] | | | | uled | | [address] | | | | | | [place], [place] | | | | | | [address] | | | | | | [phone] | | | | | | | | +--------+ + + + + documented as of this encounter Visit Diagnoses Not on filedocumented in this encounter"
--- OUTSIDE RECORDS SUMMARY | ~2019-12-13 | XMS | Encounter Summary ---
Demographics + + + | Address | [address] [facility] | | | [place] [address] | + + + | Home Phone [...] Team Providers + +------+ + | Care Basket Bottom Machine Operator Name | Role | Phone [...] at [facility] | M, BOOKMOBILE CLERK [address] | for Repatha | | | | [address] | [address] | | | | | [place] for [facility] | [place], [place] | | | | | and Healing, | [address] | | | | | Building [address] | [phone] | | | | | [place], [place] | | | | | | [address] | | | | | | [phone] | | | +--------+ + + + [...] [place] | | | | | | [address] | | +--------+ + + + + | 12/25/ | Video/TeleH | Cardiology | Tessie Mabry | | | 2019 | ealth-Sched | | [facility] [address] | | | | uled | | [address] | | | | | | [place], [place] | | | | | | [address] | | | | | | [phone] | | | | | | | | +--------+ + + + + documented as of this encounter Visit Diagnoses Not on filedocumented in this encounter"
--- OUTSIDE RECORDS SUMMARY | ~2019-12-13 | XMS | Encounter Summary ---
Demographics + + + | Address | [address] | | | [place] [address] | + + + | Home Phone | | + + + | Preferred Language | Unknown | + + + | Marital Status | Single | + + + | Hinduism Affiliation | Unknown | + + + [...] Team Providers + +------+ + | Care Paint Spray Inspector Name | Role | Phone | + +------+ + | Jose Robles MD | PCP | | + +------+ + Encounter Details +--------+ + + + + | Date | Type | Department | Care Team | Description | +--------+ + + + + | 04/05/ | Pharmacy | Specialty Pharmacy | | | | 2017 | Visit | Services [address] | | | | | | [address] | | | | | | [place], [place] | | | | | | [address] | | | | | | [phone] | | | +--------+ + + + [...] Rd | | | | | | [place] | | | | | | [address] | | +--------+ + + + + | 12/25/ | Video/TeleH | Cardiology | Tessie Mabry | | | 2019 | ealth-Sched | | [facility] [address] | | | | uled | | [address] | | | | | | [place], [place] | | | | | | [address] | | | | | | [phone] | | | | | | | | +--------+ + + + + documented as of this encounter Visit Diagnoses Not on filedocumented in this encounter"
--- OUTSIDE RECORDS SUMMARY | ~2019-12-13 | XMS | Encounter Summary ---
Demographics + + + | Address | [address] [facility] | | | [place] [address] | + + + | Home Phone [...] Team Providers + +------+ + | Care Chainer Name | Role | Phone | + [...] | 2020 | Encounter | Preventive at [facility] | M, AIRPORT DUTY MANAGER [address] | | | | | [address] | [address] | | | | | [facility] | [place], [place] | | | | | and [place], | [address] | | | | | [address] | [phone] | | | | | [place], [place] | | | | | | [address] | | | | | | [phone] | | | +--------+ + + + [...] Rd | | | | | | [place], [place] | | | | | | [address] | | +--------+ + + + + | 12/25/ | Video/TeleH | Cardiology | Tessie Mabry | | 2019 | ealth-Sched | | [facility] [address] | | | | uled | | [address] | | | | | | [place], [place] | | | | | | [address] | | | | | | [phone] | | | | | | | | +--------+ + + + + documented as of this encounter Visit Diagnoses Not on filedocumented in this encounter"
--- OUTSIDE RECORDS SUMMARY | ~2019-12-13 | XMS | Encounter Summary ---
Demographics + + + | Address | [address] [facility] | | | [place] [address] | + + + | Home Phone [...] Team Providers + +------+ + | Care Remelt Furnace Expediter Name | Role | Phone | + +------+ + | Jose Robles MD | PCP | | + +------+ + Encounter Details +--------+ + + + + | Date | Type | Department | Care Team | Description | +--------+ + + + + | 08/10/ | Pharmacy | Specialty Pharmacy | | | | 2017 | Visit | Services [address] | | | | | | [address] | | | | | | [place], [place] | | | | | | [address] | | | | | | [phone] | | | +--------+ + + + [...] Rd | | | | | | [place] | | | | | | [address] | | +--------+ + + + + | 12/25/ | Video/TeleH | Cardiology | Tessie Mabry | | | 2019 | ealth-Sched | | [facility] [address] | | | | uled | | [address] | | | | | | [place], [place] | | | | | | [address] | | | | | | [phone] | | | | | | | | +--------+ + + + + documented as of this encounter Visit Diagnoses Not on filedocumented in this encounter"
--- OUTSIDE RECORDS SUMMARY | ~2019-12-13 | XMS | Encounter Summary ---
Demographics + + + | Address | [address] | | | [place] [address] | + + + | Home Phone [...] Team Providers + +------+ + | Care Operator And Truck Driver Name | Role | Phone | + +------+ + | Jose Robles MD | PCP | | + +------+ + Encounter Details +--------+ + + + + | Date | Type | Department | Care Team | Description | +--------+ + + + + | 04/10/ | Pharmacy | [facility] | | | | 2019 | Visit | [address] [facility] | | | | | | [facility] [address] | | | | | | [place] [address] | | | | | | [phone] | | | +--------+ + + + [...] Rd | | | | | | [place], [place] | | | | | | [address] | | +--------+ + + + + | 12/25/ | Video/TeleH | Cardiology | Tessie Mabry | | | 2019 | ealth-Sched | | [facility] [address] | | | | uled | | [address] | | | | | | [place], [place] | | | | | | [address] | | | | | | [phone] | | | | | | | | +--------+ + + + + documented as of this encounter Visit Diagnoses Not on filedocumented in this encounter"
--- OUTSIDE RECORDS SUMMARY | ~2019-12-13 | XMS | Encounter Summary ---
Demographics + + + | Address | [address] [facility] | | | [place] [address] | + + + | Home Phone [...] Team Providers + +------+ + | Care Textile Colorist Formulator Name | Role | Phone | + +------+ + | Jose Robles MD | PCP | | + +------+ + Encounter Details +--------+ + + + + | Date | Type | Department | Care Team | Description | +--------+ + + + + | 09/27/ | Pharmacy | [facility] | | | | 2017 | Visit | Pharmacy [address] | | | | | | [address] | | | | | | [place], [place] | | | | | | [address] | | | | | | [phone] | | | +--------+ + + + [...] [place] | | | | | | [address] | | +--------+ + + + + | 12/25/ | Video/TeleH | Cardiology | Tessie Mabry | | | 2019 | ealth-Sched | | [facility] [address] | | | | uled | | [address] | | | | | | [place], [place] | | | | | | [address] | | | | | | [phone] | | | | | | | | +--------+ + + + + documented as of this encounter Visit Diagnoses Not on filedocumented in this encounter"
--- OUTSIDE RECORDS SUMMARY | ~2019-12-13 | XMS | Encounter Summary ---
Demographics + + + | Address | [address] [facility] [facility] | | | [place] [address] | + + + | Home Phone [...] Team Providers + +------+ + | Care Junior Programmer Analyst Name | Role | Phone | + +------+ + | Jose Robles MD | PCP | | + +------+ + Encounter Details +--------+ + + + + | Date | Type | Department | Care Team | Description | +--------+ + + + + | 01/16/ | Pharmacy | [facility] | | | | 2019 | Visit | [address] [facility] | | | | | | [address] | | | | | | [place] [address] | | | | | | [phone] | | | +--------+ + + + [...] Rd | | | | | | [place], [place] | | | | | | [address] | | +--------+ + + + + | 12/25/ | Video/TeleH | Cardiology | Tessie Mabry | | | 2019 | ealth-Sched | | [facility] [address] | | | | uled | | [address] | | | | | | [place], [place] | | | | | | [address] | | | | | | [phone] | | | | | | | | +--------+ + + + + documented as of this encounter Visit Diagnoses Not on filedocumented in this encounter"
--- OUTSIDE RECORDS SUMMARY | ~2019-12-13 | XMS | Encounter Summary ---
Demographics + + + | Address | [address] [facility] [facility] | | | [place] [address] | + + + | Home Phone [...] Team Providers + +------+ + | Care Blade Changer Name | Role | Phone | + +------+ + | Jose Robles MD | PCP | | + +------+ + Encounter Details +--------+ + + + + | Date | Type | Department | Care Team | Description | +--------+ + + + + | 10/06/ | Pharmacy | Specialty Pharmacy | | | | 2017 | Visit | Services [address] | | | | | | [address] | | | | | | [place], [place] | | | | | | [address] | | | | | | [phone] | | | +--------+ + + + [...] Rd | | | | | | [place] | | | | | | [address] | | +--------+ + + + + | 12/25/ | Video/TeleH | Cardiology | Tessie Mabry | | | 2019 | ealth-Sched | | [facility] [address] | | | | uled | | [address] | | | | | | [place], [place] | | | | | | [address] | | | | | | [phone] | | | | | | | | +--------+ + + + + documented as of this encounter Visit Diagnoses Not on filedocumented in this encounter"
--- OUTSIDE RECORDS SUMMARY | ~2019-12-13 | XMS | Encounter Summary ---
Demographics + + + | Address | [address] | | | [place] [address] | + + + | Home Phone [...] Providers + +------+ + | Care Environmental Services Worker Name | Role | Phone | + +------+ + | Jose Robles MD | PCP | | + +------+ + Encounter Details +--------+ + + + + | Date | Type | Department | Care Team | Description | +--------+ + + + + | 06/18/ | Pharmacy | [facility] | | | | 2020 | Visit | [address] [facility] | | | | | | [facility] 100 | | | | | | [place] [address] | | | | | | [phone] | | | +--------+ + + + [...] Rd | | | | | | [place], [place] | | | | | | [address] | | +--------+ + + + + | 12/25/ | Video/TeleH | Cardiology | Tessie Mabry | | | 2019 | ealth-Sched | | [facility] [address] | | | | uled | | [address] | | | | | | [place], [place] | | | | | | [address] | | | | | | [phone] | | | | | | | | +--------+ + + + + documented as of this encounter Visit Diagnoses Not on filedocumented in this encounter"
--- OUTSIDE RECORDS SUMMARY | ~2019-12-13 | XMS | Encounter Summary ---
Demographics + + + | Address | [address] [facility] | | | [place] [address] | + + + | Home Phone [...] Team Providers + +------+ + | Care Agency Sales Representative Name | Role | Phone | [...] | 2019 | Encounter | Preventive at [facility] | [place] [facility] [address] | preceding an | | | | [address] | [address] [place], | appointment | | | | [place] [facility] | [place] [address] | | | | | and Healing, | [phone] | | | | | Building [address] | | | | | | [place], [place] | | | | | | [address] | | | | | | [phone] | | | +--------+ + + + [...] Rd | | | | | | [facility] [place] | | | | | | [address] | | +--------+ + + + + | 12/25/ | Video/TeleH | Cardiology | Tessie Mabry | | | 2019 | ealth-Sched | | [facility] [address] | | | | uled | | [address] | | | | | | [facility] [place] | | | | | | [address] | | | | | | [phone] | | | | | | | | +--------+ + + + + documented as of this encounter Visit Diagnoses Not on filedocumented in this encounter"
--- OUTSIDE RECORDS SUMMARY | ~2019-12-13 | XMS | Encounter Summary ---
Demographics + + + | Address | [address] [facility] | | | [place] [address] | + + + | Home Phone [...] Team Providers + +------+ + | Care Hog Buyer Name | Role | Phone | + +------+ + | Jose Robles MD | PCP | | + +------+ + Encounter Details +--------+ + + + + | Date | Type | Department | Care Team | Description | +--------+ + + + + | 09/06/ | Pharmacy | Specialty Pharmacy | | | | 2017 | Visit | Services [address] | | | | | | [address] | | | | | | [place], [place] | | | | | | [address] | | | | | | [phone] | | | +--------+ + + + [...] Rd | | | | | | [place] | | | | | | [address] | | +--------+ + + + + | 12/25/ | Video/TeleH | Cardiology | Tessie Mabry | | | 2019 | ealth-Sched | | [facility] [address] | | | | uled | | [address] | | | | | | [place], [place] | | | | | | [address] | | | | | | [phone] | | | | | | | | +--------+ + + + + documented as of this encounter Visit Diagnoses Not on filedocumented in this encounter"
--- OUTSIDE RECORDS SUMMARY | ~2019-12-13 | XMS | Encounter Summary ---
Demographics + + + | Address | [address] [facility] | | | [place] [address] | + + + | Home Phone [...] Team Providers + +------+ + | Care Armor Officer Name | Role | Phone | + +------+ + | Jose Robles MD | PCP | | + +------+ + Encounter Details +--------+ + + + + | Date | Type | Department | Care Team | Description | +--------+ + + + + | 08/12/ | Pharmacy | [facility] | | | | 2020 | Visit | [address] [facility] | | | | | | [facility] 100 | | | | | | [place] [address] | | | | | | [phone] | | | +--------+ + + + [...] Rd | | | | | | [place], [place] | | | | | | [address] | | +--------+ + + + + | 12/25/ | Video/TeleH | Cardiology | Tessie Mabry | | | 2019 | ealth-Sched | | [facility] [address] | | | | uled | | [address] | | | | | | [place], [place] | | | | | | [address] | | | | | | [phone] | | | | | | | | +--------+ + + + + documented as of this encounter Visit Diagnoses Not on filedocumented in this encounter"
--- OUTSIDE RECORDS SUMMARY | ~2019-12-13 | XMS | Encounter Summary ---
Demographics + + + | Address | [address] [facility] | | | [place] [address] | + + + | Home Phone [...] Team Providers + +------+ + | Care Customs Compliance Manager Name | Role | Phone | + +------+ + | Jose Robles MD | PCP | | + +------+ + Encounter Details +--------+ + + + + | Date | Type | Department | Care Team | Description | +--------+ + + + + | 12/29/ | Pharmacy | Specialty Pharmacy | | | | 2017 | Visit | Services [address] | | | | | | [address] | | | | | | [place], [place] | | | | | | [address] | | | | | | [phone] | | | +--------+ + + + [...] Rd | | | | | | [place] | | | | | | [address] | | +--------+ + + + + | 12/25/ | Video/TeleH | Cardiology | Tessie Mabry | | | 2019 | ealth-Sched | | [facility] [address] | | | | uled | | [address] | | | | | | [place], [place] | | | | | | [address] | | | | | | [phone] | | | | | | | | +--------+ + + + + documented as of this encounter Visit Diagnoses Not on filedocumented in this encounter"
--- OUTSIDE RECORDS SUMMARY | ~2019-12-13 | XMS | Encounter Summary ---
Demographics + + + | Address | [address] | | | [place] [address] | + + + | Home Phone | | + + + | Preferred Language | Unknown | + + + | Marital Status | Single | + + + | Judaism Affiliation | Unknown | + + + [...] Providers + +------+ + | Care Java Sdet Name | Role | Phone | + +------+ + | Jose Robles MD | PCP | | + +------+ + Encounter Details +--------+ + + + + | Date | Type | Department | Care Team | Description | +--------+ + + + + | 07/11/ | Pharmacy | [facility] | | | | 2019 | Visit | [address] [facility] | | | | | | [facility] 100 | | | | | | [place] [address] | | | | | | [phone] | | | +--------+ + + + [...] Rd | | | | | | [place], [place] | | | | | | [address] | | +--------+ + + + + | 12/25/ | Video/TeleH | Cardiology | Tessie Mabry | | | 2019 | ealth-Sched | | [facility] [address] | | | | uled | | [address] | | | | | | [place], [place] | | | | | | [address] | | | | | | [phone] | | | | | | | | +--------+ + + + + documented as of this encounter Visit Diagnoses Not on filedocumented in this encounter"
--- OUTSIDE RECORDS SUMMARY | ~2019-12-13 | XMS | Encounter Summary ---
Demographics + + + | Address | [address] [facility] | | | [place] [address] | + + + | Home Phone [...] Team Providers + +------+ + | Care Drama Professor Name | Role | Phone | + +------+ + | Jose Robles MD | PCP | | + +------+ + Encounter Details +--------+ + + + + | Date | Type | Department | Care Team | Description | +--------+ + + + + | 01/30/ | Pharmacy | [facility] | | | | 2017 | Visit | [address] [facility] | | | | | | [facility] 100 | | | | | | [place] [address] | | | | | | [phone] | | | +--------+ + + + [...] | | | | | | [place], [place] | | | | | | [address] | | +--------+ + + + + | 12/25/ | Video/TeleH | Cardiology | Tessie Mabry | | | 2019 | ealth-Sched | | [facility] [address] | | | | uled | | [address] | | | | | | [place], [place] | | | | | | [address] | | | | | | [phone] | | | | | | | | +--------+ + + + + documented as of this encounter Visit Diagnoses Not on filedocumented in this encounter"
--- OUTSIDE RECORDS SUMMARY | ~2019-12-13 | XMS | Encounter Summary ---
Demographics + + + | Address | [address] [facility] [address] [facility] | | | [place] [address] | + + + | Home Phone [...] Providers + +------+ + | Care Cash Register Mechanic Name | Role | Phone | + +------+ + | Brooks Dempsey DO | PCP | | + +------+ + Encounter Details +--------+ + + + + | Date | Type | Department | Care Team | Description | +--------+ + + + + | 07/01/ | Abstract | Cardiology | Joanie Lynne | | | 2018 | | Preventive at [facility] | [place] [facility] [address] | | | | | [address] | [address] [place], | | | | | [facility] | [place] [address] | | | | | and [place], | [phone] | | | | | Building [address] | | | | | | [place], [place] | | | | | | [address] | | | | | | [phone] | | | +--------+ + + + [...] | | | | | | [facility] [place] | | | | | | [address] | | +--------+ + + + + | 12/25/ | Video/TeleH | Cardiology | Tessie Mabry | | | 2019 | ealth-Sched | | Mary Jo, HIDE HANDLER [address] | | | | uled | | [address] | | | | | | [place], [place] | | | | | | [address] | | | | | | [phone] | | | | | | | | +--------+ + + + + documented as of this encounter Visit Diagnoses Not on filedocumented in this encounter"
--- OUTSIDE RECORDS SUMMARY | ~2019-12-13 | XMS | Encounter Summary ---
Demographics + + + | Address | [address] [facility] | | | [place] [address] | + + + | Home Phone [...] Team Providers + +------+ + | Care Historical Society Director Name | Role | Phone | [...] 2018 | | Preventive at [facility] | [place] [facility] [address] | | | | | [address] | [address] [place], | | | | | [facility] | [place] [address] | | | | | and [place], | [phone] | | | | | Building [address] | | | | | | [place], [place] | | | | | | [address] | | | | | | [phone] | | | +--------+ + + + [...] Rd | | | | | | [facility] [place] | | | | | | [address] | | +--------+ + + + + | 12/25/ | Video/TeleH | Cardiology | Tessie Mabry | | | 2019 | ealth-Sched | | Mary Jo, ADOBE BLOCK MAKER [address] | | | | uled | | [address] | | | | | | [place], [place] | | | | | | [address] | | | | | | [phone] | | | | | | | | +--------+ + + + + documented as of this encounter Visit Diagnoses Not on filedocumented in this encounter"
--- OUTSIDE RECORDS SUMMARY | ~2019-12-13 | XMS | Encounter Summary ---
Demographics + + + | Address | [address] [facility] | | | [place] [address] | + + + | Home Phone [...] Team Providers + +------+ + | Care License Registration Examiner Name | Role | Phone | + +------+ + | Jose Robles MD | PCP | | + +------+ + Encounter Details +--------+ + + + + | Date | Type | Department | Care Team | Description | +--------+ + + + + | 10/14/ | Pharmacy | [facility] | | | | 2020 | Visit | [address] [facility] | | | | | | [facility] 100 | | | | | | [place] [address] | | | | | | [phone] | | | +--------+ + + + [...] [place] | | | | | | [address] | | +--------+ + + + + | 12/25/ | Video/TeleH | Cardiology | Tessie Mabry | | | 2019 | ealth-Sched | | [facility] [address] | | | | uled | | [address] | | | | | | [place], [place] | | | | | | [address] | | | | | | [phone] | | | | | | | | +--------+ + + + + documented as of this encounter Visit Diagnoses Not on filedocumented in this encounter"
[~2019-12-13 19:43] MED LIST: LOVASTATIN20 MG PO
[2019-12-13] MEDS ORDERED: LISINOPRIL10 MG PO (19:58)
[2019-12-13] MEDS ORDERED: REPATHA SY140 MG/1 M SQ (19:58)
== END 2019-12-13 21:13 | disposition home or self-care (01) ==
LOC: ED 19:43
DX: T63.481A Toxic effect of venom of other arthropod, accidental (unintentional), initial encounter (principal); I10 Essential (primary) hypertension; Z79.899 Other long term (current) drug therapy
CPT/HCPCS: 99282

== ENCOUNTER 2022-02-25 12:40 | Day surgery (SDC) | payer MEDICARE, OTHER ==
[~2022-02-25] VITALS: Ht 165.1 cm; Wt 79.4 kg
[~2022-02-25 12:40] MED LIST changes: +LISINOPRIL10 MG PO; +REPATHA SY140 MG/1 M SQ
--- NOTE | 2022-02-25 17:20 | NUR ---
02/25/22 Mimi Tucker 1610 PT ARRIVED TO PACU ON 2L VIA NC PT TALKING TO RN. O2 TURNED OFF AND PT RESTING AND EASILY FALLS BACK TO SLEEP. 1617 MD AT BEDSIDE TALKING TO PT. 1645 DC INSTRUCTIONS GIVEN AND FRIEND CALLED FOR RIDE HOME. PAPERWORK AND RX GIVEN.
--- NOTE | 2022-03-02 09:35 | [place] ---
[facility] [address] [place], [place] [address] Signed DATE OF OPERATION: 02/25/2022 SURGEON: Shakira Coleman MD PREOPERATIVE DIAGNOSES: Progressive "heartburn" and mild dysphagia. POSTOPERATIVE DIAGNOSES: 1. Severe ulcerative esophagitis, low-grade stricture. 2. Mild antral gastritis. PROCEDURE: Esophagogastroduodenoscopy with biopsy. ANESTHESIA: Intravenous sedation; fentanyl 100 mcg and Versed 5 mg. INDICATION: This 71-year-old white woman is a patient of Donavan Barba. She is known to me from the past, last seen in 2013, at which time she underwent colonoscopy which was normal. She is referred for upper endoscopy by Dr. Barba with complaints of "indigestion" of longstanding. She takes no PPI medication or H2 shimon, but was recommended to take Gaviscon which is somewhat helpful for her. She has undergone an upper GI in October of 2020, which showed moderate to large amount of gastroesophageal reflux and a sliding-type hiatal hernia. She is admitted to undergo upper endoscopy to better characterize her problem. She understand the risk of bleeding, infection, and perforation. FINDINGS: Severe ulcerative esophagitis was noted. A poor flap valve was also seen. She had a low-grade stricture. There was no sign of malignancy. There was antral gastritis to mild degree. CLOtest was negative 15 minutes post procedure. DESCRIPTION OF PROCEDURE: The patient was brought to the endoscopy suite, given topical lidocaine hypopharyngeal anesthesia, placed in lateral decubitus position. A bite block was placed after satisfactory sedation with full cardiopulmonary monitoring. An Olympus video upper endoscope was passed in the hypopharynx. The vocal cords appeared normal. Scope was advanced to the esophagus without problem and the esophagus Electronically Signed By: SHAKIRA COLEMAN MD 03/02/22 0935 PATIENT NAME: MELISSA MOSQUEDA OPERATIVE REPORT DATE OF : 52 REPORT #: [id number] PHYSICIAN: SHAKIRA COLEMAN MD PCP: DONAVAN BARBA MD REPORT IS CONFIDENTIAL AND NOT TO BE RELEASED WITHOUT AUTHORIZATION [facility] [address] [place], [place] [address] Signed appeared normal except in the distal portion where there is rather severe ulcerative esophagitis including linear ulcerations. There was no sign of Madrid's epithelium proper and certainly no neoplasm, but a low-grade stricture was forming. The scope was easily passed in the stomach. Rugal folds appeared normal. The antrum had mild inflammation. The pylorus was normal and scope was passed through into the duodenum, which was normal. Biopsies were taken of the duodenum and scope withdrawn. Biopsies taken of the antrum for both RASHMI and pathologic testing. Retroflexed view was undertaken showing a marginal flap valve. The scope was straightened, withdrawn and biopsies then taken of the distal esophagus including the ulcerated areas. Further withdrawal of the scope showed no other abnormalities. Scope was removed and the patient was taken to the recovery room in good condition. CONCLUSION DIAGNOSIS: As suspected. This is severe ulcerative esophagitis. PLAN: Recommend Prilosec 20 mg p.o. b.i.d. for a week transitioning to 20 mg daily. She will return to see me in approximately six weeks and we will review her pathology reports and her clinical progress. I suspect she will have much improvement in her symptoms soon. Shakira Coleman MD JM/MODL /[id number] cc: Donavan Barba MD Copies: ~ Electronically Signed By: SHAKIRA COLEMAN MD 03/02/22 0935 PATIENT NAME: MELISSA MOSQUEDA OPERATIVE REPORT DATE OF : 52 REPORT #: [id number] PHYSICIAN: SHAKIRA COLEMAN MD PCP: DONAVAN BARBA MD REPORT IS CONFIDENTIAL AND NOT TO BE RELEASED WITHOUT AUTHORIZATION
--- NOTE | 2022-03-02 22:30 | PATH ---
[facility] [address] [facility] [place], [place] [address] Signed SPECIMEN(S): A DUODENAL BIOPSY SPECIMEN(S): B ANTRUM/PYLORUS BIOPSY SPECIMEN(S): C LOWER ESOPHAGEAL BIOPSY SPECIMEN SOURCE: A. DUODENAL BIOPSY B. ANTRUM/PYLORUS BIOPSY C. LOWER ESOPHAGEAL BIOPSY CLINICAL HISTORY: Dysphagia / reflux. FINAL PATHOLOGIC DIAGNOSIS: A. Duodenum, biopsy: - No significant histopathology. B. Antrum/pylorus, biopsy: - No significant histopathologic alterations. C. Lower esophagus, biopsy: - Acute and chronic esophagitis. COMMENT: Regarding specimen A, the sections from the duodenal biopsy show portions of duodenal mucosa with long finger-like villi. There is no villous atrophy, crypt hyperplasia or intraepithelial lymphocytosis, making a diagnosis of celiac disease unlikely. There is no evidence of peptic duodenitis, microorganisms, abnormal infiltrates or neoplasia. Regarding specimen B, the sections through the gastric biopsies show fragments of histologically unremarkable antral and oxyntic mucosa. There is no evidence of acute or chronic inflammation. There is no evidence of H. pylori, intestinal metaplasia, abnormal infiltrates or neoplasia. Regarding specimen C, the esophageal biopsy shows both acute and chronic inflammation in the squamous epithelium. Acanthosis of the squamous epithelium is identified. No viral or fungal organisms are seen. TWK:melissa:C2NR MICROSCOPIC EXAMINATION: Histologic sections of all submitted blocks are examined by light microscopy. These findings, together with the gross examination, support the pathologic PATIENT NAME: MELISSA MOSQUEDA PATHOLOGY DATE OF : 52 REPORT #: [id number] PHYSICIAN: GLADYS CAGE PCP: JACI BARBA MD REPORT IS CONFIDENTIAL AND NOT TO BE RELEASED WITHOUT AUTHORIZATION [facility] [address] [place], [place] [address] Signed diagnosis. GROSS DESCRIPTION: Three specimens are received in three containers, labeled "LN." A. The specimen, labeled "#1 duodenal biopsy," is received in formalin and consists of a single fragment of bailey soft tissue measuring 0.3 cm in greatest dimension. Entirely submitted in cassette A. B. The specimen, labeled "#2 antrum/pylorus biopsy," is received in formalin and consists of a single fragment of bailey soft tissue measuring 0.4 cm in greatest dimension. Entirely submitted in cassette B. C. The specimen, labeled "#3 lower esophageal biopsy," is received in formalin and consists of four fragments of bailey soft tissue measuring range of 0.2-0.7 cm in greatest dimension. Entirely submitted in cassette C. HH (under the direct supervision of a pathologist) The Gross Description was prepared using a voice recognition system. The report was reviewed for accuracy; however, sound-alike word errors, addition and/or deletions may occur. If there is any question about this report, please contact Client Services. PERFORMING LABORATORY: The technical component was performed by [facility], [address] [place] [id number] (CLIA# [id number]). The professional interpretation was performed by [facility], [facility], [address] [place] [address] (CLIA#: [id number]). Diagnostician: Martinez Malik MD Pathologist Electronically Signed 03/02/2022 Copies: ~ PATIENT NAME: MELISSA MOSQUEDA PATHOLOGY DATE OF : 52 REPORT #: [id number] PHYSICIAN: GLADYS PATHOLOGY PCP: JACI BARBA MD REPORT IS CONFIDENTIAL AND NOT TO BE RELEASED WITHOUT AUTHORIZATION
== END 2022-02-25 16:45 | disposition home or self-care (01) ==
LOC: OPS 12:40 → DS 12:47 → OPS 14:00 → DS 14:00 → OPS 16:45
PROVIDERS: ATTEND Surgery
PROC: 0DB68ZX Excision of Stomach, Via Natural or Artificial Opening Endoscopic, Diagnostic (ICD-10-PCS; 2022-02-25)
PROC: 0DB98ZX Excision of Duodenum, Via Natural or Artificial Opening Endoscopic, Diagnostic (ICD-10-PCS; principal; 2022-02-25 14:00)
DX: K21.00 Gastro-esophageal reflux disease with esophagitis, without bleeding (principal); K29.70 Gastritis, unspecified, without bleeding; E78.5 Hyperlipidemia, unspecified
CPT/HCPCS: G0500; J2250; J3010; J7121

== ENCOUNTER 2023-12-22 11:07 | Emergency (ER) | payer MEDICARE, OTHER ==
[~2023-12-22] VITALS: Ht 165.1 cm; Wt 86.8 kg
[~2023-12-22 11:07] MED LIST changes: +LISINOPRIL-HCT1 EAC2 PO
[2023-12-22] MEDS ORDERED: NITROGLYCERIN 0.4 MG SUBL SL PRN (11:15)
[2023-12-22] MEDS ORDERED: ASPIRIN 81 MG CHEW PO ONE ×2 (11:15)
[2023-12-22 11:22] LABS: BASOPHILS 0.4 % (0-2); EOSINOPHILS 0.6 % (0-6); HEMATOCRIT 44.5 % (35.0-50.0); HEMOGLOBIN 15.5 g/dL (12.0-18.0); LYMPHOCYTES 26.8 % (24-44); MCH 32.7 (27-36); MCHC 34.7 g/dl (30-36); MCV 94.1 fl (81-99); MONOCYTES 11.9 % (0-12); NEUTROPHILS 60.3 % (39-80); PLATELET COUNT 196 K/uL (140-440); RBC 4.73 M/ul (4.3-5.7); RDW 13.1 (10.5-15.0)
[2023-12-22 11:39] LABS: ALBUMIN 3.7 g/dL (3.4-5.0); ALBUMIN/GLOBULIN RATIO 0.97 (1.1-2.4); ANION GAP 13.4 (7-21); BILIRUBIN, TOTAL 0.7 ng/dL (0.2-1.0); BUN/CREATININE RATIO 15.45 (6.0-28.6); CALCIUM 9.5 mg/dL (8.5-10.1); CREATININE, SERUM 1.1 mg/dL (0.55-1.02); MAGNESIUM 1.9 mg/dL (1.8-2.4); POTASSIUM 3.4 mmol/L (3.5-5.1); PROTEIN, TOTAL 7.5 g/dL (6.4-8.2)
[2023-12-22] MEDS ORDERED: SODIUM CHLORIDE 0.9% 500 ML IV PRN (11:45)
[2023-12-22 15:05] VITALS: BP 123/71
--- NOTE | 2023-12-22 21:44 | EKG ---
[facility] [address] [facility] [place] [address] Signed Normal sinus rhythm Normal ECG When compared with ECG of 24-AUG-2023 12:43, No significant change was found Confirmed by Norma Bautista MD () on 12/22/2023 9:44:43 PM Electronically Signed By: NORMA BAUTISTA MD 12/22/232143 PATIENT NAME: MELISSA MOSQUEDA Electrocardiogram DATE OF : 52 PHYSICIAN: NORMA BAUTISTA MD REPORT #: [id number] REPORT IS CONFIDENTIAL AND NOT TO BE RELEASED WITHOUT AUTHORIZATION
--- NOTE | 2023-12-23 14:09 | STRESS ---
[facility] [address] [facility] [place] [address] Signed DATE OF STUDY: 12/22/2023 PROCEDURE: Regular exercise EKG stress test. This is a negative exercise EKG stress test for ischemia. The Jones score is 6, low risk. MD WAYNE Acharya/MODL /[id number] PATIENT NAME: MELISSA MOSQUEDA Stress test DATE OF : 52 PHYSICIAN: JENNIFER STALLINGS MD REPORT #: [id number] REPORT IS CONFIDENTIAL AND NOT TO BE RELEASED WITHOUT AUTHORIZATION
== END 2023-12-22 15:05 | disposition home or self-care (01) ==
LOC: ED 11:07
PROVIDERS: Emergency Medicine
DX: R07.89 Other chest pain (principal); I10 Essential (primary) hypertension; E78.00 Pure hypercholesterolemia, unspecified; Z79.899 Other long term (current) drug therapy
CPT/HCPCS: 36415; 71045; 80053; 83735; 84484; 85025; 93005; 93010; 93017; 99285-25; A9270; J7040

== ENCOUNTER 2024-05-28 10:41 | Emergency (ER) | payer OTHER, MEDICARE ==
[~2024-05-28] VITALS: Ht 165.1 cm; Wt 79.8 kg
[2024-05-28] MEDS ORDERED: ESTRADIOL10 MCG PV (11:04)
[2024-05-28] MEDS ORDERED: FLUOXETINE HCL20 MG PO (11:04)
[2024-05-28] MEDS ORDERED: OMEPRAZOLE20 MG PO (11:04)
[2024-05-28 12:12] VITALS: BP 138/77
== END 2024-05-28 12:13 | disposition home or self-care (01) ==
LOC: ED 10:41
DX: M79.632 Pain in left forearm (principal); I10 Essential (primary) hypertension; E78.00 Pure hypercholesterolemia, unspecified; Z79.899 Other long term (current) drug therapy; W18.30XA Fall on same level, unspecified, initial encounter
CPT/HCPCS: 73090; 73110; 99283

== ENCOUNTER 2024-07-15 12:06 | Emergency (ER) | payer MEDICARE, OTHER ==
[~2024-07-15] VITALS: Ht 165.1 cm; Wt 83.9 kg
[~2024-07-15 12:06] MED LIST changes: +ESTRADIOL10 MCG PV; +FLUOXETINE HCL20 MG PO; +OMEPRAZOLE20 MG PO
[2024-07-15] MEDS ORDERED: ASPIRIN 81 MG CHEW PO ONE (12:30)
[2024-07-15 12:37] LABS: BASOPHILS 0.8 % (0-2); EOSINOPHILS 2.8 % (0-6); HEMATOCRIT 41.6 % (35.0-50.0); HEMOGLOBIN 14.4 g/dL (12.0-18.0); LYMPHOCYTES 28.4 % (24-44); MCH 32.9 (27-36); MCHC 34.7 g/dl (30-36); MCV 94.7 fl (81-99); MONOCYTES 7.3 % (0-12); NEUTROPHILS 60.7 % (39-80); PLATELET COUNT 176 K/uL (140-440); RBC 4.39 M/ul (4.3-5.7); RDW 13.2 (10.5-15.0)
--- NOTE | 2024-07-15 12:47 | EKG ---
[facility] [address] [facility] [place] [address] Signed Normal sinus rhythm Normal ECG When compared with ECG of 22-DEC-2023 11:12, No significant change was found Confirmed by Krystal Villalpando MD ([id number]) on 07/15/2024 12:47:02 PM Electronically Signed By: KRYSTAL VILLALPANDO MD 07/15/24 1247 PATIENT NAME: MELISSA MOSQUEDA Electrocardiogram DATE OF : 52 PHYSICIAN: KRYSTAL VILLALPANDO MD REPORT #: [id number] REPORT IS CONFIDENTIAL AND NOT TO BE RELEASED WITHOUT AUTHORIZATION
[2024-07-15 12:57] LABS: ALBUMIN 3.5 g/dL (3.4-5.0); ALBUMIN/GLOBULIN RATIO 1.13 (1.1-2.4); ANION GAP 11.8 (7-21); BILIRUBIN, TOTAL 0.5 mg/dL (0.2-1.0); BUN/CREATININE RATIO 14.94 (6.0-28.6); CALCIUM 9.2 mg/dL (8.5-10.1); CREATININE, SERUM 0.87 mg/dL (0.55-1.02); POTASSIUM 3.8 mmol/L (3.5-5.1); PROTEIN, TOTAL 6.6 g/dL (6.4-8.2)
[2024-07-15 14:52] VITALS: BP 115/59
== END 2024-07-15 14:53 | disposition home or self-care (01) ==
LOC: ED 12:06
PROVIDERS: Emergency Medicine
DX: R07.2 Precordial pain (principal); I10 Essential (primary) hypertension; Z79.899 Other long term (current) drug therapy
CPT/HCPCS: 36415; 71045; 80053; 84484; 85025; 85379; 93005; 93010; 99285-25; A9270

== ENCOUNTER 2025-02-05 13:26 | Emergency (ER) | payer MEDICARE, OTHER ==
[~2025-02-05] VITALS: Ht 165.1 cm; Wt 74.1 kg
[2025-02-05] MEDS ORDERED: WOMEN'S 50 PLU1 EACH PO (14:01)
[2025-02-05] MEDS ORDERED: VITAMIN D310 MC2 PO (14:02)
[2025-02-05] MEDS ORDERED: CRANBERRY200 MG PO (14:03)
[2025-02-05] MEDS ORDERED: CALCIUM500 MG PO (14:04)
[2025-02-05] MEDS ORDERED: ADULT ASPIRIN R81 MG PO (14:04)
[2025-02-05 14:18] LABS: BLOOD/HGB, URINE TRACE-I (Negative); KETONE, URINE NEGATIVE (Negative); LEUK ESTERASE, URINE LARGE (negative); NITRITE, URINE NEGATIVE (negative)
[2025-02-05 14:26] LABS: BACTERIA, URINE 2+ /hpf (negative); CASTS, URINE NONE SEEN \\lpf; CRYSTALS, URINE NONE SEEN (0-1+); EPITHELIAL CELLS, URINE SQUAMOUS 2+ /lpf (0-1+); REFLEX CULTURE, URINE No (No)
[2025-02-05] MEDS ORDERED: CEPHALEXIN500 MG PO (14:40)
[2025-02-05] MEDS ORDERED: CEPHALEXIN MONOHYDRATE 500 MG CAP PO ONE (14:45)
[2025-02-05 15:00] VITALS: BP 147/74
== END 2025-02-05 15:00 | disposition home or self-care (01) ==
LOC: ED 13:26
PROVIDERS: Emergency Medicine
DX: N39.0 Urinary tract infection, site not specified (principal); I10 Essential (primary) hypertension; Z79.82 Long term (current) use of aspirin; Z79.899 Other long term (current) drug therapy
CPT/HCPCS: 81001; 99283; A9270